=== PATIENT | male | born 1930 | race Caucasian/White ===

== ENCOUNTER 2018-02-09 19:04 | Inpatient (IN) | payer MEDICARE ==
[~2018-02-09] VITALS: Ht 182.9 cm; Wt 82.1 kg
[2018-02-09] MEDS ORDERED: IV NORMAL SALINE 1,000ML 1,000 ML IV SCH (19:30)
[2018-02-09] MEDS ORDERED: FLUD0.1T PO (19:50)
[2018-02-09] MEDS ORDERED: DIPHTH,PERTUSS(ACELL),TET TOX 0.5 ML DISP.SYRIN. VAX IM ONE (20:00)
[2018-02-09 20:07] LABS: BASO % 0 % (0-3); EOS # 0.4 x10^3/uL (0.0-0.7); EOS % 4 % (0-3); HEMATOCRIT 41.4 % (39.0-53.0); LYMPH # 0.8 x10^3/uL (1.0-4.8); LYMPH % 9 % (24-48); MEAN CORPUSCULAR HEMOGLOBIN 33 pg (25-35); MEAN CORPUSCULAR HGB CONC 34 g/dL (31-37); MEAN CORPUSCULAR VOLUME 99 fL (79-100); MONO % 10 % (0-9); NEUT # 7.1 x10^3uL (1.8-7.7); NEUT % 76 % (31-73); PLATELET COUNT 204 x10^3/uL (140-400); RED BLOOD COUNT 4.19 x10^6/uL (4.30-5.70); RED CELL DISTRIBUTION WIDTH 13.8 % (11.5-14.5); WHITE BLOOD COUNT 9.3 x10^3/uL (4.0-11.0)
--- NOTE | 2018-02-09 20:16 | EKG ---
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
[2018-02-09 20:19] LABS: ALBUMIN 4.1 g/dL (3.4-5.0); ALBUMIN/GLOBULIN RATIO 1.2 (1.0-1.7); CALCIUM 8.7 mg/dL (8.5-10.1); CREATININE 1.5 mg/dL (0.7-1.3); GFR 44.2; POTASSIUM 4.4 mmol/L (3.5-5.1); TOTAL BILIRUBIN 0.4 mg/dL (0.2-1.0); TOTAL PROTEIN 7.5 g/dL (6.4-8.2)
--- NOTE | 2018-02-09 20:21 | RAD ---
EXAM: Head CT without contrast; maxillofacial bone CT without contrast; cervical spine CT without contrast. HISTORY: Fall. TECHNIQUE: Computed tomographic images the head, maxillofacial bones and cervical spine were obtained without contrast. *One or more of the following individualized dose reduction techniques were utilized for this examination: 1. Automated exposure control. 2. Adjustment of the mA and/or kV according to patient size. 3. Use of iterative reconstruction technique. COMPARISON: None. FINDINGS: Head and maxillofacial bones: There is a small left frontal scalp and left periorbital soft tissue hematoma. There are foci of gas within the frontal and periorbital soft tissues due to a superimposed laceration. No radiodense foreign body is seen. There is no acute intracranial hemorrhage. There is no mass effect or midline shift. There is no hydrocephalus. There are areas of hypodensity within the cerebral white matter, likely due to chronic small vessel disease. There is no calvarial fracture. No maxillofacial bone fracture is seen. There is evidence of lens surgery. There is paranasal sinus mucosal thickening and there are small air-fluid levels within the sphenoid sinus. There are tiny maxillary sinus mucous retention cysts. The ostiomeatal units are patent. There is rightward nasal septal deviation. The temporomandibular joints are intact. Cervical spine: There is straightening of cervical lordosis. There is minimal anterolisthesis of C2 on C3 and C7 on T1. There is degenerative endplate remodeling with osteophytosis at the majority of the cervical vertebral levels. There is facet arthropathy at multiple levels. This is described in detail below. There is no fracture or suspicious osseous lesion. At C2-C3, there is a disc bulge. There is mild right facet arthropathy. There is no stenosis. At C3-C4, there is a disc bulge. There is endplate osteophytosis. There is uncovertebral arthropathy. There is moderate right and severe left foraminal stenosis. At C4-C5, there is a right paracentral disc protrusion and osteophyte complex superimposed on a disc bulge and endplate osteophytosis. There is uncovertebral arthropathy. There is severe right and moderate left foraminal stenosis. There is mild central canal stenosis. At C5-C6, there is a right paracentral disc protrusion and osteophyte complex superimposed on a disc bulge and endplate osteophytosis. There is uncovertebral arthropathy. There is moderate right and severe left foraminal stenosis. There is mild to moderate central canal stenosis. At C6-C7, there is a disc bulge and endplate osteophytosis. There is uncovertebral arthropathy. There is severe bilateral foraminal stenosis. There is mild central canal stenosis. At C7-T1, there is a disc bulge and endplate osteophytosis. There is severe right and mild left facet arthropathy. There is moderate to severe right foraminal stenosis. IMPRESSION: 1. Left frontal scalp and periorbital soft tissue hematoma. There is no acute intracranial finding or evidence of acute maxillofacial bone trauma. There are foci of gas within the left frontal and periorbital soft tissues due to a laceration. There is no radiodense foreign body. 2. Mild cerebral volume loss. 3. Mild paranasal sinus disease. 4. Multilevel degenerative change within the cervical spine, resulting in significant stenosis before mentioned levels. Electronically signed by: Olinda Valente MD (02/09/2018 8:17 PM) [facility]
--- NOTE | 2018-02-09 20:38 | RAD ---
EXAM: Pelvis, single view; chest, single view. HISTORY: Fall. COMPARISON: None. FINDINGS: CHEST: A frontal view of the chest is obtained. There is suspected bilateral lower lobe atelectasis. There is no consolidation, pleural effusion or pneumothorax. The heart is normal in size. Pelvis: A frontal view of the pelvis is obtained. There is no fracture, dislocation or subluxation. There is degenerative endplate remodeling with spurring involving the lower lumbar spine. There are multiple surgical clips within the pelvis. IMPRESSION: 1. Suspected bilateral lower lobe atelectasis. 2. No acute osseous finding. Electronically signed by: Olinda Valente MD (02/09/2018 8:35 PM) [facility]
[2018-02-09] MEDS ORDERED: LIDOCAINE 2%/EPI 1:100,000 20 ML VIAL. ONE (21:31)
[2018-02-09 21:54] LABS: BACTERIA,URINE 0 /HPF (0-FEW); BILIRUBIN,URINE NEG (NEG); CLARITY,URINE CLEAR; COLOR,URINE STRAW; GLUCOSE,URINE NEG (NEG); NITRITE,URINE NEG (NEG); UROBILINOGEN,URINE 0.2 mg/dL (0.2 mg/dL); WBC,URINE OCC /HPF (0-4)
[2018-02-09 21:55] LABS: HYALINE CASTS, URINE FEW /HPF
[2018-02-09] MEDS ORDERED: LIDOCAINE 2%/EPI 1:100,000 20 ML VIAL. IJ ONE (22:00)
[2018-02-10] MEDS ORDERED: MORPHINE SULFATE 2 MG/ML DISP.SYRIN. IV PRN
[2018-02-10] MEDS ORDERED: ONDANSETRON PF 4 MG/2 ML VIAL. IV PRN
[2018-02-10 02:09] VITALS: BP 141/79
[2018-02-10] MEDS: CLINDAMYCIN HCL 150 MG CAPSULE PO SCH ×5 (03:58→21:16)
--- NOTE | 2018-02-10 04:32 | PHYS DOC ---
Past History Past Medical History: Anemia, Cancer, Dementia, GERD, Glaucoma Past Surgical History: Cancer Surgery Alcohol Use: None Drug Use: None Adult General Chief Complaint Chief Complaint: HEAD INJURY/TRAUMA HPI HPI 88-year-old male with a history of dementia lives at home with his now brought in by POV for evaluation after fall with a head wound. states she came home and found her had fallen and suffered a head wound. It is unclear whether he is amnestic to the events or his inability to provide detail about the fall is baseline for his dementia. Patient is alert and denies neck pain or back pain. Collar placed on arrival/ M.D. evaluation. Tetanus status is unknown. Patient denies being aware of any prodromal symptoms. Review of Systems Review of Systems Constitutional: Denies fever or chills [] Eyes: Denies change in visual acuity, redness, or eye pain [] HENT: Denies nasal congestion or sore throat [] Respiratory: Denies cough or shortness of breath [] Cardiovascular: No additional information not addressed in HPI [] GI: Denies abdominal pain, nausea, vomiting, bloody stools or diarrhea [] : Denies dysuria or hematuria [] Musculoskeletal: Denies back pain or joint pain [] Integument: Denies rash or skin lesions [] Neurologic: Denies headache, focal weakness or sensory changes [] Endocrine: Denies polyuria or polydipsia [] All other systems were reviewed and found to be within normal limits, except as documented in this note. Current Medications Current Medications Current Medications Medications (Trade) Dose Ordered Sig/Markie Start Time Stop Time Status Last Admin Dose Admin Clindamycin HCl (Cleocin) 300 mg QID 02/10/18 00:00 02/15/18 00:00 02/10/18 03:58 300 MG Diphtheria/ Tetanus/Acell Pertussis (Boostrix) 0.5 ml ONCE ONCE 02/09/18 20:00 02/09/18 20:07 DC 02/09/18 20:30 0.5 ML Lidocaine/ Epinephrine (Xylocaine 2%-Epi 1:100,000) 20 ml 1X ONCE 02/09/18 22:00 02/09/18 22:01 DC 02/09/18 21:36 20 ML Morphine Sulfate (Morphine 2mg Syringe) 2 mg PRN Q2HR PRN 02/10/18 00:00 02/10/18 23:59 Ondansetron HCl (Zofran) 4 mg PRN Q4HRS PRN 02/10/18 00:00 02/10/18 23:59 Sodium Chloride 1,000 ml @ 125 mls/hr Q8H 02/09/18 23:56 02/10/18 23:55 Allergies Allergies Allergies Coded Allergies Type Severity Reaction Last Updated Verified Penicillins Allergy Intermediate 02/09/18 Yes Physical Exam Physical Exam Constitutional: Chronically weak appearing elderly male. He is confused consistent with his baseline of dementia per son. 8 cm total length stellate wound left forehead without bony crepitus. No gross contamination of wound. No step off or focal bony tenderness of C-spine. Collar placed on initial evaluation. HENT: Normocephalic, no Do sign, no hemotympanum bilateral external ears normal, oropharynx moist, no oral exudates, nose normal. [] Eyes: PERRLA, EOMI, conjunctiva normal, no discharge. [] Neck: In-line immobilization maintained during exam and collar replaced, no tenderness, no stridor. [] Cardiovascular:Heart rate regular rhythm, no murmur [] Lungs & Thorax: Bilateral breath sounds clear to auscultation [] Abdomen: Bowel sounds normal, soft, no tenderness, no masses, no pulsatile masses. [] Skin: Warm, dry, no erythema, no rash. [] Back: No tenderness, no CVA tenderness. No spinal tenderness[] Extremities: No tenderness, no cyanosis, no clubbing, ROM intact, no edema. [ Nontender stable pelvis] Neurologic: Alert and oriented 2 baseline per son, normal motor function, normal sensory function, no focal deficits noted. [] Psychologic: Depressed mood and flat affect Current Patient Data Vital Signs Vital Signs Date Time Temp Pulse Resp B/P (MAP) Pulse Ox O2 Delivery O2 Flow Rate FiO2 02/10/18 02:09 99.2 83 17 141/79 (99) 97 Room Air Lab Results Laboratory Tests Test 02/09/18 19:30 02/09/18 20:02 02/09/18 21:04 White Blood Count 9.3 x10^3/uL (4.0-11.0) Red Blood Count 4.19 x10^6/uL (4.30-5.70) L Hemoglobin 14.0 g/dL (13.0-17.5) Hematocrit 41.4 % (39.0-53.0) Mean Corpuscular Volume 99 fL (79-100) Mean Corpuscular Hemoglobin 33 pg (25-35) Mean Corpuscular Hemoglobin Concent 34 g/dL (31-37) Red Cell Distribution Width 13.8 % (11.5-14.5) Platelet Count 204 x10^3/uL (140-400) Neutrophils (%) (Auto) 76 % (31-73) H Lymphocytes (%) (Auto) 9 % (24-48) L Monocytes (%) (Auto) 10 % (0-9) H Eosinophils (%) (Auto) 4 % (0-3) H Basophils (%) (Auto) 0 % (0-3) Neutrophils # (Auto) 7.1 x10^3uL (1.8-7.7) Lymphocytes # (Auto) 0.8 x10^3/uL (1.0-4.8) L Monocytes # (Auto) 1.0 x10^3/uL (0.0-1.1) Eosinophils # (Auto) 0.4 x10^3/uL (0.0-0.7) Basophils # (Auto) 0.0 x10^3/uL (0.0-0.2) Sodium Level 145 mmol/L (136-145) Potassium Level 4.4 mmol/L (3.5-5.1) Chloride Level 105 mmol/L (98-107) Carbon Dioxide Level 31 mmol/L (21-32) Anion Gap 9 (6-14) Blood Urea Nitrogen 23 mg/dL (8-26) Creatinine 1.5 mg/dL (0.7-1.3) H Estimated GFR (Cockcroft-Gault) 44.2 BUN/Creatinine Ratio 15 (6-20) Glucose Level 121 mg/dL (70-99) H Calcium Level 8.7 mg/dL (8.5-10.1) Total Bilirubin 0.4 mg/dL (0.2-1.0) Aspartate Amino Transferase (AST) 16 U/L (15-37) Alanine Aminotransferase (ALT) 20 U/L (16-63) Alkaline Phosphatase 85 U/L (46-116) Troponin I Quantitative < 0.017 ng/mL (0-0.055) Total Protein 7.5 g/dL (6.4-8.2) Albumin 4.1 g/dL (3.4-5.0) Albumin/Globulin Ratio 1.2 (1.0-1.7) Glucose (Fingerstick) 113 mg/dL (70-99) H Urine Collection Type U cath Urine Color Straw Urine Clarity Clear Urine pH 5.0 Urine Specific [place] 1.020 Urine Protein Neg (NEG-TRACE) Urine Glucose (UA) Neg mg/dL (NEG) Urine Ketones (Stick) Neg mg/dL (NEG) Urine Blood Small (NEG) Urine Nitrite Neg (NEG) Urine Bilirubin Neg (NEG) Urine Urobilinogen Dipstick 0.2 mg/dL (0.2 mg/dL) Urine Leukocyte Esterase Neg (NEG) Urine RBC 1-2 /HPF (0-2) Urine WBC Occ /HPF (0-4) Urine Squamous Epithelial Cells None /LPF Urine Bacteria 0 /HPF (0-FEW) Urine Hyaline Casts Few /HPF Urine Mucus Slight /LPF EKG EKG Normal sinus rhythm at 76 normal axis no STEMI interpreted by me[] Radiology/Procedures Radiology/Procedures Chest x-ray with chronic changes no acute disease no displaced fracture interpreted by me Pelvis x-ray with chronic changes no acute disease no displaced fracture interpreted by me[] Repair of complex stellate wound left lateral forehead by YVETTE Clements Verbal consent by patient's son who has power of dog walker. 8 cm total wound length with multiple flaps. 1% lidocaine with epi instilled and wound extensively irrigated with high pressure jet irrigation. Devitalized margins debrided. 2 subcutaneous 5-0 Vicryl sutures placed for approximation of subcutaneous soft tissues. Wound hemostatic. Skin repaired with 15 interrupted 6-0 Ethilon sutures with good approximation, cosmesis, and hemostasis. Patient tolerated well without complication Course & Med Decision Making Course & Med Decision Making Pertinent Labs and Imaging studies reviewed. (See chart for details) Patient status post fall with head injury. Nonfocal neurologic exam. CT head, maxillofacial and C-spine unremarkable for acute injury. X-ray chest and pelvis benign. Remainder of workup unremarkable. Tetanus administered. Complex wound repaired see note. Case discussed with patient's primary care physician Dr. Hernandez is aware the history and findings and accept the patient for inpatient admission his service for further workup and treatment as needed. Dragon Disclaimer Dragon Disclaimer This electronic medical record was generated, in whole or in part, using a voice recognition dictation system. Departure Departure: Impression: Primary Impression: Closed head injury Additional Impressions: Complex laceration of face Generalized weakness Dementia Isygizxhbx-iintcyyle-kzrslst (DPT) vaccination administered at current visit Disposition: ADMITTED INPATIENT Admitting Physician: Mady Hernandez Condition: IMPROVED Referrals: MADY HERNANDEZ MD (PCP) Problem Qualifiers DARIELA MORENO MD February 10, 2018 04:32
[2018-02-10 05:28] VITALS: BP 135/72
[2018-02-10 06:42] LABS: BASO % 0 % (0-3); EOS # 0.2 x10^3/uL (0.0-0.7); EOS % 2 % (0-3); HEMATOCRIT 35.2 % (39.0-53.0); HEMOGLOBIN 12.4 g/dL (13.0-17.5); LYMPH # 0.8 x10^3/uL (1.0-4.8); LYMPH % 9 % (24-48); MEAN CORPUSCULAR HEMOGLOBIN 34 pg (25-35); MEAN CORPUSCULAR HGB CONC 35 g/dL (31-37); MEAN CORPUSCULAR VOLUME 98 fL (79-100); MONO # 1.5 x10^3/uL (0.0-1.1); MONO % 15 % (0-9); NEUT # 7.2 x10^3uL (1.8-7.7); NEUT % 74 % (31-73); PLATELET COUNT 169 x10^3/uL (140-400); RED BLOOD COUNT 3.61 x10^6/uL (4.30-5.70); WHITE BLOOD COUNT 9.7 x10^3/uL (4.0-11.0)
[2018-02-10 07:01] LABS: CALCIUM 8.2 mg/dL (8.5-10.1); CREATININE 1.2 mg/dL (0.7-1.3); GFR 57.1; POTASSIUM 4.2 mmol/L (3.5-5.1)
[2018-02-10 11:00] VITALS: BP 135/72
[2018-02-10 15:02] VITALS: BP 133/77
[2018-02-10 19:22] VITALS: BP 129/57
[2018-02-10] MEDS: IV NORMAL SALINE 1,000ML 1,000 ML IV SCH (20:09)
[2018-02-10] MEDS: NYSTATIN TOPICAL POWDER 15GM BOTTLE. TP SCH (21:16)
[2018-02-10] MEDS: BRIMONIDINE 0.2% OPHTH SOLUTION 5ML BOTTLE. OU SCH (21:16)
[2018-02-10] MEDS: LACTOBACILLUS RHAMNOSUS GG 1 CAPSULE. PO SCH (21:16)
[2018-02-10] MEDS: LATANOPROST 0.005% OPHTH SOLUTION 2.5ML BOTTLE. OU SCH (21:16)
[2018-02-10 23:02] VITALS: BP 119/70
[2018-02-11 03:06] VITALS: BP 122/71
[2018-02-11] MEDS: IV NORMAL SALINE 1,000ML 1,000 ML IV SCH ×2 (04:35→22:06)
[2018-02-11 07:00] VITALS: BP 140/83
--- NOTE | 2018-02-11 08:01 | CONS ---
DATE OF CONSULTATION: 02/11/2018 NEUROLOGIC CONSULT REFERRING PHYSICIAN: Dr. Adam Campos. HISTORY OF PRESENT ILLNESS: This is an 88-year-old right-handed male who was admitted to Emergency Room after he presented with a longstanding history of dementia and recent fall and head injuries. According to the patient's , her had a fall at home in head injuries and left frontal hematoma. Apparently, the patient did not recall the fall. Not remember whether he lost his consciousness or not. EMS was evaluated and brought the patient to Emergency Room where he was found alert and having a hematoma in the left frontal and swelling of the left orbital region. Currently, the patient denies headaches, neck or lower back pain, chest pain, shortness of breath or palpitation, dysarthria, dysphagia, weakness or paresthesia. Initial nonenhanced head CT scan and facial bones CT revealed left frontal skull and periorbital soft tissue hematoma without acute intracranial process or maxillofacial bone fracture. PAST MEDICAL HISTORY: Significant for prostate cancer, GERD, incontinence, glaucoma, dementia and anemia. PAST SURGICAL HISTORY: Status post prostatectomy and orthopedic surgery. FAMILY HISTORY: Non-obtainable. SOCIAL HISTORY: The patient is . He lives with his at home. He denies smoking, alcohol drinking, or illicit drug use. The patient has been followed by [place] physicians. CURRENT HOME MEDICATIONS: Brimonidine, fludrocortisone, Xalatan, eye drops. ALLERGIES: PENICILLIN. PHYSICAL EXAMINATION: GENERAL: Well-developed, well-nourished male, not in acute distress. He weighs 189 pounds. VITAL SIGNS: Blood pressure 129/57, respiratory rate is 15, pulse is 77 and regular, temperature 98.3, oxygen saturation 95% on room air. HEENT: Normocephalic. The patient had swelling of the left frontal region and periorbital region secondary to fall with a small hematoma. NECK: Supple, negative for carotid bruit, lymphadenopathy, thyromegaly or JVD. LUNGS: Clear to A and P. CARDIOVASCULAR: Regular rate and rhythm, normal S1, S2. ABDOMEN: Soft. Bowel sounds positive. EXTREMITIES: Negative for cyanosis, clubbing or pitting edema. NEUROLOGIC: Mental Status: The patient is alert and oriented to date and himself. Speech is slow. There is no apparent language dysfunction; however, the patient is very forgetful. He recalls 0/3 immediately and after 1 and 3 minutes. Judgment and abstract thinking are poor. The patient denies hallucination or delusion. Cranial nerves: The pupils are reactive to light and accommodation. The extraocular movements are intact. There is no nystagmus. There is no facial motor or sensory deficit. Hearing appeared to be intact. The palate is elevated symmetrically. Sternocleidomastoid muscles are powerful bilaterally. The patient shrugs his shoulders symmetrically and protrudes his tongue in the midline without fasciculation or atrophy. Motor: No focal muscle bulk was seen. The tone is normal. The strength is 4/5 throughout. Sensory Examination revealed normal pinprick and light touch senses throughout. Deep tendon reflexes were symmetric and hypoactive with absent Achilles responses. Gait not tested. DIAGNOSTIC DATA: Initial nonenhanced head CT scan revealed no evidence of acute intracranial process, but shows a generalized cerebral atrophy without any facial bone fracture. CT of the cervical spine revealed multilevel degenerative changes with disk protrusion and osteophyte complexes resulted in a moderate to severe neural foraminal stenosis, more prominent at C5-C6. A chest x-ray revealed bilateral lobe atelectasis without acute cardiopulmonary process. Pelvic x-ray revealed no acute changes. LABORATORY DATA: CBC revealed white blood cells of 9.7 thousand, hemoglobin 12.4, hematocrit 35.2, platelet count 169,000. Chemistry revealed sodium of 143, potassium 4.2, chloride 108, CO2 of 27, BUN is 17, creatinine 1.2, glucose 107, calcium 8.2. Troponin level less is normal. Urinalysis is negative for urinary tract infections. IMPRESSION: 1. Status post fall resulted in head injuries and a left frontal and periorbital hematomas. 2. Long history of dementia. 3. Multiple medical problems include a GERD, glaucoma and prostate cancer. RECOMMENDATIONS: Continue with current management and home medications. From Neurology standpoint, the patient is stable. He needs a physical therapy evaluation. M Evie NAVARRO MD DR: KWASI/laney JOB#: [id number] / [id number]
[2018-02-11 08:31] LABS: CALCIUM 8.2 mg/dL (8.5-10.1); CREATININE 1.2 mg/dL (0.7-1.3); GFR 57.1; POTASSIUM 4.5 mmol/L (3.5-5.1)
[2018-02-11] MEDS: BRIMONIDINE 0.2% OPHTH SOLUTION 5ML BOTTLE. OU SCH ×2 (09:23→21:11)
[2018-02-11] MEDS: FLUDROCORTISONE 0.1 MG TABLET PO SCH (09:23)
[2018-02-11] MEDS: NYSTATIN TOPICAL POWDER 15GM BOTTLE. TP SCH ×2 (09:23→21:11)
[2018-02-11] MEDS: LACTOBACILLUS RHAMNOSUS GG 1 CAPSULE. PO SCH ×2 (09:23→21:11)
[2018-02-11] MEDS: CLINDAMYCIN HCL 150 MG CAPSULE PO SCH ×4 (09:23→21:11)
[2018-02-11 11:58] VITALS: BP 116/72
[2018-02-11 15:00] VITALS: BP 123/72
[2018-02-11 19:20] VITALS: BP 135/71
[2018-02-11] MEDS: LATANOPROST 0.005% OPHTH SOLUTION 2.5ML BOTTLE. OU SCH (21:11)
[2018-02-11 23:00] VITALS: BP 147/84
--- NOTE | 2018-02-11 23:54 | PN ---
DATE: SUBJECTIVE: The patient complains of headache and pain confined to the left side of the face and frontal and temporal region. He denies other medical or neurological complaints. OBJECTIVE: GENERAL: Well-developed and well-nourished male, not in acute distress. VITAL SIGNS: Blood pressure 140/83, respiratory rate 18, pulse is 90 and regular, temperature 97.6, and oxygen saturation 98% on room air. HEENT: Consistent with left frontal and orbital hematoma. NECK: Supple. Negative for carotid bruit, lymphadenopathy, JVD or thyromegaly. LUNGS: Clear to A and P. CARDIOVASCULAR: Regular rate and rhythm, normal S1, S2. ABDOMEN: Soft. Bowel sounds positive. EXTREMITIES: Negative for cyanosis, clubbing, or pitting edema. NEUROLOGIC: The patient is awake, but disoriented to place and date. The speech is slow. Memory, judgment, abstract thinkings are fair. The patient denies hallucination or delusion. Cranial nerves are intact. No focal motor or sensory deficit. Deep tendon reflexes were symmetric and hypoactive without pathology responses. Gait not tested. IMPRESSION: 1. Status post fall and head injuries - stable. 2. Negative head CT scan for acute intracranial process or hemorrhage. 3. Multiple level degenerative disk disease. 4. Dementia. 5. Glaucoma. 6. History of prostate cancer. RECOMMENDATIONS: 1. Continue with current management. 2. Physical therapy as tolerated. M Evie NAVARRO MD DR: KWASI/laney JOB#: [id number] / [id number]
[2018-02-12] MEDS: IV NORMAL SALINE 1,000ML 1,000 ML IV SCH ×2 (00:30→08:44)
--- NOTE | 2018-02-12 01:42 | PN ---
DATE: 02/11/2018 SUBJECTIVE: An 88-year-old gentleman came in yesterday falling, have a mild concussion. He says that he may have fallen off a ladder. He is a little bit more alert today; however, is still somewhat groggy showing some signs of dementia. PHYSICAL EXAMINATION: VITAL SIGNS: Blood pressure 140/80, respiratory 18, pulse 90, afebrile. HEENT: The patient has a patch over the left forehead where he has contusion, otherwise. CARDIOVASCULAR: Regular sinus rhythm, S1, S2, without murmur, rub, thrill, or extra heart sound. ABDOMEN: Soft, nontender, no rebounding or guarding. Positive bowel sounds. IMPRESSION: Concussion, closed head injury, complex laceration of the face, generalized weakness, mild dementia. PLAN: As above. Continue to monitor the patient accordingly and make further evaluation with PT, OT and Neurology consults. MADY HERNANDEZ MD DR: BERTA/laney JOB#: [id number] / [id number]
[2018-02-12] MEDS ORDERED: HALOPERIDOL LACT 5 MG/ML VIAL. IVP PRN ×2 (01:45→03:30)
[2018-02-12 06:00] VITALS: BP 140/90
[2018-02-12 06:41] LABS: BASO % 0 % (0-3); EOS # 0.4 x10^3/uL (0.0-0.7); EOS % 5 % (0-3); HEMATOCRIT 35.1 % (39.0-53.0); HEMOGLOBIN 12.3 g/dL (13.0-17.5); LYMPH # 0.9 x10^3/uL (1.0-4.8); LYMPH % 12 % (24-48); MEAN CORPUSCULAR HEMOGLOBIN 34 pg (25-35); MEAN CORPUSCULAR HGB CONC 35 g/dL (31-37); MEAN CORPUSCULAR VOLUME 98 fL (79-100); MONO # 1.2 x10^3/uL (0.0-1.1); MONO % 17 % (0-9); NEUT # 4.8 x10^3uL (1.8-7.7); NEUT % 66 % (31-73); PLATELET COUNT 165 x10^3/uL (140-400); RED BLOOD COUNT 3.59 x10^6/uL (4.30-5.70); RED CELL DISTRIBUTION WIDTH 13.9 % (11.5-14.5); WHITE BLOOD COUNT 7.3 x10^3/uL (4.0-11.0)
[2018-02-12] MEDS: FLUDROCORTISONE 0.1 MG TABLET PO SCH (08:45)
[2018-02-12] MEDS: CLINDAMYCIN HCL 150 MG CAPSULE PO SCH (08:45)
[2018-02-12] MEDS: LACTOBACILLUS RHAMNOSUS GG 1 CAPSULE. PO SCH (08:45)
[2018-02-12] MEDS: BRIMONIDINE 0.2% OPHTH SOLUTION 5ML BOTTLE. OU SCH (08:46)
[2018-02-12] MEDS: NYSTATIN TOPICAL POWDER 15GM BOTTLE. TP SCH (08:46)
--- NOTE | 2018-02-12 10:24 | PN ---
DATE: 02/12/2018 SUBJECTIVE: The patient continues to complain of mild headaches. He denies any new medical or neurological complaints. OBJECTIVE: GENERAL: Well-developed, well-nourished male, not in acute distress. VITAL SIGNS: Blood pressure 140/90, respiratory rate 14, pulse is 65 and regular, temperature is 99, oxygen saturation 95% on room air. HEENT: Normocephalic. The patient has ecchymosis in the left frontal region secondary to falls and laceration. NECK: Supple. Negative for carotid bruit, lymphadenopathy, or thyromegaly. LUNGS: Clear to A and P. CARDIOVASCULAR: Regular rate and rhythm, normal S1-S2. There is no S3, S4, or murmur. ABDOMEN: Soft. Bowel sounds positive. EXTREMITIES: Negative for cyanosis, clubbing, or pitting edema. NEUROLOGICAL: Mental Status: The patient is alert and oriented to place and himself. He is disoriented to time. Speech is slow. Memory, judgment, and abstracting thinking are fair. The patient denies hallucination or delusion. Cranial nerves are intact. No focal motor deficit. The strength is 4/5 throughout. Sensory examination revealed normal pinprick and light touch senses throughout. Deep tendon reflexes were symmetric and hypoactive with absent Achilles responses. Gait not tested. IMPRESSION: 1. Status post a fall resulting in left frontal and orbital hematoma that is improved. 2. Dementia. 3. Generalized weakness. 4. Multiple level degenerative cervical disk disease. RECOMMENDATIONS: Continue with current management and physical therapy as tolerated. M Evie NAVARRO MD DR: KWASI/laney JOB#: [id number] / [id number]
[2018-02-12 11:55] VITALS: BP 118/64
[2018-02-12] MEDS ORDERED: LATA2.5D3 OU (12:46)
[2018-02-12] MEDS ORDERED: BRIM5DRO4 OU (12:46)
[2018-02-12] MEDS ORDERED: NYST60PO TP (12:46)
[2018-02-12] MEDS ORDERED: CHOL10003 PO (12:48)
[2018-02-12] MEDS ORDERED: ACET325T9 PO (12:48)
[2018-02-12] MEDS ORDERED: ASPI-630 PO (12:48)
[2018-02-12] MEDS ORDERED: CYAN10005 PO (12:48)
[2018-02-12] MEDS ORDERED: PRAZ1CAP2 PO (12:49)
== END 2018-02-12 17:00 | disposition home health service (06) | DRG 580 ==
LOC: ER 19:04 → ICU 02-10 01:23
PROVIDERS: ADMIT Family Medicine; ATTEND Family Medicine
PROC: 0JQ10ZZ Repair Face Subcutaneous Tissue and Fascia, Open Approach (ICD-10-PCS; principal; 2018-02-10)
DX: S01.81XA Laceration without foreign body of other part of head, initial encounter (principal); S06.0X9A Concussion with loss of consciousness of unspecified duration, initial encounter; G30.9 Alzheimer's disease, unspecified; F02.80 Dementia in other diseases classified elsewhere, unspecified severity, without behavioral disturbance, psychotic disturbance, mood disturbance, and anxiety; H40.9 Unspecified glaucoma; K21.9 Gastro-esophageal reflux disease without esophagitis; M50.30 Other cervical disc degeneration, unspecified cervical region; W19.XXXA Unspecified fall, initial encounter; Y93.89 Activity, other specified; Y99.8 Other external cause status; Z85.46 Personal history of malignant neoplasm of prostate; Z90.79 Acquired absence of other genital organ(s); Z87.891 Personal history of nicotine dependence; Z79.899 Other long term (current) drug therapy; Z88.0 Allergy status to penicillin; Y92.009 Unspecified place in unspecified non-institutional (private) residence as the place of occurrence of the external cause
CPT/HCPCS: 12015; 36415; 70450; 70486; 71045; 72125; 72170; 80048; 80053; 81001; 82947; 84484; 85025; 87641; 90471; 90715; 93005; 96360; J1630; P9612; 97530; 99285-25; J7030

== ENCOUNTER → 2018-02-20 | Outpatient (CLI) | payer MEDICARE ==
[2018-02-12 11:55] VITALS: BP 118/64
[~2018-02-20] MED LIST: ACET325T9 PO; ASPI-630 PO; BRIM5DRO4 OU; CHOL10003 PO; CYAN10005 PO; FLUD0.1T PO; LATA2.5D3 OU; NYST60PO TP; PRAZ1CAP2 PO
--- NOTE | 2018-02-20 16:50 | RAD ---
Clinical Indication: Left lower extremity edema Technique: Study is dated February 20, 2018. Grayscale, color flow and spectral waveform analysis was performed of the left lower extremity with and without compression. Findings: There is normal compressibility of all visualized vein segments. No evidence of DVT is present on grayscale or color images. There is normal phasicity of waveform. There is normal augmentation. Impression: No evidence of deep vein thrombosis. Electronically signed by: Genaro Amaya MD (02/20/2018 4:46 PM) [id number]
== END | disposition home or self-care (01) ==
LOC: US 15:26
PROVIDERS: ATTEND Family Medicine
DX: S01.01XD Laceration without foreign body of scalp, subsequent encounter (principal); M79.89 Other specified soft tissue disorders; R60.0 Localized edema; X58.XXXD Exposure to other specified factors, subsequent encounter
CPT/HCPCS: 93971

== ENCOUNTER 2018-04-05 10:14 | Inpatient (IN) | payer MEDICARE ==
[~2018-04-05] VITALS: Ht 177.8 cm; Wt 85.9 kg
[2018-04-05] MEDS ORDERED: IV NORMAL SALINE 1,000ML 1,000 ML IV ONE (10:45)
[2018-04-05 11:54] LABS: BILIRUBIN,URINE NEG (NEG); CLARITY,URINE CLEAR; COLOR,URINE YELLOW; GLUCOSE,URINE NEG (NEG); NITRITE,URINE NEG (NEG); UROBILINOGEN,URINE 1 mg/dL (0.2 mg/dL)
[2018-04-05 11:55] LABS: BACTERIA,URINE FEW /HPF (0-FEW); GRANULAR CASTS,URINE OCC /HPF; HYALINE CASTS, URINE OCC /HPF; SQUAMOUS EPITHELIAL CELL,UR FEW /LPF
--- NOTE | 2018-04-05 11:56 | RAD ---
CT Head W/O Contrast: History: mental status change Comparison: none Axial images were obtained without contrast. The henderson and white matter appears normal and symmetrical for the patients age. There is no mass effect, extraaxial fluid collections or hydrocephalus. There is no gross bleed. 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 There is no focal loss of henderson-white matter distinction to suggest acute ischemia, i.e. stroke. Impression: No acute findings. End impression CT C-Spine without contrast: Clinical History: mental status change Technique: Axial helical images of the cervical spine were obtained without contrast, axial coronal and sagittal reconstruction was performed. Findings: There is no loss of vertebral body stature. There is no prevertebral soft tissue swelling. The vertebral bodies are well aligned. There is straightening of the normal cervical lordosis which can be positional or could be chronic. The C1-C2 relationship is normal. The visualized osseous structures appear normal. Evaluation of the central canal is limited without contrast. There is multiple posterior disc bulges resulting in flattening of the thecal sac. Posterior disc osteophytic ridges cause impression on the anterior surface the cervical cord at C4-C5 and C5-C6. This makes the patient susceptible to possible cord contusion. There is marked narrowing of multiple neuroforamen. Impression: Marked degenerative changes with multilevel central and neural foraminal stenosis. No CT evidence of an acute fracture or malalignment. Clinical correlation suggested. PQRS Compliance Statement: One or more of the following individualized dose reduction techniques were utilized for this examination: 1. Automated exposure control 2. Adjustment of the mA and/or kV according to patient size 3. Use of iterative reconstruction technique Electronically signed by: Sathya Tom III, MD (04/05/2018 11:52 AM) [id number]
--- NOTE | 2018-04-05 12:11 | RAD ---
EXAM: CHEST 1 VIEW History: Mental status change COMPARISON: 05/11/2013 TECHNIQUE: Single portable radiograph of the chest FINDINGS: The cardiac silhouette is unremarkable. The lungs are clear bilaterally. The costophrenic sulci are clear and well demarcated. The osseous structures and soft tissues are unremarkable. IMPRESSION: No radiographic evidence of an acute cardiopulmonary process. Electronically signed by: Dann Trejo MD (04/05/2018 12:08 PM) [facility]
[2018-04-05 12:16] LABS: BASO % 0 % (0-3); EOS # 0.1 x10^3/uL (0.0-0.7); EOS % 1 % (0-3); HEMATOCRIT 38.9 % (39.0-53.0); HEMOGLOBIN 13.4 g/dL (13.0-17.5); LYMPH # 0.6 x10^3/uL (1.0-4.8); LYMPH % 7 % (24-48); MEAN CORPUSCULAR HEMOGLOBIN 34 pg (25-35); MEAN CORPUSCULAR HGB CONC 35 g/dL (31-37); MEAN CORPUSCULAR VOLUME 98 fL (79-100); MONO # 2.4 x10^3/uL (0.0-1.1); MONO % 27 % (0-9); NEUT # 5.9 x10^3uL (1.8-7.7); NEUT % 66 % (31-73); PLATELET COUNT 146 x10^3/uL (140-400); RED BLOOD COUNT 3.96 x10^6/uL (4.30-5.70); RED CELL DISTRIBUTION WIDTH 13.4 % (11.5-14.5)
[2018-04-05 13:24] LABS: ALBUMIN 3.6 g/dL (3.4-5.0); CALCIUM 8.7 mg/dL (8.5-10.1); CREATININE 1.5 mg/dL (0.7-1.3); DIRECT BILIRUBIN 0.4 mg/dL (0.0-0.2); GFR 44.2; POTASSIUM 4.4 mmol/L (3.5-5.1); TOTAL BILIRUBIN 1.3 mg/dL (0.2-1.0); TOTAL PROTEIN 7.3 g/dL (6.4-8.2)
--- NOTE | 2018-04-05 13:25 | EKG ---
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
[2018-04-05] MEDS ORDERED: ACETAMINOPHEN 325 MG TABLET PO PRN ×2 (14:00→21:15)
[2018-04-05] MEDS ORDERED: ONDANSETRON PF 4 MG/2 ML VIAL. IV PRN (14:00)
--- NOTE | 2018-04-05 14:32 | ED.ADGEN ---
Past History Past Medical History: Anemia, Cancer, Dementia, GERD, Glaucoma Past Surgical History: Cancer Surgery Alcohol Use: None Drug Use: None Adult General HPI HPI Patient is a 88 year old male who presents with generalized weakness. Patient is an 88-year-old male. He lives at home with his elderly . His son does check on them regularly. His son checked on the patient yesterday and found the patient to be feeling weaker compared to baseline. The patient was sitting in his chair in the living room. When the son returned today, the patient was still in the same chair and had not moved all night. The patient's states that she could not get him out of the chair. He did not eat or drink any food or liquid during that time. When asked why he did not get out of the chair, the patient did not produce an answer. He denies chest pain. He denies complaints of focal weakness. He does not have a headache. He states he has been at baseline health with no recent cough or chills or fever Review of Systems Review of Systems Constitutional: Denies fever or chills Eyes: Denies change in visual acuity HENT: Denies nasal congestion or sore throat Respiratory: Denies cough or shortness of breath Cardiovascular: No additional information not addressed in HPI GI: Denies abdominal pain : Denies dysuria or hematuria Musculoskeletal: Denies back pain Integument: Denies rash or skin lesions Neurologic: Denies headache, focal weakness All other systems were reviewed and found to be within normal limits, except as documented in this note. Current Medications Current Medications Current Medications Medications (Trade) Dose Ordered Sig/Markie Start Time Stop Time Status Last Admin Dose Admin Acetaminophen (Tylenol) 650 mg PRN Q4HRS PRN 04/05/18 14:00 04/06/18 13:59 Ondansetron HCl (Zofran) 4 mg PRN Q4HRS PRN 04/05/18 14:00 04/06/18 13:59 Sodium Chloride 1,000 ml @ 500 mls/hr 1X ONCE 04/05/18 10:45 04/05/18 12:44 DC 04/05/18 10:54 500 MLS/HR Allergies Allergies Allergies Coded Allergies Type Severity Reaction Last Updated Verified Penicillins Allergy Intermediate 02/09/18 Yes Physical Exam Physical Exam Constitutional: Well developed, well nourished, no acute distress HENT: Normocephalic, atraumatic, bilateral external ears normal, oropharynx dry Eyes: PERRLA, EOMI, conjunctiva normal, no discharge Neck: Normal range of motion, no tenderness, supple Cardiovascular:Heart rate regular rhythm Lungs & Thorax: Bilateral breath sounds clear to auscultation Abdomen: Bowel sounds normal, soft, no tenderness Skin: Warm, dry Extremities: no edema Neurologic: Alert and oriented. no focal neurologic findings on physical examination Current Patient Data Vital Signs Vital Signs Date Time Temp Pulse Resp B/P (MAP) Pulse Ox O2 Delivery O2 Flow Rate FiO2 04/05/18 13:36 78 18 124/69 (87) 98 Room Air 04/05/18 10:22 97.5 Lab Results Laboratory Tests Test 04/05/18 11:26 04/05/18 11:55 04/05/18 12:47 Urine Collection Type U cath Urine Color Yellow Urine Clarity Clear Urine pH 5.5 Urine Specific [place] 1.020 Urine Protein 30 mg/dl (NEG-TRACE) Urine Glucose (UA) Neg mg/dL (NEG) Urine Ketones (Stick) Neg mg/dL (NEG) Urine Blood Trace (NEG) Urine Nitrite Neg (NEG) Urine Bilirubin Neg (NEG) Urine Urobilinogen Dipstick 1 mg/dL (0.2 mg/dL) Urine Leukocyte Esterase Neg (NEG) Urine RBC 1-2 /HPF (0-2) Urine WBC 1-4 /HPF (0-4) Urine Squamous Epithelial Cells Few /LPF Urine Bacteria Few /HPF (0-FEW) Urine Hyaline Casts Occ /HPF Urine Granular Casts Occ /HPF Urine Mucus Mod /LPF White Blood Count 9.0 x10^3/uL (4.0-11.0) Red Blood Count 3.96 x10^6/uL (4.30-5.70) L Hemoglobin 13.4 g/dL (13.0-17.5) Hematocrit 38.9 % (39.0-53.0) L Mean Corpuscular Volume 98 fL (79-100) Mean Corpuscular Hemoglobin 34 pg (25-35) Mean Corpuscular Hemoglobin Concent 35 g/dL (31-37) Red Cell Distribution Width 13.4 % (11.5-14.5) Platelet Count 146 x10^3/uL (140-400) Neutrophils (%) (Auto) 66 % (31-73) Lymphocytes (%) (Auto) 7 % (24-48) L Monocytes (%) (Auto) 27 % (0-9) H Eosinophils (%) (Auto) 1 % (0-3) Basophils (%) (Auto) 0 % (0-3) Neutrophils # (Auto) 5.9 x10^3uL (1.8-7.7) Lymphocytes # (Auto) 0.6 x10^3/uL (1.0-4.8) L Monocytes # (Auto) 2.4 x10^3/uL (0.0-1.1) H Eosinophils # (Auto) 0.1 x10^3/uL (0.0-0.7) Basophils # (Auto) 0.0 x10^3/uL (0.0-0.2) Sodium Level 135 mmol/L (136-145) L Potassium Level 4.4 mmol/L (3.5-5.1) Chloride Level 101 mmol/L (98-107) Carbon Dioxide Level 32 mmol/L (21-32) Anion Gap 2 (6-14) L Blood Urea Nitrogen 17 mg/dL (8-26) Creatinine 1.5 mg/dL (0.7-1.3) H Estimated GFR (Cockcroft-Gault) 44.2 Glucose Level 100 mg/dL (70-99) H Lactic Acid Level 1.2 mmol/L (0.4-2.0) Calcium Level 8.7 mg/dL (8.5-10.1) Total Bilirubin 1.3 mg/dL (0.2-1.0) H Direct Bilirubin 0.4 mg/dL (0.0-0.2) H Aspartate Amino Transferase (AST) 15 U/L (15-37) Alanine Aminotransferase (ALT) 11 U/L (16-63) L Alkaline Phosphatase 81 U/L (46-116) Creatine Kinase 61 U/L (39-308) Troponin I Quantitative < 0.017 ng/mL (0-0.055) EK-Eyk-B-Type Natriuretic Peptide 509 pg/mL (0-449) H Total Protein 7.3 g/dL (6.4-8.2) Albumin 3.6 g/dL (3.4-5.0) EKG EKG NSR Radiology/Procedures Radiology/Procedures CXR: negative for acute findings. CT Head: Findings: There is no loss of vertebral body stature. There is no prevertebral soft tissue swelling. The vertebral bodies are well aligned. There is straightening of the normal cervical lordosis which can be positional or could be chronic. The C1-C2 relationship is normal. The visualized osseous structures appear normal. Evaluation of the central canal is limited without contrast. There is multiple posterior disc bulges resulting in flattening of the thecal sac. Posterior disc osteophytic ridges cause impression on the anterior surface the cervical cord at C4-C5 and C5-C6. This makes the patient susceptible to possible cord contusion. There is marked narrowing of multiple neuroforamen. Impression: Marked degenerative changes with multilevel central and neural foraminal stenosis. No CT evidence of an acute fracture or malalignment. Clinical correlation suggested. Course & Med Decision Making Course & Med Decision Making Pertinent Labs and Imaging studies reviewed. (See chart for details) Patient is seen and examined in the emergency department. He is alert but overall diminished in his responses. The son is at the bedside reports this is mildly worse from his baseline but not significant. That said, he did spend the entire last 24 hours sitting in a chair in his living room. He was incontinent of urine. He was wearing a brief period patient has no acute complaints. A workup was completed in the emergency department to look for any sign of declining mental status. He had a head CT and a chest x-ray, neither of which was revealing for acute pathology. He had a basic lab panel. His troponin was not elevated. His BNP was appropriate for age. His creatinine was noted to be 1.5. The most recent on record was 1.2 although he had been 1.5 earlier this year on a different visit. His CBC did not reveal acute anemia or leukocytosis. His lactate was not elevated. His creatinine kinase also was not elevated. In the emergency department, the patient had an EKG which was revealing for normal sinus rhythm. He was given 500 L of normal saline as a bolus over 1 hour. Following this, he was ordered to have an additional 500 to run over 2 hours. No additional medications were given. He was observed on the monitor for several hours. His blood pressures remained stable including his oxygen saturation. There were no acute events during the ED course. His ED course was delayed due to some difficulty obtaining blood work. His labs were hemolyzed 2 times consecutively. Ultimately, the decision is made to admit this patient. We set him on the edge of his bed and he did not have the strength to even sit upright. I discussed this patient with his primary physician, Dr. Campos, will will primarily admit. The patient's and son are at the bedside. The plan of care is discussed with all parties and all are in agreement. Final Impression Final Impression Generalized Weakness Dehydration Dragon Disclaimer Dragon Disclaimer This electronic medical record was generated, in whole or in part, using a voice recognition dictation system. ANN SANCHEZ DO Apr 05, 2018 14:32
[2018-04-05 16:08] VITALS: BP 125/72
[2018-04-05 19:00] VITALS: BP 156/74
[2018-04-05] MEDS ORDERED: VANCOMYCIN 2 GM in IV NORMAL SALINE 500ML 500 ML IV ONE (22:00)
[2018-04-05] MEDS ORDERED: POTASSIUM CHLORIDE 30 MEQ in IV 1/2 NORMAL SALINE 1,000 ML IV SCH (22:00)
[2018-04-05] MEDS ORDERED: VANCOMYCIN 1 GM VIAL. ONE (22:05)
[2018-04-05] MEDS ORDERED: IV NORMAL SALINE 500ML 500 ML ONE (22:05)
[2018-04-05] MEDS ORDERED: IV 1/2 NORMAL SALINE 1,000 ML IV PRN (22:15)
[2018-04-05] MEDS: CIPROFLOXACIN HCL 250 MG TABLET PO SCH (22:37)
[2018-04-05] MEDS: HEPARIN PF for SUB-Q USE 5,000 UNIT/0.5 ML VIAL. SQ SCH (22:38)
[2018-04-05 23:00] VITALS: BP 118/64
[2018-04-06] MEDS: VANCOMYCIN PER PHARMACY MC PRN (00:04)
[2018-04-06 06:00] VITALS: BP 123/80
[2018-04-06] MEDS: HEPARIN PF for SUB-Q USE 5,000 UNIT/0.5 ML VIAL. SQ SCH ×3 (06:17→22:10)
[2018-04-06 06:22] LABS: BASO % 0 % (0-3); EOS # 0.1 x10^3/uL (0.0-0.7); EOS % 1 % (0-3); HEMATOCRIT 39.8 % (39.0-53.0); HEMOGLOBIN 13.6 g/dL (13.0-17.5); LYMPH # 0.5 x10^3/uL (1.0-4.8); LYMPH % 8 % (24-48); MEAN CORPUSCULAR HEMOGLOBIN 34 pg (25-35); MEAN CORPUSCULAR HGB CONC 34 g/dL (31-37); MEAN CORPUSCULAR VOLUME 98 fL (79-100); MONO # 1.6 x10^3/uL (0.0-1.1); MONO % 26 % (0-9); NEUT # 4.2 x10^3uL (1.8-7.7); NEUT % 65 % (31-73); PLATELET COUNT 142 x10^3/uL (140-400); RED BLOOD COUNT 4.07 x10^6/uL (4.30-5.70); RED CELL DISTRIBUTION WIDTH 13.7 % (11.5-14.5); WHITE BLOOD COUNT 6.4 x10^3/uL (4.0-11.0)
[2018-04-06 06:29] LABS: CALCIUM 8.6 mg/dL (8.5-10.1); CREATININE 1.5 mg/dL (0.7-1.3); GFR 44.2; POTASSIUM 4.3 mmol/L (3.5-5.1)
[2018-04-06] MEDS: BRIMONIDINE 0.2% OPHTH SOLUTION 5ML BOTTLE. OU SCH ×2 (09:00→22:02)
[2018-04-06] MEDS: ASPIRIN 81 MG TAB.CHEW PO SCH (09:02)
[2018-04-06] MEDS: CIPROFLOXACIN HCL 250 MG TABLET PO SCH (09:02)
[2018-04-06] MEDS: LACTOBACILLUS RHAMNOSUS GG 1 CAPSULE. PO SCH ×2 (09:02→21:00)
[2018-04-06] MEDS: FLUDROCORTISONE 0.1 MG TABLET PO SCH ×2 (09:02→14:00)
[2018-04-06] MEDS: CYANOCOBALAMIN (VITAMIN B-12) 1,000 MCG TABLET. PO SCH (09:03)
[2018-04-06] MEDS: CHOLECALCIFEROL (VITAMIN D3) 1,000 UNIT TABLET PO SCH (09:03)
[2018-04-06] MEDS: NYSTATIN TOPICAL POWDER 15GM BOTTLE. TP SCH ×2 (09:03→22:02)
[2018-04-06 11:03] VITALS: BP 121/75
--- NOTE | 2018-04-06 13:18 | RAD ---
Ventilation/perfusion lung scan, 04/06/2018: HISTORY: Elevated d-dimer The ventilation study was performed utilizing 12.0 mCi of xenon 1 3. Activity in the lungs is mildly heterogeneous. There is mild patchy retention of activity in both lungs on the washout phase. The findings suggest some degree of COPD. Perfusion imaging was performed utilizing 5.5 mCi of technetium 99m MAA. A similar pattern of activity is present in both lungs. No segmental or significant unmatched perfusion defects are seen. IMPRESSION: The probability of pulmonary emboli is considered to be low. Electronically signed by: Asael Richards MD (04/06/2018 1:14 PM) [facility]
--- NOTE | 2018-04-06 13:32 | RAD ---
CT of the chest without contrast, 04/06/2018: HISTORY: Systemic inflammatory response syndrome, confusion There is moderate calcific plaquing of the thoracic aorta without evidence of aneurysm. Moderate scattered coronary artery calcifications are present. The heart is not enlarged. No mediastinal adenopathy is seen. There is a calcified granuloma or scar in the left upper lobe. Evaluation of the pulmonary parenchyma is partially compromised by patient respiratory motion artifact. No pulmonary mass or dense consolidation is seen. There is no evidence of pleural fluid. Multiple low density lesions are present in the liver. The largest of these lies in the left lobe and measures 8.4 cm. It demonstrates a low internal CT number compatible with a simple cyst. The other lesions are also probably cysts, although the smaller lesions cannot be definitively characterized. Multiple dense gallstones are present in the gallbladder. No pericholecystic edema is evident. There are moderate scattered degenerative changes in the spine. IMPRESSION: 1. Calcific plaquing of the aorta and coronary arteries. 2. No acute infiltrates. 3. Cholelithiasis. 4. Multiple hepatic cysts. PQRS Compliance Statement: One or more of the following individualized dose reduction techniques were utilized for this examination: 1. Automated exposure control 2. Adjustment of the mA and/or kV according to patient size 3. Use of iterative reconstruction technique Electronically signed by: Asael Richards MD (04/06/2018 1:28 PM) [facility]
[2018-04-06 14:56] VITALS: BP 137/78
--- NOTE | 2018-04-06 19:29 | HP ---
ADMIT DATE: 04/05/2018 HISTORY OF PRESENT ILLNESS: An 88-year-old gentleman came in through the Emergency Room, brought in by his family for generalized weakness, basically unresponsive. The patient apparently was found sitting in the living room, lying on his easy chair, not moved for 24 hours or so. As noted, he was brought in by the family. He was basically unresponsive at that time. He has been unable to eat or drink here for the last 24 hours or so. He is not really able to give much of a history of his condition at this time. PAST MEDICAL HISTORY: Includes: Glaucoma, posthepatic neuralgia. He has fallen on his head apparently he was transferred down to in 2010. The patient's past history includes a history of prostate cancer removed in 1992, has problems with incontinence, has chronic back problems, has Alzheimer disease as well as severe dementia VACCINATIONS: His influenza, pneumococcal vaccinations are up-to-date. ALLERGIES: PENICILLIN. MEDICATIONS: Includes: Eye drops and fludrocortisone 0.1 mg daily, aspirin 81, Tylenol, nystatin powder, B12, and vitamin D3. FAMILY HISTORY: Unremarkable. SOCIAL HISTORY: The patient has no recent history of smoking or drinking. The patient lives at home, takes care of him. REVIEW OF SYSTEMS: Unable to give any type of history as the patient is basically comatose. PHYSICAL EXAMINATION: GENERAL: Pleasant white male. VITAL SIGNS: Blood pressure basically unconscious 120/70, respiratory rate 20, pulse 99, temperature 100.5. HEENT: The patient's head was atraumatic, normocephalic. Eyes: PERRLA without jaundice. Mouth and throat: Normal. NECK: Supple. LUNGS: Diminished, but clear. CARDIOVASCULAR: Regular sinus rhythm, S1, S2, without murmur, rub, thrill, or extra heart sounds. ABDOMEN: Soft, nontender, no rebound or guarding. Positive bowel sounds, no hepatosplenomegaly noted. EXTREMITIES: No clubbing or cyanosis. Trace edema noted. NEUROLOGIC: Basically at this time, he is pretty much comatose. The patient not able to answer any questions. Reflexes diminished. Continue to monitor the patient accordingly, place him on sepsis protocol. IMPRESSION: Sepsis, change in mental status, chronic kidney disease 3. The patient's CT chest was unremarkable. Head CT was unremarkable. CTA was negative for blood clots. He will continued to be monitored carefully, make further evaluation on him as indicated per those results. We will get Neurology consult, place him on IV antibiotic therapy and make further evaluation on him as indicated. MADY HERNANDEZ MD DR: BERTA/laney JOB#: [id number] / [id number]
[2018-04-06 19:59] VITALS: BP 130/72
[2018-04-06] MEDS: LATANOPROST 0.005% OPHTH SOLUTION 2.5ML BOTTLE. OU SCH (22:02)
[2018-04-06 22:49] VITALS: BP 129/74
[2018-04-06] MEDS: VANCOMYCIN 1.25 GM in IV NORMAL SALINE 250ML 250 ML IV SCH (23:37)
[2018-04-07] MEDS: HEPARIN PF for SUB-Q USE 5,000 UNIT/0.5 ML VIAL. SQ SCH ×3 (05:54→21:48)
[2018-04-07 06:22] VITALS: BP 123/77
[2018-04-07 08:22] LABS: BASO % 0 % (0-3); EOS # 0.1 x10^3/uL (0.0-0.7); EOS % 1 % (0-3); HEMATOCRIT 40.9 % (39.0-53.0); LYMPH # 0.7 x10^3/uL (1.0-4.8); LYMPH % 11 % (24-48); MEAN CORPUSCULAR HEMOGLOBIN 34 pg (25-35); MEAN CORPUSCULAR HGB CONC 34 g/dL (31-37); MEAN CORPUSCULAR VOLUME 99 fL (79-100); MONO # 1.9 x10^3/uL (0.0-1.1); MONO % 30 % (0-9); NEUT # 3.6 x10^3uL (1.8-7.7); NEUT % 57 % (31-73); PLATELET COUNT 165 x10^3/uL (140-400); RED BLOOD COUNT 4.16 x10^6/uL (4.30-5.70); RED CELL DISTRIBUTION WIDTH 13.6 % (11.5-14.5); WHITE BLOOD COUNT 6.2 x10^3/uL (4.0-11.0)
[2018-04-07 08:34] LABS: CREATININE 1.4 mg/dL (0.7-1.3); GFR 47.8; POTASSIUM 3.9 mmol/L (3.5-5.1)
[2018-04-07 08:55] LABS: % BANDS 4 % (0-9); % LYMPHS 10 % (24-48); % MONOS 23 % (0-10); PLT ESTIMATE ADEQUATE (ADEQUATE); TOXIC GRANULATION SLIGHT
[2018-04-07] MEDS: CHOLECALCIFEROL (VITAMIN D3) 1,000 UNIT TABLET PO SCH (08:56)
[2018-04-07] MEDS: BRIMONIDINE 0.2% OPHTH SOLUTION 5ML BOTTLE. OU SCH ×2 (08:56→21:43)
[2018-04-07] MEDS: ASPIRIN 81 MG TAB.CHEW PO SCH (08:56)
[2018-04-07] MEDS: FLUDROCORTISONE 0.1 MG TABLET PO SCH (08:57)
[2018-04-07] MEDS: LACTOBACILLUS RHAMNOSUS GG 1 CAPSULE. PO SCH ×2 (08:57→21:00)
[2018-04-07] MEDS: NYSTATIN TOPICAL POWDER 15GM BOTTLE. TP SCH ×2 (08:57→21:43)
[2018-04-07] MEDS: CYANOCOBALAMIN (VITAMIN B-12) 1,000 MCG TABLET. PO SCH (08:57)
[2018-04-07 10:55] VITALS: BP 119/67
[2018-04-07 15:21] VITALS: BP 103/69
--- NOTE | 2018-04-07 18:33 | PDOC ---
Exam Note: Rosalio Note: Please also refer to the separate dictated note~for this date of service dictated separately.~Patient seen individually. Discussed the patient with Nursing staff reviewed the chart.~Reviewed interim history and current functioning. Reviewed vital signs,~Labs/ Radiology~and current medications noted below. Continue current treatment with the changes noted in the dictated addendum note Assessment: Vital Signs: Vital Signs Date Time Temp Pulse Resp B/P (MAP) Pulse Ox O2 Delivery O2 Flow Rate FiO2 04/07/18 15:21 98.2 83 20 103/69 (80) 95 Room Air I&O Intake and Output 04/07/18 07:00 Intake Total 2644.68 ml Balance 2644.68 ml Intake Oral 780 ml IV Total 1864.68 ml # Voids 7 Labs: Laboratory Tests Test 04/07/18 08:05 White Blood Count 6.2 x10^3/uL (4.0-11.0) Red Blood Count 4.16 x10^6/uL (4.30-5.70) L Hemoglobin 14.0 g/dL (13.0-17.5) Hematocrit 40.9 % (39.0-53.0) Mean Corpuscular Volume 99 fL (79-100) Mean Corpuscular Hemoglobin 34 pg (25-35) Mean Corpuscular Hemoglobin Concent 34 g/dL (31-37) Red Cell Distribution Width 13.6 % (11.5-14.5) Platelet Count 165 x10^3/uL (140-400) Neutrophils (%) (Auto) 57 % (31-73) Lymphocytes (%) (Auto) 11 % (24-48) L Monocytes (%) (Auto) 30 % (0-9) H Eosinophils (%) (Auto) 1 % (0-3) Basophils (%) (Auto) 0 % (0-3) Neutrophils # (Auto) 3.6 x10^3uL (1.8-7.7) Lymphocytes # (Auto) 0.7 x10^3/uL (1.0-4.8) L Monocytes # (Auto) 1.9 x10^3/uL (0.0-1.1) H Eosinophils # (Auto) 0.1 x10^3/uL (0.0-0.7) Basophils # (Auto) 0.0 x10^3/uL (0.0-0.2) Segmented Neutrophils % 63 % (35-66) Band Neutrophils % 4 % (0-9) Lymphocytes % 10 % (24-48) L Monocytes % 23 % (0-10) H Toxic Granulation Slight Platelet Estimate Adequate (ADEQUATE) Large Platelets Occ Giant Platelets Occ Sodium Level 138 mmol/L (136-145) Potassium Level 3.9 mmol/L (3.5-5.1) Chloride Level 100 mmol/L (98-107) Carbon Dioxide Level 32 mmol/L (21-32) Anion Gap 6 (6-14) Blood Urea Nitrogen 16 mg/dL (8-26) Creatinine 1.4 mg/dL (0.7-1.3) H Estimated GFR (Cockcroft-Gault) 47.8 Glucose Level 114 mg/dL (70-99) H Calcium Level 9.0 mg/dL (8.5-10.1) Current Medications: Meds: Current Medications Sodium Chloride 1,000 ml @ 500 mls/hr 1X ONCE IV Last administered on at 10:54; Start 04/05/18 at 10:45; Stop 04/05/18 at 12:44; Status DC Ondansetron HCl (Zofran) 4 mg PRN Q4HRS PRN IV NAUSEA/VOMITING; Start 04/05/18 at 14:00; Stop 04/06/18 at 13:59; Status DC Acetaminophen (Tylenol) 650 mg PRN Q4HRS PRN PO FEVER Last administered on at 19:24; Start 04/05/18 at 14:00; Stop 04/06/18 at 13:59; Status DC Potassium Chloride 30 meq/ Sodium Chloride 1,015 ml @ 75 mls/hr [id number] IV ; Start 04/05/18 at 22:00; Stop 04/05/18 at 22:17; Status DC Heparin Sodium (Porcine) (Heparin Sq) 5,000 unit Q8HRS SQ Last administered on 04/07/18at 15:30; Start 04/05/18 at 22:00 Acetaminophen (Tylenol) 500 mg PRN TID PRN PO PAIN; Start 04/05/18 at 21:15 Brimonidine Tartrate (Alphagan) 1 drop BID OU Last administered on 04/07/18at 08 :56; Start 04/06/18 at 09:00 Vitamin D (Vitamin D3) 1,000 unit DAILY PO Last administered on 04/07/18 08:56 ; Start 04/06/18 at 09:00 Cyanocobalamin (Vitamin B-12) 1,000 mcg DAILY PO Last administered on 08:57; Start 04/06/18 at 09:00 Fludrocortisone Acetate (Florinef) 0.1 mg TID PO Last administered on 04/06/18 09:02; Start 04/06/18 at 09:00; Stop 04/06/18 at 16:08; Status DC Nystatin (Nystop) 1 everardo BID TP Last administered on 04/06/18 22:02; Start at 09:00 Aspirin (Children'S Aspirin) 81 mg [id number] PO Last administered on 08:56; Start 04/06/18 at 08:00 Latanoprost (Xalatan) 1 drop QHS OU Last administered on 04/06/18 22:02; Start 04/06/18 at 21:00 Vancomycin HCl (Vanco Per Pharmacy) 1 each PRN DAILY PRN MC SEE COMMENTS Last administered on 04/06/18 00:04; Start 04/05/18 at 21:15 Ciprofloxacin (Cipro) 250 mg BID PO Last administered on 04/06/18 09:02; Start 04/05/18 at 22:00; Stop 04/06/18 at 18:27; Status DC Vancomycin HCl 2 gm/Sodium Chloride 500 ml @ 250 mls/hr 1X ONCE IV Last administered on 04/05/18 22:37; Start 04/05/18 at 22:00; Stop 04/05/18 at 23:59; Status DC Lactobacillus Rhamnosus (Culturelle) 1 cap BID PO Last administered on 08:57; Start 04/06/18 at 09:00 Sodium Chloride 1,000 ml @ 75 mls/hr [id number] PRN IV SEE I/O RECORD Last administered on 04/05/18 22:34; Start 04/05/18 at 22:15 Vancomycin HCl 1.25 gm/Sodium Chloride 250 ml @ 167 mls/hr Q24H IV Last administered on 7/9/18at 23:37; Start 04/06/18 at 22:00 Vancomycin HCl (Vancomycin Trough Level) 1 each 1X ONCE MC ; Start 04/07/18 at 21:30; Stop 04/07/18 at 21:31 Fludrocortisone Acetate (Florinef) 0.1 mg DAILY PO Last administered on at 08:57; Start 04/07/18 at 09:00 Levofloxacin/ Dextrose 150 ml @ 150 mls/hr Q24H IV Last administered on at 22:02; Start 04/06/18 at 20:00 Active Scripts Active Latanoprost 2.5 Ml Drops 1 Drop OU QHS Brimonidine Tartrate 5 Ml Drops 1 Drop OU BID Nystop (Nystatin) 60 Gm Powder 1 Everardo TP BID Reported Vitamin D3 (Cholecalciferol (Vitamin D3)) 1,000 Unit Tablet 1 Tab PO DAILY Tylenol (Acetaminophen) 325 Mg Tablet 1-2 Tab PO PRN TID PRN Vitamin B-12 (Cyanocobalamin (Vitamin B-12)) 1,000 Mcg Tablet 1 Tab PO DAILY Aspirin 81 Mg Tab.chew 81 Mg PO DAILY Fludrocortisone Acetate 0.1 Mg Tablet 0.1 Mg PO DAILY I have reviewed the current psychotropics carefully including drug interactions. Risk benefit ratio favors no change other than as noted in my dictated progress note. 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
[2018-04-07 19:20] VITALS: BP 129/74
[2018-04-07 21:42] LABS: VANC TR 7.2 mcg/mL (10.0-20.0)
[2018-04-07] MEDS: LATANOPROST 0.005% OPHTH SOLUTION 2.5ML BOTTLE. OU SCH (21:43)
[2018-04-07 22:57] VITALS: BP 108/69
[2018-04-07] MEDS: VANCOMYCIN 1.25 GM in IV NORMAL SALINE 250ML 250 ML IV SCH (23:29)
--- NOTE | 2018-04-08 00:49 | PN ---
DATE: 04/07/2018 SUBJECTIVE: An 88-year-old male with possible sepsis and general lethargy. The patient had positive blood cultures. The patient has been on vancomycin and Levaquin. He did have a temperature up to 100.5, pulse of 99. The patient still markedly confused, still running low-grade temperature, source of which is still somewhat not been able to identify. CT scan of the chest was unremarkable. OBJECTIVE: GENERAL: The patient himself was very confused and disoriented. LUNGS: Diminished, but clear. CARDIOVASCULAR: Regular sinus rhythm. ABDOMEN: Soft, nontender. NEUROLOGIC: The patient alert, but confused, disoriented, only able for a couple words together before losing context of what he is saying. IMPRESSION: Sepsis, acute encephalopathy, dementia, Alzheimer type, chronic kidney disease 3. PLAN: The patient continue on intravenous antibiotic therapy, vancomycin and Levaquin, and then have Dr. Fofana to review the patient for possible placement either on skilled unit or possibly the SPU. MADY HERNANDEZ MD DR: BERTA/laney JOB#: [id number] / [id number]
[2018-04-08] MEDS: HEPARIN PF for SUB-Q USE 5,000 UNIT/0.5 ML VIAL. SQ SCH ×2 (06:04→14:00)
[2018-04-08 07:08] VITALS: BP 108/74
[2018-04-08] MEDS: CYANOCOBALAMIN (VITAMIN B-12) 1,000 MCG TABLET. PO SCH (08:24)
[2018-04-08] MEDS: CHOLECALCIFEROL (VITAMIN D3) 1,000 UNIT TABLET PO SCH (08:24)
[2018-04-08] MEDS: FLUDROCORTISONE 0.1 MG TABLET PO SCH (08:24)
[2018-04-08] MEDS: ASPIRIN 81 MG TAB.CHEW PO SCH (08:24)
[2018-04-08] MEDS: LACTOBACILLUS RHAMNOSUS GG 1 CAPSULE. PO SCH (08:24)
[2018-04-08] MEDS: BRIMONIDINE 0.2% OPHTH SOLUTION 5ML BOTTLE. OU SCH (08:37)
[2018-04-08] MEDS: VANCOMYCIN PER PHARMACY MC PRN (08:55)
[2018-04-08] MEDS ORDERED: VANCOMYCIN 1.25 GM in IV NORMAL SALINE 250ML 250 ML IV SCH (10:00)
[2018-04-08] MEDS: NYSTATIN TOPICAL POWDER 15GM BOTTLE. TP SCH (10:17)
[2018-04-08] MEDS ORDERED: VANC1PLA17 IV (10:23)
[2018-04-08] MEDS ORDERED: FLUD0.1T PO (10:23)
--- NOTE | 2018-04-08 10:27 | PN ---
DATE: 04/08/2018 SUBJECTIVE: The patient denies any new medical or neurological complaints. He continues to have difficulty communicating. The patient has been treated for possible sepsis as blood culture was positive for infections; therefore, he was started on vancomycin and Levaquin. Currently, he denies headaches, visual disturbances, nausea, vomiting, chest pain, shortness of breath or palpitations. OBJECTIVE: GENERAL: Well-developed, well-nourished male, not in acute distress. VITAL SIGNS: Blood pressure 108/74, respiratory rate 16, pulse is 82, temperature 98.1, oxygen saturation 95% on room air. HEENT: Normocephalic, atraumatic, otherwise unremarkable. NECK: Supple. Negative for carotid bruit, lymphadenopathy or thyromegaly. LUNGS: With diminished breath sounds. CARDIOVASCULAR: Regular rate and rhythm. Normal S1, S2. ABDOMEN: Soft. Bowel sounds positive. EXTREMITIES: Negative for cyanosis or pitting edema, but positive for venous stasis. NEUROLOGICAL EXAM: Mental Status: The patient is alert, but disoriented to time and place. Speech is slow. Memory, judgment, and abstract thinking are fair. The patient denies hallucination or delusion. Cranial nerves are grossly intact. Motor Examination: No focal muscle bulk was seen. The tone is normal. The strength is 4/5 throughout. Sensory examination revealed normal pinprick and light touch senses throughout. Deep tendon reflexes were symmetric and hypoactive with absent Achilles responses. Gait: The stance is unsteady. DIAGNOSTIC DATA: A chest CT scan revealed no evidence of pulmonary embolism, otherwise unremarkable. IMPRESSION: 1. Acute encephalopathy, probably due to underlying sepsis. 2. Multiple medical problems include glaucoma, chronic low back pain, dementia, probably of Alzheimer type. RECOMMENDATIONS: 1. We will continue with current management for possible underlying sepsis or urinary tract infections. 2. Physical therapy as tolerated. 3. Continue with psychiatric care. M Evie NAVARRO MD DR: KWASI/laney JOB#: [id number] / [id number]
[2018-04-08 12:35] LABS: % SEGS 63 % (35-66)
--- NOTE | 2018-04-09 00:06 | CONS ---
DATE OF CONSULTATION: 04/07/2018 This is a late entry date of service 04/07/2018 covers elements not covered in my initial note of 04/07/2018. SUMMARY OF PROGRESS: I met with the patient evening of 04/07/2018 and met at length with his as well. Discussed with nursing staff, reviewed the chart. IDENTIFYING DATA: The patient is an 88-year-old male seen in bed 109, [facility], for a psychiatric consult requested by Dr. Campos on account of the patient's confusion/dementia. The patient has been wandering, hard to redirect, had been living at home with his , unable to do this at this stage of his cognitive functioning and consult requested to seek recommendations for further psychiatric care and placement options. CHIEF COMPLAINT: "I would like him to come home, but I want to do what is best for him. If he falls at home, I know I cannot lift him. I could only take him home if he can walk." HISTORY OF PRESENT ILLNESS: The patient has a history of dementia, Alzheimer's vascular type. Despite this, he was functioning at home living with his and his son and grandchildren would help care for him since they live in town. Nevertheless, he became dehydrated with increased confusion and was brought to the hospital. Since being admitted, and despite resolution of his underlying sepsis, treated on vancomycin and Levaquin and management of his dehydration, the confusion has persisted. He has been unable to ambulate, remains quite apathetic, withdrawn, grabbing at things in the air consequent to the delirium based on his UTI/sepsis. No active suicidal or homicidal ideation. No clear symptoms of bipolar disorder. PAST PSYCHIATRIC HISTORY: Positive for progressive memory deficits and CT of the head, old lacunar infarct, left basal ganglia emanating to the barillas radiata. No focal loss of henderson white matter distinction to suggest this acute ischemia or stroke. MEDICAL HISTORY: Positive for the UTI and sepsis, history of glaucoma, impaired ambulation, chronic low back pain, post-herpetic neuralgia, history of head injury in the past, transferred to in 2010. History of prostate cancer removal in 1992 with incontinence, chronic back problems. ALLERGIES: PENICILLIN. CURRENT PSYCHOTROPICS: He is on B12 supplements. FAMILY HISTORY: Noncontributory. SOCIAL HISTORY: No alcohol or drug abuse history. The patient reportedly used to work for [employer] and he is a , was in the [place]. No alcohol or drug abuse history. MENTAL STATUS EXAMINATION: The patient was seen individually evening of 04/07/2018. He is oriented to himself in a Broda chair, at times grabbing at things in the air in front of him, oriented to himself, not very interactive. Insight, judgment, recent and remote memory, attention, concentration, fund of knowledge poor, consistent with his diagnosis. Much of the history was obtained from the and the patient's chart and the nursing staff. 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 Rest as above. PLAN: From a psychiatric standpoint, it appears that the majority of the patient's memory deficits and dementia is consequent to vascular changes and adding cholinesterase inhibitors might be of little benefit. If the symptoms of delirium presenting with grabbing at things in the air and restlessness persist, perhaps low dose Seroquel could be added, but for now, I would like to avoid atypical antipsychotics given the risk/benefit ratio. I have been informed the patient will be transferred for fdc care to [facility] in [place], [place] on 04/08/2018 and I would be happy to follow him there if requested. Dr. Campos, thank you for the opportunity to participate in your patient's care. We will follow with you. LOGAN PFEIFFER MD DR: ЕЛЕНА/laney JOB#: [id number] / [id number]
--- NOTE | 2018-04-09 03:54 | DS ---
DATE OF DISCHARGE: 04/08/2018 HOSPITAL COURSE: An 88-year-old gentleman came in with increased problems with marked confusion and generalized weakness and at first, he was basically unresponsive. He is felt to be having a problem with acute encephalopathy with sepsis, positive blood cultures were obtained and Staph aureus in his blood. He did have an increase in monocytes of 23% and he had elevated temperatures up to 100.5, pulse is varied and is as high as approximately 100. He had good oxygen saturation. He did have positive blood cultures and he was placed on a PICC line and continued on IV vancomycin for this. He was transferred to a nursing facility. He had a positive D-dimer, but the V/Q scan was unremarkable and otherwise he made good progress as he progressed, but he was still markedly confused, disoriented. He has been seen by Dr. Fofana. IMPRESSION: Sepsis, acute encephalopathy, bacteremia, dementia, Alzheimer type; anxiety disorder, impulse control disorder, chronic kidney disease stage 3. We will continue him on vancomycin for at least another week and make further evaluation on him as indicated. MADY HERNANDEZ MD DR: BERTA/laney JOB#: [id number] / [id number]
== END 2018-04-08 14:30 | DRG 871 ==
LOC: ER 10:14 → 1 SOUTH 15:43
PROVIDERS: ADMIT Family Medicine; ATTEND Family Medicine
DX: A41.01 Sepsis due to Methicillin susceptible Staphylococcus aureus (principal); G93.40 Encephalopathy, unspecified; E86.0 Dehydration; F01.50 Vascular dementia, unspecified severity, without behavioral disturbance, psychotic disturbance, mood disturbance, and anxiety; F02.80 Dementia in other diseases classified elsewhere, unspecified severity, without behavioral disturbance, psychotic disturbance, mood disturbance, and anxiety; F32.9 Major depressive disorder, single episode, unspecified; F41.9 Anxiety disorder, unspecified; F63.9 Impulse disorder, unspecified; G30.9 Alzheimer's disease, unspecified; G89.29 Other chronic pain; H40.9 Unspecified glaucoma; K21.9 Gastro-esophageal reflux disease without esophagitis; M54.5 Low back pain; M48.00 Spinal stenosis, site unspecified; N18.3 Chronic kidney disease, stage 3 (moderate); Z85.46 Personal history of malignant neoplasm of prostate; Z86.73 Personal history of transient ischemic attack (TIA), and cerebral infarction without residual deficits; Z87.440 Personal history of urinary (tract) infections
CPT/HCPCS: 36415; 36569; 70450; 71045; 71250; 78582; 80048; 80076; 80202; 81001; 82550; 82607; 83605; 83880; 84443; 84484; 85007; 85025; 85379; 87040; 87205; 93005; 96360; 96361; 96374; A9540; A9558; J1956; J3370; J7030; J7040; J7050; 97530; 97535; 99285-25

== ENCOUNTER 2018-04-27 20:42 | Inpatient (IN) | payer MEDICARE ==
[~2018-04-27] VITALS: Ht 182.9 cm; Wt 76.2 kg
[~2018-04-27 20:42] MED LIST changes: +VANC1PLA17 IV
--- NOTE | 2018-04-27 21:00 | ED.ADGEN ---
Past History Past Medical History: Anemia, Cancer, Dementia, GERD, Glaucoma, Hypertension Past Surgical History: Cancer Surgery Alcohol Use: None Drug Use: None Adult General Chief Complaint Chief Complaint ".. Why in the hell am I here.. It is the middle of the night... " HPI HPI Patient is a 88 year old male who presents with above hx and complaints of mental status change. Pt. sent to ED for eval. medical status prior to admission to [facility]. Pt. resident at [facility]. since 04/08/18. Patient reportedly has had increased agitation and behavioral disturbances which appear to be psychotic. Pt. does have a history of dementia,cHTN, GERD, cancer/cancer surgery, deconditioning, episodes of dehydration. Pt. noted to become very agitated in the ED. Very difficult to re -direct. Review of Systems Review of Systems Pt. poor historian- denies any complaints Constitutional: Denies fever or chills [] Eyes: Denies change in visual acuity, redness, or eye pain [] HENT: Denies nasal congestion or sore throat [] Respiratory: Denies cough or shortness of breath [] Cardiovascular: No additional information not addressed in HPI [] GI: Denies abdominal pain, nausea, vomiting, bloody stools or diarrhea [] : Denies dysuria or hematuria [] Musculoskeletal: Denies back pain or joint pain [] Integument: Denies rash or skin lesions [] Neurologic: Denies headache, focal weakness or sensory changes [] Endocrine: Denies polyuria or polydipsia [] All other systems were reviewed and found to be within normal limits, except as documented in this note. Family History Family History Not currently available Current Medications Current Medications Current Medications Medications (Trade) Dose Ordered Sig/Markie Start Time Stop Time Status Last Admin Dose Admin Diphenhydramine HCl (Benadryl Oral Elixir) 25 mg 1X ONCE 04/28/18 00:45 04/28/18 00:46 DC 04/28/18 00:48 25 MG Lorazepam (Ativan) 2 mg 1X ONCE 04/28/18 00:45 04/28/18 00:46 DC 04/28/18 00:48 2 MG Trimethoprim/ Sulfamethoxazole (Bactrim Ds) 1 tab BID 04/28/18 09:00 See Nursing for home meds. Allergies Allergies Allergies Coded Allergies Type Severity Reaction Last Updated Verified Penicillins Allergy Intermediate 02/09/18 Yes Physical Exam Physical Exam Constitutional: Agitated, uncooperative, confused, non-toxic appearance. [] HENT: Normocephalic, atraumatic, bilateral external ears normal, oropharynx moist, no oral exudates, nose normal. [] Eyes: PERRLA, EOMI, conjunctiva normal, no discharge. [] Neck: Normal range of motion, no tenderness, supple, no stridor. [] Cardiovascular:Heart rate regular rhythm, no murmur [] Lungs & Thorax: Bilateral breath sounds clear to auscultation [] Abdomen: Bowel sounds normal, soft, no tenderness, no masses, no pulsatile masses. [] Old Rt. surgery scar. Skin: Warm, dry, no erythema, no rash. Poor turgor Back: No tenderness, no CVA tenderness. [] Extremities: No tenderness, no cyanosis, no clubbing, ROM intact, no edema. [] Arthritis. Healing wound Lt. forearm. Neurologic: Alert and oriented X 2. No gross motor or sensory function deficits, at baseline per NH, no gross focal deficits noted. [] DTR +2, brachial and patella. Walks with shuffle gait. Is able to climb over his bed rails and attempt to escape from the ED if not constantly watched. Psychologic: Affect angry, agitated, judgement obviously limited, mood depressed. Current Patient Data Vital Signs Vital Signs Date Time Temp Pulse Resp B/P (MAP) Pulse Ox O2 Delivery O2 Flow Rate FiO2 04/28/18 01:10 98.4 70 18 145/71 (95) 96 Room Air Lab Results Laboratory Tests Test 04/27/18 21:23 04/27/18 22:55 04/28/18 00:32 White Blood Count 6.3 x10^3/uL (4.0-11.0) Red Blood Count 3.61 x10^6/uL (4.30-5.70) L Hemoglobin 11.8 g/dL (13.0-17.5) L Hematocrit 34.6 % (39.0-53.0) L Mean Corpuscular Volume 96 fL (79-100) Mean Corpuscular Hemoglobin 33 pg (25-35) Mean Corpuscular Hemoglobin Concent 34 g/dL (31-37) Red Cell Distribution Width 13.7 % (11.5-14.5) Platelet Count 200 x10^3/uL (140-400) Neutrophils (%) (Auto) 68 % (31-73) Lymphocytes (%) (Auto) 16 % (24-48) L Monocytes (%) (Auto) 13 % (0-9) H Eosinophils (%) (Auto) 3 % (0-3) Basophils (%) (Auto) 0 % (0-3) Neutrophils # (Auto) 4.3 x10^3uL (1.8-7.7) Lymphocytes # (Auto) 1.0 x10^3/uL (1.0-4.8) Monocytes # (Auto) 0.8 x10^3/uL (0.0-1.1) Eosinophils # (Auto) 0.2 x10^3/uL (0.0-0.7) Basophils # (Auto) 0.0 x10^3/uL (0.0-0.2) Erythrocyte Sedimentation Rate 25 (0-15) H Sodium Level 140 mmol/L (136-145) Potassium Level 4.2 mmol/L (3.5-5.1) Chloride Level 106 mmol/L (98-107) Carbon Dioxide Level 28 mmol/L (21-32) Anion Gap 6 (6-14) Blood Urea Nitrogen 22 mg/dL (8-26) Creatinine 1.6 mg/dL (0.7-1.3) H Estimated GFR (Cockcroft-Gault) 41.0 Glucose Level 108 mg/dL (70-99) H Calcium Level 8.7 mg/dL (8.5-10.1) Magnesium Level 2.3 mg/dL (1.8-2.4) Creatine Kinase 73 U/L (39-308) Creatine Kinase MB (Mass) 1.5 ng/mL (0.0-3.6) Creatine Kinase MB Relative Index 2.1 % (0-4) Troponin I Quantitative < 0.017 ng/mL (0-0.055) CG-Qdb-U-Type Natriuretic Peptide 590 pg/mL (0-449) H Prothrombin Time 10.9 SEC (9.4-11.4) Prothrombin Time INR 1.1 (0.9-1.1) PTT 29 SEC (23-33) Urine Collection Type Unknown Urine Color Yellow Urine Clarity Clear Urine pH 6.0 Urine Specific [place] 1.015 Urine Protein Neg (NEG-TRACE) Urine Glucose (UA) Neg mg/dL (NEG) Urine Ketones (Stick) Neg mg/dL (NEG) Urine Blood Neg (NEG) Urine Nitrite Neg (NEG) Urine Bilirubin Neg (NEG) Urine Urobilinogen Dipstick 0.2 mg/dL (0.2 mg/dL) Urine Leukocyte Esterase Neg (NEG) Urine RBC Rare /HPF (0-2) Urine WBC Rare /HPF (0-4) Urine Squamous Epithelial Cells Occ /LPF Urine Bacteria 0 /HPF (0-FEW) Urine Mucus Slight /LPF Urine Opiates Screen Neg (NEG) Urine Methadone Screen Neg (NEG) Urine Barbiturates Neg (NEG) Urine Phencyclidine Screen Neg (NEG) Urine Amphetamine/Methamphetamine Neg (NEG) Urine Benzodiazepines Screen Neg (NEG) Urine Cocaine Screen Neg (NEG) Urine Cannabinoids Screen Neg (NEG) Urine Ethyl Alcohol Neg (NEG) EKG EKG My interpretation EKG shows a rhythm rate of 77 bpm. Does appear to be sinus but there is some artifact on EKG due to patient movement. Does have some anterior septal changes. But no findings acute STEMI of contralateral changes. [] Radiology/Procedures Radiology/Procedures My interpretation of CT of head shows no shift, mass, edema, bleed, or fracture. Does have findings of lacunar infarcts. An partial splenoid sinus air- fluid levels. Does have atrophy. My interpretation chest x-ray shows cardiomegaly. Basilar atelectasis. Mild cephalization. Calcified nodes. Degenerative joint changes.[] Course & Med Decision Making Course & Med Decision Making Pertinent Labs and Imaging studies reviewed. (See chart for details) Patient to be admitted to senior behavioral [facility] unit. Dr. Fofana. Consult to Dr. Perales- for follow up on Anemia, Elev. Creat. , BUN, Sed. Rate, BNP. Sinusitis and a UA. [] Final Impression Final Impression 1. Mental status change[] 2. Behavior Changes- Agitation, Psychosis- like behaviors? 3. Dementia 4. Anemia 5. HTN- Hx. 6. GERD Hx 7. Elev. BNP 8. Elev. Creat. 9. Elev. Sed. Rate 10.Sphenoid Sinuitis Dragon Disclaimer Dragon Disclaimer This electronic medical record was generated, in whole or in part, using a voice recognition dictation system. SHARON HAYWARD MD Apr 27, 2018 21:00
[2018-04-27 21:35] LABS: BASO % 0 % (0-3); EOS # 0.2 x10^3/uL (0.0-0.7); EOS % 3 % (0-3); HEMATOCRIT 34.6 % (39.0-53.0); HEMOGLOBIN 11.8 g/dL (13.0-17.5); LYMPH % 16 % (24-48); MEAN CORPUSCULAR HEMOGLOBIN 33 pg (25-35); MEAN CORPUSCULAR HGB CONC 34 g/dL (31-37); MEAN CORPUSCULAR VOLUME 96 fL (79-100); MONO # 0.8 x10^3/uL (0.0-1.1); MONO % 13 % (0-9); NEUT # 4.3 x10^3uL (1.8-7.7); NEUT % 68 % (31-73); PLATELET COUNT 200 x10^3/uL (140-400); RED BLOOD COUNT 3.61 x10^6/uL (4.30-5.70); RED CELL DISTRIBUTION WIDTH 13.7 % (11.5-14.5); WHITE BLOOD COUNT 6.3 x10^3/uL (4.0-11.0)
--- NOTE | 2018-04-27 21:42 | RAD ---
CT HEAD WO CONTRAST History: Mental status change, confusion Comparison: April 05, 2018 Technique: Noncontrast CT imaging was performed of the head. Exposure: One or more of the following individualized dose reduction techniques were utilized for this examination: 1. Automated exposure control 2. Adjustment of the mA and/or kV according to patient size 3. Use of iterative reconstruction technique. Findings: No acute extra-axial or parenchymal hemorrhage is identified. There is no significant intra-axial mass effect, midline shift, or extra-axial fluid collection. The henderson-white differentiation of the major vascular territories is preserved. There is again some scattered ill-defined low-density of the supratentorial white matter bilaterally not convincingly changed in interval, also suspected old lacunar infarct left basal ganglia. The ventricles, sulci, and cisterns are within normal limits in size and configuration. The mastoid air cells and the visualized paranasal sinuses mostly aerated other than some small air-fluid levels of the sphenoid sinus as seen previously. No acute calvarial abnormality is identified. Impression: 1. No acute intracranial abnormality is identified. There is again ill-defined low-density of the supratentorial white matter probably due to chronic microvascular ischemic disease in a patient this age, also lacunar infarct of the left basal ganglia. 2. There are some small air-fluid levels of the sphenoid sinus as seen previously, possibly due to acute sinusitis. Electronically signed by: Alexis Colbert MD (04/27/2018 9:38 PM) [id number]
[2018-04-27 22:03] LABS: CALCIUM 8.7 mg/dL (8.5-10.1); CREATININE 1.6 mg/dL (0.7-1.3); MAGNESIUM 2.3 mg/dL (1.8-2.4); POTASSIUM 4.2 mmol/L (3.5-5.1)
[2018-04-27 22:46] LABS: SEDIMENTATION RATE 25 (0-15)
--- NOTE | 2018-04-27 23:13 | EKG ---
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
[2018-04-27] MEDS ORDERED: SMZ/TMP 800/160MG TABLET. PO ONE (23:55)
[2018-04-28] MEDS ORDERED: LORazepam 1 MG TABLET PO ONE (00:45)
[2018-04-28] MEDS ORDERED: diphenhydrAMINE ORAL ELIXIR 12.5 MG/5 ML ML PO ONE (00:45)
[2018-04-28 00:59] LABS: AMPHETAMINE/METHAMPHETAMINE NEG (NEG); BARBITURATES NEG (NEG); BENZODIAZEPINES NEG (NEG); CANNABINOIDS NEG (NEG); COCAINE NEG (NEG); METHADONE NEG (NEG); OPIATES NEG (NEG); PHENCYCLIDINE NEG (NEG)
[2018-04-28 01:02] LABS: BACTERIA,URINE 0 /HPF (0-FEW); BILIRUBIN,URINE NEG (NEG); CLARITY,URINE CLEAR; COLOR,URINE YELLOW; GLUCOSE,URINE NEG (NEG); NITRITE,URINE NEG (NEG); RBC,URINE RARE /HPF (0-2); SQUAMOUS EPITHELIAL CELL,UR OCC /LPF; UROBILINOGEN,URINE 0.2 mg/dL (0.2 mg/dL); WBC,URINE RARE /HPF (0-4)
[2018-04-28 02:37] VITALS: BP 133/65
[2018-04-28] MEDS ORDERED: METHYL SALICYLATE/MENTHOL TOPICAL OINTMENT 29GM TUBE. TP PRN (02:45)
[2018-04-28] MEDS ORDERED: ACETAMINOPHEN 325 MG TABLET PO PRN (02:45)
[2018-04-28] MEDS ORDERED: MAGNESIUM HYDROXIDE 2,400 MG/30 ML ORAL.SUSP. PO PRN (02:45)
[2018-04-28] MEDS ORDERED: MAG HYDROX/AL HYDROX/SIMETH 30 ML ORAL.SUSP PO PRN (02:45)
[2018-04-28] MEDS ORDERED: DONE5TAB7 PO (02:57)
[2018-04-28] MEDS ORDERED: CYAN500T17 PO (02:57)
[2018-04-28] MEDS ORDERED: TRAZ-85 PO ×2 (02:57)
[2018-04-28] MEDS ORDERED: ACET500T68 PO (02:57)
[2018-04-28] MEDS ORDERED: QUET25TA5 PO (02:57)
[2018-04-28] MEDS ORDERED: NON FORMULARY ITEM (Trazodone Hcl 25 MG) PO PRN (03:00)
[2018-04-28] MEDS ORDERED: NON FORMULARY ITEM (Acetaminophen 500 MG) PO PRN (03:15)
[2018-04-28] MEDS ORDERED: ACETAMINOPHEN 500 MG TABLET PO PRN (03:30)
[2018-04-28 06:00] VITALS: BP 124/57
[2018-04-28 08:06] LABS: ALBUMIN 3.4 g/dL (3.4-5.0); DIRECT BILIRUBIN 0.2 mg/dL (0.0-0.2); TOTAL BILIRUBIN 0.5 mg/dL (0.2-1.0); TOTAL PROTEIN 6.9 g/dL (6.4-8.2)
[2018-04-28] MEDS: FLUDROCORTISONE 0.1 MG TABLET PO SCH (08:19)
[2018-04-28] MEDS: CYANOCOBALAMIN (VITAMIN B-12) 1,000 MCG TABLET. PO SCH (08:20)
[2018-04-28] MEDS: DONEPEZIL HCL 5 MG TABLET. PO SCH (08:20)
[2018-04-28] MEDS: SMZ/TMP 800/160MG TABLET. PO SCH ×2 (08:20→22:08)
[2018-04-28] MEDS: ASPIRIN 81 MG TAB.CHEW PO SCH (08:20)
[2018-04-28] MEDS: QUEtiapine 25 MG TABLET. PO SCH (08:20)
[2018-04-28] MEDS: CHOLECALCIFEROL (VITAMIN D3) 1,000 UNIT TABLET PO SCH (08:20)
[2018-04-28] MEDS: BRIMONIDINE 0.2% OPHTH SOLUTION 5ML BOTTLE. OU SCH ×2 (08:23→22:12)
[2018-04-28] MEDS ORDERED: CYANOCOBALAMIN 500 MCG PO SCH (09:00)
[2018-04-28] MEDS: NYSTATIN TOPICAL POWDER 15GM BOTTLE. TP SCH ×2 (09:00→22:09)
[2018-04-28] MEDS ORDERED: NON FORMULARY ITEM (Aspirin 81 MG) PO SCH (09:00)
[2018-04-28] MEDS ORDERED: NON FORMULARY ITEM (Quetiapine Fumarate (Seroquel) 25 MG) PO SCH (09:00)
[2018-04-28 13:45] LABS: THYROID STIM HORMONE (TSH) 2.674 uIU/mL (0.358-3.740)
[2018-04-28 16:04] VITALS: BP 153/79
--- NOTE | 2018-04-28 20:01 | PDOC ---
Exam Note: Rosalio Note: Please also refer to the separate dictated note~for this date of service dictated separately.~Patient seen individually. Discussed the patient with Nursing staff reviewed the chart.~Reviewed interim history and current functioning. Reviewed vital signs,~Labs/ Radiology~and current medications noted below. Continue current treatment with the changes noted in the dictated addendum note Assessment: Vital Signs: Vital Signs Date Time Temp Pulse Resp B/P (MAP) Pulse Ox O2 Delivery O2 Flow Rate FiO2 04/28/18 16:04 97.1 83 22 153/79 (103) 97 04/28/18 02:37 Room Air I&O Intake and Output 04/28/18 07:00 # Voids 1 # Bowel Movements 1 Labs: Laboratory Tests Test 04/27/18 21:00 04/27/18 21:23 04/27/18 22:55 04/28/18 00:32 Total Bilirubin 0.5 mg/dL (0.2-1.0) Direct Bilirubin 0.2 mg/dL (0.0-0.2) Aspartate Amino Transferase (AST) 14 U/L (15-37) L Alanine Aminotransferase (ALT) 15 U/L (16-63) L Alkaline Phosphatase 72 U/L (46-116) Total Protein 6.9 g/dL (6.4-8.2) Albumin 3.4 g/dL (3.4-5.0) Triglycerides Level 34 mg/dL (0-150) Cholesterol Level 119 mg/dL (0-200) LDL Cholesterol, Calculated 79 mg/dL (0-100) VLDL Cholesterol, Calculated 6 mg/dL (0-40) Non-HDL Cholesterol Calculated 85 mg/dL (0-129) HDL Cholesterol 34 mg/dL (40-60) L Cholesterol/HDL Ratio 3.0 Vitamin B12 Level 659 pg/mL (247-911) 25-Hydroxy Vitamin D Total 21.7 ng/mL (30-100) L Thyroid Stimulating Hormone (TSH) 2.674 uIU/mL (0.358-3.740) White Blood Count 6.3 x10^3/uL (4.0-11.0) Red Blood Count 3.61 x10^6/uL (4.30-5.70) L Hemoglobin 11.8 g/dL (13.0-17.5) L Hematocrit 34.6 % (39.0-53.0) L Mean Corpuscular Volume 96 fL (79-100) Mean Corpuscular Hemoglobin 33 pg (25-35) Mean Corpuscular Hemoglobin Concent 34 g/dL (31-37) Red Cell Distribution Width 13.7 % (11.5-14.5) Platelet Count 200 x10^3/uL (140-400) Neutrophils (%) (Auto) 68 % (31-73) Lymphocytes (%) (Auto) 16 % (24-48) L Monocytes (%) (Auto) 13 % (0-9) H Eosinophils (%) (Auto) 3 % (0-3) Basophils (%) (Auto) 0 % (0-3) Neutrophils # (Auto) 4.3 x10^3uL (1.8-7.7) Lymphocytes # (Auto) 1.0 x10^3/uL (1.0-4.8) Monocytes # (Auto) 0.8 x10^3/uL (0.0-1.1) Eosinophils # (Auto) 0.2 x10^3/uL (0.0-0.7) Basophils # (Auto) 0.0 x10^3/uL (0.0-0.2) Erythrocyte Sedimentation Rate 25 (0-15) H Sodium Level 140 mmol/L (136-145) Potassium Level 4.2 mmol/L (3.5-5.1) Chloride Level 106 mmol/L (98-107) Carbon Dioxide Level 28 mmol/L (21-32) Anion Gap 6 (6-14) Blood Urea Nitrogen 22 mg/dL (8-26) Creatinine 1.6 mg/dL (0.7-1.3) H Estimated GFR (Cockcroft-Gault) 41.0 Glucose Level 108 mg/dL (70-99) H Calcium Level 8.7 mg/dL (8.5-10.1) Magnesium Level 2.3 mg/dL (1.8-2.4) Creatine Kinase 73 U/L (39-308) Creatine Kinase MB (Mass) 1.5 ng/mL (0.0-3.6) Creatine Kinase MB Relative Index 2.1 % (0-4) Troponin I Quantitative < 0.017 ng/mL (0-0.055) AY-Qcw-K-Type Natriuretic Peptide 590 pg/mL (0-449) H Treponema pallidum Antibody Nonreactive (Nonreactive) Prothrombin Time 10.9 SEC (9.4-11.4) Prothrombin Time INR 1.1 (0.9-1.1) PTT 29 SEC (23-33) Urine Collection Type Unknown Urine Color Yellow Urine Clarity Clear Urine pH 6.0 Urine Specific [place] 1.015 Urine Protein Neg (NEG-TRACE) Urine Glucose (UA) Neg mg/dL (NEG) Urine Ketones (Stick) Neg mg/dL (NEG) Urine Blood Neg (NEG) Urine Nitrite Neg (NEG) Urine Bilirubin Neg (NEG) Urine Urobilinogen Dipstick 0.2 mg/dL (0.2 mg/dL) Urine Leukocyte Esterase Neg (NEG) Urine RBC Rare /HPF (0-2) Urine WBC Rare /HPF (0-4) Urine Squamous Epithelial Cells Occ /LPF Urine Bacteria 0 /HPF (0-FEW) Urine Mucus Slight /LPF Urine Opiates Screen Neg (NEG) Urine Methadone Screen Neg (NEG) Urine Barbiturates Neg (NEG) Urine Phencyclidine Screen Neg (NEG) Urine Amphetamine/Methamphetamine Neg (NEG) Urine Benzodiazepines Screen Neg (NEG) Urine Cocaine Screen Neg (NEG) Urine Cannabinoids Screen Neg (NEG) Urine Ethyl Alcohol Neg (NEG) Current Medications: Meds: Current Medications Trimethoprim/ Sulfamethoxazole (Bactrim Ds) 1 tab 1X ONCE PO Last administered on 04/28/18at 00:06; Start 04/27/18 at 23:55; Stop 04/27/18 at 23:56 ; Status DC Trimethoprim/ Sulfamethoxazole (Bactrim Ds) 1 tab BID PO Last administered on at 08:20; Start 04/28/18 at 09:00 Lorazepam (Ativan) 2 mg 1X ONCE PO Last administered on 04/28/18at 00:48; Start 04/28/18 at 00:45; Stop 04/28/18 at 00:46; Status DC Diphenhydramine HCl (Benadryl Oral Elixir) 25 mg 1X ONCE PO Last administered on 04/28/18at 00:48; Start 04/28/18 at 00:45; Stop 04/28/18 at 00:46; Status DC Acetaminophen (Tylenol) 650 mg PRN Q6HRS PRN PO PAIN / TEMP; Start 04/28/18 at 02:45 Multi-Ingredient Ointment (Analgesic [place]) 1 everardo PRN QID PRN TP MUSCLE PAIN; Start 04/28/18 at 02:45 Al Hydroxide/Mg Hydroxide (Mylanta Plus Xs) 15 ml PRN AFTMEALHC PRN PO DYSPEPSIA; Start 04/28/18 at 02:45 Magnesium Hydroxide (Milk Of Magnesia) 2,400 mg PRN QHS PRN PO CONSTIPATION; Start 04/28/18 at 02:45 Donepezil HCl (Aricept) 5 mg DAILY PO Last administered on 04/28/18at 08:20; Start 04/28/18 at 09:00 Non-Formulary Medication (Quetiapine Fumarate (Seroquel)) 25 mg DAILY PO ; Start 04/28/18 at 09:00; Stop 04/28/18 at 09:00; Status DC Non-Formulary Medication (Trazodone Hcl ) 25 mg PRN Q24HRS PRN PO INSOMNIA; Start 04/28/18 at 03:00; Stop 04/28/18 at 03:39; Status DC Non-Formulary Medication (Trazodone Hcl ) 25 mg QHS PO ; Start 04/28/18 at 21:00 ; Stop 04/28/18 at 21:00; Status DC Brimonidine Tartrate (Alphagan) 1 drop BID OU Last administered on 04/28/18at 08 :23; Start 04/28/18 at 09:00 Vitamin D (Vitamin D3) 1,000 unit DAILY PO Last administered on 04/28/18at 08:20 ; Start 04/28/18 at 09:00 Fludrocortisone Acetate (Florinef) 0.1 mg DAILY PO Last administered on at 08:19; Start 04/28/18 at 09:00 Nystatin (Nystop) 1 everardo BID TP ; Start 04/28/18 at 09:00 Non-Formulary Medication (Acetaminophen ) 500 mg PRN Q8HRS PRN PO PAIN / TEMP; Start 04/28/18 at 03:15; Stop 04/28/18 at 03:39; Status DC Non-Formulary Medication (Aspirin ) 81 mg DAILY PO ; Start 04/28/18 at 09:00; Stop 04/28/18 at 09:00; Status DC Non-Formulary Medication (Cyanocobalamin (Vitamin B-12) (B-12)) 500 mcg DAILY PO ; Start 04/28/18 at 09:00; Stop 04/28/18 at 09:00; Status DC Non-Formulary Medication (Latanoprost ) 1 drop QHS OU ; Start 04/28/18 at 21:00 ; Stop 04/28/18 at 21:00; Status DC Acetaminophen (Tylenol) 500 mg PRN Q8HRS PRN PO PAIN / TEMP; Start 04/28/18 at 03:30; Status Cancel Aspirin (Children'S Aspirin) 81 mg DAILY PO Last administered on 04/28/18at 08: 20; Start 04/28/18 at 09:00 Cyanocobalamin (Vitamin B-12) 500 mcg DAILY PO Last administered on 04/28/18at 08:20; Start 04/28/18 at 09:00 Latanoprost (Xalatan) 1 drop QHS OU ; Start 04/28/18 at 21:00 Quetiapine Fumarate (SEROquel) 25 mg DAILY PO Last administered on 04/28/18at 08 :20; Start 04/28/18 at 09:00 Trazodone HCl (Desyrel) 25 mg PRN Q24HRS PRN PO SEE COMMENTS; Start 04/28/18 at 03:30 Trazodone HCl (Desyrel) 25 mg QHS PO ; Start 04/28/18 at 21:00 Olanzapine (ZyPREXA ZYDIS) 1.25 mg PRN Q2HR PRN PO PSYCHOSIS Last administered on 04/28/18at 15:20; Start 04/28/18 at 15:15 Active Scripts Active Fludrocortisone Acetate 0.1 Mg Tablet 0.1 Mg PO DAILY 30 Days Latanoprost 2.5 Ml Drops 1 Drop OU QHS Brimonidine Tartrate 5 Ml Drops 1 Drop OU BID Nystop (Nystatin) 60 Gm Powder 1 Everardo TP BID Reported Trazodone Hcl 50 Mg Tablet 25 Mg PO PRN Q24HRS PRN Trazodone Hcl 50 Mg Tablet 25 Mg PO QHS Seroquel (Quetiapine Fumarate) 25 Mg Tablet 25 Mg PO DAILY Donepezil Hcl 5 Mg Tablet 5 Mg PO DAILY Acetaminophen 500 Mg Tablet 500 Mg PO PRN Q8HRS PRN B-12 (Cyanocobalamin (Vitamin B-12)) 500 Mcg Tablet 500 Mcg PO DAILY Vitamin D3 (Cholecalciferol (Vitamin D3)) 1,000 Unit Tablet 1 Tab PO DAILY LAST DOSE GIVEN: DATE: TODAY TIME: AM NEXT DOSE DUE: DATE: TOMORROW TIME: AM Aspirin 81 Mg Tab.chew 81 Mg PO DAILY LAST DOSE GIVEN: DATE: TODAY TIME: AM NEXT DOSE DUE: DATE: TOMORROW TIME: AM I have reviewed the current psychotropics carefully including drug interactions. Risk benefit ratio favors no change other than as noted in my dictated progress note. Diagnosis: Problems: (1) Concussion (2) Complex laceration of face (3) Anxiety disorder (4) Impulse control disorder (5) Dementia in Alzheimer's disease with depression (6) Dementia in Alzheimer's disease with delusions (7) Acute encephalopathy (8) Sepsis (9) Mental status change resolved LOGAN PFEIFFER MD Apr 28, 2018 20:01
[2018-04-28] MEDS ORDERED: NON FORMULARY ITEM (Trazodone Hcl 25 MG) PO SCH (21:00)
[2018-04-28] MEDS ORDERED: LATANOPROST OU SCH (21:00)
[2018-04-28] MEDS: traZODone 50 MG TABLET. PO SCH (22:08)
[2018-04-28] MEDS: LATANOPROST 0.005% OPHTH SOLUTION 2.5ML BOTTLE. OU SCH (22:12)
[2018-04-28 22:16] LABS: THYROXINE 5.5 ug/dL (4.5-12.0)
[2018-04-29 03:07] LABS: HEMOGLOBIN A1C 5.7 % (4.8-5.6)
[2018-04-29 05:49] VITALS: BP 145/74
[2018-04-29] MEDS: QUEtiapine 25 MG TABLET. PO SCH (08:17)
[2018-04-29] MEDS: FLUDROCORTISONE 0.1 MG TABLET PO SCH (08:17)
[2018-04-29] MEDS: CHOLECALCIFEROL (VITAMIN D3) 1,000 UNIT TABLET PO SCH (08:17)
[2018-04-29] MEDS: DONEPEZIL HCL 5 MG TABLET. PO SCH (08:17)
[2018-04-29] MEDS: SMZ/TMP 800/160MG TABLET. PO SCH ×2 (08:18→21:17)
[2018-04-29] MEDS: CYANOCOBALAMIN (VITAMIN B-12) 1,000 MCG TABLET. PO SCH (08:18)
[2018-04-29] MEDS: ASPIRIN 81 MG TAB.CHEW PO SCH (08:18)
[2018-04-29] MEDS: BRIMONIDINE 0.2% OPHTH SOLUTION 5ML BOTTLE. OU SCH ×2 (08:19→21:19)
[2018-04-29] MEDS: NYSTATIN TOPICAL POWDER 15GM BOTTLE. TP SCH ×2 (08:20→21:20)
[2018-04-29] MEDS ORDERED: LACTOBACILLUS RHAMNOSUS GG 1 CAPSULE. PO SCH (09:00)
--- NOTE | 2018-04-29 13:34 | CONS ---
DATE OF CONSULTATION: 04/28/2018 REASON FOR CONSULTATION: Medical management. HISTORY OF PRESENT ILLNESS: The patient is an 88-year-old male patient, a resident at [facility] and [facility], who apparently was admitted through the [facility] on account of being agitated, aggressive towards staff and , verbally aggressive, impulsive, wandering, all this in a major neurocognitive disorder. He is here for inpatient psychiatric stabilization. The patient was very confused and that is why is here. PAST MEDICAL HISTORY: Significant for he has glaucoma, vitamin D deficiency, hypertension, muscle weakness, gastroesophageal reflux disease, and esophagitis. PAST SURGICAL HISTORY: Unremarkable. ALLERGIES: HE IS ALLERGIC TO PENICILLIN. MEDICATIONS: He is currently on following medications: 1. Aricept 5 mg daily. 2. Aspirin 81 mg once a day. 3. Tylenol 500 mg every 8 hours. 4. Trazodone 75 mg once a day as needed. 5. Seroquel 25 mg daily. 6. Brimonidine tartrate 1 drop to both eyes twice a day. 7. Latanoprost 1 drop to both eyes at bedtime. 8. Fludrocortisone acetate 100 mcg daily. 9. Nystatin powder apply topically twice a day. 10. Cyanocobalamin for vitamin B12 500 mcg once a day. 12. Cholecalciferol for vitamin D 1000 international unit once a day. REVIEW OF SYSTEMS: Unobtainable. PHYSICAL EXAMINATION: GENERAL: When I saw him, the patient was sitting comfortably in his chair, in no apparent distress. There was no pallor, jaundice or cyanosis. No lymphadenopathy, no thyromegaly. No jugular venous distention. No limb edema. VITAL SIGNS: Heart rate was 63, blood pressure was 133/65, temperature was 97.2, respiratory rate was 18 and oxygen saturation was 96% on room air. HEAD, EYES, EARS, NOSE AND THROAT: Showed normocephalic, atraumatic. NECK: Supple. HEART: Showed normal first and second sounds. No gallop, rub or murmur. CHEST: Clear to auscultation. No crepitation or rhonchi. ABDOMEN: Distended, soft, nontender. NEUROLOGIC: He is demented without any obvious lateralizing sign. All his cranial nerves intact. He moves upper extremities to much greater extent than lower extremities. He is mostly chair bound. LABORATORY DATA: Showed a white cell count of 6300, hemoglobin 12, hematocrit 35, MCV 96, and platelet count 200,000. His chemistry showed a serum sodium 140, potassium 4.2, chloride 106, bicarbonate 28, anion gap of 6, BUN 22, creatinine 1.6, estimated GFR was 41 mL per minute. His glucose was 108, calcium was 8.7, magnesium 2.3. Total bilirubin, AST, ALT, alkaline phosphatase were normal. His total protein was 6.9, albumin was 3.4. Serum triglycerides 34, total cholesterol 119, LDL cholesterol was 79, VLDL was 6, HDL cholesterol 34. Cholesterol to HDL cholesterol ratio was 3. TSH was normal at 2.674. His prothrombin time was 10.9, INR 1.1, aPTT 29. Urinalysis showed the urine was yellow, clear with a pH of 6, specific gravity of 1.015. The urine was negative for protein, glucose, ketones, blood, nitrite, and leukocyte esterase. There are no rbc's, no wbc's, and no bacteria. Urine toxicology screen was essentially negative. He did have a CT scan of the head, showed he has no acute intracranial abnormality identified. There is again ill-defined low density of the supratentorial white matter, probably due to chronic microvascular ischemic disease in a patient of this age. He has also lacunar infarct in the left basal ganglia. There are some small air fluid levels in the sphenoid sinuses seen previously, possibly due to acute sinusitis. He had a chest x-ray that has not been read yet. IMPRESSION: In summary, this is an 88-year-old male patient who was admitted on account of wandering, being agitated, aggressive towards staff and , verbally aggressive, impulsive, all this in the background of major neurocognitive disorder. He was admitted here for inpatient psychiatric stabilization. Medically, he seemed to be all in all stable. All vital signs are stable as well as his lab work. He has mild normochromic normocytic anemia, normal white cell count and platelets. His kidney function is slightly elevated at 1.6. I will follow up all the lab work that are still pending at the time of this dictation and make any necessary recommendation. Thank you, Dr. Fofana for allowing me to participate in the care of this patient. VARGHESE KINGSLEY MD DR: Humera JOB#: [id number] / [id number]
--- NOTE | 2018-04-29 15:43 | HP ---
ADMIT DATE: 04/28/2018 PSYCHIATRIC ADMISSION HISTORY/EVALUATION This is a late entry 04/28/2018, covers elements not covered in my initial note. The patient was seen individually evening of 04/28/2018 for this evaluation, previously discussed with nursing staff and Hillary, talent development coordinator on 2 or 3 occasions after we got a referral from [facility] in [place], [place]. Referred by Dr. Selma Vásquez, his primary care physician on account of worsening behaviors within the context of his dementia. The patient has been wandering, agitated, aggressive towards staff and . He is verbally aggressive, threatening staff, extremely impulsive, very confused. He has failed outpatient psychiatric interventions. Behaviors deemed dangerous, unmanageable at the correction, resulting in this referral. CHIEF COMPLAINT: "No." The patient is just oriented to himself, seated in a wheelchair. HISTORY OF PRESENT ILLNESS: The patient has a history of dementia, probably vascular, possibly Alzheimer's with delusion, depression, behavioral disturbance. Until recently he was living at home with his , being cared for by her despite his significant cognitive impairment. More recently, he has become extremely agitated, paranoid, anxious, depressed and explosive as noted. He was hospitalized at [facility], medically stabilized then transferred to [facility] for skilled care. At the nursing facility behaviors were unmanageable as noted above resulting in this referral. PAST PSYCHIATRIC HISTORY: Positive for progressive dementia, delusion, depression, impulse control problems. PAST MEDICAL HISTORY: Positive for GERD, esophagitis. ALLERGIES: PENICILLIN. CODE STATUS: DNR. DIET: Regular, ambulates ad annika, but was in a wheelchair as I met with him. UA negative on 04/27/2018. CURRENT PSYCHOTROPICS: Aricept 5 mg a day, Seroquel 25 mg daily, increasing to 25 mg b.i.d., trazodone 25 mg at bedtime plus p.r.n. x 1 insomnia, Zyprexa p.r.n. FAMILY HISTORY: Noncontributory. SOCIAL HISTORY: No history of alcohol, drug abuse, physical, sexual or elder abuse history is noted. Not known to be a perpetrator. REACTION TO HOSPITALIZATION: The patient oblivious of these assets. Supportive , who is his DPOA and prompted this admission. MENTAL STATUS EXAMINATION: The patient was seen individually evening of 04/28/2018. He is oriented to himself, not very verbal, anxious, distractable, trying to walk out of the wheelchair. Insight, judgment, recent and remote memory, attention, concentration, fund of knowledge poor, consistent with his diagnoses. Associations are loose consistent with his diagnoses. LABORATORY DATA: Reviewed. IMPRESSION: Major neurocognitive disorder, Alzheimer, vascular with delusion, depression, behavioral disturbance; anxiety disorder, unspecified; impulse control disorder, unspecified. Rest as above. PLAN: Admit to Geropsychiatry Unit at [facility]. I will see the patient daily individually from a psychiatric standpoint, medical followup per Dr. Perales/Dr. Vicente. Continue current psychotropics, observe baseline, adjust as clinically indicated. Consider Depakote as a mood stabilizer. May need to add an SSRI agent as well. We will decide after baseline assessment. ESTIMATED LENGTH OF STAY: 7-10 days. DISPOSITION PLANS: Back to [facility] in [place]. MAN Nila PFEIFFER MD DR: ЕЛЕНА/laney JOB#: [id number] / [id number]
[2018-04-29 15:59] VITALS: BP 115/58
--- NOTE | 2018-04-29 16:20 | RAD ---
INDICATION: Cough and congestion. Confusion. TECHNIQUE: Upright portable chest radiograph was obtained. Comparison is from April 05, 2018. FINDINGS: The lungs remain clear. There is a calcified granuloma on the left upper lobe. The heart is upper limits of normal in size. There is no obvious heart failure. There is atheromatous disease in the thoracic aorta. There are degenerative changes in the shoulders and spine. IMPRESSION: No acute thoracic findings. Electronically signed by: Genaro Amaya MD (04/28/2018 8:40 AM) [id number]
--- NOTE | 2018-04-29 20:58 | PDOC ---
Exam Note: Rosalio Note: Please also refer to the separate dictated note~for this date of service dictated separately.~Patient seen individually. Discussed the patient with Nursing staff reviewed the chart.~Reviewed interim history and current functioning. Reviewed vital signs,~Labs/ Radiology~and current medications noted below. Continue current treatment with the changes noted in the dictated addendum note Assessment: Vital Signs: Vital Signs Date Time Temp Pulse Resp B/P (MAP) Pulse Ox O2 Delivery O2 Flow Rate FiO2 04/29/18 15:59 98.4 96 18 115/58 (77) 95 04/28/18 02:37 Room Air I&O Intake and Output 04/29/18 07:00 Intake Total 480 ml Balance 480 ml Intake Oral 480 ml # Voids 1 Current Medications: Meds: Current Medications Trimethoprim/ Sulfamethoxazole (Bactrim Ds) 1 tab 1X ONCE PO Last administered on 04/28/18at 00:06; Start 04/27/18 at 23:55; Stop 04/27/18 at 23:56 ; Status DC Trimethoprim/ Sulfamethoxazole (Bactrim Ds) 1 tab BID PO Last administered on at 08:18; Start 04/28/18 at 09:00 Lorazepam (Ativan) 2 mg 1X ONCE PO Last administered on 04/28/18at 00:48; Start 04/28/18 at 00:45; Stop 04/28/18 at 00:46; Status DC Diphenhydramine HCl (Benadryl Oral Elixir) 25 mg 1X ONCE PO Last administered on 04/28/18at 00:48; Start 04/28/18 at 00:45; Stop 04/28/18 at 00:46; Status DC Acetaminophen (Tylenol) 650 mg PRN Q6HRS PRN PO PAIN / TEMP; Start 04/28/18 at 02:45 Multi-Ingredient Ointment (Analgesic Monon) 1 everardo PRN QID PRN TP MUSCLE PAIN; Start 04/28/18 at 02:45 Al Hydroxide/Mg Hydroxide (Mylanta Plus Xs) 15 ml PRN AFTMEALHC PRN PO DYSPEPSIA; Start 04/28/18 at 02:45 Magnesium Hydroxide (Milk Of Magnesia) 2,400 mg PRN QHS PRN PO CONSTIPATION; Start 04/28/18 at 02:45 Donepezil HCl (Aricept) 5 mg DAILY PO Last administered on 04/29/18at 08:17; Start 04/28/18 at 09:00 Non-Formulary Medication (Quetiapine Fumarate (Seroquel)) 25 mg DAILY PO ; Start 04/28/18 at 09:00; Stop 04/28/18 at 09:00; Status DC Non-Formulary Medication (Trazodone Hcl ) 25 mg PRN Q24HRS PRN PO INSOMNIA; Start 04/28/18 at 03:00; Stop 04/28/18 at 03:39; Status DC Non-Formulary Medication (Trazodone Hcl ) 25 mg QHS PO ; Start 04/28/18 at 21:00 ; Stop 04/28/18 at 21:00; Status DC Brimonidine Tartrate (Alphagan) 1 drop BID OU Last administered on 04/29/18at 08: 19; Start 04/28/18 at 09:00 Vitamin D (Vitamin D3) 1,000 unit DAILY PO Last administered on 04/29/18at 08:17 ; Start 04/28/18 at 09:00 Fludrocortisone Acetate (Florinef) 0.1 mg DAILY PO Last administered on at 08:17; Start 04/28/18 at 09:00 Nystatin (Nystop) 1 everardo BID TP Last administered on 04/29/18at 08:20; Start 04/28 at 09:00 Non-Formulary Medication (Acetaminophen ) 500 mg PRN Q8HRS PRN PO PAIN / TEMP; Start 04/28/18 at 03:15; Stop 04/28/18 at 03:39; Status DC Non-Formulary Medication (Aspirin ) 81 mg DAILY PO ; Start 04/28/18 at 09:00; Stop 04/28/18 at 09:00; Status DC Non-Formulary Medication (Cyanocobalamin (Vitamin B-12) (B-12)) 500 mcg DAILY PO ; Start 04/28/18 at 09:00; Stop 04/28/18 at 09:00; Status DC Non-Formulary Medication (Latanoprost ) 1 drop QHS OU ; Start 04/28/18 at 21:00 ; Stop 04/28/18 at 21:00; Status DC Acetaminophen (Tylenol) 500 mg PRN Q8HRS PRN PO PAIN / TEMP; Start 04/28/18 at 03:30; Status Cancel Aspirin (Children'S Aspirin) 81 mg DAILY PO Last administered on 04/29/18at 08:18 ; Start 04/28/18 at 09:00 Cyanocobalamin (Vitamin B-12) 500 mcg DAILY PO Last administered on 04/29/18at 08 :18; Start 04/28/18 at 09:00 Latanoprost (Xalatan) 1 drop QHS OU Last administered on 04/28/18at 22:12; Start 04/28/18 at 21:00 Quetiapine Fumarate (SEROquel) 25 mg DAILY PO Last administered on 04/29/18at 08: 17; Start 04/28/18 at 09:00 Trazodone HCl (Desyrel) 25 mg PRN Q24HRS PRN PO SEE COMMENTS; Start 04/28/18 at 03:30 Trazodone HCl (Desyrel) 25 mg QHS PO Last administered on 04/28/18at 22:08; Start 04/28/18 at 21:00 Olanzapine (ZyPREXA ZYDIS) 1.25 mg PRN Q2HR PRN PO PSYCHOSIS Last administered on 04/28/18at 15:20; Start 04/28/18 at 15:15 Lactobacillus Rhamnosus (Culturelle) 1 cap BID PO ; Start 04/29/18 at 09:00; Status Cancel Latanoprost (Xalatan) 1 drop QHS OU ; Start 04/29/18 at 21:00; Status UNV Sertraline HCl (Zoloft) 25 mg DAILY PO ; Start 04/30/18 at 09:00 Active Scripts Active Fludrocortisone Acetate 0.1 Mg Tablet 0.1 Mg PO DAILY 30 Days Latanoprost 2.5 Ml Drops 1 Drop OU QHS Brimonidine Tartrate 5 Ml Drops 1 Drop OU BID Nystop (Nystatin) 60 Gm Powder 1 Everardo TP BID Reported Trazodone Hcl 50 Mg Tablet 25 Mg PO PRN Q24HRS PRN Trazodone Hcl 50 Mg Tablet 25 Mg PO QHS Seroquel (Quetiapine Fumarate) 25 Mg Tablet 25 Mg PO DAILY Donepezil Hcl 5 Mg Tablet 5 Mg PO DAILY Acetaminophen 500 Mg Tablet 500 Mg PO PRN Q8HRS PRN B-12 (Cyanocobalamin (Vitamin B-12)) 500 Mcg Tablet 500 Mcg PO DAILY Vitamin D3 (Cholecalciferol (Vitamin D3)) 1,000 Unit Tablet 1 Tab PO DAILY LAST DOSE GIVEN: DATE: TODAY TIME: AM NEXT DOSE DUE: DATE: TOMORROW TIME: AM Aspirin 81 Mg Tab.chew 81 Mg PO DAILY LAST DOSE GIVEN: DATE: TODAY TIME: AM NEXT DOSE DUE: DATE: TOMORROW TIME: AM I have reviewed the current psychotropics carefully including drug interactions. Risk benefit ratio favors no change other than as noted in my dictated progress note. Diagnosis: Problems: (1) Concussion (2) Complex laceration of face (3) Anxiety disorder (4) Impulse control disorder (5) Dementia in Alzheimer's disease with depression (6) Dementia in Alzheimer's disease with delusions (7) Acute encephalopathy (8) Sepsis (9) Mental status change resolved LOGAN PFEIFFER MD Apr 29, 2018 20:58
[2018-04-29] MEDS ORDERED: LATANOPROST 0.005% OPHTH SOLUTION 2.5ML BOTTLE. OU SCH (21:00)
[2018-04-29] MEDS: traZODone 50 MG TABLET. PO SCH (21:17)
[2018-04-29] MEDS: LATANOPROST 0.005% OPHTH SOLUTION 2.5ML BOTTLE. OU SCH (21:18)
[2018-04-30] MEDS: traZODone 50 MG TABLET. PO PRN (00:13)
[2018-04-30 06:01] VITALS: BP 116/65
[2018-04-30] MEDS: FLUDROCORTISONE 0.1 MG TABLET PO SCH (07:55)
[2018-04-30] MEDS: CHOLECALCIFEROL (VITAMIN D3) 1,000 UNIT TABLET PO SCH (07:55)
[2018-04-30] MEDS: ASPIRIN 81 MG TAB.CHEW PO SCH (07:55)
[2018-04-30] MEDS: SMZ/TMP 800/160MG TABLET. PO SCH ×2 (07:55→20:03)
[2018-04-30] MEDS: QUEtiapine 25 MG TABLET. PO SCH (07:56)
[2018-04-30] MEDS: CYANOCOBALAMIN (VITAMIN B-12) 1,000 MCG TABLET. PO SCH (07:56)
[2018-04-30] MEDS: DONEPEZIL HCL 5 MG TABLET. PO SCH (07:56)
[2018-04-30] MEDS: SERTRALINE 25 MG TABLET. PO SCH (07:57)
[2018-04-30] MEDS: NYSTATIN TOPICAL POWDER 15GM BOTTLE. TP SCH ×2 (07:57→20:04)
[2018-04-30] MEDS: BRIMONIDINE 0.2% OPHTH SOLUTION 5ML BOTTLE. OU SCH ×2 (07:58→20:04)
[2018-04-30 16:03] VITALS: BP 107/67
[2018-04-30] MEDS: traZODone 50 MG TABLET. PO SCH (20:03)
[2018-04-30] MEDS: LATANOPROST 0.005% OPHTH SOLUTION 2.5ML BOTTLE. OU SCH (20:05)
--- NOTE | 2018-04-30 21:00 | PDOC ---
Exam Note: Rosalio Note: Please also refer to the separate dictated note~for this date of service dictated separately.~Patient seen individually. Discussed the patient with Nursing staff reviewed the chart.~Reviewed interim history and current functioning. Reviewed vital signs,~Labs/ Radiology~and current medications noted below. Continue current treatment with the changes noted in the dictated addendum note Assessment: Vital Signs: Vital Signs Date Time Temp Pulse Resp B/P (MAP) Pulse Ox O2 Delivery O2 Flow Rate FiO2 04/30/18 16:03 98.1 84 20 107/67 (80) 95 04/28/18 02:37 Room Air I&O Intake and Output 04/30/18 07:00 Intake Total 540 ml Balance 540 ml Intake Oral 540 ml # Voids 1 Current Medications: Meds: Current Medications Trimethoprim/ Sulfamethoxazole (Bactrim Ds) 1 tab 1X ONCE PO Last administered on 04/28/18at 00:06; Start 04/27/18 at 23:55; Stop 04/27/18 at 23:56 ; Status DC Trimethoprim/ Sulfamethoxazole (Bactrim Ds) 1 tab BID PO Last administered on at 20:03; Start 04/28/18 at 09:00 Lorazepam (Ativan) 2 mg 1X ONCE PO Last administered on 04/28/18at 00:48; Start 04/28/18 at 00:45; Stop 04/28/18 at 00:46; Status DC Diphenhydramine HCl (Benadryl Oral Elixir) 25 mg 1X ONCE PO Last administered on 04/28/18at 00:48; Start 04/28/18 at 00:45; Stop 04/28/18 at 00:46; Status DC Acetaminophen (Tylenol) 650 mg PRN Q6HRS PRN PO PAIN / TEMP; Start 04/28/18 at 02:45 Multi-Ingredient Ointment (Analgesic Hornbeak) 1 everardo PRN QID PRN TP MUSCLE PAIN; Start 04/28/18 at 02:45 Al Hydroxide/Mg Hydroxide (Mylanta Plus Xs) 15 ml PRN AFTMEALHC PRN PO DYSPEPSIA; Start 04/28/18 at 02:45 Magnesium Hydroxide (Milk Of Magnesia) 2,400 mg PRN QHS PRN PO CONSTIPATION; Start 04/28/18 at 02:45 Donepezil HCl (Aricept) 5 mg DAILY PO Last administered on 04/30/18at 07:56; Start 04/28/18 at 09:00 Non-Formulary Medication (Quetiapine Fumarate (Seroquel)) 25 mg DAILY PO ; Start 04/28/18 at 09:00; Stop 04/28/18 at 09:00; Status DC Non-Formulary Medication (Trazodone Hcl ) 25 mg PRN Q24HRS PRN PO INSOMNIA; Start 04/28/18 at 03:00; Stop 04/28/18 at 03:39; Status DC Non-Formulary Medication (Trazodone Hcl ) 25 mg QHS PO ; Start 04/28/18 at 21:00 ; Stop 04/28/18 at 21:00; Status DC Brimonidine Tartrate (Alphagan) 1 drop BID OU Last administered on 04/30/18at 20: 04; Start 04/28/18 at 09:00 Vitamin D (Vitamin D3) 1,000 unit DAILY PO Last administered on 04/30/18at 07:55 ; Start 04/28/18 at 09:00 Fludrocortisone Acetate (Florinef) 0.1 mg DAILY PO Last administered on at 07:55; Start 04/28/18 at 09:00 Nystatin (Nystop) 1 everardo BID TP Last administered on 04/30/18at 20:04; Start 04/28 at 09:00 Non-Formulary Medication (Acetaminophen ) 500 mg PRN Q8HRS PRN PO PAIN / TEMP; Start 04/28/18 at 03:15; Stop 04/28/18 at 03:39; Status DC Non-Formulary Medication (Aspirin ) 81 mg DAILY PO ; Start 04/28/18 at 09:00; Stop 04/28/18 at 09:00; Status DC Non-Formulary Medication (Cyanocobalamin (Vitamin B-12) (B-12)) 500 mcg DAILY PO ; Start 04/28/18 at 09:00; Stop 04/28/18 at 09:00; Status DC Non-Formulary Medication (Latanoprost ) 1 drop QHS OU ; Start 04/28/18 at 21:00 ; Stop 04/28/18 at 21:00; Status DC Acetaminophen (Tylenol) 500 mg PRN Q8HRS PRN PO PAIN / TEMP; Start 04/28/18 at 03:30; Status Cancel Aspirin (Children'S Aspirin) 81 mg DAILY PO Last administered on 04/30/18at 07:55 ; Start 04/28/18 at 09:00 Cyanocobalamin (Vitamin B-12) 500 mcg DAILY PO Last administered on 04/30/18at 07 :56; Start 04/28/18 at 09:00 Latanoprost (Xalatan) 1 drop QHS OU Last administered on 04/29/18at 21:18; Start 04/28/18 at 21:00 Quetiapine Fumarate (SEROquel) 25 mg DAILY PO Last administered on 04/30/18at 07: 56; Start 04/28/18 at 09:00 Trazodone HCl (Desyrel) 25 mg PRN Q24HRS PRN PO SEE COMMENTS Last administered on 04/30/18at 00:13; Start 04/28/18 at 03:30 Trazodone HCl (Desyrel) 25 mg QHS PO Last administered on 04/30/18at 20:03; Start 04/28/18 at 21:00 Olanzapine (ZyPREXA ZYDIS) 1.25 mg PRN Q2HR PRN PO PSYCHOSIS Last administered on 04/30/18at 16:06; Start 04/28/18 at 15:15 Lactobacillus Rhamnosus (Culturelle) 1 cap BID PO ; Start 04/29/18 at 09:00; Status Cancel Latanoprost (Xalatan) 1 drop QHS OU ; Start 04/29/18 at 21:00; Status UNV Sertraline HCl (Zoloft) 25 mg DAILY PO Last administered on 04/30/18at 07:57; Start 04/30/18 at 09:00 Active Scripts Active Fludrocortisone Acetate 0.1 Mg Tablet 0.1 Mg PO DAILY 30 Days Latanoprost 2.5 Ml Drops 1 Drop OU QHS Brimonidine Tartrate 5 Ml Drops 1 Drop OU BID Nystop (Nystatin) 60 Gm Powder 1 Everardo TP BID Reported Trazodone Hcl 50 Mg Tablet 25 Mg PO PRN Q24HRS PRN Trazodone Hcl 50 Mg Tablet 25 Mg PO QHS Seroquel (Quetiapine Fumarate) 25 Mg Tablet 25 Mg PO DAILY Donepezil Hcl 5 Mg Tablet 5 Mg PO DAILY Acetaminophen 500 Mg Tablet 500 Mg PO PRN Q8HRS PRN B-12 (Cyanocobalamin (Vitamin B-12)) 500 Mcg Tablet 500 Mcg PO DAILY Vitamin D3 (Cholecalciferol (Vitamin D3)) 1,000 Unit Tablet 1 Tab PO DAILY LAST DOSE GIVEN: DATE: TODAY TIME: AM NEXT DOSE DUE: DATE: TOMORROW TIME: AM Aspirin 81 Mg Tab.chew 81 Mg PO DAILY LAST DOSE GIVEN: DATE: TODAY TIME: AM NEXT DOSE DUE: DATE: TOMORROW TIME: AM I have reviewed the current psychotropics carefully including drug interactions. Risk benefit ratio favors no change other than as noted in my dictated progress note. Diagnosis: Problems: (1) Concussion (2) Complex laceration of face (3) Anxiety disorder (4) Impulse control disorder (5) Dementia in Alzheimer's disease with depression (6) Dementia in Alzheimer's disease with delusions (7) Acute encephalopathy (8) Sepsis (9) Mental status change resolved LOGAN PFEIFFER MD Apr 30, 2018 21:00
[2018-05-01] MEDS: traZODone 50 MG TABLET. PO PRN (01:51)
[2018-05-01] MEDS: QUEtiapine 25 MG TABLET. PO SCH (07:50)
[2018-05-01] MEDS: CHOLECALCIFEROL (VITAMIN D3) 1,000 UNIT TABLET PO SCH (07:50)
[2018-05-01] MEDS: CYANOCOBALAMIN (VITAMIN B-12) 1,000 MCG TABLET. PO SCH (07:51)
[2018-05-01] MEDS: ASPIRIN 81 MG TAB.CHEW PO SCH (07:52)
[2018-05-01] MEDS: DONEPEZIL HCL 5 MG TABLET. PO SCH (07:52)
[2018-05-01] MEDS: SMZ/TMP 800/160MG TABLET. PO SCH ×2 (07:52→19:22)
[2018-05-01] MEDS: SERTRALINE 25 MG TABLET. PO SCH (07:52)
[2018-05-01] MEDS: BRIMONIDINE 0.2% OPHTH SOLUTION 5ML BOTTLE. OU SCH ×2 (07:54→19:21)
[2018-05-01] MEDS: FLUDROCORTISONE 0.1 MG TABLET PO SCH (07:54)
[2018-05-01] MEDS: NYSTATIN TOPICAL POWDER 15GM BOTTLE. TP SCH ×2 (07:58→19:23)
[2018-05-01 16:07] VITALS: BP 146/71
[2018-05-01] MEDS: LATANOPROST 0.005% OPHTH SOLUTION 2.5ML BOTTLE. OU SCH (19:22)
[2018-05-01] MEDS: traZODone 50 MG TABLET. PO SCH (19:22)
--- NOTE | 2018-05-01 20:52 | PDOC ---
Exam Note: Rosalio Note: Please also refer to the separate dictated note~for this date of service dictated separately.~Patient seen individually. Discussed the patient with Nursing staff reviewed the chart.~Reviewed interim history and current functioning. Reviewed vital signs,~Labs/ Radiology~and current medications noted below. Continue current treatment with the changes noted in the dictated addendum note Assessment: Vital Signs: Vital Signs Date Time Temp Pulse Resp B/P (MAP) Pulse Ox O2 Delivery O2 Flow Rate FiO2 05/01/18 16:07 98.0 75 19 146/71 (96) 98 04/28/18 02:37 Room Air I&O Intake and Output 05/01/18 07:00 Intake Total 720 ml Balance 720 ml Intake Oral 720 ml # Voids 2 # Bowel Movements 1 Current Medications: Meds: Current Medications Trimethoprim/ Sulfamethoxazole (Bactrim Ds) 1 tab 1X ONCE PO Last administered on 04/28/18at 00:06; Start 04/27/18 at 23:55; Stop 04/27/18 at 23:56 ; Status DC Trimethoprim/ Sulfamethoxazole (Bactrim Ds) 1 tab BID PO Last administered on at 19:22; Start 04/28/18 at 09:00 Lorazepam (Ativan) 2 mg 1X ONCE PO Last administered on 04/28/18at 00:48; Start 04/28/18 at 00:45; Stop 04/28/18 at 00:46; Status DC Diphenhydramine HCl (Benadryl Oral Elixir) 25 mg 1X ONCE PO Last administered on 04/28/18at 00:48; Start 04/28/18 at 00:45; Stop 04/28/18 at 00:46; Status DC Acetaminophen (Tylenol) 650 mg PRN Q6HRS PRN PO PAIN / TEMP; Start 04/28/18 at 02:45 Multi-Ingredient Ointment (Analgesic [place]) 1 everardo PRN QID PRN TP MUSCLE PAIN; Start 04/28/18 at 02:45 Al Hydroxide/Mg Hydroxide (Mylanta Plus Xs) 15 ml PRN AFTMEALHC PRN PO DYSPEPSIA; Start 04/28/18 at 02:45 Magnesium Hydroxide (Milk Of Magnesia) 2,400 mg PRN QHS PRN PO CONSTIPATION; Start 04/28/18 at 02:45 Donepezil HCl (Aricept) 5 mg DAILY PO Last administered on 05/01/18at 07:52; Start 04/28/18 at 09:00 Non-Formulary Medication (Quetiapine Fumarate (Seroquel)) 25 mg DAILY PO ; Start 04/28/18 at 09:00; Stop 04/28/18 at 09:00; Status DC Non-Formulary Medication (Trazodone Hcl ) 25 mg PRN Q24HRS PRN PO INSOMNIA; Start 04/28/18 at 03:00; Stop 04/28/18 at 03:39; Status DC Non-Formulary Medication (Trazodone Hcl ) 25 mg QHS PO ; Start 04/28/18 at 21:00 ; Stop 04/28/18 at 21:00; Status DC Brimonidine Tartrate (Alphagan) 1 drop BID OU Last administered on 05/01/18at 19: 21; Start 04/28/18 at 09:00 Vitamin D (Vitamin D3) 1,000 unit DAILY PO Last administered on 05/01/18at 07:50 ; Start 04/28/18 at 09:00 Fludrocortisone Acetate (Florinef) 0.1 mg DAILY PO Last administered on at 07:54; Start 04/28/18 at 09:00 Nystatin (Nystop) 1 everardo BID TP Last administered on 05/01/18at 19:23; Start 04/28 at 09:00 Non-Formulary Medication (Acetaminophen ) 500 mg PRN Q8HRS PRN PO PAIN / TEMP; Start 04/28/18 at 03:15; Stop 04/28/18 at 03:39; Status DC Non-Formulary Medication (Aspirin ) 81 mg DAILY PO ; Start 04/28/18 at 09:00; Stop 04/28/18 at 09:00; Status DC Non-Formulary Medication (Cyanocobalamin (Vitamin B-12) (B-12)) 500 mcg DAILY PO ; Start 04/28/18 at 09:00; Stop 04/28/18 at 09:00; Status DC Non-Formulary Medication (Latanoprost ) 1 drop QHS OU ; Start 04/28/18 at 21:00 ; Stop 04/28/18 at 21:00; Status DC Acetaminophen (Tylenol) 500 mg PRN Q8HRS PRN PO PAIN / TEMP; Start 04/28/18 at 03:30; Status Cancel Aspirin (Children'S Aspirin) 81 mg DAILY PO Last administered on 05/01/18at 07:52 ; Start 04/28/18 at 09:00 Cyanocobalamin (Vitamin B-12) 500 mcg DAILY PO Last administered on 05/01/18at 07 :51; Start 04/28/18 at 09:00 Latanoprost (Xalatan) 1 drop QHS OU Last administered on 05/01/18 19:22; Start 04/28/18 at 21:00 Quetiapine Fumarate (SEROquel) 25 mg DAILY PO Last administered on 05/01/18at 07: 50; Start 04/28/18 at 09:00; Stop 05/01/18 at 17:16; Status DC Trazodone HCl (Desyrel) 25 mg PRN Q24HRS PRN PO SEE COMMENTS Last administered on 05/01/18at 01:51; Start 04/28/18 at 03:30 Trazodone HCl (Desyrel) 25 mg QHS PO Last administered on 04/30/18at 20:03; Start 04/28/18 at 21:00; Stop 05/01/18 at 17:16; Status DC Olanzapine (ZyPREXA ZYDIS) 1.25 mg PRN Q2HR PRN PO PSYCHOSIS Last administered on 05/01/18at 09:41; Start 04/28/18 at 15:15 Lactobacillus Rhamnosus (Culturelle) 1 cap BID PO ; Start 04/29/18 at 09:00; Status Cancel Latanoprost (Xalatan) 1 drop QHS OU ; Start 04/29/18 at 21:00; Status UNV Sertraline HCl (Zoloft) 25 mg DAILY PO Last administered on 05/01/18at 07:52; Start 04/30/18 at 09:00 Quetiapine Fumarate (SEROquel) 25 mg BID@0900,1300 PO ; Start 05/02/18 at 09:00 Trazodone HCl (Desyrel) 50 mg QHS PO Last administered on 05/01/18at 19:22; Start 05/01/18 at 21:00 Active Scripts Active Fludrocortisone Acetate 0.1 Mg Tablet 0.1 Mg PO DAILY 30 Days Latanoprost 2.5 Ml Drops 1 Drop OU QHS Brimonidine Tartrate 5 Ml Drops 1 Drop OU BID Nystop (Nystatin) 60 Gm Powder 1 Everardo TP BID Reported Trazodone Hcl 50 Mg Tablet 25 Mg PO PRN Q24HRS PRN Trazodone Hcl 50 Mg Tablet 25 Mg PO QHS Seroquel (Quetiapine Fumarate) 25 Mg Tablet 25 Mg PO DAILY Donepezil Hcl 5 Mg Tablet 5 Mg PO DAILY Acetaminophen 500 Mg Tablet 500 Mg PO PRN Q8HRS PRN B-12 (Cyanocobalamin (Vitamin B-12)) 500 Mcg Tablet 500 Mcg PO DAILY Vitamin D3 (Cholecalciferol (Vitamin D3)) 1,000 Unit Tablet 1 Tab PO DAILY LAST DOSE GIVEN: DATE: TODAY TIME: AM NEXT DOSE DUE: DATE: TOMORROW TIME: AM Aspirin 81 Mg Tab.chew 81 Mg PO DAILY LAST DOSE GIVEN: DATE: TODAY TIME: AM NEXT DOSE DUE: DATE: TOMORROW TIME: AM I have reviewed the current psychotropics carefully including drug interactions. Risk benefit ratio favors no change other than as noted in my dictated progress note. Diagnosis: Problems: (1) Concussion (2) Complex laceration of face (3) Anxiety disorder (4) Impulse control disorder (5) Dementia in Alzheimer's disease with depression (6) Dementia in Alzheimer's disease with delusions (7) Acute encephalopathy (8) Sepsis (9) Mental status change resolved LOGAN PFEIFFER MD May 01, 2018 20:52
--- NOTE | 2018-05-02 00:36 | PN ---
DATE: 04/29/2018 PSYCHIATRIC PROGRESS NOTE This is a late entry 04/29/2018 covers elements not covered in my initial note. SUBJECTIVE: I met with the patient in the evening. The patient has had a very difficult day. UA is negative. He slept 6-1/2 hours previous evening. His visited, takes his meds in ice cream, seemed to recognize his . Gait is unsteady. No CV, , pulmonary, eye, ENT system symptoms on review. He is needed to be on one-on-one status because he jumps out of the wheelchair. MENTAL STATUS EXAM: Oriented to himself. Insight, judgment, recent and remote memory, attention, concentration, fund of knowledge poor, consistent with his diagnosis. IMPRESSION: Major neurocognitive disorder, Alzheimer, vascular with delusion, depression, behavioral disturbance; anxiety disorder, unspecified; impulse control disorder, unspecified. Nursing staff have called me several times since the last visit with the patient. PLAN: We will plan continue current psychotropics. We will start Zoloft 25 mg a day. Maintain Aricept, Seroquel for now. Trazodone for insomnia, Zyprexa p.r.n. LOGAN PFEIFFER MD DR: ЕЛЕНА/laney JOB#: [id number] / [id number]
--- NOTE | 2018-05-02 01:33 | PN ---
DATE: 04/30/2018 PSYCHIATRIC PROGRESS NOTE This late entry 04/30/2018 covers elements not covered in my initial note. SUBJECTIVE: I met with the patient in the evening. The patient remains confused, is on one-on-one status. His son, Anand, attended the treatment team meeting. He remains restless. REVIEW OF SYSTEMS: Ambulation impaired. No CV, , pulmonary, eye, ENT system symptoms on review. Reliability poor. MENTAL STATUS EXAM: Oriented to himself. Insight, judgment, recent and remote memory, attention, concentration, fund of knowledge poor, consistent with his diagnosis from initial note. PLAN: No change from initial note for now. LOGAN PFEIFFER MD DR: ЕЛЕНА/laney JOB#: [id number] / [id number]
[2018-05-02 06:17] VITALS: BP 164/66
[2018-05-02] MEDS: SERTRALINE 25 MG TABLET. PO SCH (08:04)
[2018-05-02] MEDS: SMZ/TMP 800/160MG TABLET. PO SCH ×2 (08:04→19:37)
[2018-05-02] MEDS: CHOLECALCIFEROL (VITAMIN D3) 1,000 UNIT TABLET PO SCH (08:05)
[2018-05-02] MEDS: CYANOCOBALAMIN (VITAMIN B-12) 1,000 MCG TABLET. PO SCH (08:05)
[2018-05-02] MEDS: ASPIRIN 81 MG TAB.CHEW PO SCH (08:05)
[2018-05-02] MEDS: FLUDROCORTISONE 0.1 MG TABLET PO SCH (08:05)
[2018-05-02] MEDS: DONEPEZIL HCL 5 MG TABLET. PO SCH (08:05)
[2018-05-02] MEDS: BRIMONIDINE 0.2% OPHTH SOLUTION 5ML BOTTLE. OU SCH ×2 (08:07→19:37)
[2018-05-02] MEDS: QUEtiapine 25 MG TABLET. PO SCH ×2 (08:07→13:00)
[2018-05-02] MEDS: NYSTATIN TOPICAL POWDER 15GM BOTTLE. TP SCH ×2 (08:17→19:37)
[2018-05-02] MEDS: hydrOXYzine HCL 25 MG TABLET PO PRN (08:54)
[2018-05-02 16:22] VITALS: BP 117/69
[2018-05-02] MEDS: traZODone 50 MG TABLET. PO SCH (19:37)
[2018-05-02] MEDS: LATANOPROST 0.005% OPHTH SOLUTION 2.5ML BOTTLE. OU SCH (19:37)
[2018-05-03 06:06] VITALS: BP 125/74
[2018-05-03] MEDS: QUEtiapine 25 MG TABLET. PO SCH ×2 (07:41→12:10)
[2018-05-03] MEDS: DONEPEZIL HCL 5 MG TABLET. PO SCH (07:41)
[2018-05-03] MEDS: FLUDROCORTISONE 0.1 MG TABLET PO SCH (07:42)
[2018-05-03] MEDS: SERTRALINE 25 MG TABLET. PO SCH (07:42)
[2018-05-03] MEDS: CHOLECALCIFEROL (VITAMIN D3) 1,000 UNIT TABLET PO SCH (07:42)
[2018-05-03] MEDS: CYANOCOBALAMIN (VITAMIN B-12) 1,000 MCG TABLET. PO SCH (07:42)
[2018-05-03] MEDS: SMZ/TMP 800/160MG TABLET. PO SCH ×2 (07:42→19:31)
[2018-05-03] MEDS: ASPIRIN 81 MG TAB.CHEW PO SCH (07:42)
[2018-05-03] MEDS: NYSTATIN TOPICAL POWDER 15GM BOTTLE. TP SCH (07:51)
[2018-05-03] MEDS: BRIMONIDINE 0.2% OPHTH SOLUTION 5ML BOTTLE. OU SCH (07:51)
[2018-05-03 16:38] VITALS: BP 102/63
[2018-05-03] MEDS: traZODone 50 MG TABLET. PO SCH (19:31)
--- NOTE | 2018-05-03 20:17 | PDOC ---
Exam Note: Rosalio Note: Late entry for date of service April. Please also refer to the separate dictated note~for this date of service dictated separately.~Patient seen individually. Discussed the patient with Nursing staff reviewed the chart.~ Reviewed interim history and current functioning. Reviewed vital signs,~Labs/ Radiology~and current medications noted below. Continue current treatment with the changes noted in the dictated addendum note Assessment: Vital Signs: VS - Last 72 Hours, by Label Date Time Temp Pulse Resp B/P (MAP) Pulse Ox O2 Delivery O2 Flow Rate FiO2 05/03/18 16:38 98.5 97 20 102/63 (76) 95 Room Air 05/03/18 06:06 97.2 84 20 125/74 (91) 94 05/02/18 16:22 97.8 83 20 117/69 (85) 96 05/02/18 06:17 98.2 83 24 164/66 (98) 99 Room Air 05/01/18 16:07 98.0 75 19 146/71 (96) 98 Vital Signs Date Time Temp Pulse Resp B/P (MAP) Pulse Ox O2 Delivery O2 Flow Rate FiO2 05/03/18 16:38 98.5 97 20 102/63 (76) 95 Room Air I&O Intake and Output 05/03/18 07:00 Intake Total 480 ml Balance 480 ml Intake Oral 480 ml # Voids 1 Current Medications: Meds: Current Medications Trimethoprim/ Sulfamethoxazole (Bactrim Ds) 1 tab 1X ONCE PO Last administered on 04/28/18at 00:06; Start 04/27/18 at 23:55; Stop 04/27/18 at 23:56 ; Status DC Trimethoprim/ Sulfamethoxazole (Bactrim Ds) 1 tab BID PO Last administered on at 19:31; Start 04/28/18 at 09:00 Lorazepam (Ativan) 2 mg 1X ONCE PO Last administered on 04/28/18at 00:48; Start 04/28/18 at 00:45; Stop 04/28/18 at 00:46; Status DC Diphenhydramine HCl (Benadryl Oral Elixir) 25 mg 1X ONCE PO Last administered on 04/28/18at 00:48; Start 04/28/18 at 00:45; Stop 04/28/18 at 00:46; Status DC Acetaminophen (Tylenol) 650 mg PRN Q6HRS PRN PO PAIN / TEMP; Start 04/28/18 at 02:45 Multi-Ingredient Ointment (Analgesic [place]) 1 everardo PRN QID PRN TP MUSCLE PAIN; Start 04/28/18 at 02:45 Al Hydroxide/Mg Hydroxide (Mylanta Plus Xs) 15 ml PRN AFTMEALHC PRN PO DYSPEPSIA; Start 04/28/18 at 02:45 Magnesium Hydroxide (Milk Of Magnesia) 2,400 mg PRN QHS PRN PO CONSTIPATION; Start 04/28/18 at 02:45 Donepezil HCl (Aricept) 5 mg DAILY PO Last administered on 05/03/18at 07:41; Start 04/28/18 at 09:00 Non-Formulary Medication (Quetiapine Fumarate (Seroquel)) 25 mg DAILY PO ; Start 04/28/18 at 09:00; Stop 04/28/18 at 09:00; Status DC Non-Formulary Medication (Trazodone Hcl ) 25 mg PRN Q24HRS PRN PO INSOMNIA; Start 04/28/18 at 03:00; Stop 04/28/18 at 03:39; Status DC Non-Formulary Medication (Trazodone Hcl ) 25 mg QHS PO ; Start 04/28/18 at 21:00 ; Stop 04/28/18 at 21:00; Status DC Brimonidine Tartrate (Alphagan) 1 drop BID OU Last administered on 05/03/18at 07: 51; Start 04/28/18 at 09:00 Vitamin D (Vitamin D3) 1,000 unit DAILY PO Last administered on 05/03/18at 07:42 ; Start 04/28/18 at 09:00 Fludrocortisone Acetate (Florinef) 0.1 mg DAILY PO Last administered on at 07:42; Start 04/28/18 at 09:00 Nystatin (Nystop) 1 everardo BID TP Last administered on 05/03/18at 07:51; Start 04/28 at 09:00 Non-Formulary Medication (Acetaminophen ) 500 mg PRN Q8HRS PRN PO PAIN / TEMP; Start 04/28/18 at 03:15; Stop 04/28/18 at 03:39; Status DC Non-Formulary Medication (Aspirin ) 81 mg DAILY PO ; Start 04/28/18 at 09:00; Stop 04/28/18 at 09:00; Status DC Non-Formulary Medication (Cyanocobalamin (Vitamin B-12) (B-12)) 500 mcg DAILY PO ; Start 04/28/18 at 09:00; Stop 04/28/18 at 09:00; Status DC Non-Formulary Medication (Latanoprost ) 1 drop QHS OU ; Start 04/28/18 at 21:00 ; Stop 04/28/18 at 21:00; Status DC Acetaminophen (Tylenol) 500 mg PRN Q8HRS PRN PO PAIN / TEMP; Start 04/28/18 at 03:30; Status Cancel Aspirin (Children'S Aspirin) 81 mg DAILY PO Last administered on 05/03/18at 07:42 ; Start 04/28/18 at 09:00 Cyanocobalamin (Vitamin B-12) 500 mcg DAILY PO Last administered on 05/03/18at 07 :42; Start 04/28/18 at 09:00 Latanoprost (Xalatan) 1 drop QHS OU Last administered on 05/02/18at 19:37; Start 04/28/18 at 21:00 Quetiapine Fumarate (SEROquel) 25 mg DAILY PO Last administered on 05/01/18at 07: 50; Start 04/28/18 at 09:00; Stop 05/01/18 at 17:16; Status DC Trazodone HCl (Desyrel) 25 mg PRN Q24HRS PRN PO SEE COMMENTS Last administered on 05/01/18at 01:51; Start 04/28/18 at 03:30 Trazodone HCl (Desyrel) 25 mg QHS PO Last administered on 04/30/18at 20:03; Start 04/28/18 at 21:00; Stop 05/01/18 at 17:16; Status DC Olanzapine (ZyPREXA ZYDIS) 1.25 mg PRN Q2HR PRN PO PSYCHOSIS Last administered on 05/03/18at 19:31; Start 04/28/18 at 15:15 Lactobacillus Rhamnosus (Culturelle) 1 cap BID PO ; Start 04/29/18 at 09:00; Status Cancel Latanoprost (Xalatan) 1 drop QHS OU ; Start 04/29/18 at 21:00; Status UNV Sertraline HCl (Zoloft) 25 mg DAILY PO Last administered on 05/03/18at 07:42; Start 04/30/18 at 09:00 Quetiapine Fumarate (SEROquel) 25 mg BID@0900,1300 PO Last administered on at 12:10; Start 05/02/18 at 09:00 Trazodone HCl (Desyrel) 50 mg QHS PO Last administered on 05/03/18at 19:31; Start 05/01/18 at 21:00 Hydroxyzine HCl (Atarax) 25 mg PRN Q2HR PRN PO ANXIETY / AGITATION Last administered on 05/02/18at 08:54; Start 05/02/18 at 08:30 Active Scripts Active Fludrocortisone Acetate 0.1 Mg Tablet 0.1 Mg PO DAILY 30 Days Latanoprost 2.5 Ml Drops 1 Drop OU QHS Brimonidine Tartrate 5 Ml Drops 1 Drop OU BID Nystop (Nystatin) 60 Gm Powder 1 Everardo TP BID Reported Trazodone Hcl 50 Mg Tablet 25 Mg PO PRN Q24HRS PRN Trazodone Hcl 50 Mg Tablet 25 Mg PO QHS Seroquel (Quetiapine Fumarate) 25 Mg Tablet 25 Mg PO DAILY Donepezil Hcl 5 Mg Tablet 5 Mg PO DAILY Acetaminophen 500 Mg Tablet 500 Mg PO PRN Q8HRS PRN B-12 (Cyanocobalamin (Vitamin B-12)) 500 Mcg Tablet 500 Mcg PO DAILY Vitamin D3 (Cholecalciferol (Vitamin D3)) 1,000 Unit Tablet 1 Tab PO DAILY LAST DOSE GIVEN: DATE: TODAY TIME: AM NEXT DOSE DUE: DATE: TOMORROW TIME: AM Aspirin 81 Mg Tab.chew 81 Mg PO DAILY LAST DOSE GIVEN: DATE: TODAY TIME: AM NEXT DOSE DUE: DATE: TOMORROW TIME: AM I have reviewed the current psychotropics carefully including drug interactions. Risk benefit ratio favors no change other than as noted in my dictated progress note. Diagnosis: Problems: (1) Concussion (2) Complex laceration of face (3) Anxiety disorder (4) Impulse control disorder (5) Dementia in Alzheimer's disease with depression (6) Dementia in Alzheimer's disease with delusions (7) Acute encephalopathy (8) Sepsis (9) Mental status change resolved LOGAN PFEIFFER MD May 03, 2018 20:17
--- NOTE | 2018-05-03 20:18 | PDOC ---
Exam Note: Rosalio Note: Please also refer to the separate dictated note~for this date of service dictated separately.~Patient seen individually. Discussed the patient with Nursing staff reviewed the chart.~Reviewed interim history and current functioning. Reviewed vital signs,~Labs/ Radiology~and current medications noted below. Continue current treatment with the changes noted in the dictated addendum note Assessment: Vital Signs: Vital Signs Date Time Temp Pulse Resp B/P (MAP) Pulse Ox O2 Delivery O2 Flow Rate FiO2 05/03/18 16:38 98.5 97 20 102/63 (76) 95 Room Air I&O Intake and Output 05/03/18 07:00 Intake Total 480 ml Balance 480 ml Intake Oral 480 ml # Voids 1 Current Medications: Meds: Current Medications Trimethoprim/ Sulfamethoxazole (Bactrim Ds) 1 tab 1X ONCE PO Last administered on 04/28/18at 00:06; Start 04/27/18 at 23:55; Stop 04/27/18 at 23:56 ; Status DC Trimethoprim/ Sulfamethoxazole (Bactrim Ds) 1 tab BID PO Last administered on at 19:31; Start 04/28/18 at 09:00 Lorazepam (Ativan) 2 mg 1X ONCE PO Last administered on 04/28/18at 00:48; Start 04/28/18 at 00:45; Stop 04/28/18 at 00:46; Status DC Diphenhydramine HCl (Benadryl Oral Elixir) 25 mg 1X ONCE PO Last administered on 04/28/18at 00:48; Start 04/28/18 at 00:45; Stop 04/28/18 at 00:46; Status DC Acetaminophen (Tylenol) 650 mg PRN Q6HRS PRN PO PAIN / TEMP; Start 04/28/18 at 02:45 Multi-Ingredient Ointment (Analgesic [place]) 1 everardo PRN QID PRN TP MUSCLE PAIN; Start 04/28/18 at 02:45 Al Hydroxide/Mg Hydroxide (Mylanta Plus Xs) 15 ml PRN AFTMEALHC PRN PO DYSPEPSIA; Start 04/28/18 at 02:45 Magnesium Hydroxide (Milk Of Magnesia) 2,400 mg PRN QHS PRN PO CONSTIPATION; Start 04/28/18 at 02:45 Donepezil HCl (Aricept) 5 mg DAILY PO Last administered on 05/03/18at 07:41; Start 04/28/18 at 09:00 Non-Formulary Medication (Quetiapine Fumarate (Seroquel)) 25 mg DAILY PO ; Start 04/28/18 at 09:00; Stop 04/28/18 at 09:00; Status DC Non-Formulary Medication (Trazodone Hcl ) 25 mg PRN Q24HRS PRN PO INSOMNIA; Start 04/28/18 at 03:00; Stop 04/28/18 at 03:39; Status DC Non-Formulary Medication (Trazodone Hcl ) 25 mg QHS PO ; Start 04/28/18 at 21:00 ; Stop 04/28/18 at 21:00; Status DC Brimonidine Tartrate (Alphagan) 1 drop BID OU Last administered on 05/03/18at 07: 51; Start 04/28/18 at 09:00 Vitamin D (Vitamin D3) 1,000 unit DAILY PO Last administered on 05/03/18at 07:42 ; Start 04/28/18 at 09:00 Fludrocortisone Acetate (Florinef) 0.1 mg DAILY PO Last administered on at 07:42; Start 04/28/18 at 09:00 Nystatin (Nystop) 1 everardo BID TP Last administered on 05/03/18at 07:51; Start 04/28 at 09:00 Non-Formulary Medication (Acetaminophen ) 500 mg PRN Q8HRS PRN PO PAIN / TEMP; Start 04/28/18 at 03:15; Stop 04/28/18 at 03:39; Status DC Non-Formulary Medication (Aspirin ) 81 mg DAILY PO ; Start 04/28/18 at 09:00; Stop 04/28/18 at 09:00; Status DC Non-Formulary Medication (Cyanocobalamin (Vitamin B-12) (B-12)) 500 mcg DAILY PO ; Start 04/28/18 at 09:00; Stop 04/28/18 at 09:00; Status DC Non-Formulary Medication (Latanoprost ) 1 drop QHS OU ; Start 04/28/18 at 21:00 ; Stop 04/28/18 at 21:00; Status DC Acetaminophen (Tylenol) 500 mg PRN Q8HRS PRN PO PAIN / TEMP; Start 04/28/18 at 03:30; Status Cancel Aspirin (Children'S Aspirin) 81 mg DAILY PO Last administered on 05/03/18 07:42 ; Start 04/28/18 at 09:00 Cyanocobalamin (Vitamin B-12) 500 mcg DAILY PO Last administered on 05/03/18 07 :42; Start 04/28/18 at 09:00 Latanoprost (Xalatan) 1 drop QHS OU Last administered on 05/02/18 19:37; Start 04/28/18 at 21:00 Quetiapine Fumarate (SEROquel) 25 mg DAILY PO Last administered on 05/01/18 07: 50; Start 04/28/18 at 09:00; Stop 05/01/18 at 17:16; Status DC Trazodone HCl (Desyrel) 25 mg PRN Q24HRS PRN PO SEE COMMENTS Last administered on 05/01/18at 01:51; Start 04/28/18 at 03:30 Trazodone HCl (Desyrel) 25 mg QHS PO Last administered on 04/30/18at 20:03; Start 04/28/18 at 21:00; Stop 05/01/18 at 17:16; Status DC Olanzapine (ZyPREXA ZYDIS) 1.25 mg PRN Q2HR PRN PO PSYCHOSIS Last administered on 05/03/18 19:31; Start 04/28/18 at 15:15 Lactobacillus Rhamnosus (Culturelle) 1 cap BID PO ; Start 04/29/18 at 09:00; Status Cancel Latanoprost (Xalatan) 1 drop QHS OU ; Start 04/29/18 at 21:00; Status UNV Sertraline HCl (Zoloft) 25 mg DAILY PO Last administered on 05/03/18 07:42; Start 04/30/18 at 09:00 Quetiapine Fumarate (SEROquel) 25 mg BID@0900,1300 PO Last administered on 12:10; Start 05/02/18 at 09:00 Trazodone HCl (Desyrel) 50 mg QHS PO Last administered on 05/03/18 19:31; Start 05/01/18 at 21:00 Hydroxyzine HCl (Atarax) 25 mg PRN Q2HR PRN PO ANXIETY / AGITATION Last administered on 05/02/18at 08:54; Start 05/02/18 at 08:30 Active Scripts Active Fludrocortisone Acetate 0.1 Mg Tablet 0.1 Mg PO DAILY 30 Days Latanoprost 2.5 Ml Drops 1 Drop OU QHS Brimonidine Tartrate 5 Ml Drops 1 Drop OU BID Nystop (Nystatin) 60 Gm Powder 1 Everardo TP BID Reported Trazodone Hcl 50 Mg Tablet 25 Mg PO PRN Q24HRS PRN Trazodone Hcl 50 Mg Tablet 25 Mg PO QHS Seroquel (Quetiapine Fumarate) 25 Mg Tablet 25 Mg PO DAILY Donepezil Hcl 5 Mg Tablet 5 Mg PO DAILY Acetaminophen 500 Mg Tablet 500 Mg PO PRN Q8HRS PRN B-12 (Cyanocobalamin (Vitamin B-12)) 500 Mcg Tablet 500 Mcg PO DAILY Vitamin D3 (Cholecalciferol (Vitamin D3)) 1,000 Unit Tablet 1 Tab PO DAILY LAST DOSE GIVEN: DATE: TODAY TIME: AM NEXT DOSE DUE: DATE: TOMORROW TIME: AM Aspirin 81 Mg Tab.chew 81 Mg PO DAILY LAST DOSE GIVEN: DATE: TODAY TIME: AM NEXT DOSE DUE: DATE: TOMORROW TIME: AM I have reviewed the current psychotropics carefully including drug interactions. Risk benefit ratio favors no change other than as noted in my dictated progress note. Diagnosis: Problems: (1) Concussion (2) Complex laceration of face (3) Anxiety disorder (4) Impulse control disorder (5) Dementia in Alzheimer's disease with depression (6) Dementia in Alzheimer's disease with delusions (7) Acute encephalopathy (8) Sepsis (9) Mental status change resolved LOGAN PFEIFFER MD May 03, 2018 20:18
--- NOTE | 2018-05-03 23:34 | PN ---
DATE: 05/01/2018 This is a late entry, 05/01/2018, covers the elements not covered in my initial note. SUBJECTIVE: I met with the patient in the evening. The patient remains on one-on-one status. He has been combative with the staff, has had skin tears the previous evening. During the day, he was running back and forth, anxious, restless, labile, psychotic . REVIEW OF SYSTEMS: Ambulation impaired. No CV, , pulmonary, eye, ENT system symptoms on review. Reliability poor. MENTAL STATUS EXAM: Oriented to himself. Insight, judgment, recent and remote memory, attention, concentration, fund of knowledge poor, consistent with his diagnosis. The patient slept 7-1/2 hours the previous evening. IMPRESSION: Unchanged from initial note. PLAN: Increase Seroquel to 25 mg 9 before noon, 1 after noon, and trazodone to 50 mg at bedtime as needed, may repeat times x 1. MAN Nila PFEIFFER MD DR: ЕЛЕНА/laney JOB#: [id number] / [id number]
[2018-05-04] MEDS: LATANOPROST 0.005% OPHTH SOLUTION 2.5ML BOTTLE. OU SCH ×2 (03:05→21:00)
[2018-05-04] MEDS: NYSTATIN TOPICAL POWDER 15GM BOTTLE. TP SCH ×3 (03:06→21:10)
[2018-05-04] MEDS: BRIMONIDINE 0.2% OPHTH SOLUTION 5ML BOTTLE. OU SCH ×3 (03:06→21:00)
[2018-05-04 06:43] VITALS: BP 120/61
[2018-05-04] MEDS: CYANOCOBALAMIN (VITAMIN B-12) 1,000 MCG TABLET. PO SCH ×2 (09:00→09:06)
[2018-05-04] MEDS: ASPIRIN 81 MG TAB.CHEW PO SCH ×2 (09:00→09:04)
[2018-05-04] MEDS: QUEtiapine 25 MG TABLET. PO SCH ×3 (09:00→12:15)
[2018-05-04] MEDS: CHOLECALCIFEROL (VITAMIN D3) 1,000 UNIT TABLET PO SCH ×2 (09:00→09:04)
[2018-05-04] MEDS: FLUDROCORTISONE 0.1 MG TABLET PO SCH ×2 (09:00→09:04)
[2018-05-04] MEDS: SMZ/TMP 800/160MG TABLET. PO SCH ×3 (09:04→21:09)
[2018-05-04] MEDS: DONEPEZIL HCL 5 MG TABLET. PO SCH ×2 (09:04→12:15)
[2018-05-04] MEDS: SERTRALINE 25 MG TABLET. PO SCH ×2 (09:04→12:15)
[2018-05-04 16:22] VITALS: BP 124/65
[2018-05-04] MEDS: traZODone 50 MG TABLET. PO SCH (21:09)
--- NOTE | 2018-05-04 21:15 | PDOC ---
Exam Note: Rosalio Note: Please also refer to the separate dictated note~for this date of service dictated separately.~Patient seen individually. Discussed the patient with Nursing staff reviewed the chart.~Reviewed interim history and current functioning. Reviewed vital signs,~Labs/ Radiology~and current medications noted below. Continue current treatment with the changes noted in the dictated addendum note Assessment: Vital Signs: Vital Signs Date Time Temp Pulse Resp B/P (MAP) Pulse Ox O2 Delivery O2 Flow Rate FiO2 05/04/18 16:22 98.3 85 20 124/65 (84) 92 05/04/18 06:43 Room Air I&O Intake and Output 05/04/18 07:00 Intake Total 580 ml Balance 580 ml Intake Oral 580 ml Current Medications: Meds: Current Medications Trimethoprim/ Sulfamethoxazole (Bactrim Ds) 1 tab 1X ONCE PO Last administered on 04/28/18at 00:06; Start 04/27/18 at 23:55; Stop 04/27/18 at 23:56 ; Status DC Trimethoprim/ Sulfamethoxazole (Bactrim Ds) 1 tab BID PO Last administered on at 21:09; Start 04/28/18 at 09:00 Lorazepam (Ativan) 2 mg 1X ONCE PO Last administered on 04/28/18at 00:48; Start 04/28/18 at 00:45; Stop 04/28/18 at 00:46; Status DC Diphenhydramine HCl (Benadryl Oral Elixir) 25 mg 1X ONCE PO Last administered on 04/28/18at 00:48; Start 04/28/18 at 00:45; Stop 04/28/18 at 00:46; Status DC Acetaminophen (Tylenol) 650 mg PRN Q6HRS PRN PO PAIN / TEMP; Start 04/28/18 at 02:45 Multi-Ingredient Ointment (Analgesic [place]) 1 everardo PRN QID PRN TP MUSCLE PAIN; Start 04/28/18 at 02:45 Al Hydroxide/Mg Hydroxide (Mylanta Plus Xs) 15 ml PRN AFTMEALHC PRN PO DYSPEPSIA; Start 04/28/18 at 02:45 Magnesium Hydroxide (Milk Of Magnesia) 2,400 mg PRN QHS PRN PO CONSTIPATION; Start 04/28/18 at 02:45 Donepezil HCl (Aricept) 5 mg DAILY PO Last administered on 05/04/18at 12:15; Start 04/28/18 at 09:00; Stop 05/04/18 at 18:22; Status DC Non-Formulary Medication (Quetiapine Fumarate (Seroquel)) 25 mg DAILY PO ; Start 04/28/18 at 09:00; Stop 04/28/18 at 09:00; Status DC Non-Formulary Medication (Trazodone Hcl ) 25 mg PRN Q24HRS PRN PO INSOMNIA; Start 04/28/18 at 03:00; Stop 04/28/18 at 03:39; Status DC Non-Formulary Medication (Trazodone Hcl ) 25 mg QHS PO ; Start 04/28/18 at 21:00 ; Stop 04/28/18 at 21:00; Status DC Brimonidine Tartrate (Alphagan) 1 drop BID OU Last administered on 05/04/18at 03: 06; Start 04/28/18 at 09:00 Vitamin D (Vitamin D3) 1,000 unit DAILY PO Last administered on 05/03/18at 07:42 ; Start 04/28/18 at 09:00 Fludrocortisone Acetate (Florinef) 0.1 mg DAILY PO Last administered on at 07:42; Start 04/28/18 at 09:00 Nystatin (Nystop) 1 everardo BID TP Last administered on 05/04/18at 21:10; Start 04/28 at 09:00 Non-Formulary Medication (Acetaminophen ) 500 mg PRN Q8HRS PRN PO PAIN / TEMP; Start 04/28/18 at 03:15; Stop 04/28/18 at 03:39; Status DC Non-Formulary Medication (Aspirin ) 81 mg DAILY PO ; Start 04/28/18 at 09:00; Stop 04/28/18 at 09:00; Status DC Non-Formulary Medication (Cyanocobalamin (Vitamin B-12) (B-12)) 500 mcg DAILY PO ; Start 04/28/18 at 09:00; Stop 04/28/18 at 09:00; Status DC Non-Formulary Medication (Latanoprost ) 1 drop QHS OU ; Start 04/28/18 at 21:00 ; Stop 04/28/18 at 21:00; Status DC Acetaminophen (Tylenol) 500 mg PRN Q8HRS PRN PO PAIN / TEMP; Start 04/28/18 at 03:30; Status Cancel Aspirin (Children'S Aspirin) 81 mg DAILY PO Last administered on 05/03/18at 07:42 ; Start 04/28/18 at 09:00 Cyanocobalamin (Vitamin B-12) 500 mcg DAILY PO Last administered on 05/03/18at 07 :42; Start 04/28/18 at 09:00 Latanoprost (Xalatan) 1 drop QHS OU Last administered on 05/04/18at 03:05; Start 04/28/18 at 21:00 Quetiapine Fumarate (SEROquel) 25 mg DAILY PO Last administered on 05/01/18at 07: 50; Start 04/28/18 at 09:00; Stop 05/01/18 at 17:16; Status DC Trazodone HCl (Desyrel) 25 mg PRN Q24HRS PRN PO SEE COMMENTS Last administered on 05/01/18at 01:51; Start 04/28/18 at 03:30 Trazodone HCl (Desyrel) 25 mg QHS PO Last administered on 04/30/18at 20:03; Start 04/28/18 at 21:00; Stop 05/01/18 at 17:16; Status DC Olanzapine (ZyPREXA ZYDIS) 1.25 mg PRN Q2HR PRN PO PSYCHOSIS Last administered on 05/04/18at 09:23; Start 04/28/18 at 15:15 Lactobacillus Rhamnosus (Culturelle) 1 cap BID PO ; Start 04/29/18 at 09:00; Status Cancel Latanoprost (Xalatan) 1 drop QHS OU ; Start 04/29/18 at 21:00; Status UNV Sertraline HCl (Zoloft) 25 mg DAILY PO Last administered on 05/04/18at 12:15; Start 04/30/18 at 09:00 Quetiapine Fumarate (SEROquel) 25 mg BID@0900,1300 PO Last administered on at 12:15; Start 05/02/18 at 09:00; Stop 05/04/18 at 18:22; Status DC Trazodone HCl (Desyrel) 50 mg QHS PO Last administered on 05/04/18at 21:09; Start 05/01/18 at 21:00 Hydroxyzine HCl (Atarax) 25 mg PRN Q2HR PRN PO ANXIETY / AGITATION Last administered on 05/02/18at 08:54; Start 05/02/18 at 08:30 Quetiapine Fumarate (SEROquel) 25 mg BIDPCLD PO ; Start 05/05/18 at 12:30 Quetiapine Fumarate (SEROquel) 37.5 mg DAILY PO ; Start 05/05/18 at 09:00 Active Scripts Active Fludrocortisone Acetate 0.1 Mg Tablet 0.1 Mg PO DAILY 30 Days Latanoprost 2.5 Ml Drops 1 Drop OU QHS Brimonidine Tartrate 5 Ml Drops 1 Drop OU BID Nystop (Nystatin) 60 Gm Powder 1 Everardo TP BID Reported Trazodone Hcl 50 Mg Tablet 25 Mg PO PRN Q24HRS PRN Trazodone Hcl 50 Mg Tablet 25 Mg PO QHS Seroquel (Quetiapine Fumarate) 25 Mg Tablet 25 Mg PO DAILY Donepezil Hcl 5 Mg Tablet 5 Mg PO DAILY Acetaminophen 500 Mg Tablet 500 Mg PO PRN Q8HRS PRN B-12 (Cyanocobalamin (Vitamin B-12)) 500 Mcg Tablet 500 Mcg PO DAILY Vitamin D3 (Cholecalciferol (Vitamin D3)) 1,000 Unit Tablet 1 Tab PO DAILY LAST DOSE GIVEN: DATE: TODAY TIME: AM NEXT DOSE DUE: DATE: TOMORROW TIME: AM Aspirin 81 Mg Tab.chew 81 Mg PO DAILY LAST DOSE GIVEN: DATE: TODAY TIME: AM NEXT DOSE DUE: DATE: TOMORROW TIME: AM I have reviewed the current psychotropics carefully including drug interactions. Risk benefit ratio favors no change other than as noted in my dictated progress note. Diagnosis: Problems: (1) Concussion (2) Complex laceration of face (3) Anxiety disorder (4) Impulse control disorder (5) Dementia in Alzheimer's disease with depression (6) Dementia in Alzheimer's disease with delusions (7) Acute encephalopathy (8) Sepsis (9) Mental status change resolved LOGAN PFEIFFER MD May 04, 2018 21:15
--- NOTE | 2018-05-04 22:21 | PN ---
DATE: 05/02/2018 PSYCHIATRIC PROGRESS NOTE This is a late entry of 05/02/2018 covers elements not covered in my initial note. SUBJECTIVE: I met with the patient in the evening and I have been called several times during the day by nursing staff as an emergency on account of his fall risks, restlessness, agitation and he remains on one-on-one status. He slept 7-3/4 hours previous evening. In the morning, he threw food off the table at staff members. Atarax was added and seemed to help. REVIEW OF SYSTEMS: Ambulation impaired. No CV, , pulmonary, eye, ENT system symptoms on review. MENTAL STATUS EXAM: Oriented to himself. Insight, judgment, recent and remote memory, attention, concentration, fund of knowledge poor, consistent with his diagnosis. IMPRESSION: Major neurocognitive disorder, Alzheimer, vascular with delusion, depression, behavioral disturbance. PLAN: Add Seroquel 12.5 mg at 1700. Atarax has been added p.r.n. Rest unchanged from initial note. LOGAN PFEIFFER MD DR: ЕЛЕНА/laney JOB#: [id number] / [id number]
--- NOTE | 2018-05-04 22:38 | PN ---
DATE: 05/03/2018 This late entry 05/03/2018 covers elements not covered in my initial note. SUBJECTIVE: I met with the patient in the evening. The patient has remained on one-on-one status, has received PRNs x 4, slept 8-1/2 hours. REVIEW OF SYSTEMS: No CV, , pulmonary, eye, ENT system symptoms on review. Reliability poor. Gait unsteady. MENTAL STATUS EXAM: Oriented to himself. Insight, judgment, recent and remote memory, attention, concentration, fund of knowledge poor, consistent with his diagnosis mentioned in my initial note. PLAN: Seroquel was added 12.5 at 1700. Continue rest unchanged for now. MAN Nila PFEIFFER MD DR: ЕЛЕНА/laney JOB#: [id number] / [id number]
[2018-05-05] MEDS: SERTRALINE 25 MG TABLET. PO SCH (08:48)
[2018-05-05] MEDS: QUEtiapine 25 MG TABLET. PO SCH ×3 (08:49→18:02)
[2018-05-05] MEDS: SMZ/TMP 800/160MG TABLET. PO SCH ×2 (08:49→21:00)
[2018-05-05] MEDS: BRIMONIDINE 0.2% OPHTH SOLUTION 5ML BOTTLE. OU SCH ×2 (09:00→21:00)
[2018-05-05] MEDS: CHOLECALCIFEROL (VITAMIN D3) 1,000 UNIT TABLET PO SCH (09:48)
[2018-05-05] MEDS: FLUDROCORTISONE 0.1 MG TABLET PO SCH (09:48)
[2018-05-05] MEDS: NYSTATIN TOPICAL POWDER 15GM BOTTLE. TP SCH ×2 (09:49→21:32)
[2018-05-05] MEDS: ASPIRIN 81 MG TAB.CHEW PO SCH (09:49)
[2018-05-05] MEDS: CYANOCOBALAMIN (VITAMIN B-12) 1,000 MCG TABLET. PO SCH (09:49)
[2018-05-05] MEDS: hydrOXYzine HCL 25 MG TABLET PO PRN (14:07)
[2018-05-05 16:26] VITALS: BP 144/76
[2018-05-05] MEDS: traZODone 50 MG TABLET. PO SCH ×2 (17:00→20:58)
--- NOTE | 2018-05-05 20:44 | PDOC ---
Exam Note: Rosalio Note: Please also refer to the separate dictated note~for this date of service dictated separately.~Patient seen individually. Discussed the patient with Nursing staff reviewed the chart.~Reviewed interim history and current functioning. Reviewed vital signs,~Labs/ Radiology~and current medications noted below. Continue current treatment with the changes noted in the dictated addendum note Assessment: Vital Signs: Vital Signs Date Time Temp Pulse Resp B/P (MAP) Pulse Ox O2 Delivery O2 Flow Rate FiO2 05/05/18 16:26 98.9 85 18 144/76 (98) 94 05/04/18 06:43 Room Air I&O Intake and Output 05/05/18 06:59 Intake Total 840 ml Balance 840 ml Intake Oral 840 ml Current Medications: Meds: Current Medications Trimethoprim/ Sulfamethoxazole (Bactrim Ds) 1 tab 1X ONCE PO Last administered on 04/28/18at 00:06; Start 04/27/18 at 23:55; Stop 04/27/18 at 23:56 ; Status DC Trimethoprim/ Sulfamethoxazole (Bactrim Ds) 1 tab BID PO Last administered on at 08:49; Start 04/28/18 at 09:00 Lorazepam (Ativan) 2 mg 1X ONCE PO Last administered on 04/28/18at 00:48; Start 04/28/18 at 00:45; Stop 04/28/18 at 00:46; Status DC Diphenhydramine HCl (Benadryl Oral Elixir) 25 mg 1X ONCE PO Last administered on 04/28/18at 00:48; Start 04/28/18 at 00:45; Stop 04/28/18 at 00:46; Status DC Acetaminophen (Tylenol) 650 mg PRN Q6HRS PRN PO PAIN / TEMP; Start 04/28/18 at 02:45 Multi-Ingredient Ointment (Analgesic [place]) 1 everardo PRN QID PRN TP MUSCLE PAIN; Start 04/28/18 at 02:45 Al Hydroxide/Mg Hydroxide (Mylanta Plus Xs) 15 ml PRN AFTMEALHC PRN PO DYSPEPSIA; Start 04/28/18 at 02:45 Magnesium Hydroxide (Milk Of Magnesia) 2,400 mg PRN QHS PRN PO CONSTIPATION Last administered on 05/05/18at 11:56; Start 04/28/18 at 02:45 Donepezil HCl (Aricept) 5 mg DAILY PO Last administered on 05/04/18at 12:15; Start 04/28/18 at 09:00; Stop 05/04/18 at 18:22; Status DC Non-Formulary Medication (Quetiapine Fumarate (Seroquel)) 25 mg DAILY PO ; Start 04/28/18 at 09:00; Stop 04/28/18 at 09:00; Status DC Non-Formulary Medication (Trazodone Hcl ) 25 mg PRN Q24HRS PRN PO INSOMNIA; Start 04/28/18 at 03:00; Stop 04/28/18 at 03:39; Status DC Non-Formulary Medication (Trazodone Hcl ) 25 mg QHS PO ; Start 04/28/18 at 21:00 ; Stop 04/28/18 at 21:00; Status DC Brimonidine Tartrate (Alphagan) 1 drop BID OU Last administered on 05/05/18at 09: 00; Start 04/28/18 at 09:00 Vitamin D (Vitamin D3) 1,000 unit DAILY PO Last administered on 05/05/18at 09:48 ; Start 04/28/18 at 09:00 Fludrocortisone Acetate (Florinef) 0.1 mg DAILY PO Last administered on at 09:48; Start 04/28/18 at 09:00 Nystatin (Nystop) 1 everardo BID TP Last administered on 05/05/18at 09:49; Start 04/28 at 09:00 Non-Formulary Medication (Acetaminophen ) 500 mg PRN Q8HRS PRN PO PAIN / TEMP; Start 04/28/18 at 03:15; Stop 04/28/18 at 03:39; Status DC Non-Formulary Medication (Aspirin ) 81 mg DAILY PO ; Start 04/28/18 at 09:00; Stop 04/28/18 at 09:00; Status DC Non-Formulary Medication (Cyanocobalamin (Vitamin B-12) (B-12)) 500 mcg DAILY PO ; Start 04/28/18 at 09:00; Stop 04/28/18 at 09:00; Status DC Non-Formulary Medication (Latanoprost ) 1 drop QHS OU ; Start 04/28/18 at 21:00 ; Stop 04/28/18 at 21:00; Status DC Acetaminophen (Tylenol) 500 mg PRN Q8HRS PRN PO PAIN / TEMP; Start 04/28/18 at 03:30; Status Cancel Aspirin (Children'S Aspirin) 81 mg DAILY PO Last administered on 05/05/18at 09:49 ; Start 04/28/18 at 09:00 Cyanocobalamin (Vitamin B-12) 500 mcg DAILY PO Last administered on 05/05/18at 09 :49; Start 04/28/18 at 09:00 Latanoprost (Xalatan) 1 drop QHS OU Last administered on 05/04/18 03:05; Start 04/28/18 at 21:00 Quetiapine Fumarate (SEROquel) 25 mg DAILY PO Last administered on 05/01/18at 07: 50; Start 04/28/18 at 09:00; Stop 05/01/18 at 17:16; Status DC Trazodone HCl (Desyrel) 25 mg PRN Q24HRS PRN PO SEE COMMENTS Last administered on 05/01/18at 01:51; Start 04/28/18 at 03:30 Trazodone HCl (Desyrel) 25 mg QHS PO Last administered on 04/30/18at 20:03; Start 04/28/18 at 21:00; Stop 05/01/18 at 17:16; Status DC Olanzapine (ZyPREXA ZYDIS) 1.25 mg PRN Q2HR PRN PO PSYCHOSIS Last administered on 05/04/18at 09:23; Start 04/28/18 at 15:15 Lactobacillus Rhamnosus (Culturelle) 1 cap BID PO ; Start 04/29/18 at 09:00; Status Cancel Latanoprost (Xalatan) 1 drop QHS OU ; Start 04/29/18 at 21:00; Status UNV Sertraline HCl (Zoloft) 25 mg DAILY PO Last administered on 05/05/18at 08:48; Start 04/30/18 at 09:00; Stop 05/05/18 at 16:38; Status DC Quetiapine Fumarate (SEROquel) 25 mg BID@0900,1300 PO Last administered on at 12:15; Start 05/02/18 at 09:00; Stop 05/04/18 at 18:22; Status DC Trazodone HCl (Desyrel) 50 mg QHS PO Last administered on 05/04/18at 21:09; Start 05/01/18 at 21:00 Hydroxyzine HCl (Atarax) 25 mg PRN Q2HR PRN PO ANXIETY / AGITATION Last administered on 05/05/18at 14:07; Start 05/02/18 at 08:30 Quetiapine Fumarate (SEROquel) 25 mg BIDPCLD PO Last administered on 05/05/18at 18:02; Start 05/05/18 at 12:30 Quetiapine Fumarate (SEROquel) 37.5 mg DAILY PO Last administered on 05/05/18at 08:49; Start 05/05/18 at 09:00 Sertraline HCl (Zoloft) 50 mg DAILY PO ; Start 05/06/18 at 09:00 Trazodone HCl (Desyrel) 12.5 mg BID@0900,1700 PO ; Start 05/05/18 at 17:00 Active Scripts Active Fludrocortisone Acetate 0.1 Mg Tablet 0.1 Mg PO DAILY 30 Days Latanoprost 2.5 Ml Drops 1 Drop OU QHS Brimonidine Tartrate 5 Ml Drops 1 Drop OU BID Nystop (Nystatin) 60 Gm Powder 1 Everardo TP BID Reported Trazodone Hcl 50 Mg Tablet 25 Mg PO PRN Q24HRS PRN Trazodone Hcl 50 Mg Tablet 25 Mg PO QHS Seroquel (Quetiapine Fumarate) 25 Mg Tablet 25 Mg PO DAILY Donepezil Hcl 5 Mg Tablet 5 Mg PO DAILY Acetaminophen 500 Mg Tablet 500 Mg PO PRN Q8HRS PRN B-12 (Cyanocobalamin (Vitamin B-12)) 500 Mcg Tablet 500 Mcg PO DAILY Vitamin D3 (Cholecalciferol (Vitamin D3)) 1,000 Unit Tablet 1 Tab PO DAILY LAST DOSE GIVEN: DATE: TODAY TIME: AM NEXT DOSE DUE: DATE: TOMORROW TIME: AM Aspirin 81 Mg Tab.chew 81 Mg PO DAILY LAST DOSE GIVEN: DATE: TODAY TIME: AM NEXT DOSE DUE: DATE: TOMORROW TIME: AM I have reviewed the current psychotropics carefully including drug interactions. Risk benefit ratio favors no change other than as noted in my dictated progress note. Diagnosis: Problems: (1) Concussion (2) Complex laceration of face (3) Anxiety disorder (4) Impulse control disorder (5) Dementia in Alzheimer's disease with depression (6) Dementia in Alzheimer's disease with delusions (7) Acute encephalopathy (8) Sepsis (9) Mental status change resolved LOGAN PFEIFFER MD May 05, 2018 20:43
[2018-05-05] MEDS: LATANOPROST 0.005% OPHTH SOLUTION 2.5ML BOTTLE. OU SCH (21:00)
--- NOTE | 2018-05-06 00:33 | PN ---
DATE: 05/04/2018 This is a late entry, 05/04/2018, covers the elements not covered in my initial note. SUBJECTIVE: I met with the patient in the evening. The patient slept 8 hours the previous evening. He remains anxious, restless, one-on-one status because he is at fall risk. His came in and got him to take his medications. Otherwise, he is noncompliant. He was swinging at the aides. REVIEW OF SYSTEMS: Ambulation impaired. No CV, , pulmonary, eye, ENT system symptoms on review. Reliability poor. MENTAL STATUS EXAM: Oriented to himself. Insight, judgment, recent and remote memory, attention, concentration, fund of knowledge poor, consistent with his diagnosis as mentioned in my initial note. PLAN: We will go ahead and stop the Aricept as it probably has little benefit at this stage of his dementia, increase the 9 a.m. Seroquel from 25 mg to 37.5 mg and 5 p.m. from 12.5 to 25 mg. Continue rest unchanged. MAN Nila PFEIFFER MD DR: ЕЛЕНА/laney JOB#: [id number] / [id number]
[2018-05-06 06:02] VITALS: BP 129/79
[2018-05-06 06:52] LABS: ALBUMIN 3.9 g/dL (3.4-5.0); CALCIUM 8.8 mg/dL (8.5-10.1); CREATININE 1.8 mg/dL (0.7-1.3); GFR 35.8; POTASSIUM 4.9 mmol/L (3.5-5.1); TOTAL BILIRUBIN 0.8 mg/dL (0.2-1.0); TOTAL PROTEIN 7.8 g/dL (6.4-8.2)
[2018-05-06 06:54] LABS: BASO % 1 % (0-3); EOS # 0.2 x10^3/uL (0.0-0.7); EOS % 3 % (0-3); HEMATOCRIT 38.6 % (39.0-53.0); HEMOGLOBIN 13.1 g/dL (13.0-17.5); LYMPH # 0.9 x10^3/uL (1.0-4.8); LYMPH % 12 % (24-48); MEAN CORPUSCULAR HEMOGLOBIN 33 pg (25-35); MEAN CORPUSCULAR HGB CONC 34 g/dL (31-37); MEAN CORPUSCULAR VOLUME 96 fL (79-100); MONO % 14 % (0-9); NEUT # 4.9 x10^3uL (1.8-7.7); NEUT % 70 % (31-73); PLATELET COUNT 236 x10^3/uL (140-400); RED BLOOD COUNT 4.03 x10^6/uL (4.30-5.70); RED CELL DISTRIBUTION WIDTH 14.1 % (11.5-14.5)
[2018-05-06] MEDS: traZODone 50 MG TABLET. PO SCH ×3 (07:38→21:14)
[2018-05-06] MEDS: ASPIRIN 81 MG TAB.CHEW PO SCH (07:38)
[2018-05-06] MEDS: CHOLECALCIFEROL (VITAMIN D3) 1,000 UNIT TABLET PO SCH (07:39)
[2018-05-06] MEDS: FLUDROCORTISONE 0.1 MG TABLET PO SCH (07:39)
[2018-05-06] MEDS: QUEtiapine 25 MG TABLET. PO SCH ×3 (07:39→17:19)
[2018-05-06] MEDS: CYANOCOBALAMIN (VITAMIN B-12) 1,000 MCG TABLET. PO SCH (07:39)
[2018-05-06] MEDS: SERTRALINE 50 MG TABLET. PO SCH (07:40)
[2018-05-06] MEDS: NYSTATIN TOPICAL POWDER 15GM BOTTLE. TP SCH ×2 (07:52→21:14)
[2018-05-06] MEDS: SMZ/TMP 800/160MG TABLET. PO SCH ×2 (07:53→21:14)
[2018-05-06] MEDS: BRIMONIDINE 0.2% OPHTH SOLUTION 5ML BOTTLE. OU SCH ×3 (07:54→21:17)
[2018-05-06 16:28] VITALS: BP 122/83
--- NOTE | 2018-05-06 21:13 | PDOC ---
Exam Note: Rosalio Note: Please also refer to the separate dictated note~for this date of service dictated separately.~Patient seen individually. Discussed the patient with Nursing staff reviewed the chart.~Reviewed interim history and current functioning. Reviewed vital signs,~Labs/ Radiology~and current medications noted below. Continue current treatment with the changes noted in the dictated addendum note Assessment: Vital Signs: Vital Signs Date Time Temp Pulse Resp B/P (MAP) Pulse Ox O2 Delivery O2 Flow Rate FiO2 05/06/18 16:28 97.9 85 20 122/83 (96) 96 05/04/18 06:43 Room Air I&O Intake and Output 05/06/18 06:59 Intake Total 600 ml Balance 600 ml Intake Oral 600 ml Labs: Laboratory Tests Test 05/06/18 06:28 White Blood Count 7.0 x10^3/uL (4.0-11.0) Red Blood Count 4.03 x10^6/uL (4.30-5.70) L Hemoglobin 13.1 g/dL (13.0-17.5) Hematocrit 38.6 % (39.0-53.0) L Mean Corpuscular Volume 96 fL (79-100) Mean Corpuscular Hemoglobin 33 pg (25-35) Mean Corpuscular Hemoglobin Concent 34 g/dL (31-37) Red Cell Distribution Width 14.1 % (11.5-14.5) Platelet Count 236 x10^3/uL (140-400) Neutrophils (%) (Auto) 70 % (31-73) Lymphocytes (%) (Auto) 12 % (24-48) L Monocytes (%) (Auto) 14 % (0-9) H Eosinophils (%) (Auto) 3 % (0-3) Basophils (%) (Auto) 1 % (0-3) Neutrophils # (Auto) 4.9 x10^3uL (1.8-7.7) Lymphocytes # (Auto) 0.9 x10^3/uL (1.0-4.8) L Monocytes # (Auto) 1.0 x10^3/uL (0.0-1.1) Eosinophils # (Auto) 0.2 x10^3/uL (0.0-0.7) Basophils # (Auto) 0.0 x10^3/uL (0.0-0.2) Sodium Level 140 mmol/L (136-145) Potassium Level 4.9 mmol/L (3.5-5.1) Chloride Level 104 mmol/L (98-107) Carbon Dioxide Level 28 mmol/L (21-32) Anion Gap 8 (6-14) Blood Urea Nitrogen 21 mg/dL (8-26) Creatinine 1.8 mg/dL (0.7-1.3) H Estimated GFR (Cockcroft-Gault) 35.8 BUN/Creatinine Ratio 12 (6-20) Glucose Level 117 mg/dL (70-99) H Calcium Level 8.8 mg/dL (8.5-10.1) Total Bilirubin 0.8 mg/dL (0.2-1.0) Aspartate Amino Transferase (AST) 16 U/L (15-37) Alanine Aminotransferase (ALT) 20 U/L (16-63) Alkaline Phosphatase 84 U/L (46-116) Total Protein 7.8 g/dL (6.4-8.2) Albumin 3.9 g/dL (3.4-5.0) Albumin/Globulin Ratio 1.0 (1.0-1.7) Current Medications: Meds: Current Medications Trimethoprim/ Sulfamethoxazole (Bactrim Ds) 1 tab 1X ONCE PO Last administered on 04/28/18at 00:06; Start 04/27/18 at 23:55; Stop 04/27/18 at 23:56 ; Status DC Trimethoprim/ Sulfamethoxazole (Bactrim Ds) 1 tab BID PO Last administered on at 07:53; Start 04/28/18 at 09:00 Lorazepam (Ativan) 2 mg 1X ONCE PO Last administered on 04/28/18at 00:48; Start 04/28/18 at 00:45; Stop 04/28/18 at 00:46; Status DC Diphenhydramine HCl (Benadryl Oral Elixir) 25 mg 1X ONCE PO Last administered on 04/28/18at 00:48; Start 04/28/18 at 00:45; Stop 04/28/18 at 00:46; Status DC Acetaminophen (Tylenol) 650 mg PRN Q6HRS PRN PO PAIN / TEMP; Start 04/28/18 at 02:45 Multi-Ingredient Ointment (Analgesic [place]) 1 everardo PRN QID PRN TP MUSCLE PAIN; Start 04/28/18 at 02:45 Al Hydroxide/Mg Hydroxide (Mylanta Plus Xs) 15 ml PRN AFTMEALHC PRN PO DYSPEPSIA; Start 04/28/18 at 02:45 Magnesium Hydroxide (Milk Of Magnesia) 2,400 mg PRN QHS PRN PO CONSTIPATION Last administered on 05/05/18at 11:56; Start 04/28/18 at 02:45 Donepezil HCl (Aricept) 5 mg DAILY PO Last administered on 05/04/18at 12:15; Start 04/28/18 at 09:00; Stop 05/04/18 at 18:22; Status DC Non-Formulary Medication (Quetiapine Fumarate (Seroquel)) 25 mg DAILY PO ; Start 04/28/18 at 09:00; Stop 04/28/18 at 09:00; Status DC Non-Formulary Medication (Trazodone Hcl ) 25 mg PRN Q24HRS PRN PO INSOMNIA; Start 04/28/18 at 03:00; Stop 04/28/18 at 03:39; Status DC Non-Formulary Medication (Trazodone Hcl ) 25 mg QHS PO ; Start 04/28/18 at 21:00 ; Stop 04/28/18 at 21:00; Status DC Brimonidine Tartrate (Alphagan) 1 drop BID OU Last administered on 05/06/18at 07: 54; Start 04/28/18 at 09:00 Vitamin D (Vitamin D3) 1,000 unit DAILY PO Last administered on 05/06/18at 07:39 ; Start 04/28/18 at 09:00 Fludrocortisone Acetate (Florinef) 0.1 mg DAILY PO Last administered on at 07:39; Start 04/28/18 at 09:00 Nystatin (Nystop) 1 everardo BID TP Last administered on 05/06/18at 07:52; Start 04/28 at 09:00 Non-Formulary Medication (Acetaminophen ) 500 mg PRN Q8HRS PRN PO PAIN / TEMP; Start 04/28/18 at 03:15; Stop 04/28/18 at 03:39; Status DC Non-Formulary Medication (Aspirin ) 81 mg DAILY PO ; Start 04/28/18 at 09:00; Stop 04/28/18 at 09:00; Status DC Non-Formulary Medication (Cyanocobalamin (Vitamin B-12) (B-12)) 500 mcg DAILY PO ; Start 04/28/18 at 09:00; Stop 04/28/18 at 09:00; Status DC Non-Formulary Medication (Latanoprost ) 1 drop QHS OU ; Start 04/28/18 at 21:00 ; Stop 04/28/18 at 21:00; Status DC Acetaminophen (Tylenol) 500 mg PRN Q8HRS PRN PO PAIN / TEMP; Start 04/28/18 at 03:30; Status Cancel Aspirin (Children'S Aspirin) 81 mg DAILY PO Last administered on 05/06/18at 07:38 ; Start 04/28/18 at 09:00 Cyanocobalamin (Vitamin B-12) 500 mcg DAILY PO Last administered on 05/06/18at 07 :39; Start 04/28/18 at 09:00 Latanoprost (Xalatan) 1 drop QHS OU Last administered on 05/04/18at 03:05; Start 04/28/18 at 21:00 Quetiapine Fumarate (SEROquel) 25 mg DAILY PO Last administered on 05/01/18at 07: 50; Start 04/28/18 at 09:00; Stop 05/01/18 at 17:16; Status DC Trazodone HCl (Desyrel) 25 mg PRN Q24HRS PRN PO SEE COMMENTS Last administered on 05/01/18at 01:51; Start 04/28/18 at 03:30 Trazodone HCl (Desyrel) 25 mg QHS PO Last administered on 04/30/18at 20:03; Start 04/28/18 at 21:00; Stop 05/01/18 at 17:16; Status DC Olanzapine (ZyPREXA ZYDIS) 1.25 mg PRN Q2HR PRN PO PSYCHOSIS Last administered on 05/04/18at 09:23; Start 04/28/18 at 15:15 Lactobacillus Rhamnosus (Culturelle) 1 cap BID PO ; Start 04/29/18 at 09:00; Status Cancel Latanoprost (Xalatan) 1 drop QHS OU ; Start 04/29/18 at 21:00; Status UNV Sertraline HCl (Zoloft) 25 mg DAILY PO Last administered on 05/05/18at 08:48; Start 04/30/18 at 09:00; Stop 05/05/18 at 16:38; Status DC Quetiapine Fumarate (SEROquel) 25 mg BID@0900,1300 PO Last administered on at 12:15; Start 05/02/18 at 09:00; Stop 05/04/18 at 18:22; Status DC Trazodone HCl (Desyrel) 50 mg QHS PO Last administered on 05/05/18at 20:58; Start 05/01/18 at 21:00 Hydroxyzine HCl (Atarax) 25 mg PRN Q2HR PRN PO ANXIETY / AGITATION Last administered on 05/05/18at 14:07; Start 05/02/18 at 08:30 Quetiapine Fumarate (SEROquel) 25 mg BIDPCLD PO Last administered on 05/06/18at 17:19; Start 05/05/18 at 12:30; Stop 05/06/18 at 17:50; Status DC Quetiapine Fumarate (SEROquel) 37.5 mg DAILY PO Last administered on 05/06/18at 07:39; Start 05/05/18 at 09:00; Stop 05/06/18 at 17:50; Status DC Sertraline HCl (Zoloft) 50 mg DAILY PO Last administered on 05/06/18at 07:40; Start 05/06/18 at 09:00 Trazodone HCl (Desyrel) 12.5 mg BID@0900,1700 PO Last administered on 05/06/18at 17:19; Start 05/05/18 at 17:00 Quetiapine Fumarate (SEROquel) 37.5 mg BID@0900,1700 PO ; Start 05/07/18 at 09:00 Quetiapine Fumarate (SEROquel) 25 mg DAILY@1300 PO ; Start 05/07/18 at 13:00 Active Scripts Active Fludrocortisone Acetate 0.1 Mg Tablet 0.1 Mg PO DAILY 30 Days Latanoprost 2.5 Ml Drops 1 Drop OU QHS Brimonidine Tartrate 5 Ml Drops 1 Drop OU BID Nystop (Nystatin) 60 Gm Powder 1 Everardo TP BID Reported Trazodone Hcl 50 Mg Tablet 25 Mg PO PRN Q24HRS PRN Trazodone Hcl 50 Mg Tablet 25 Mg PO QHS Seroquel (Quetiapine Fumarate) 25 Mg Tablet 25 Mg PO DAILY Donepezil Hcl 5 Mg Tablet 5 Mg PO DAILY Acetaminophen 500 Mg Tablet 500 Mg PO PRN Q8HRS PRN B-12 (Cyanocobalamin (Vitamin B-12)) 500 Mcg Tablet 500 Mcg PO DAILY Vitamin D3 (Cholecalciferol (Vitamin D3)) 1,000 Unit Tablet 1 Tab PO DAILY LAST DOSE GIVEN: DATE: TODAY TIME: AM NEXT DOSE DUE: DATE: TOMORROW TIME: AM Aspirin 81 Mg Tab.chew 81 Mg PO DAILY LAST DOSE GIVEN: DATE: TODAY TIME: AM NEXT DOSE DUE: DATE: TOMORROW TIME: AM I have reviewed the current psychotropics carefully including drug interactions. Risk benefit ratio favors no change other than as noted in my dictated progress note. Diagnosis: Problems: (1) Concussion (2) Complex laceration of face (3) Anxiety disorder (4) Impulse control disorder (5) Dementia in Alzheimer's disease with depression (6) Dementia in Alzheimer's disease with delusions (7) Acute encephalopathy (8) Sepsis (9) Mental status change resolved LOGAN PFEIFFER MD May 06, 2018 21:12
[2018-05-06] MEDS: LATANOPROST 0.005% OPHTH SOLUTION 2.5ML BOTTLE. OU SCH (21:18)
--- NOTE | 2018-05-06 22:47 | PN ---
DATE: 05/05/2018 PSYCHIATRIC PROGRESS NOTE This is a late entry, 05/05, covers elements not covered in my initial note. SUBJECTIVE: I met with the patient the evening of 05/05. The patient remains on one-on-one status. He is restless, impulsive, is a fall risk. For a while, he put himself on the mat in the quiet room, door open, was attempting to fix things, intermittent hallucination or true visual. REVIEW OF SYSTEMS: No CV, , pulmonary, eye, ENT system symptoms on review. Reliability poor. MENTAL STATUS EXAM: Oriented to himself. Insight, judgment, recent and remote memory, attention, concentration, fund of knowledge poor, consistent with his diagnosis mentioned in my initial note. PLAN: Increase Zoloft from 25 mg a day to 50 mg a day. Start trazodone 12.5 mg at 9 a.m., 5 p.m. to help with his anxiety, mood lability. Rest unchanged from before. MAN Nila PFEIFFER MD DR: ЕЛЕНА/laney JOB#: [id number] / [id number]
[2018-05-07] MEDS: traZODone 50 MG TABLET. PO PRN (01:11)
[2018-05-07] MEDS: traZODone 50 MG TABLET. PO SCH ×3 (08:38→20:07)
[2018-05-07] MEDS: ASPIRIN 81 MG TAB.CHEW PO SCH (08:38)
[2018-05-07] MEDS: FLUDROCORTISONE 0.1 MG TABLET PO SCH (08:38)
[2018-05-07] MEDS: SERTRALINE 50 MG TABLET. PO SCH (08:38)
[2018-05-07] MEDS: NYSTATIN TOPICAL POWDER 15GM BOTTLE. TP SCH ×2 (08:40→20:09)
[2018-05-07] MEDS: BRIMONIDINE 0.2% OPHTH SOLUTION 5ML BOTTLE. OU SCH ×2 (08:40→20:07)
[2018-05-07] MEDS: QUEtiapine 25 MG TABLET. PO SCH ×3 (08:41→17:18)
[2018-05-07] MEDS: CYANOCOBALAMIN (VITAMIN B-12) 1,000 MCG TABLET. PO SCH (08:42)
[2018-05-07] MEDS: CHOLECALCIFEROL (VITAMIN D3) 1,000 UNIT TABLET PO SCH (08:42)
[2018-05-07] MEDS: SMZ/TMP 800/160MG TABLET. PO SCH (08:42)
[2018-05-07 11:05] VITALS: BP 103/66
[2018-05-07 15:49] VITALS: BP 101/63
[2018-05-07] MEDS: LATANOPROST 0.005% OPHTH SOLUTION 2.5ML BOTTLE. OU SCH (20:07)
[2018-05-07] MEDS: MIRTAZAPINE 7.5 MG TABLET. PO SCH (20:08)
--- NOTE | 2018-05-07 20:32 | PDOC ---
Exam Note: Rosalio Note: Please also refer to the separate dictated note~for this date of service dictated separately.~Patient seen individually. Discussed the patient with Nursing staff reviewed the chart.~Reviewed interim history and current functioning. Reviewed vital signs,~Labs/ Radiology~and current medications noted below. Continue current treatment with the changes noted in the dictated addendum note Assessment: Vital Signs: Vital Signs Date Time Temp Pulse Resp B/P (MAP) Pulse Ox O2 Delivery O2 Flow Rate FiO2 05/07/18 15:49 97.8 77 18 101/63 (76) 96 Room Air I&O Intake and Output 05/07/18 07:00 Intake Total 420 ml Balance 420 ml Intake Oral 420 ml # Voids 1 Current Medications: Meds: Current Medications Trimethoprim/ Sulfamethoxazole (Bactrim Ds) 1 tab 1X ONCE PO Last administered on 04/28/18at 00:06; Start 04/27/18 at 23:55; Stop 04/27/18 at 23:56 ; Status DC Trimethoprim/ Sulfamethoxazole (Bactrim Ds) 1 tab BID PO Last administered on at 21:14; Start 04/28/18 at 09:00; Stop 05/07/18 at 15:22; Status DC Lorazepam (Ativan) 2 mg 1X ONCE PO Last administered on 04/28/18at 00:48; Start 04/28/18 at 00:45; Stop 04/28/18 at 00:46; Status DC Diphenhydramine HCl (Benadryl Oral Elixir) 25 mg 1X ONCE PO Last administered on 04/28/18at 00:48; Start 04/28/18 at 00:45; Stop 04/28/18 at 00:46; Status DC Acetaminophen (Tylenol) 650 mg PRN Q6HRS PRN PO PAIN / TEMP; Start 04/28/18 at 02:45 Multi-Ingredient Ointment (Analgesic [place]) 1 everardo PRN QID PRN TP MUSCLE PAIN; Start 04/28/18 at 02:45 Al Hydroxide/Mg Hydroxide (Mylanta Plus Xs) 15 ml PRN AFTMEALHC PRN PO DYSPEPSIA; Start 04/28/18 at 02:45 Magnesium Hydroxide (Milk Of Magnesia) 2,400 mg PRN QHS PRN PO CONSTIPATION Last administered on 05/05/18at 11:56; Start 04/28/18 at 02:45 Donepezil HCl (Aricept) 5 mg DAILY PO Last administered on 05/04/18at 12:15; Start 04/28/18 at 09:00; Stop 05/04/18 at 18:22; Status DC Non-Formulary Medication (Quetiapine Fumarate (Seroquel)) 25 mg DAILY PO ; Start 04/28/18 at 09:00; Stop 04/28/18 at 09:00; Status DC Non-Formulary Medication (Trazodone Hcl ) 25 mg PRN Q24HRS PRN PO INSOMNIA; Start 04/28/18 at 03:00; Stop 04/28/18 at 03:39; Status DC Non-Formulary Medication (Trazodone Hcl ) 25 mg QHS PO ; Start 04/28/18 at 21:00 ; Stop 04/28/18 at 21:00; Status DC Brimonidine Tartrate (Alphagan) 1 drop BID OU Last administered on 05/07/18at 20: 07; Start 04/28/18 at 09:00 Vitamin D (Vitamin D3) 1,000 unit DAILY PO Last administered on 05/07/18at 08:42 ; Start 04/28/18 at 09:00 Fludrocortisone Acetate (Florinef) 0.1 mg DAILY PO Last administered on at 08:38; Start 04/28/18 at 09:00 Nystatin (Nystop) 1 everardo BID TP Last administered on 05/07/18at 20:09; Start 04/28 at 09:00 Non-Formulary Medication (Acetaminophen ) 500 mg PRN Q8HRS PRN PO PAIN / TEMP; Start 04/28/18 at 03:15; Stop 04/28/18 at 03:39; Status DC Non-Formulary Medication (Aspirin ) 81 mg DAILY PO ; Start 04/28/18 at 09:00; Stop 04/28/18 at 09:00; Status DC Non-Formulary Medication (Cyanocobalamin (Vitamin B-12) (B-12)) 500 mcg DAILY PO ; Start 04/28/18 at 09:00; Stop 04/28/18 at 09:00; Status DC Non-Formulary Medication (Latanoprost ) 1 drop QHS OU ; Start 04/28/18 at 21:00 ; Stop 04/28/18 at 21:00; Status DC Acetaminophen (Tylenol) 500 mg PRN Q8HRS PRN PO PAIN / TEMP; Start 04/28/18 at 03:30; Status Cancel Aspirin (Children'S Aspirin) 81 mg DAILY PO Last administered on 05/07/18 08:38 ; Start 04/28/18 at 09:00 Cyanocobalamin (Vitamin B-12) 500 mcg DAILY PO Last administered on 05/07/18at 08 :42; Start 04/28/18 at 09:00 Latanoprost (Xalatan) 1 drop QHS OU Last administered on 05/07/18at 20:07; Start 04/28/18 at 21:00 Quetiapine Fumarate (SEROquel) 25 mg DAILY PO Last administered on 05/01/18at 07: 50; Start 04/28/18 at 09:00; Stop 05/01/18 at 17:16; Status DC Trazodone HCl (Desyrel) 25 mg PRN Q24HRS PRN PO SEE COMMENTS Last administered on 05/07/18at 01:11; Start 04/28/18 at 03:30 Trazodone HCl (Desyrel) 25 mg QHS PO Last administered on 04/30/18at 20:03; Start 04/28/18 at 21:00; Stop 05/01/18 at 17:16; Status DC Olanzapine (ZyPREXA ZYDIS) 1.25 mg PRN Q2HR PRN PO PSYCHOSIS Last administered on 05/07/18at 01:11; Start 04/28/18 at 15:15 Lactobacillus Rhamnosus (Culturelle) 1 cap BID PO ; Start 04/29/18 at 09:00; Status Cancel Latanoprost (Xalatan) 1 drop QHS OU ; Start 04/29/18 at 21:00; Status UNV Sertraline HCl (Zoloft) 25 mg DAILY PO Last administered on 05/05/18at 08:48; Start 04/30/18 at 09:00; Stop 05/05/18 at 16:38; Status DC Quetiapine Fumarate (SEROquel) 25 mg BID@0900,1300 PO Last administered on at 12:15; Start 05/02/18 at 09:00; Stop 05/04/18 at 18:22; Status DC Trazodone HCl (Desyrel) 50 mg QHS PO Last administered on 05/07/18at 20:07; Start 05/01/18 at 21:00 Hydroxyzine HCl (Atarax) 25 mg PRN Q2HR PRN PO ANXIETY / AGITATION Last administered on 05/05/18at 14:07; Start 05/02/18 at 08:30 Quetiapine Fumarate (SEROquel) 25 mg BIDPCLD PO Last administered on 05/06/18at 17:19; Start 05/05/18 at 12:30; Stop 05/06/18 at 17:50; Status DC Quetiapine Fumarate (SEROquel) 37.5 mg DAILY PO Last administered on 05/06/18at 07:39; Start 05/05/18 at 09:00; Stop 05/06/18 at 17:50; Status DC Sertraline HCl (Zoloft) 50 mg DAILY PO Last administered on 05/07/18at 08:38; Start 05/06/18 at 09:00 Trazodone HCl (Desyrel) 12.5 mg BID@0900,1700 PO Last administered on 05/07/18at 17:17; Start 05/05/18 at 17:00 Quetiapine Fumarate (SEROquel) 37.5 mg BID@0900,1700 PO Last administered on 17:18; Start 05/07/18 at 09:00 Quetiapine Fumarate (SEROquel) 25 mg DAILY@1300 PO ; Start 05/07/18 at 13:00 Mirtazapine (Remeron) 7.5 mg QHS PO Last administered on 05/07/18at 20:08; Start 05/07/18 at 21:00 Active Scripts Active Fludrocortisone Acetate 0.1 Mg Tablet 0.1 Mg PO DAILY 30 Days Latanoprost 2.5 Ml Drops 1 Drop OU QHS Brimonidine Tartrate 5 Ml Drops 1 Drop OU BID Nystop (Nystatin) 60 Gm Powder 1 Everardo TP BID Reported Trazodone Hcl 50 Mg Tablet 25 Mg PO PRN Q24HRS PRN Trazodone Hcl 50 Mg Tablet 25 Mg PO QHS Seroquel (Quetiapine Fumarate) 25 Mg Tablet 25 Mg PO DAILY Donepezil Hcl 5 Mg Tablet 5 Mg PO DAILY Acetaminophen 500 Mg Tablet 500 Mg PO PRN Q8HRS PRN B-12 (Cyanocobalamin (Vitamin B-12)) 500 Mcg Tablet 500 Mcg PO DAILY Vitamin D3 (Cholecalciferol (Vitamin D3)) 1,000 Unit Tablet 1 Tab PO DAILY LAST DOSE GIVEN: DATE: TODAY TIME: AM NEXT DOSE DUE: DATE: TOMORROW TIME: AM Aspirin 81 Mg Tab.chew 81 Mg PO DAILY LAST DOSE GIVEN: DATE: TODAY TIME: AM NEXT DOSE DUE: DATE: TOMORROW TIME: AM I have reviewed the current psychotropics carefully including drug interactions. Risk benefit ratio favors no change other than as noted in my dictated progress note. Diagnosis: Problems: (1) Concussion (2) Complex laceration of face (3) Anxiety disorder (4) Impulse control disorder (5) Dementia in Alzheimer's disease with depression (6) Dementia in Alzheimer's disease with delusions (7) Acute encephalopathy (8) Sepsis (9) Mental status change resolved LOGAN PFEIFFER MD May 07, 2018 20:32
[2018-05-08 06:24] VITALS: BP 123/59
[2018-05-08] MEDS: BRIMONIDINE 0.2% OPHTH SOLUTION 5ML BOTTLE. OU SCH ×2 (07:42→20:23)
[2018-05-08] MEDS: SERTRALINE 50 MG TABLET. PO SCH (07:42)
[2018-05-08] MEDS: CHOLECALCIFEROL (VITAMIN D3) 1,000 UNIT TABLET PO SCH (07:42)
[2018-05-08] MEDS: ASPIRIN 81 MG TAB.CHEW PO SCH (07:42)
[2018-05-08] MEDS: QUEtiapine 25 MG TABLET. PO SCH ×3 (07:42→18:23)
[2018-05-08] MEDS: NYSTATIN TOPICAL POWDER 15GM BOTTLE. TP SCH ×2 (07:42→20:24)
[2018-05-08] MEDS: CYANOCOBALAMIN (VITAMIN B-12) 1,000 MCG TABLET. PO SCH (07:43)
[2018-05-08] MEDS: FLUDROCORTISONE 0.1 MG TABLET PO SCH (07:43)
[2018-05-08] MEDS: traZODone 50 MG TABLET. PO SCH ×3 (07:43→20:22)
[2018-05-08 16:24] VITALS: BP 93/64
[2018-05-08] MEDS: MIRTAZAPINE 7.5 MG TABLET. PO SCH (20:22)
[2018-05-08] MEDS: LATANOPROST 0.005% OPHTH SOLUTION 2.5ML BOTTLE. OU SCH (20:23)
[2018-05-08] MEDS: hydrOXYzine HCL 25 MG TABLET PO PRN (20:32)
--- NOTE | 2018-05-08 20:57 | PDOC ---
Exam Note: Rosalio Note: Please also refer to the separate dictated note~for this date of service dictated separately.~Patient seen individually. Discussed the patient with Nursing staff reviewed the chart.~Reviewed interim history and current functioning. Reviewed vital signs,~Labs/ Radiology~and current medications noted below. Continue current treatment with the changes noted in the dictated addendum note Assessment: Vital Signs: Vital Signs Date Time Temp Pulse Resp B/P (MAP) Pulse Ox O2 Delivery O2 Flow Rate FiO2 05/08/18 16:24 97.9 84 18 93/64 (74) 98 05/07/18 15:49 Room Air I&O Intake and Output 05/08/18 07:00 Intake Total 480 ml Balance 480 ml Intake Oral 480 ml # Voids 2 Current Medications: Meds: Current Medications Trimethoprim/ Sulfamethoxazole (Bactrim Ds) 1 tab 1X ONCE PO Last administered on 04/28/18at 00:06; Start 04/27/18 at 23:55; Stop 04/27/18 at 23:56 ; Status DC Trimethoprim/ Sulfamethoxazole (Bactrim Ds) 1 tab BID PO Last administered on at 21:14; Start 04/28/18 at 09:00; Stop 05/07/18 at 15:22; Status DC Lorazepam (Ativan) 2 mg 1X ONCE PO Last administered on 04/28/18at 00:48; Start 04/28/18 at 00:45; Stop 04/28/18 at 00:46; Status DC Diphenhydramine HCl (Benadryl Oral Elixir) 25 mg 1X ONCE PO Last administered on 04/28/18at 00:48; Start 04/28/18 at 00:45; Stop 04/28/18 at 00:46; Status DC Acetaminophen (Tylenol) 650 mg PRN Q6HRS PRN PO PAIN / TEMP; Start 04/28/18 at 02:45 Multi-Ingredient Ointment (Analgesic [place]) 1 everardo PRN QID PRN TP MUSCLE PAIN; Start 04/28/18 at 02:45 Al Hydroxide/Mg Hydroxide (Mylanta Plus Xs) 15 ml PRN AFTMEALHC PRN PO DYSPEPSIA; Start 04/28/18 at 02:45 Magnesium Hydroxide (Milk Of Magnesia) 2,400 mg PRN QHS PRN PO CONSTIPATION Last administered on 05/05/18at 11:56; Start 04/28/18 at 02:45 Donepezil HCl (Aricept) 5 mg DAILY PO Last administered on 05/04/18at 12:15; Start 04/28/18 at 09:00; Stop 05/04/18 at 18:22; Status DC Non-Formulary Medication (Quetiapine Fumarate (Seroquel)) 25 mg DAILY PO ; Start 04/28/18 at 09:00; Stop 04/28/18 at 09:00; Status DC Non-Formulary Medication (Trazodone Hcl ) 25 mg PRN Q24HRS PRN PO INSOMNIA; Start 04/28/18 at 03:00; Stop 04/28/18 at 03:39; Status DC Non-Formulary Medication (Trazodone Hcl ) 25 mg QHS PO ; Start 04/28/18 at 21:00 ; Stop 04/28/18 at 21:00; Status DC Brimonidine Tartrate (Alphagan) 1 drop BID OU Last administered on 05/08/18at 20 :23; Start 04/28/18 at 09:00 Vitamin D (Vitamin D3) 1,000 unit DAILY PO Last administered on 05/08/18at 07:42 ; Start 04/28/18 at 09:00 Fludrocortisone Acetate (Florinef) 0.1 mg DAILY PO Last administered on at 07:43; Start 04/28/18 at 09:00 Nystatin (Nystop) 1 everardo BID TP Last administered on 05/08/18at 20:24; Start at 09:00 Non-Formulary Medication (Acetaminophen ) 500 mg PRN Q8HRS PRN PO PAIN / TEMP; Start 04/28/18 at 03:15; Stop 04/28/18 at 03:39; Status DC Non-Formulary Medication (Aspirin ) 81 mg DAILY PO ; Start 04/28/18 at 09:00; Stop 04/28/18 at 09:00; Status DC Non-Formulary Medication (Cyanocobalamin (Vitamin B-12) (B-12)) 500 mcg DAILY PO ; Start 04/28/18 at 09:00; Stop 04/28/18 at 09:00; Status DC Non-Formulary Medication (Latanoprost ) 1 drop QHS OU ; Start 04/28/18 at 21:00 ; Stop 04/28/18 at 21:00; Status DC Acetaminophen (Tylenol) 500 mg PRN Q8HRS PRN PO PAIN / TEMP; Start 04/28/18 at 03:30; Status Cancel Aspirin (Children'S Aspirin) 81 mg DAILY PO Last administered on 05/08/18at 07: 42; Start 04/28/18 at 09:00 Cyanocobalamin (Vitamin B-12) 500 mcg DAILY PO Last administered on 05/08/18at 07:43; Start 04/28/18 at 09:00 Latanoprost (Xalatan) 1 drop QHS OU Last administered on 05/08/18at 20:23; Start 04/28/18 at 21:00 Quetiapine Fumarate (SEROquel) 25 mg DAILY PO Last administered on 05/01/18at 07: 50; Start 04/28/18 at 09:00; Stop 05/01/18 at 17:16; Status DC Trazodone HCl (Desyrel) 25 mg PRN Q24HRS PRN PO SEE COMMENTS Last administered on 05/07/18at 01:11; Start 04/28/18 at 03:30 Trazodone HCl (Desyrel) 25 mg QHS PO Last administered on 04/30/18at 20:03; Start 04/28/18 at 21:00; Stop 05/01/18 at 17:16; Status DC Olanzapine (ZyPREXA ZYDIS) 1.25 mg PRN Q2HR PRN PO PSYCHOSIS Last administered on 05/07/18at 01:11; Start 04/28/18 at 15:15 Lactobacillus Rhamnosus (Culturelle) 1 cap BID PO ; Start 04/29/18 at 09:00; Status Cancel Latanoprost (Xalatan) 1 drop QHS OU ; Start 04/29/18 at 21:00; Status UNV Sertraline HCl (Zoloft) 25 mg DAILY PO Last administered on 05/05/18at 08:48; Start 04/30/18 at 09:00; Stop 05/05/18 at 16:38; Status DC Quetiapine Fumarate (SEROquel) 25 mg BID@0900,1300 PO Last administered on at 12:15; Start 05/02/18 at 09:00; Stop 05/04/18 at 18:22; Status DC Trazodone HCl (Desyrel) 50 mg QHS PO Last administered on 05/08/18 20:22; Start 05/01/18 at 21:00 Hydroxyzine HCl (Atarax) 25 mg PRN Q2HR PRN PO ANXIETY / AGITATION Last administered on 05/08/18 20:32; Start 05/02/18 at 08:30 Quetiapine Fumarate (SEROquel) 25 mg BIDPCLD PO Last administered on 05/06/18 17:19; Start 05/05/18 at 12:30; Stop 05/06/18 at 17:50; Status DC Quetiapine Fumarate (SEROquel) 37.5 mg DAILY PO Last administered on 05/06/18 07:39; Start 05/05/18 at 09:00; Stop 05/06/18 at 17:50; Status DC Sertraline HCl (Zoloft) 50 mg DAILY PO Last administered on 05/08/18 07:42; Start 05/06/18 at 09:00 Trazodone HCl (Desyrel) 12.5 mg BID@0900,1700 PO Last administered on 18:24; Start 05/05/18 at 17:00 Quetiapine Fumarate (SEROquel) 37.5 mg BID@0900,1700 PO Last administered on 18:23; Start 05/07/18 at 09:00 Quetiapine Fumarate (SEROquel) 25 mg DAILY@1300 PO Last administered on 13:23; Start 05/07/18 at 13:00 Mirtazapine (Remeron) 7.5 mg QHS PO Last administered on 05/08/18 20:22; Start 05/07/18 at 21:00 Active Scripts Active Fludrocortisone Acetate 0.1 Mg Tablet 0.1 Mg PO DAILY 30 Days Latanoprost 2.5 Ml Drops 1 Drop OU QHS Brimonidine Tartrate 5 Ml Drops 1 Drop OU BID Nystop (Nystatin) 60 Gm Powder 1 Everardo TP BID Reported Trazodone Hcl 50 Mg Tablet 25 Mg PO PRN Q24HRS PRN Trazodone Hcl 50 Mg Tablet 25 Mg PO QHS Seroquel (Quetiapine Fumarate) 25 Mg Tablet 25 Mg PO DAILY Donepezil Hcl 5 Mg Tablet 5 Mg PO DAILY Acetaminophen 500 Mg Tablet 500 Mg PO PRN Q8HRS PRN B-12 (Cyanocobalamin (Vitamin B-12)) 500 Mcg Tablet 500 Mcg PO DAILY Vitamin D3 (Cholecalciferol (Vitamin D3)) 1,000 Unit Tablet 1 Tab PO DAILY LAST DOSE GIVEN: DATE: TODAY TIME: AM NEXT DOSE DUE: DATE: TOMORROW TIME: AM Aspirin 81 Mg Tab.chew 81 Mg PO DAILY LAST DOSE GIVEN: DATE: TODAY TIME: AM NEXT DOSE DUE: DATE: TOMORROW TIME: AM I have reviewed the current psychotropics carefully including drug interactions. Risk benefit ratio favors no change other than as noted in my dictated progress note. Diagnosis: Problems: (1) Concussion (2) Complex laceration of face (3) Anxiety disorder (4) Impulse control disorder (5) Dementia in Alzheimer's disease with depression (6) Dementia in Alzheimer's disease with delusions (7) Acute encephalopathy (8) Sepsis (9) Mental status change resolved LOGAN PFEIFFER MD May 08, 2018 20:57
--- NOTE | 2018-05-08 21:24 | PN ---
DATE: 05/06/2018 PSYCHIATRIC PROGRESS NOTE This is a late entry 05/06/2018 covers elements not covered in my initial note. SUBJECTIVE: I met with the patient in the evening. The patient slept 7-1/2 hours previous evening. Remains on one-on-one status because he is a fall risk, attempting to walk, gait unsteady. Oral intake poor. REVIEW OF SYSTEMS: No CV, , pulmonary, eye, ENT system symptoms on review. Reliability poor. MENTAL STATUS EXAM: Oriented to himself. Insight, judgment, recent and remote memory, attention, concentration, fund of knowledge poor, consistent with his diagnosis mentioned in my initial note. PLAN: We will increase the patient's Seroquel to 37.5 mg at 0900, 25 mg at 1300 and 1700 and increase the 1700 Seroquel to 37.5 mg as well. Hopefully, the mood lability, intermittent agitation will be helped by this. Continue rest unchanged per the initial note. Aricept discontinued as it has probably little benefit at this stage of his dementia. MAN Nila PFEIFFER MD DR: ЕЛЕНА/laney JOB#: [id number] / [id number]
--- NOTE | 2018-05-08 21:36 | PN ---
DATE: 05/07/2018 PSYCHIATRIC PROGRESS NOTE This late entry 05/07/2018 covers elements not covered in my initial note. SUBJECTIVE: I met with the patient in the evening and staffed at treatment team meeting with the entire team in the morning. I reviewed his history, placement options. He remains on one-on-one status. He slept 3-1/2 hours previous evening. REVIEW OF SYSTEMS: Ambulation impaired. No CV, , pulmonary, eye, ENT system symptoms on review. Reliability poor. MENTAL STATUS EXAM: Oriented to himself. Insight, judgment, recent and remote memory, attention, concentration, fund of knowledge poor, consistent with his diagnosis mentioned in my initial note. PLAN: Start Remeron 7.5 mg p.o. at bedtime to help with insomnia and anxiety. Rest unchanged from initial note. MAN Nila PFEIFFER MD DR: ЕЛЕНА/laney JOB#: [id number] / [id number]
[2018-05-09 06:52] VITALS: BP 96/58
[2018-05-09] MEDS: CHOLECALCIFEROL (VITAMIN D3) 1,000 UNIT TABLET PO SCH (08:06)
[2018-05-09] MEDS: QUEtiapine 25 MG TABLET. PO SCH ×3 (08:06→18:43)
[2018-05-09] MEDS: SERTRALINE 50 MG TABLET. PO SCH (08:06)
[2018-05-09] MEDS: CYANOCOBALAMIN (VITAMIN B-12) 1,000 MCG TABLET. PO SCH (08:06)
[2018-05-09] MEDS: FLUDROCORTISONE 0.1 MG TABLET PO SCH (08:06)
[2018-05-09] MEDS: traZODone 50 MG TABLET. PO SCH ×3 (08:06→19:34)
[2018-05-09] MEDS: ASPIRIN 81 MG TAB.CHEW PO SCH (08:06)
[2018-05-09] MEDS: BRIMONIDINE 0.2% OPHTH SOLUTION 5ML BOTTLE. OU SCH ×2 (08:07→19:34)
[2018-05-09] MEDS: NYSTATIN TOPICAL POWDER 15GM BOTTLE. TP SCH ×2 (08:07→19:36)
[2018-05-09 16:51] VITALS: BP 110/60
[2018-05-09] MEDS: hydrOXYzine HCL 25 MG TABLET PO PRN (19:34)
[2018-05-09] MEDS: MIRTAZAPINE 7.5 MG TABLET. PO SCH (19:34)
[2018-05-09] MEDS: LATANOPROST 0.005% OPHTH SOLUTION 2.5ML BOTTLE. OU SCH (19:35)
--- NOTE | 2018-05-09 23:14 | PDOC ---
Exam Note: Rosalio Note: Please also refer to the separate dictated note~for this date of service dictated separately.~Patient seen individually. Discussed the patient with Nursing staff reviewed the chart.~Reviewed interim history and current functioning. Reviewed vital signs,~Labs/ Radiology~and current medications noted below. Continue current treatment with the changes noted in the dictated addendum note Assessment: Vital Signs: Vital Signs Date Time Temp Pulse Resp B/P (MAP) Pulse Ox O2 Delivery O2 Flow Rate FiO2 05/09/18 16:51 98.1 85 20 110/60 (77) 93 05/07/18 15:49 Room Air I&O Intake and Output 05/09/18 07:00 Intake Total 1200 ml Balance 1200 ml Intake Oral 1200 ml # Voids 1 Current Medications: Meds: Current Medications Trimethoprim/ Sulfamethoxazole (Bactrim Ds) 1 tab 1X ONCE PO Last administered on 04/28/18at 00:06; Start 04/27/18 at 23:55; Stop 04/27/18 at 23:56 ; Status DC Trimethoprim/ Sulfamethoxazole (Bactrim Ds) 1 tab BID PO Last administered on at 21:14; Start 04/28/18 at 09:00; Stop 05/07/18 at 15:22; Status DC Lorazepam (Ativan) 2 mg 1X ONCE PO Last administered on 04/28/18at 00:48; Start 04/28/18 at 00:45; Stop 04/28/18 at 00:46; Status DC Diphenhydramine HCl (Benadryl Oral Elixir) 25 mg 1X ONCE PO Last administered on 04/28/18at 00:48; Start 04/28/18 at 00:45; Stop 04/28/18 at 00:46; Status DC Acetaminophen (Tylenol) 650 mg PRN Q6HRS PRN PO PAIN / TEMP; Start 04/28/18 at 02:45 Multi-Ingredient Ointment (Analgesic [place]) 1 everardo PRN QID PRN TP MUSCLE PAIN; Start 04/28/18 at 02:45 Al Hydroxide/Mg Hydroxide (Mylanta Plus Xs) 15 ml PRN AFTMEALHC PRN PO DYSPEPSIA; Start 04/28/18 at 02:45 Magnesium Hydroxide (Milk Of Magnesia) 2,400 mg PRN QHS PRN PO CONSTIPATION Last administered on 05/05/18at 11:56; Start 04/28/18 at 02:45 Donepezil HCl (Aricept) 5 mg DAILY PO Last administered on 05/04/18at 12:15; Start 04/28/18 at 09:00; Stop 05/04/18 at 18:22; Status DC Non-Formulary Medication (Quetiapine Fumarate (Seroquel)) 25 mg DAILY PO ; Start 04/28/18 at 09:00; Stop 04/28/18 at 09:00; Status DC Non-Formulary Medication (Trazodone Hcl ) 25 mg PRN Q24HRS PRN PO INSOMNIA; Start 04/28/18 at 03:00; Stop 04/28/18 at 03:39; Status DC Non-Formulary Medication (Trazodone Hcl ) 25 mg QHS PO ; Start 04/28/18 at 21:00 ; Stop 04/28/18 at 21:00; Status DC Brimonidine Tartrate (Alphagan) 1 drop BID OU Last administered on 05/09/18at 19 :34; Start 04/28/18 at 09:00 Vitamin D (Vitamin D3) 1,000 unit DAILY PO Last administered on 05/09/18at 08:06 ; Start 04/28/18 at 09:00 Fludrocortisone Acetate (Florinef) 0.1 mg DAILY PO Last administered on at 08:06; Start 04/28/18 at 09:00 Nystatin (Nystop) 1 everardo BID TP Last administered on 05/09/18at 19:36; Start at 09:00 Non-Formulary Medication (Acetaminophen ) 500 mg PRN Q8HRS PRN PO PAIN / TEMP; Start 04/28/18 at 03:15; Stop 04/28/18 at 03:39; Status DC Non-Formulary Medication (Aspirin ) 81 mg DAILY PO ; Start 04/28/18 at 09:00; Stop 04/28/18 at 09:00; Status DC Non-Formulary Medication (Cyanocobalamin (Vitamin B-12) (B-12)) 500 mcg DAILY PO ; Start 04/28/18 at 09:00; Stop 04/28/18 at 09:00; Status DC Non-Formulary Medication (Latanoprost ) 1 drop QHS OU ; Start 04/28/18 at 21:00 ; Stop 04/28/18 at 21:00; Status DC Acetaminophen (Tylenol) 500 mg PRN Q8HRS PRN PO PAIN / TEMP; Start 04/28/18 at 03:30; Status Cancel Aspirin (Children'S Aspirin) 81 mg DAILY PO Last administered on 05/09/18at 08: 06; Start 04/28/18 at 09:00 Cyanocobalamin (Vitamin B-12) 500 mcg DAILY PO Last administered on 05/09/18at 08:06; Start 04/28/18 at 09:00 Latanoprost (Xalatan) 1 drop QHS OU Last administered on 05/09/18at 19:35; Start 04/28/18 at 21:00 Quetiapine Fumarate (SEROquel) 25 mg DAILY PO Last administered on 05/01/18at 07: 50; Start 04/28/18 at 09:00; Stop 05/01/18 at 17:16; Status DC Trazodone HCl (Desyrel) 25 mg PRN Q24HRS PRN PO SEE COMMENTS Last administered on 05/07/18at 01:11; Start 04/28/18 at 03:30 Trazodone HCl (Desyrel) 25 mg QHS PO Last administered on 04/30/18at 20:03; Start 04/28/18 at 21:00; Stop 05/01/18 at 17:16; Status DC Olanzapine (ZyPREXA ZYDIS) 1.25 mg PRN Q2HR PRN PO PSYCHOSIS Last administered on 05/07/18at 01:11; Start 04/28/18 at 15:15 Lactobacillus Rhamnosus (Culturelle) 1 cap BID PO ; Start 04/29/18 at 09:00; Status Cancel Latanoprost (Xalatan) 1 drop QHS OU ; Start 04/29/18 at 21:00; Status UNV Sertraline HCl (Zoloft) 25 mg DAILY PO Last administered on 05/05/18at 08:48; Start 04/30/18 at 09:00; Stop 05/05/18 at 16:38; Status DC Quetiapine Fumarate (SEROquel) 25 mg BID@0900,1300 PO Last administered on at 12:15; Start 05/02/18 at 09:00; Stop 05/04/18 at 18:22; Status DC Trazodone HCl (Desyrel) 50 mg QHS PO Last administered on 05/09/18 19:34; Start 05/01/18 at 21:00 Hydroxyzine HCl (Atarax) 25 mg PRN Q2HR PRN PO ANXIETY / AGITATION Last administered on 05/09/18 19:34; Start 05/02/18 at 08:30 Quetiapine Fumarate (SEROquel) 25 mg BIDPCLD PO Last administered on 05/06/18 17:19; Start 05/05/18 at 12:30; Stop 05/06/18 at 17:50; Status DC Quetiapine Fumarate (SEROquel) 37.5 mg DAILY PO Last administered on 05/06/18 07:39; Start 05/05/18 at 09:00; Stop 05/06/18 at 17:50; Status DC Sertraline HCl (Zoloft) 50 mg DAILY PO Last administered on 05/09/18 08:06; Start 05/06/18 at 09:00 Trazodone HCl (Desyrel) 12.5 mg BID@0900,1700 PO Last administered on 18:41; Start 05/05/18 at 17:00 Quetiapine Fumarate (SEROquel) 37.5 mg BID@0900,1700 PO Last administered on 08/16at 18:43; Start 05/07/18 at 09:00 Quetiapine Fumarate (SEROquel) 25 mg DAILY@1300 PO Last administered on at 13:01; Start 05/07/18 at 13:00 Mirtazapine (Remeron) 7.5 mg QHS PO Last administered on 05/09/18 19:34; Start 05/07/18 at 21:00 Active Scripts Active Fludrocortisone Acetate 0.1 Mg Tablet 0.1 Mg PO DAILY 30 Days Latanoprost 2.5 Ml Drops 1 Drop OU QHS Brimonidine Tartrate 5 Ml Drops 1 Drop OU BID Nystop (Nystatin) 60 Gm Powder 1 [place] TP BID Reported Trazodone Hcl 50 Mg Tablet 25 Mg PO PRN Q24HRS PRN Trazodone Hcl 50 Mg Tablet 25 Mg PO QHS Seroquel (Quetiapine Fumarate) 25 Mg Tablet 25 Mg PO DAILY Donepezil Hcl 5 Mg Tablet 5 Mg PO DAILY Acetaminophen 500 Mg Tablet 500 Mg PO PRN Q8HRS PRN B-12 (Cyanocobalamin (Vitamin B-12)) 500 Mcg Tablet 500 Mcg PO DAILY Vitamin D3 (Cholecalciferol (Vitamin D3)) 1,000 Unit Tablet 1 Tab PO DAILY LAST DOSE GIVEN: DATE: TODAY TIME: AM NEXT DOSE DUE: DATE: TOMORROW TIME: AM Aspirin 81 Mg Tab.chew 81 Mg PO DAILY LAST DOSE GIVEN: DATE: TODAY TIME: AM NEXT DOSE DUE: DATE: TOMORROW TIME: AM I have reviewed the current psychotropics carefully including drug interactions. Risk benefit ratio favors no change other than as noted in my dictated progress note. Diagnosis: Problems: (1) Anxiety disorder (2) Impulse control disorder (3) Dementia in Alzheimer's disease with depression (4) Dementia in Alzheimer's disease with delusions (5) Acute encephalopathy (6) Sepsis (7) Mental status change resolved LOGAN PFEIFFER MD May 09, 2018 23:14
[2018-05-09] MEDS: traZODone 50 MG TABLET. PO PRN (23:27)
[2018-05-10 07:53] VITALS: BP 113/66
[2018-05-10] MEDS: SERTRALINE 50 MG TABLET. PO SCH (08:16)
[2018-05-10] MEDS: NYSTATIN TOPICAL POWDER 15GM BOTTLE. TP SCH ×2 (08:16→20:10)
[2018-05-10] MEDS: BRIMONIDINE 0.2% OPHTH SOLUTION 5ML BOTTLE. OU SCH ×2 (08:16→20:10)
[2018-05-10] MEDS: CYANOCOBALAMIN (VITAMIN B-12) 1,000 MCG TABLET. PO SCH (08:16)
[2018-05-10] MEDS: FLUDROCORTISONE 0.1 MG TABLET PO SCH (08:17)
[2018-05-10] MEDS: CHOLECALCIFEROL (VITAMIN D3) 1,000 UNIT TABLET PO SCH (08:17)
[2018-05-10] MEDS: QUEtiapine 25 MG TABLET. PO SCH ×3 (08:17→17:02)
[2018-05-10] MEDS: ASPIRIN 81 MG TAB.CHEW PO SCH (08:17)
[2018-05-10] MEDS: traZODone 50 MG TABLET. PO SCH ×3 (08:17→20:10)
[2018-05-10 16:11] VITALS: BP 132/57
[2018-05-10] MEDS: hydrOXYzine HCL 25 MG TABLET PO PRN (17:02)
[2018-05-10] MEDS: MIRTAZAPINE 7.5 MG TABLET. PO SCH (20:10)
[2018-05-10] MEDS: LATANOPROST 0.005% OPHTH SOLUTION 2.5ML BOTTLE. OU SCH (20:10)
--- NOTE | 2018-05-10 20:16 | PDOC ---
Exam Note: Rosalio Note: Please also refer to the separate dictated note~for this date of service dictated separately.~Patient seen individually. Discussed the patient with Nursing staff reviewed the chart.~Reviewed interim history and current functioning. Reviewed vital signs,~Labs/ Radiology~and current medications noted below. Continue current treatment with the changes noted in the dictated addendum note Assessment: Vital Signs: Vital Signs Date Time Temp Pulse Resp B/P (MAP) Pulse Ox O2 Delivery O2 Flow Rate FiO2 05/10/18 16:11 98.7 83 18 132/57 (82) 92 05/07/18 15:49 Room Air I&O Intake and Output 05/10/18 06:59 Intake Total 900 ml Balance 900 ml Intake Oral 900 ml # Voids 1 Current Medications: Meds: Current Medications Trimethoprim/ Sulfamethoxazole (Bactrim Ds) 1 tab 1X ONCE PO Last administered on 04/28/18at 00:06; Start 04/27/18 at 23:55; Stop 04/27/18 at 23:56 ; Status DC Trimethoprim/ Sulfamethoxazole (Bactrim Ds) 1 tab BID PO Last administered on at 21:14; Start 04/28/18 at 09:00; Stop 05/07/18 at 15:22; Status DC Lorazepam (Ativan) 2 mg 1X ONCE PO Last administered on 04/28/18at 00:48; Start 04/28/18 at 00:45; Stop 04/28/18 at 00:46; Status DC Diphenhydramine HCl (Benadryl Oral Elixir) 25 mg 1X ONCE PO Last administered on 04/28/18at 00:48; Start 04/28/18 at 00:45; Stop 04/28/18 at 00:46; Status DC Acetaminophen (Tylenol) 650 mg PRN Q6HRS PRN PO PAIN / TEMP; Start 04/28/18 at 02:45 Multi-Ingredient Ointment (Analgesic [place]) 1 everardo PRN QID PRN TP MUSCLE PAIN; Start 04/28/18 at 02:45 Al Hydroxide/Mg Hydroxide (Mylanta Plus Xs) 15 ml PRN AFTMEALHC PRN PO DYSPEPSIA; Start 04/28/18 at 02:45 Magnesium Hydroxide (Milk Of Magnesia) 2,400 mg PRN QHS PRN PO CONSTIPATION Last administered on 05/05/18at 11:56; Start 04/28/18 at 02:45 Donepezil HCl (Aricept) 5 mg DAILY PO Last administered on 05/04/18at 12:15; Start 04/28/18 at 09:00; Stop 05/04/18 at 18:22; Status DC Non-Formulary Medication (Quetiapine Fumarate (Seroquel)) 25 mg DAILY PO ; Start 04/28/18 at 09:00; Stop 04/28/18 at 09:00; Status DC Non-Formulary Medication (Trazodone Hcl ) 25 mg PRN Q24HRS PRN PO INSOMNIA; Start 04/28/18 at 03:00; Stop 04/28/18 at 03:39; Status DC Non-Formulary Medication (Trazodone Hcl ) 25 mg QHS PO ; Start 04/28/18 at 21:00 ; Stop 04/28/18 at 21:00; Status DC Brimonidine Tartrate (Alphagan) 1 drop BID OU Last administered on 05/10/18at 20 :10; Start 04/28/18 at 09:00 Vitamin D (Vitamin D3) 1,000 unit DAILY PO Last administered on 05/10/18at 08:17 ; Start 04/28/18 at 09:00 Fludrocortisone Acetate (Florinef) 0.1 mg DAILY PO Last administered on at 08:17; Start 04/28/18 at 09:00 Nystatin (Nystop) 1 everardo BID TP Last administered on 05/10/18at 20:10; Start at 09:00 Non-Formulary Medication (Acetaminophen ) 500 mg PRN Q8HRS PRN PO PAIN / TEMP; Start 04/28/18 at 03:15; Stop 04/28/18 at 03:39; Status DC Non-Formulary Medication (Aspirin ) 81 mg DAILY PO ; Start 04/28/18 at 09:00; Stop 04/28/18 at 09:00; Status DC Non-Formulary Medication (Cyanocobalamin (Vitamin B-12) (B-12)) 500 mcg DAILY PO ; Start 04/28/18 at 09:00; Stop 04/28/18 at 09:00; Status DC Non-Formulary Medication (Latanoprost ) 1 drop QHS OU ; Start 04/28/18 at 21:00 ; Stop 04/28/18 at 21:00; Status DC Acetaminophen (Tylenol) 500 mg PRN Q8HRS PRN PO PAIN / TEMP; Start 04/28/18 at 03:30; Status Cancel Aspirin (Children'S Aspirin) 81 mg DAILY PO Last administered on 05/10/18at 08: 17; Start 04/28/18 at 09:00 Cyanocobalamin (Vitamin B-12) 500 mcg DAILY PO Last administered on 05/10/18at 08:16; Start 04/28/18 at 09:00 Latanoprost (Xalatan) 1 drop QHS OU Last administered on 05/10/18at 20:10; Start 04/28/18 at 21:00 Quetiapine Fumarate (SEROquel) 25 mg DAILY PO Last administered on 05/01/18at 07: 50; Start 04/28/18 at 09:00; Stop 05/01/18 at 17:16; Status DC Trazodone HCl (Desyrel) 25 mg PRN Q24HRS PRN PO SEE COMMENTS Last administered on 05/09/18at 23:27; Start 04/28/18 at 03:30 Trazodone HCl (Desyrel) 25 mg QHS PO Last administered on 04/30/18at 20:03; Start 04/28/18 at 21:00; Stop 05/01/18 at 17:16; Status DC Olanzapine (ZyPREXA ZYDIS) 1.25 mg PRN Q2HR PRN PO PSYCHOSIS Last administered on 05/07/18at 01:11; Start 04/28/18 at 15:15 Lactobacillus Rhamnosus (Culturelle) 1 cap BID PO ; Start 04/29/18 at 09:00; Status Cancel Latanoprost (Xalatan) 1 drop QHS OU ; Start 04/29/18 at 21:00; Status UNV Sertraline HCl (Zoloft) 25 mg DAILY PO Last administered on 05/05/18at 08:48; Start 04/30/18 at 09:00; Stop 05/05/18 at 16:38; Status DC Quetiapine Fumarate (SEROquel) 25 mg BID@0900,1300 PO Last administered on at 12:15; Start 05/02/18 at 09:00; Stop 05/04/18 at 18:22; Status DC Trazodone HCl (Desyrel) 50 mg QHS PO Last administered on 05/10/18 20:10; Start 05/01/18 at 21:00 Hydroxyzine HCl (Atarax) 25 mg PRN Q2HR PRN PO ANXIETY / AGITATION Last administered on 05/10/18 17:02; Start 05/02/18 at 08:30 Quetiapine Fumarate (SEROquel) 25 mg BIDPCLD PO Last administered on 05/06/18 17:19; Start 05/05/18 at 12:30; Stop 05/06/18 at 17:50; Status DC Quetiapine Fumarate (SEROquel) 37.5 mg DAILY PO Last administered on 05/06/18 07:39; Start 05/05/18 at 09:00; Stop 05/06/18 at 17:50; Status DC Sertraline HCl (Zoloft) 50 mg DAILY PO Last administered on 05/10/18 08:16; Start 05/06/18 at 09:00 Trazodone HCl (Desyrel) 12.5 mg BID@0900,1700 PO Last administered on 17:00; Start 05/05/18 at 17:00 Quetiapine Fumarate (SEROquel) 37.5 mg BID@0900,1700 PO Last administered on 17:02; Start 05/07/18 at 09:00 Quetiapine Fumarate (SEROquel) 25 mg DAILY@1300 PO Last administered on at 12:57; Start 05/07/18 at 13:00 Mirtazapine (Remeron) 7.5 mg QHS PO Last administered on 05/10/18 20:10; Start 05/07/18 at 21:00 Active Scripts Active Fludrocortisone Acetate 0.1 Mg Tablet 0.1 Mg PO DAILY 30 Days Latanoprost 2.5 Ml Drops 1 Drop OU QHS Brimonidine Tartrate 5 Ml Drops 1 Drop OU BID Nystop (Nystatin) 60 Gm Powder 1 Everardo TP BID Reported Trazodone Hcl 50 Mg Tablet 25 Mg PO PRN Q24HRS PRN Trazodone Hcl 50 Mg Tablet 25 Mg PO QHS Seroquel (Quetiapine Fumarate) 25 Mg Tablet 25 Mg PO DAILY Donepezil Hcl 5 Mg Tablet 5 Mg PO DAILY Acetaminophen 500 Mg Tablet 500 Mg PO PRN Q8HRS PRN B-12 (Cyanocobalamin (Vitamin B-12)) 500 Mcg Tablet 500 Mcg PO DAILY Vitamin D3 (Cholecalciferol (Vitamin D3)) 1,000 Unit Tablet 1 Tab PO DAILY LAST DOSE GIVEN: DATE: TODAY TIME: AM NEXT DOSE DUE: DATE: TOMORROW TIME: AM Aspirin 81 Mg Tab.chew 81 Mg PO DAILY LAST DOSE GIVEN: DATE: TODAY TIME: AM NEXT DOSE DUE: DATE: TOMORROW TIME: AM I have reviewed the current psychotropics carefully including drug interactions. Risk benefit ratio favors no change other than as noted in my dictated progress note. Diagnosis: Problems: (1) Concussion (2) Complex laceration of face (3) Anxiety disorder (4) Impulse control disorder (5) Dementia in Alzheimer's disease with depression (6) Dementia in Alzheimer's disease with delusions (7) Acute encephalopathy (8) Sepsis (9) Mental status change resolved LOGAN PFEIFFER MD May 10, 2018 20:16
--- NOTE | 2018-05-11 00:11 | PN ---
DATE: 05/08/2018 PSYCHIATRIC PROGRESS NOTE This is a late entry. 05/08, covers elements not covered in my initial note. SUBJECTIVE: I met with the patient in the evening. The patient remains on one-on-one status. Anxious, restless, is a fall risk. He may not be accepted at [facility], will defer to Social Service staff. REVIEW OF SYSTEMS: No CV, , pulmonary, eye, ENT system symptoms on review. Reliability poor. MENTAL STATUS EXAM: Oriented to himself. Insight, judgment, recent and remote memory, attention, concentration, fund of knowledge poor, consistent with his diagnosis mentioned in my initial note. PLAN: No change from initial note. MAN Nila PFEIFFER MD DR: ЕЛЕНА/laney JOB#: [id number] / [id number]
--- NOTE | 2018-05-11 00:15 | PN ---
DATE: 05/09/2018 This is a late entry, 05/09, covers elements not covered in my initial note. SUBJECTIVE: I met with the patient in the evening. The patient slept 5-3/4 hours previous evening, remains anxious, restless, one-on-one status, impulsive, fall risk. Compliant with medications. REVIEW OF SYSTEMS: No CV, , pulmonary, eye, ENT system symptoms on review. Reliability poor. Rest of the 14-point review of systems negative. Consequent to his dementia, is unable to communicate appropriately. MENTAL STATUS EXAM: Oriented to himself, insight, judgment, recent and remote memory, attention, concentration, fund of knowledge poor, consistent with his diagnosis mentioned in my initial note. PLAN: No change from initial note. Continue one-on-one status for now. MAN Nila PFEIFFER MD DR: ЕЛЕНА/laney JOB#: [id number] / [id number]
[2018-05-11 06:45] VITALS: BP 130/72
[2018-05-11] MEDS: NYSTATIN TOPICAL POWDER 15GM BOTTLE. TP SCH ×2 (09:00→20:30)
[2018-05-11] MEDS: BRIMONIDINE 0.2% OPHTH SOLUTION 5ML BOTTLE. OU SCH ×2 (09:00→20:28)
[2018-05-11] MEDS: CYANOCOBALAMIN (VITAMIN B-12) 1,000 MCG TABLET. PO SCH (09:21)
[2018-05-11] MEDS: FLUDROCORTISONE 0.1 MG TABLET PO SCH (09:21)
[2018-05-11] MEDS: SERTRALINE 50 MG TABLET. PO SCH (09:21)
[2018-05-11] MEDS: CHOLECALCIFEROL (VITAMIN D3) 1,000 UNIT TABLET PO SCH (09:21)
[2018-05-11] MEDS: ASPIRIN 81 MG TAB.CHEW PO SCH (09:21)
[2018-05-11] MEDS: QUEtiapine 25 MG TABLET. PO SCH ×3 (09:22→18:31)
[2018-05-11] MEDS: traZODone 50 MG TABLET. PO SCH ×4 (09:24→20:27)
--- NOTE | 2018-05-11 14:30 | RAD ---
2 views of the abdomen 05/11/2018 INDICATION: Constipation COMPARISON STUDY: None FINDINGS: Mildly increased stool seen throughout the colon. Findings could represent constipation in the appropriate clinical setting. The overall bowel gas pattern is nonspecific but nonobstructive. No acute osseous changes are seen. Surgical clips scattered throughout the pelvis. Degenerative changes of the lumbar spine are noted. IMPRESSION: Mildly increased stool throughout the colon. Findings could represent constipation in the appropriate clinical setting. Electronically signed by: Meliton Hayes MD (05/11/2018 2:26 PM) [id number]
[2018-05-11] MEDS ORDERED: GLYCERIN ADULT 1 SUPP.RECT. PR PRN (16:15)
[2018-05-11 16:25] VITALS: BP 148/89
[2018-05-11] MEDS: MIRTAZAPINE 7.5 MG TABLET. PO SCH (20:27)
[2018-05-11] MEDS: LATANOPROST 0.005% OPHTH SOLUTION 2.5ML BOTTLE. OU SCH (20:28)
--- NOTE | 2018-05-11 22:38 | PDOC ---
Exam Note: Rosalio Note: Please also refer to the separate dictated note~for this date of service dictated separately.~Patient seen individually. Discussed the patient with Nursing staff reviewed the chart.~Reviewed interim history and current functioning. Reviewed vital signs,~Labs/ Radiology~and current medications noted below. Continue current treatment with the changes noted in the dictated addendum note Assessment: Vital Signs: Vital Signs Date Time Temp Pulse Resp B/P (MAP) Pulse Ox O2 Delivery O2 Flow Rate FiO2 05/11/18 16:25 97.4 72 18 148/89 (108) 96 05/11/18 06:45 Room Air I&O Intake and Output 05/11/18 06:59 Intake Total 720 ml Balance 720 ml Intake Oral 720 ml Current Medications: Meds: Current Medications Trimethoprim/ Sulfamethoxazole (Bactrim Ds) 1 tab 1X ONCE PO Last administered on 04/28/18at 00:06; Start 04/27/18 at 23:55; Stop 04/27/18 at 23:56 ; Status DC Trimethoprim/ Sulfamethoxazole (Bactrim Ds) 1 tab BID PO Last administered on at 21:14; Start 04/28/18 at 09:00; Stop 05/07/18 at 15:22; Status DC Lorazepam (Ativan) 2 mg 1X ONCE PO Last administered on 04/28/18at 00:48; Start 04/28/18 at 00:45; Stop 04/28/18 at 00:46; Status DC Diphenhydramine HCl (Benadryl Oral Elixir) 25 mg 1X ONCE PO Last administered on 04/28/18at 00:48; Start 04/28/18 at 00:45; Stop 04/28/18 at 00:46; Status DC Acetaminophen (Tylenol) 650 mg PRN Q6HRS PRN PO PAIN / TEMP; Start 04/28/18 at 02:45 Multi-Ingredient Ointment (Analgesic [place]) 1 everardo PRN QID PRN TP MUSCLE PAIN; Start 04/28/18 at 02:45 Al Hydroxide/Mg Hydroxide (Mylanta Plus Xs) 15 ml PRN AFTMEALHC PRN PO DYSPEPSIA; Start 04/28/18 at 02:45 Magnesium Hydroxide (Milk Of Magnesia) 2,400 mg PRN QHS PRN PO CONSTIPATION Last administered on 05/05/18at 11:56; Start 04/28/18 at 02:45 Donepezil HCl (Aricept) 5 mg DAILY PO Last administered on 05/04/18at 12:15; Start 04/28/18 at 09:00; Stop 05/04/18 at 18:22; Status DC Non-Formulary Medication (Quetiapine Fumarate (Seroquel)) 25 mg DAILY PO ; Start 04/28/18 at 09:00; Stop 04/28/18 at 09:00; Status DC Non-Formulary Medication (Trazodone Hcl ) 25 mg PRN Q24HRS PRN PO INSOMNIA; Start 04/28/18 at 03:00; Stop 04/28/18 at 03:39; Status DC Non-Formulary Medication (Trazodone Hcl ) 25 mg QHS PO ; Start 04/28/18 at 21:00 ; Stop 04/28/18 at 21:00; Status DC Brimonidine Tartrate (Alphagan) 1 drop BID OU Last administered on 05/11/18at 20 :28; Start 04/28/18 at 09:00 Vitamin D (Vitamin D3) 1,000 unit DAILY PO Last administered on 05/11/18at 09:21 ; Start 04/28/18 at 09:00 Fludrocortisone Acetate (Florinef) 0.1 mg DAILY PO Last administered on at 09:21; Start 04/28/18 at 09:00 Nystatin (Nystop) 1 everardo BID TP Last administered on 05/11/18at 09:00; Start at 09:00 Non-Formulary Medication (Acetaminophen ) 500 mg PRN Q8HRS PRN PO PAIN / TEMP; Start 04/28/18 at 03:15; Stop 04/28/18 at 03:39; Status DC Non-Formulary Medication (Aspirin ) 81 mg DAILY PO ; Start 04/28/18 at 09:00; Stop 04/28/18 at 09:00; Status DC Non-Formulary Medication (Cyanocobalamin (Vitamin B-12) (B-12)) 500 mcg DAILY PO ; Start 04/28/18 at 09:00; Stop 04/28/18 at 09:00; Status DC Non-Formulary Medication (Latanoprost ) 1 drop QHS OU ; Start 04/28/18 at 21:00 ; Stop 04/28/18 at 21:00; Status DC Acetaminophen (Tylenol) 500 mg PRN Q8HRS PRN PO PAIN / TEMP; Start 04/28/18 at 03:30; Status Cancel Aspirin (Children'S Aspirin) 81 mg DAILY PO Last administered on 05/11/18at 09: 21; Start 04/28/18 at 09:00 Cyanocobalamin (Vitamin B-12) 500 mcg DAILY PO Last administered on 05/11/18at 09:21; Start 04/28/18 at 09:00 Latanoprost (Xalatan) 1 drop QHS OU Last administered on 05/11/18at 20:28; Start 04/28/18 at 21:00 Quetiapine Fumarate (SEROquel) 25 mg DAILY PO Last administered on 05/01/18at 07: 50; Start 04/28/18 at 09:00; Stop 05/01/18 at 17:16; Status DC Trazodone HCl (Desyrel) 25 mg PRN Q24HRS PRN PO SEE COMMENTS Last administered on 05/09/18at 23:27; Start 04/28/18 at 03:30 Trazodone HCl (Desyrel) 25 mg QHS PO Last administered on 04/30/18at 20:03; Start 04/28/18 at 21:00; Stop 05/01/18 at 17:16; Status DC Olanzapine (ZyPREXA ZYDIS) 1.25 mg PRN Q2HR PRN PO PSYCHOSIS Last administered on 05/07/18at 01:11; Start 04/28/18 at 15:15 Lactobacillus Rhamnosus (Culturelle) 1 cap BID PO ; Start 04/29/18 at 09:00; Status Cancel Latanoprost (Xalatan) 1 drop QHS OU ; Start 04/29/18 at 21:00; Status UNV Sertraline HCl (Zoloft) 25 mg DAILY PO Last administered on 05/05/18at 08:48; Start 04/30/18 at 09:00; Stop 05/05/18 at 16:38; Status DC Quetiapine Fumarate (SEROquel) 25 mg BID@0900,1300 PO Last administered on at 12:15; Start 05/02/18 at 09:00; Stop 05/04/18 at 18:22; Status DC Trazodone HCl (Desyrel) 50 mg QHS PO Last administered on 05/11/18 20:27; Start 05/01/18 at 21:00 Hydroxyzine HCl (Atarax) 25 mg PRN Q2HR PRN PO ANXIETY / AGITATION Last administered on 05/10/18 17:02; Start 05/02/18 at 08:30 Quetiapine Fumarate (SEROquel) 25 mg BIDPCLD PO Last administered on 05/06/18 17:19; Start 05/05/18 at 12:30; Stop 05/06/18 at 17:50; Status DC Quetiapine Fumarate (SEROquel) 37.5 mg DAILY PO Last administered on 05/06/18 07:39; Start 05/05/18 at 09:00; Stop 05/06/18 at 17:50; Status DC Sertraline HCl (Zoloft) 50 mg DAILY PO Last administered on 05/11/18 09:21; Start 05/06/18 at 09:00 Trazodone HCl (Desyrel) 12.5 mg BID@0900,1700 PO Last administered on 17:00; Start 05/05/18 at 17:00; Stop 05/11/18 at 01:14; Status DC Quetiapine Fumarate (SEROquel) 37.5 mg BID@0900,1700 PO Last administered on 18:31; Start 05/07/18 at 09:00 Quetiapine Fumarate (SEROquel) 25 mg DAILY@1300 PO Last administered on 13:38; Start 05/07/18 at 13:00 Mirtazapine (Remeron) 7.5 mg QHS PO Last administered on 05/11/18 20:27; Start 05/07/18 at 21:00 Trazodone HCl (Desyrel) 12.5 mg TID@0900,1300,1700 PO Last administered on 05/11 18:31; Start 05/11/18 at 09:00 Glycerin (Sani-Supp Adult) 1 supp PRN DAILY PRN [place] CONSTIPATION Last administered on 8/13/18at 16:30; Start 05/11/18 at 16:15 Active Scripts Active Fludrocortisone Acetate 0.1 Mg Tablet 0.1 Mg PO DAILY 30 Days Latanoprost 2.5 Ml Drops 1 Drop OU QHS Brimonidine Tartrate 5 Ml Drops 1 Drop OU BID Nystop (Nystatin) 60 Gm Powder 1 Everardo TP BID Reported Trazodone Hcl 50 Mg Tablet 25 Mg PO PRN Q24HRS PRN Trazodone Hcl 50 Mg Tablet 25 Mg PO QHS Seroquel (Quetiapine Fumarate) 25 Mg Tablet 25 Mg PO DAILY Donepezil Hcl 5 Mg Tablet 5 Mg PO DAILY Acetaminophen 500 Mg Tablet 500 Mg PO PRN Q8HRS PRN B-12 (Cyanocobalamin (Vitamin B-12)) 500 Mcg Tablet 500 Mcg PO DAILY Vitamin D3 (Cholecalciferol (Vitamin D3)) 1,000 Unit Tablet 1 Tab PO DAILY LAST DOSE GIVEN: DATE: TODAY TIME: AM NEXT DOSE DUE: DATE: TOMORROW TIME: AM Aspirin 81 Mg Tab.chew 81 Mg PO DAILY LAST DOSE GIVEN: DATE: TODAY TIME: AM NEXT DOSE DUE: DATE: TOMORROW TIME: AM I have reviewed the current psychotropics carefully including drug interactions. Risk benefit ratio favors no change other than as noted in my dictated progress note. Diagnosis: Problems: (1) Concussion (2) Complex laceration of face (3) Anxiety disorder (4) Impulse control disorder (5) Dementia in Alzheimer's disease with depression (6) Dementia in Alzheimer's disease with delusions (7) Acute encephalopathy (8) Sepsis (9) Mental status change resolved LOGAN PFEIFFER MD May 11, 2018 22:38
[2018-05-12] MEDS: NYSTATIN TOPICAL POWDER 15GM BOTTLE. TP SCH ×2 (08:20→20:46)
[2018-05-12] MEDS: CYANOCOBALAMIN (VITAMIN B-12) 1,000 MCG TABLET. PO SCH (08:21)
[2018-05-12] MEDS: SERTRALINE 50 MG TABLET. PO SCH (08:21)
[2018-05-12] MEDS: CHOLECALCIFEROL (VITAMIN D3) 1,000 UNIT TABLET PO SCH (08:21)
[2018-05-12] MEDS: QUEtiapine 25 MG TABLET. PO SCH ×3 (08:22→17:33)
[2018-05-12] MEDS: ASPIRIN 81 MG TAB.CHEW PO SCH (08:22)
[2018-05-12] MEDS: FLUDROCORTISONE 0.1 MG TABLET PO SCH (08:22)
[2018-05-12] MEDS: traZODone 50 MG TABLET. PO SCH ×4 (08:23→20:46)
[2018-05-12] MEDS: BRIMONIDINE 0.2% OPHTH SOLUTION 5ML BOTTLE. OU SCH ×2 (08:24→20:47)
[2018-05-12 08:49] VITALS: BP 107/59
[2018-05-12] MEDS: hydrOXYzine HCL 25 MG TABLET PO PRN (09:48)
--- NOTE | 2018-05-12 13:03 | PN ---
DATE: 05/10/2018 PSYCHIATRIC PROGRESS NOTE This is a late entry, 05/10, covers elements not covered in my initial note. SUBJECTIVE: I met with the patient in the evening. The patient remains on one-on-one staff. He remains confused, anxious, has a fall risk, impulsive, resistive at times, med compliant. He woke up at night the previous evening, was agitated, got trazodone at night and Zyprexa, which seemed to help, sleeps off and on during the day. REVIEW OF SYSTEMS: No CV, , pulmonary, eye, ENT system symptoms on review. Reliability poor. Gait unsteady. MENTAL STATUS EXAM: Oriented to himself. Insight, judgment, recent and remote memory, attention, concentration, fund of knowledge poor, consistent with his diagnosis mentioned in my initial note. PLAN: No change from initial note, but we will go ahead and increase the scheduled trazodone from 12.5 b.i.d. to 12.5 at 9 a.m., 1 p.m., 5 p.m. Rest unchanged. MAN DanielZohaib PFEIFFER MD DR: ЕЛЕНА/laney JOB#: [id number] / [id number]
[2018-05-12 16:19] VITALS: BP 106/60
[2018-05-12] MEDS: MIRTAZAPINE 7.5 MG TABLET. PO SCH (20:46)
[2018-05-12] MEDS: LATANOPROST 0.005% OPHTH SOLUTION 2.5ML BOTTLE. OU SCH (20:47)
--- NOTE | 2018-05-13 00:33 | PN ---
DATE: 05/11/2018 PSYCHIATRIC PROGRESS NOTE This is a late entry, 05/11, covers elements not covered in my initial note. SUBJECTIVE: I met with the patient in the evening. The patient remains anxious, restless, confused, remains on one-on-one status, not aggressive, compliant with medications. REVIEW OF SYSTEMS: No CV, , pulmonary, eye, ENT system symptoms on review. Reliability poor. Gait unsteady. MENTAL STATUS EXAM: Oriented to himself. Insight, judgment, recent and remote memory, attention, concentration, fund of knowledge poor, consistent with his diagnosis mentioned in my initial note. PLAN: No change from initial note. MAN Nila PFEIFFER MD DR: ЕЛЕНА/laney JOB#: [id number] / [id number]
[2018-05-13 05:55] VITALS: BP 140/80
[2018-05-13] MEDS: NYSTATIN TOPICAL POWDER 15GM BOTTLE. TP SCH ×2 (08:25→21:00)
[2018-05-13] MEDS: traZODone 50 MG TABLET. PO SCH ×4 (08:26→20:45)
[2018-05-13] MEDS: CYANOCOBALAMIN (VITAMIN B-12) 1,000 MCG TABLET. PO SCH (08:26)
[2018-05-13] MEDS: QUEtiapine 25 MG TABLET. PO SCH ×3 (08:27→18:06)
[2018-05-13] MEDS: CHOLECALCIFEROL (VITAMIN D3) 1,000 UNIT TABLET PO SCH (08:27)
[2018-05-13] MEDS: ASPIRIN 81 MG TAB.CHEW PO SCH (08:27)
[2018-05-13] MEDS: FLUDROCORTISONE 0.1 MG TABLET PO SCH (08:28)
[2018-05-13] MEDS: BRIMONIDINE 0.2% OPHTH SOLUTION 5ML BOTTLE. OU SCH ×2 (08:28→20:45)
[2018-05-13] MEDS: SERTRALINE 50 MG TABLET. PO SCH (08:29)
[2018-05-13 16:20] VITALS: BP 115/69
[2018-05-13] MEDS: MIRTAZAPINE 7.5 MG TABLET. PO SCH (20:45)
[2018-05-13] MEDS: LATANOPROST 0.005% OPHTH SOLUTION 2.5ML BOTTLE. OU SCH (20:45)
--- NOTE | 2018-05-14 00:39 | PN ---
DATE: 05/12/2018 PSYCHIATRIC PROGRESS NOTE This is a late entry, 05/12, covers elements not covered in my initial note. SUBJECTIVE: I met with the patient in the evening. The patient slept 9-3/4 hours previous evening, resistive to medications. Received Atarax 9:45 a.m. He was threatening to staff member "I am going to pop you." Later, he was talking about "[place] and $45,000 go to alf." visited. She is unable to make much of this conversation, remains impulsive. REVIEW OF SYSTEMS: No CV, , pulmonary, eye, ENT system symptoms on review. Reliability poor. MENTAL STATUS EXAM: Oriented to himself. Insight, judgment, recent and remote memory, attention, concentration, fund of knowledge poor, consistent with his diagnosis mentioned in my initial note. PLAN: Increase Zoloft from 50 mg a day to 75 mg a day. Rest unchanged from initial note. MAN Nila PFEIFFER MD DR: ЕЛЕНА/laney JOB#: [id number] / [id number]
--- NOTE | 2018-05-14 02:55 | PDOC ---
Exam Note: Rosalio Note: Please also refer to the separate dictated note~for this date of service dictated separately.~Patient seen individually. Discussed the patient with Nursing staff reviewed the chart.~Reviewed interim history and current functioning. Reviewed vital signs,~Labs/ Radiology~and current medications noted below. Continue current treatment with the changes noted in the dictated addendum note Assessment: Vital Signs: Vital Signs Date Time Temp Pulse Resp B/P (MAP) Pulse Ox O2 Delivery O2 Flow Rate FiO2 05/13/18 16:20 98.2 88 16 115/69 (84) 94 05/12/18 16:19 Room Air I&O Intake and Output 05/14/18 07:00 Intake Total 1000 ml Balance 1000 ml Intake Oral 1000 ml # Voids 1 # Bowel Movements 1 Current Medications: Meds: Current Medications Trimethoprim/ Sulfamethoxazole (Bactrim Ds) 1 tab 1X ONCE PO Last administered on 04/28/18at 00:06; Start 04/27/18 at 23:55; Stop 04/27/18 at 23:56 ; Status DC Trimethoprim/ Sulfamethoxazole (Bactrim Ds) 1 tab BID PO Last administered on at 21:14; Start 04/28/18 at 09:00; Stop 05/07/18 at 15:22; Status DC Lorazepam (Ativan) 2 mg 1X ONCE PO Last administered on 04/28/18at 00:48; Start 04/28/18 at 00:45; Stop 04/28/18 at 00:46; Status DC Diphenhydramine HCl (Benadryl Oral Elixir) 25 mg 1X ONCE PO Last administered on 04/28/18at 00:48; Start 04/28/18 at 00:45; Stop 04/28/18 at 00:46; Status DC Acetaminophen (Tylenol) 650 mg PRN Q6HRS PRN PO PAIN / TEMP; Start 04/28/18 at 02:45 Multi-Ingredient Ointment (Analgesic Orange) 1 everardo PRN QID PRN TP MUSCLE PAIN; Start 04/28/18 at 02:45 Al Hydroxide/Mg Hydroxide (Mylanta Plus Xs) 15 ml PRN AFTMEALHC PRN PO DYSPEPSIA; Start 04/28/18 at 02:45 Magnesium Hydroxide (Milk Of Magnesia) 2,400 mg PRN QHS PRN PO CONSTIPATION Last administered on 05/05/18at 11:56; Start 04/28/18 at 02:45 Donepezil HCl (Aricept) 5 mg DAILY PO Last administered on 05/04/18at 12:15; Start 04/28/18 at 09:00; Stop 05/04/18 at 18:22; Status DC Non-Formulary Medication (Quetiapine Fumarate (Seroquel)) 25 mg DAILY PO ; Start 04/28/18 at 09:00; Stop 04/28/18 at 09:00; Status DC Non-Formulary Medication (Trazodone Hcl ) 25 mg PRN Q24HRS PRN PO INSOMNIA; Start 04/28/18 at 03:00; Stop 04/28/18 at 03:39; Status DC Non-Formulary Medication (Trazodone Hcl ) 25 mg QHS PO ; Start 04/28/18 at 21:00 ; Stop 04/28/18 at 21:00; Status DC Brimonidine Tartrate (Alphagan) 1 drop BID OU Last administered on 05/13/18at 20 :45; Start 04/28/18 at 09:00 Vitamin D (Vitamin D3) 1,000 unit DAILY PO Last administered on 05/13/18at 08:27 ; Start 04/28/18 at 09:00 Fludrocortisone Acetate (Florinef) 0.1 mg DAILY PO Last administered on at 08:28; Start 04/28/18 at 09:00 Nystatin (Nystop) 1 everardo BID TP Last administered on 05/13/18at 21:00; Start at 09:00 Non-Formulary Medication (Acetaminophen ) 500 mg PRN Q8HRS PRN PO PAIN / TEMP; Start 04/28/18 at 03:15; Stop 04/28/18 at 03:39; Status DC Non-Formulary Medication (Aspirin ) 81 mg DAILY PO ; Start 04/28/18 at 09:00; Stop 04/28/18 at 09:00; Status DC Non-Formulary Medication (Cyanocobalamin (Vitamin B-12) (B-12)) 500 mcg DAILY PO ; Start 04/28/18 at 09:00; Stop 04/28/18 at 09:00; Status DC Non-Formulary Medication (Latanoprost ) 1 drop QHS OU ; Start 04/28/18 at 21:00 ; Stop 04/28/18 at 21:00; Status DC Acetaminophen (Tylenol) 500 mg PRN Q8HRS PRN PO PAIN / TEMP; Start 04/28/18 at 03:30; Status Cancel Aspirin (Children'S Aspirin) 81 mg DAILY PO Last administered on 05/13/18at 08: 27; Start 04/28/18 at 09:00 Cyanocobalamin (Vitamin B-12) 500 mcg DAILY PO Last administered on 05/13/18at 08:26; Start 04/28/18 at 09:00 Latanoprost (Xalatan) 1 drop QHS OU Last administered on 05/13/18at 20:45; Start 04/28/18 at 21:00 Quetiapine Fumarate (SEROquel) 25 mg DAILY PO Last administered on 05/01/18at 07: 50; Start 04/28/18 at 09:00; Stop 05/01/18 at 17:16; Status DC Trazodone HCl (Desyrel) 25 mg PRN Q24HRS PRN PO SEE COMMENTS Last administered on 05/09/18at 23:27; Start 04/28/18 at 03:30 Trazodone HCl (Desyrel) 25 mg QHS PO Last administered on 04/30/18at 20:03; Start 04/28/18 at 21:00; Stop 05/01/18 at 17:16; Status DC Olanzapine (ZyPREXA ZYDIS) 1.25 mg PRN Q2HR PRN PO PSYCHOSIS Last administered on 05/07/18at 01:11; Start 04/28/18 at 15:15 Lactobacillus Rhamnosus (Culturelle) 1 cap BID PO ; Start 04/29/18 at 09:00; Status Cancel Latanoprost (Xalatan) 1 drop QHS OU ; Start 04/29/18 at 21:00; Status UNV Sertraline HCl (Zoloft) 25 mg DAILY PO Last administered on 05/05/18at 08:48; Start 04/30/18 at 09:00; Stop 05/05/18 at 16:38; Status DC Quetiapine Fumarate (SEROquel) 25 mg BID@0900,1300 PO Last administered on 12:15; Start 05/02/18 at 09:00; Stop 05/04/18 at 18:22; Status DC Trazodone HCl (Desyrel) 50 mg QHS PO Last administered on 05/13/18at 20:45; Start 05/01/18 at 21:00 Hydroxyzine HCl (Atarax) 25 mg PRN Q2HR PRN PO ANXIETY / AGITATION Last administered on 05/12/18 09:48; Start 05/02/18 at 08:30 Quetiapine Fumarate (SEROquel) 25 mg BIDPCLD PO Last administered on 05/06/18 17:19; Start 05/05/18 at 12:30; Stop 05/06/18 at 17:50; Status DC Quetiapine Fumarate (SEROquel) 37.5 mg DAILY PO Last administered on 05/06/18 07:39; Start 05/05/18 at 09:00; Stop 05/06/18 at 17:50; Status DC Sertraline HCl (Zoloft) 50 mg DAILY PO Last administered on 05/12/18 08:21; Start 05/06/18 at 09:00; Stop 05/12/18 at 18:46; Status DC Trazodone HCl (Desyrel) 12.5 mg BID@0900,1700 PO Last administered on at 17:00; Start 05/05/18 at 17:00; Stop 05/11/18 at 01:14; Status DC Quetiapine Fumarate (SEROquel) 37.5 mg BID@0900,1700 PO Last administered on 18:06; Start 05/07/18 at 09:00 Quetiapine Fumarate (SEROquel) 25 mg DAILY@1300 PO Last administered on 12:20; Start 05/07/18 at 13:00 Mirtazapine (Remeron) 7.5 mg QHS PO Last administered on 05/13/18 20:45; Start 05/07/18 at 21:00 Trazodone HCl (Desyrel) 12.5 mg TID@0900,1300,1700 PO Last administered on 05/13at 18:07; Start 05/11/18 at 09:00 Glycerin (Sani-Supp Adult) 1 supp PRN DAILY PRN [place] CONSTIPATION Last administered on 05/11/18at 16:30; Start 05/11/18 at 16:15 Sertraline HCl (Zoloft) 75 mg DAILY PO Last administered on 05/13/18at 08:29; Start 05/13/18 at 09:00 Active Scripts Active Fludrocortisone Acetate 0.1 Mg Tablet 0.1 Mg PO DAILY 30 Days Latanoprost 2.5 Ml Drops 1 Drop OU QHS Brimonidine Tartrate 5 Ml Drops 1 Drop OU BID Nystop (Nystatin) 60 Gm Powder 1 Everardo TP BID Reported Trazodone Hcl 50 Mg Tablet 25 Mg PO PRN Q24HRS PRN Trazodone Hcl 50 Mg Tablet 25 Mg PO QHS Seroquel (Quetiapine Fumarate) 25 Mg Tablet 25 Mg PO DAILY Donepezil Hcl 5 Mg Tablet 5 Mg PO DAILY Acetaminophen 500 Mg Tablet 500 Mg PO PRN Q8HRS PRN B-12 (Cyanocobalamin (Vitamin B-12)) 500 Mcg Tablet 500 Mcg PO DAILY Vitamin D3 (Cholecalciferol (Vitamin D3)) 1,000 Unit Tablet 1 Tab PO DAILY LAST DOSE GIVEN: DATE: TODAY TIME: AM NEXT DOSE DUE: DATE: TOMORROW TIME: AM Aspirin 81 Mg Tab.chew 81 Mg PO DAILY LAST DOSE GIVEN: DATE: TODAY TIME: AM NEXT DOSE DUE: DATE: TOMORROW TIME: AM I have reviewed the current psychotropics carefully including drug interactions. Risk benefit ratio favors no change other than as noted in my dictated progress note. Diagnosis: Problems: (1) Concussion (2) Complex laceration of face (3) Anxiety disorder (4) Impulse control disorder (5) Dementia in Alzheimer's disease with depression (6) Dementia in Alzheimer's disease with delusions (7) Acute encephalopathy (8) Sepsis (9) Mental status change resolved LOGAN PFEIFFER MD May 14, 2018 02:55
[2018-05-14] MEDS: traZODone 50 MG TABLET. PO PRN (03:02)
[2018-05-14 06:13] VITALS: BP 96/61
[2018-05-14 07:47] VITALS: BP 104/65
[2018-05-14] MEDS: FLUDROCORTISONE 0.1 MG TABLET PO SCH (08:45)
[2018-05-14] MEDS: NYSTATIN TOPICAL POWDER 15GM BOTTLE. TP SCH ×2 (08:45→21:00)
[2018-05-14] MEDS: BRIMONIDINE 0.2% OPHTH SOLUTION 5ML BOTTLE. OU SCH ×2 (08:45→20:58)
[2018-05-14] MEDS: CYANOCOBALAMIN (VITAMIN B-12) 1,000 MCG TABLET. PO SCH (08:45)
[2018-05-14] MEDS: CHOLECALCIFEROL (VITAMIN D3) 1,000 UNIT TABLET PO SCH (08:45)
[2018-05-14] MEDS: traZODone 50 MG TABLET. PO SCH ×4 (08:46→20:58)
[2018-05-14] MEDS: SERTRALINE 50 MG TABLET. PO SCH (08:47)
[2018-05-14] MEDS: QUEtiapine 25 MG TABLET. PO SCH ×3 (08:47→16:52)
[2018-05-14] MEDS: ASPIRIN 81 MG TAB.CHEW PO SCH (08:47)
[2018-05-14] MEDS: DOCUSATE SODIUM 100 MG CAPSULE PO SCH (08:51)
[2018-05-14 09:14] LABS: BASO % 0 % (0-3); EOS # 0.2 x10^3/uL (0.0-0.7); EOS % 3 % (0-3); HEMATOCRIT 37.4 % (39.0-53.0); HEMOGLOBIN 12.7 g/dL (13.0-17.5); LYMPH # 0.7 x10^3/uL (1.0-4.8); LYMPH % 10 % (24-48); MEAN CORPUSCULAR HEMOGLOBIN 33 pg (25-35); MEAN CORPUSCULAR HGB CONC 34 g/dL (31-37); MEAN CORPUSCULAR VOLUME 96 fL (79-100); MONO # 0.8 x10^3/uL (0.0-1.1); MONO % 11 % (0-9); NEUT # 5.2 x10^3uL (1.8-7.7); NEUT % 76 % (31-73); PLATELET COUNT 238 x10^3/uL (140-400); RED BLOOD COUNT 3.89 x10^6/uL (4.30-5.70); RED CELL DISTRIBUTION WIDTH 14.4 % (11.5-14.5); WHITE BLOOD COUNT 6.9 x10^3/uL (4.0-11.0)
[2018-05-14 09:31] LABS: ALBUMIN 3.7 g/dL (3.4-5.0); ALBUMIN/GLOBULIN RATIO 0.9 (1.0-1.7); CREATININE 1.4 mg/dL (0.7-1.3); GFR 47.8; POTASSIUM 4.2 mmol/L (3.5-5.1); TOTAL BILIRUBIN 0.6 mg/dL (0.2-1.0); TOTAL PROTEIN 7.8 g/dL (6.4-8.2)
[2018-05-14 16:11] VITALS: BP 128/80
--- NOTE | 2018-05-14 20:22 | PDOC ---
Exam Note: Rosalio Note: Please also refer to the separate dictated note~for this date of service dictated separately.~Patient seen individually. Discussed the patient with Nursing staff reviewed the chart.~Reviewed interim history and current functioning. Reviewed vital signs,~Labs/ Radiology~and current medications noted below. Continue current treatment with the changes noted in the dictated addendum note Assessment: Vital Signs: Vital Signs Date Time Temp Pulse Resp B/P (MAP) Pulse Ox O2 Delivery O2 Flow Rate FiO2 05/14/18 16:11 97.6 71 18 128/80 (96) 97 Room Air I&O Intake and Output 05/14/18 06:59 Intake Total 1000 ml Balance 1000 ml Intake Oral 1000 ml # Voids 1 # Bowel Movements 1 Labs: Laboratory Tests Test 05/14/18 08:59 White Blood Count 6.9 x10^3/uL (4.0-11.0) Red Blood Count 3.89 x10^6/uL (4.30-5.70) L Hemoglobin 12.7 g/dL (13.0-17.5) L Hematocrit 37.4 % (39.0-53.0) L Mean Corpuscular Volume 96 fL (79-100) Mean Corpuscular Hemoglobin 33 pg (25-35) Mean Corpuscular Hemoglobin Concent 34 g/dL (31-37) Red Cell Distribution Width 14.4 % (11.5-14.5) Platelet Count 238 x10^3/uL (140-400) Neutrophils (%) (Auto) 76 % (31-73) H Lymphocytes (%) (Auto) 10 % (24-48) L Monocytes (%) (Auto) 11 % (0-9) H Eosinophils (%) (Auto) 3 % (0-3) Basophils (%) (Auto) 0 % (0-3) Neutrophils # (Auto) 5.2 x10^3uL (1.8-7.7) Lymphocytes # (Auto) 0.7 x10^3/uL (1.0-4.8) L Monocytes # (Auto) 0.8 x10^3/uL (0.0-1.1) Eosinophils # (Auto) 0.2 x10^3/uL (0.0-0.7) Basophils # (Auto) 0.0 x10^3/uL (0.0-0.2) Sodium Level 143 mmol/L (136-145) Potassium Level 4.2 mmol/L (3.5-5.1) Chloride Level 105 mmol/L (98-107) Carbon Dioxide Level 29 mmol/L (21-32) Anion Gap 9 (6-14) Blood Urea Nitrogen 24 mg/dL (8-26) Creatinine 1.4 mg/dL (0.7-1.3) H Estimated GFR (Cockcroft-Gault) 47.8 BUN/Creatinine Ratio 17 (6-20) Glucose Level 105 mg/dL (70-99) H Calcium Level 9.0 mg/dL (8.5-10.1) Total Bilirubin 0.6 mg/dL (0.2-1.0) Aspartate Amino Transferase (AST) 14 U/L (15-37) L Alanine Aminotransferase (ALT) 19 U/L (16-63) Alkaline Phosphatase 85 U/L (46-116) Total Protein 7.8 g/dL (6.4-8.2) Albumin 3.7 g/dL (3.4-5.0) Albumin/Globulin Ratio 0.9 (1.0-1.7) L Current Medications: Meds: Current Medications Trimethoprim/ Sulfamethoxazole (Bactrim Ds) 1 tab 1X ONCE PO Last administered on 04/28/18at 00:06; Start 04/27/18 at 23:55; Stop 04/27/18 at 23:56 ; Status DC Trimethoprim/ Sulfamethoxazole (Bactrim Ds) 1 tab BID PO Last administered on at 21:14; Start 04/28/18 at 09:00; Stop 05/07/18 at 15:22; Status DC Lorazepam (Ativan) 2 mg 1X ONCE PO Last administered on 04/28/18at 00:48; Start 04/28/18 at 00:45; Stop 04/28/18 at 00:46; Status DC Diphenhydramine HCl (Benadryl Oral Elixir) 25 mg 1X ONCE PO Last administered on 04/28/18at 00:48; Start 04/28/18 at 00:45; Stop 04/28/18 at 00:46; Status DC Acetaminophen (Tylenol) 650 mg PRN Q6HRS PRN PO PAIN / TEMP; Start 04/28/18 at 02:45 Multi-Ingredient Ointment (Analgesic Clarence) 1 everardo PRN QID PRN TP MUSCLE PAIN; Start 04/28/18 at 02:45 Al Hydroxide/Mg Hydroxide (Mylanta Plus Xs) 15 ml PRN AFTMEALHC PRN PO DYSPEPSIA; Start 04/28/18 at 02:45 Magnesium Hydroxide (Milk Of Magnesia) 2,400 mg PRN QHS PRN PO CONSTIPATION Last administered on 05/05/18at 11:56; Start 04/28/18 at 02:45 Donepezil HCl (Aricept) 5 mg DAILY PO Last administered on 05/04/18at 12:15; Start 04/28/18 at 09:00; Stop 05/04/18 at 18:22; Status DC Non-Formulary Medication (Quetiapine Fumarate (Seroquel)) 25 mg DAILY PO ; Start 04/28/18 at 09:00; Stop 04/28/18 at 09:00; Status DC Non-Formulary Medication (Trazodone Hcl ) 25 mg PRN Q24HRS PRN PO INSOMNIA; Start 04/28/18 at 03:00; Stop 04/28/18 at 03:39; Status DC Non-Formulary Medication (Trazodone Hcl ) 25 mg QHS PO ; Start 04/28/18 at 21:00 ; Stop 04/28/18 at 21:00; Status DC Brimonidine Tartrate (Alphagan) 1 drop BID OU Last administered on 05/14/18at 08 :45; Start 04/28/18 at 09:00 Vitamin D (Vitamin D3) 1,000 unit DAILY PO Last administered on 05/14/18at 08:45 ; Start 04/28/18 at 09:00 Fludrocortisone Acetate (Florinef) 0.1 mg DAILY PO Last administered on at 08:45; Start 04/28/18 at 09:00 Nystatin (Nystop) 1 everardo BID TP Last administered on 05/14/18at 08:45; Start at 09:00 Non-Formulary Medication (Acetaminophen ) 500 mg PRN Q8HRS PRN PO PAIN / TEMP; Start 04/28/18 at 03:15; Stop 04/28/18 at 03:39; Status DC Non-Formulary Medication (Aspirin ) 81 mg DAILY PO ; Start 04/28/18 at 09:00; Stop 04/28/18 at 09:00; Status DC Non-Formulary Medication (Cyanocobalamin (Vitamin B-12) (B-12)) 500 mcg DAILY PO ; Start 04/28/18 at 09:00; Stop 04/28/18 at 09:00; Status DC Non-Formulary Medication (Latanoprost ) 1 drop QHS OU ; Start 04/28/18 at 21:00 ; Stop 04/28/18 at 21:00; Status DC Acetaminophen (Tylenol) 500 mg PRN Q8HRS PRN PO PAIN / TEMP; Start 04/28/18 at 03:30; Status Cancel Aspirin (Children'S Aspirin) 81 mg DAILY PO Last administered on 05/14/18at 08: 47; Start 04/28/18 at 09:00 Cyanocobalamin (Vitamin B-12) 500 mcg DAILY PO Last administered on 05/14/18at 08:45; Start 04/28/18 at 09:00 Latanoprost (Xalatan) 1 drop QHS OU Last administered on 05/13/18at 20:45; Start 04/28/18 at 21:00 Quetiapine Fumarate (SEROquel) 25 mg DAILY PO Last administered on 05/01/18at 07: 50; Start 04/28/18 at 09:00; Stop 05/01/18 at 17:16; Status DC Trazodone HCl (Desyrel) 25 mg PRN Q24HRS PRN PO SEE COMMENTS Last administered on 05/14/18at 03:02; Start 04/28/18 at 03:30 Trazodone HCl (Desyrel) 25 mg QHS PO Last administered on 04/30/18at 20:03; Start 04/28/18 at 21:00; Stop 05/01/18 at 17:16; Status DC Olanzapine (ZyPREXA ZYDIS) 1.25 mg PRN Q2HR PRN PO PSYCHOSIS Last administered on 05/07/18at 01:11; Start 04/28/18 at 15:15 Lactobacillus Rhamnosus (Culturelle) 1 cap BID PO ; Start 04/29/18 at 09:00; Status Cancel Latanoprost (Xalatan) 1 drop QHS OU ; Start 04/29/18 at 21:00; Status UNV Sertraline HCl (Zoloft) 25 mg DAILY PO Last administered on 05/05/18at 08:48; Start 04/30/18 at 09:00; Stop 05/05/18 at 16:38; Status DC Quetiapine Fumarate (SEROquel) 25 mg BID@0900,1300 PO Last administered on at 12:15; Start 05/02/18 at 09:00; Stop 05/04/18 at 18:22; Status DC Trazodone HCl (Desyrel) 50 mg QHS PO Last administered on 05/13/18at 20:45; Start 05/01/18 at 21:00 Hydroxyzine HCl (Atarax) 25 mg PRN Q2HR PRN PO ANXIETY / AGITATION Last administered on 05/12/18at 09:48; Start 05/02/18 at 08:30 Quetiapine Fumarate (SEROquel) 25 mg BIDPCLD PO Last administered on 05/06/18at 17:19; Start 05/05/18 at 12:30; Stop 05/06/18 at 17:50; Status DC Quetiapine Fumarate (SEROquel) 37.5 mg DAILY PO Last administered on 05/06/18at 07:39; Start 05/05/18 at 09:00; Stop 05/06/18 at 17:50; Status DC Sertraline HCl (Zoloft) 50 mg DAILY PO Last administered on 05/12/18at 08:21; Start 05/06/18 at 09:00; Stop 05/12/18 at 18:46; Status DC Trazodone HCl (Desyrel) 12.5 mg BID@0900,1700 PO Last administered on at 17:00; Start 05/05/18 at 17:00; Stop 05/11/18 at 01:14; Status DC Quetiapine Fumarate (SEROquel) 37.5 mg BID@0900,1700 PO Last administered on at 16:52; Start 05/07/18 at 09:00 Quetiapine Fumarate (SEROquel) 25 mg DAILY@1300 PO Last administered on at 13:21; Start 05/07/18 at 13:00 Mirtazapine (Remeron) 7.5 mg QHS PO Last administered on 05/13/18at 20:45; Start 05/07/18 at 21:00 Trazodone HCl (Desyrel) 12.5 mg TID@0900,1300,1700 PO Last administered on 05/14at 16:52; Start 05/11/18 at 09:00 Glycerin (Sani-Supp Adult) 1 supp PRN DAILY PRN [place] CONSTIPATION Last administered on 05/11/18at 16:30; Start 05/11/18 at 16:15 Sertraline HCl (Zoloft) 75 mg DAILY PO Last administered on 05/14/18at 08:47; Start 05/13/18 at 09:00 Docusate Sodium (Colace) 100 mg DAILY PO Last administered on 05/14/18at 08:51; Start 05/14/18 at 09:00 Active Scripts Active Fludrocortisone Acetate 0.1 Mg Tablet 0.1 Mg PO DAILY 30 Days Latanoprost 2.5 Ml Drops 1 Drop OU QHS Brimonidine Tartrate 5 Ml Drops 1 Drop OU BID Nystop (Nystatin) 60 Gm Powder 1 Everardo TP BID Reported Trazodone Hcl 50 Mg Tablet 25 Mg PO PRN Q24HRS PRN Trazodone Hcl 50 Mg Tablet 25 Mg PO QHS Seroquel (Quetiapine Fumarate) 25 Mg Tablet 25 Mg PO DAILY Donepezil Hcl 5 Mg Tablet 5 Mg PO DAILY Acetaminophen 500 Mg Tablet 500 Mg PO PRN Q8HRS PRN B-12 (Cyanocobalamin (Vitamin B-12)) 500 Mcg Tablet 500 Mcg PO DAILY Vitamin D3 (Cholecalciferol (Vitamin D3)) 1,000 Unit Tablet 1 Tab PO DAILY LAST DOSE GIVEN: DATE: TODAY TIME: AM NEXT DOSE DUE: DATE: TOMORROW TIME: AM Aspirin 81 Mg Tab.chew 81 Mg PO DAILY LAST DOSE GIVEN: DATE: TODAY TIME: AM NEXT DOSE DUE: DATE: TOMORROW TIME: AM I have reviewed the current psychotropics carefully including drug interactions. Risk benefit ratio favors no change other than as noted in my dictated progress note. Diagnosis: Problems: (1) Concussion (2) Complex laceration of face (3) Anxiety disorder (4) Impulse control disorder (5) Dementia in Alzheimer's disease with depression (6) Dementia in Alzheimer's disease with delusions (7) Acute encephalopathy (8) Sepsis (9) Mental status change resolved LOGAN PFEIFFER MD May 14, 2018 20:22
[2018-05-14] MEDS: LATANOPROST 0.005% OPHTH SOLUTION 2.5ML BOTTLE. OU SCH (20:58)
--- NOTE | 2018-05-14 20:58 | PDOC ---
Exam Note: Rosalio Note: Late entry for DOS May 12, 2018. Please also refer to the separate dictated note~for this date of service dictated separately.~Patient seen individually. Discussed the patient with Nursing staff reviewed the chart.~Reviewed interim history and current functioning. Reviewed vital signs,~Labs/ Radiology~and current medications noted below. Continue current treatment with the changes noted in the dictated addendum note Assessment: Vital Signs: VS - Last 72 Hours, by Label Date Time Temp Pulse Resp B/P (MAP) Pulse Ox O2 Delivery O2 Flow Rate FiO2 05/14/18 16:11 97.6 71 18 128/80 (96) 97 Room Air 05/14/18 07:47 74 104/65 (78) 05/14/18 06:13 97.5 77 16 96/61 (73) 99 05/13/18 16:20 98.2 88 16 115/69 (84) 94 05/13/18 05:55 97.7 80 16 140/80 (100) 97 05/12/18 16:19 97.8 81 18 106/60 (75) 99 Room Air 05/12/18 08:49 97.9 93 17 107/59 (75) Vital Signs Date Time Temp Pulse Resp B/P (MAP) Pulse Ox O2 Delivery O2 Flow Rate FiO2 05/14/18 16:11 97.6 71 18 128/80 (96) 97 Room Air I&O Intake and Output 05/14/18 06:59 Intake Total 1000 ml Balance 1000 ml Intake Oral 1000 ml # Voids 1 # Bowel Movements 1 Labs: Laboratory Tests Test 05/14/18 08:59 White Blood Count 6.9 x10^3/uL (4.0-11.0) Red Blood Count 3.89 x10^6/uL (4.30-5.70) L Hemoglobin 12.7 g/dL (13.0-17.5) L Hematocrit 37.4 % (39.0-53.0) L Mean Corpuscular Volume 96 fL (79-100) Mean Corpuscular Hemoglobin 33 pg (25-35) Mean Corpuscular Hemoglobin Concent 34 g/dL (31-37) Red Cell Distribution Width 14.4 % (11.5-14.5) Platelet Count 238 x10^3/uL (140-400) Neutrophils (%) (Auto) 76 % (31-73) H Lymphocytes (%) (Auto) 10 % (24-48) L Monocytes (%) (Auto) 11 % (0-9) H Eosinophils (%) (Auto) 3 % (0-3) Basophils (%) (Auto) 0 % (0-3) Neutrophils # (Auto) 5.2 x10^3uL (1.8-7.7) Lymphocytes # (Auto) 0.7 x10^3/uL (1.0-4.8) L Monocytes # (Auto) 0.8 x10^3/uL (0.0-1.1) Eosinophils # (Auto) 0.2 x10^3/uL (0.0-0.7) Basophils # (Auto) 0.0 x10^3/uL (0.0-0.2) Sodium Level 143 mmol/L (136-145) Potassium Level 4.2 mmol/L (3.5-5.1) Chloride Level 105 mmol/L (98-107) Carbon Dioxide Level 29 mmol/L (21-32) Anion Gap 9 (6-14) Blood Urea Nitrogen 24 mg/dL (8-26) Creatinine 1.4 mg/dL (0.7-1.3) H Estimated GFR (Cockcroft-Gault) 47.8 BUN/Creatinine Ratio 17 (6-20) Glucose Level 105 mg/dL (70-99) H Calcium Level 9.0 mg/dL (8.5-10.1) Total Bilirubin 0.6 mg/dL (0.2-1.0) Aspartate Amino Transferase (AST) 14 U/L (15-37) L Alanine Aminotransferase (ALT) 19 U/L (16-63) Alkaline Phosphatase 85 U/L (46-116) Total Protein 7.8 g/dL (6.4-8.2) Albumin 3.7 g/dL (3.4-5.0) Albumin/Globulin Ratio 0.9 (1.0-1.7) L Current Medications: Meds: Current Medications Trimethoprim/ Sulfamethoxazole (Bactrim Ds) 1 tab 1X ONCE PO Last administered on 04/28/18at 00:06; Start 04/27/18 at 23:55; Stop 04/27/18 at 23:56 ; Status DC Trimethoprim/ Sulfamethoxazole (Bactrim Ds) 1 tab BID PO Last administered on at 21:14; Start 04/28/18 at 09:00; Stop 05/07/18 at 15:22; Status DC Lorazepam (Ativan) 2 mg 1X ONCE PO Last administered on 04/28/18at 00:48; Start 04/28/18 at 00:45; Stop 04/28/18 at 00:46; Status DC Diphenhydramine HCl (Benadryl Oral Elixir) 25 mg 1X ONCE PO Last administered on 04/28/18at 00:48; Start 04/28/18 at 00:45; Stop 04/28/18 at 00:46; Status DC Acetaminophen (Tylenol) 650 mg PRN Q6HRS PRN PO PAIN / TEMP; Start 04/28/18 at 02:45 Multi-Ingredient Ointment (Analgesic [place]) 1 everardo PRN QID PRN TP MUSCLE PAIN; Start 04/28/18 at 02:45 Al Hydroxide/Mg Hydroxide (Mylanta Plus Xs) 15 ml PRN AFTMEALHC PRN PO DYSPEPSIA; Start 04/28/18 at 02:45 Magnesium Hydroxide (Milk Of Magnesia) 2,400 mg PRN QHS PRN PO CONSTIPATION Last administered on 05/05/18at 11:56; Start 04/28/18 at 02:45 Donepezil HCl (Aricept) 5 mg DAILY PO Last administered on 05/04/18at 12:15; Start 04/28/18 at 09:00; Stop 05/04/18 at 18:22; Status DC Non-Formulary Medication (Quetiapine Fumarate (Seroquel)) 25 mg DAILY PO ; Start 04/28/18 at 09:00; Stop 04/28/18 at 09:00; Status DC Non-Formulary Medication (Trazodone Hcl ) 25 mg PRN Q24HRS PRN PO INSOMNIA; Start 04/28/18 at 03:00; Stop 04/28/18 at 03:39; Status DC Non-Formulary Medication (Trazodone Hcl ) 25 mg QHS PO ; Start 04/28/18 at 21:00 ; Stop 04/28/18 at 21:00; Status DC Brimonidine Tartrate (Alphagan) 1 drop BID OU Last administered on 05/14/18at 08 :45; Start 04/28/18 at 09:00 Vitamin D (Vitamin D3) 1,000 unit DAILY PO Last administered on 05/14/18at 08:45 ; Start 04/28/18 at 09:00 Fludrocortisone Acetate (Florinef) 0.1 mg DAILY PO Last administered on at 08:45; Start 04/28/18 at 09:00 Nystatin (Nystop) 1 everardo BID TP Last administered on 05/14/18at 08:45; Start at 09:00 Non-Formulary Medication (Acetaminophen ) 500 mg PRN Q8HRS PRN PO PAIN / TEMP; Start 04/28/18 at 03:15; Stop 04/28/18 at 03:39; Status DC Non-Formulary Medication (Aspirin ) 81 mg DAILY PO ; Start 04/28/18 at 09:00; Stop 04/28/18 at 09:00; Status DC Non-Formulary Medication (Cyanocobalamin (Vitamin B-12) (B-12)) 500 mcg DAILY PO ; Start 04/28/18 at 09:00; Stop 04/28/18 at 09:00; Status DC Non-Formulary Medication (Latanoprost ) 1 drop QHS OU ; Start 04/28/18 at 21:00 ; Stop 04/28/18 at 21:00; Status DC Acetaminophen (Tylenol) 500 mg PRN Q8HRS PRN PO PAIN / TEMP; Start 04/28/18 at 03:30; Status Cancel Aspirin (Children'S Aspirin) 81 mg DAILY PO Last administered on 05/14/18at 08: 47; Start 04/28/18 at 09:00 Cyanocobalamin (Vitamin B-12) 500 mcg DAILY PO Last administered on 05/14/18at 08:45; Start 04/28/18 at 09:00 Latanoprost (Xalatan) 1 drop QHS OU Last administered on 05/13/18at 20:45; Start 04/28/18 at 21:00 Quetiapine Fumarate (SEROquel) 25 mg DAILY PO Last administered on 05/01/18at 07: 50; Start 04/28/18 at 09:00; Stop 05/01/18 at 17:16; Status DC Trazodone HCl (Desyrel) 25 mg PRN Q24HRS PRN PO SEE COMMENTS Last administered on 05/14/18at 03:02; Start 04/28/18 at 03:30 Trazodone HCl (Desyrel) 25 mg QHS PO Last administered on 04/30/18at 20:03; Start 04/28/18 at 21:00; Stop 05/01/18 at 17:16; Status DC Olanzapine (ZyPREXA ZYDIS) 1.25 mg PRN Q2HR PRN PO PSYCHOSIS Last administered on 05/07/18at 01:11; Start 04/28/18 at 15:15 Lactobacillus Rhamnosus (Culturelle) 1 cap BID PO ; Start 04/29/18 at 09:00; Status Cancel Latanoprost (Xalatan) 1 drop QHS OU ; Start 04/29/18 at 21:00; Status UNV Sertraline HCl (Zoloft) 25 mg DAILY PO Last administered on 05/05/18at 08:48; Start 04/30/18 at 09:00; Stop 05/05/18 at 16:38; Status DC Quetiapine Fumarate (SEROquel) 25 mg BID@0900,1300 PO Last administered on at 12:15; Start 05/02/18 at 09:00; Stop 05/04/18 at 18:22; Status DC Trazodone HCl (Desyrel) 50 mg QHS PO Last administered on 05/13/18at 20:45; Start 05/01/18 at 21:00 Hydroxyzine HCl (Atarax) 25 mg PRN Q2HR PRN PO ANXIETY / AGITATION Last administered on 05/12/18at 09:48; Start 05/02/18 at 08:30 Quetiapine Fumarate (SEROquel) 25 mg BIDPCLD PO Last administered on 05/06/18at 17:19; Start 05/05/18 at 12:30; Stop 05/06/18 at 17:50; Status DC Quetiapine Fumarate (SEROquel) 37.5 mg DAILY PO Last administered on 05/06/18at 07:39; Start 05/05/18 at 09:00; Stop 05/06/18 at 17:50; Status DC Sertraline HCl (Zoloft) 50 mg DAILY PO Last administered on 05/12/18 08:21; Start 05/06/18 at 09:00; Stop 05/12/18 at 18:46; Status DC Trazodone HCl (Desyrel) 12.5 mg BID@0900,1700 PO Last administered on at 17:00; Start 05/05/18 at 17:00; Stop 05/11/18 at 01:14; Status DC Quetiapine Fumarate (SEROquel) 37.5 mg BID@0900,1700 PO Last administered on at 16:52; Start 05/07/18 at 09:00 Quetiapine Fumarate (SEROquel) 25 mg DAILY@1300 PO Last administered on at 13:21; Start 05/07/18 at 13:00 Mirtazapine (Remeron) 7.5 mg QHS PO Last administered on 05/13/18at 20:45; Start 05/07/18 at 21:00 Trazodone HCl (Desyrel) 12.5 mg TID@0900,1300,1700 PO Last administered on 05/14at 16:52; Start 05/11/18 at 09:00 Glycerin (Sani-Supp Adult) 1 supp PRN DAILY PRN HI CONSTIPATION Last administered on 05/11/18at 16:30; Start 05/11/18 at 16:15 Sertraline HCl (Zoloft) 75 mg DAILY PO Last administered on 05/14/18at 08:47; Start 05/13/18 at 09:00 Docusate Sodium (Colace) 100 mg DAILY PO Last administered on 05/14/18at 08:51; Start 05/14/18 at 09:00 Active Scripts Active Fludrocortisone Acetate 0.1 Mg Tablet 0.1 Mg PO DAILY 30 Days Latanoprost 2.5 Ml Drops 1 Drop OU QHS Brimonidine Tartrate 5 Ml Drops 1 Drop OU BID Nystop (Nystatin) 60 Gm Powder 1 Everardo TP BID Reported Trazodone Hcl 50 Mg Tablet 25 Mg PO PRN Q24HRS PRN Trazodone Hcl 50 Mg Tablet 25 Mg PO QHS Seroquel (Quetiapine Fumarate) 25 Mg Tablet 25 Mg PO DAILY Donepezil Hcl 5 Mg Tablet 5 Mg PO DAILY Acetaminophen 500 Mg Tablet 500 Mg PO PRN Q8HRS PRN B-12 (Cyanocobalamin (Vitamin B-12)) 500 Mcg Tablet 500 Mcg PO DAILY Vitamin D3 (Cholecalciferol (Vitamin D3)) 1,000 Unit Tablet 1 Tab PO DAILY LAST DOSE GIVEN: DATE: TODAY TIME: AM NEXT DOSE DUE: DATE: TOMORROW TIME: AM Aspirin 81 Mg Tab.chew 81 Mg PO DAILY LAST DOSE GIVEN: DATE: TODAY TIME: AM NEXT DOSE DUE: DATE: TOMORROW TIME: AM I have reviewed the current psychotropics carefully including drug interactions. Risk benefit ratio favors no change other than as noted in my dictated progress note. Diagnosis: Problems: (1) Concussion (2) Complex laceration of face (3) Anxiety disorder (4) Impulse control disorder (5) Dementia in Alzheimer's disease with depression (6) Dementia in Alzheimer's disease with delusions (7) Acute encephalopathy (8) Sepsis (9) Mental status change resolved LOGAN PFEIFFER MD May 14, 2018 20:58
[2018-05-14] MEDS: MIRTAZAPINE 7.5 MG TABLET. PO SCH (21:00)
--- NOTE | 2018-05-14 21:22 | PDOC ---
Exam Note: Rosalio Note: Late entry for DOS May 13, 2018. Please also refer to the separate dictated note~for this date of service dictated separately.~Patient seen individually. Discussed the patient with Nursing staff reviewed the chart.~Reviewed interim history and current functioning. Reviewed vital signs,~Labs/ Radiology~and current medications noted below. Continue current treatment with the changes noted in the dictated addendum note Assessment: Vital Signs: VS - Last 72 Hours, by Label Date Time Temp Pulse Resp B/P (MAP) Pulse Ox O2 Delivery O2 Flow Rate FiO2 05/14/18 16:11 97.6 71 18 128/80 (96) 97 Room Air 05/14/18 07:47 74 104/65 (78) 05/14/18 06:13 97.5 77 16 96/61 (73) 99 05/13/18 16:20 98.2 88 16 115/69 (84) 94 05/13/18 05:55 97.7 80 16 140/80 (100) 97 05/12/18 16:19 97.8 81 18 106/60 (75) 99 Room Air 05/12/18 08:49 97.9 93 17 107/59 (75) Vital Signs Date Time Temp Pulse Resp B/P (MAP) Pulse Ox O2 Delivery O2 Flow Rate FiO2 05/14/18 16:11 97.6 71 18 128/80 (96) 97 Room Air I&O Intake and Output 05/14/18 06:59 Intake Total 1000 ml Balance 1000 ml Intake Oral 1000 ml # Voids 1 # Bowel Movements 1 Labs: Laboratory Tests Test 05/14/18 08:59 White Blood Count 6.9 x10^3/uL (4.0-11.0) Red Blood Count 3.89 x10^6/uL (4.30-5.70) L Hemoglobin 12.7 g/dL (13.0-17.5) L Hematocrit 37.4 % (39.0-53.0) L Mean Corpuscular Volume 96 fL (79-100) Mean Corpuscular Hemoglobin 33 pg (25-35) Mean Corpuscular Hemoglobin Concent 34 g/dL (31-37) Red Cell Distribution Width 14.4 % (11.5-14.5) Platelet Count 238 x10^3/uL (140-400) Neutrophils (%) (Auto) 76 % (31-73) H Lymphocytes (%) (Auto) 10 % (24-48) L Monocytes (%) (Auto) 11 % (0-9) H Eosinophils (%) (Auto) 3 % (0-3) Basophils (%) (Auto) 0 % (0-3) Neutrophils # (Auto) 5.2 x10^3uL (1.8-7.7) Lymphocytes # (Auto) 0.7 x10^3/uL (1.0-4.8) L Monocytes # (Auto) 0.8 x10^3/uL (0.0-1.1) Eosinophils # (Auto) 0.2 x10^3/uL (0.0-0.7) Basophils # (Auto) 0.0 x10^3/uL (0.0-0.2) Sodium Level 143 mmol/L (136-145) Potassium Level 4.2 mmol/L (3.5-5.1) Chloride Level 105 mmol/L (98-107) Carbon Dioxide Level 29 mmol/L (21-32) Anion Gap 9 (6-14) Blood Urea Nitrogen 24 mg/dL (8-26) Creatinine 1.4 mg/dL (0.7-1.3) H Estimated GFR (Cockcroft-Gault) 47.8 BUN/Creatinine Ratio 17 (6-20) Glucose Level 105 mg/dL (70-99) H Calcium Level 9.0 mg/dL (8.5-10.1) Total Bilirubin 0.6 mg/dL (0.2-1.0) Aspartate Amino Transferase (AST) 14 U/L (15-37) L Alanine Aminotransferase (ALT) 19 U/L (16-63) Alkaline Phosphatase 85 U/L (46-116) Total Protein 7.8 g/dL (6.4-8.2) Albumin 3.7 g/dL (3.4-5.0) Albumin/Globulin Ratio 0.9 (1.0-1.7) L Current Medications: Meds: Current Medications Trimethoprim/ Sulfamethoxazole (Bactrim Ds) 1 tab 1X ONCE PO Last administered on 04/28/18at 00:06; Start 04/27/18 at 23:55; Stop 04/27/18 at 23:56 ; Status DC Trimethoprim/ Sulfamethoxazole (Bactrim Ds) 1 tab BID PO Last administered on at 21:14; Start 04/28/18 at 09:00; Stop 05/07/18 at 15:22; Status DC Lorazepam (Ativan) 2 mg 1X ONCE PO Last administered on 04/28/18at 00:48; Start 04/28/18 at 00:45; Stop 04/28/18 at 00:46; Status DC Diphenhydramine HCl (Benadryl Oral Elixir) 25 mg 1X ONCE PO Last administered on 04/28/18at 00:48; Start 04/28/18 at 00:45; Stop 04/28/18 at 00:46; Status DC Acetaminophen (Tylenol) 650 mg PRN Q6HRS PRN PO PAIN / TEMP; Start 04/28/18 at 02:45 Multi-Ingredient Ointment (Analgesic [place]) 1 everardo PRN QID PRN TP MUSCLE PAIN; Start 04/28/18 at 02:45 Al Hydroxide/Mg Hydroxide (Mylanta Plus Xs) 15 ml PRN AFTMEALHC PRN PO DYSPEPSIA; Start 04/28/18 at 02:45 Magnesium Hydroxide (Milk Of Magnesia) 2,400 mg PRN QHS PRN PO CONSTIPATION Last administered on 05/05/18at 11:56; Start 04/28/18 at 02:45 Donepezil HCl (Aricept) 5 mg DAILY PO Last administered on 05/04/18at 12:15; Start 04/28/18 at 09:00; Stop 05/04/18 at 18:22; Status DC Non-Formulary Medication (Quetiapine Fumarate (Seroquel)) 25 mg DAILY PO ; Start 04/28/18 at 09:00; Stop 04/28/18 at 09:00; Status DC Non-Formulary Medication (Trazodone Hcl ) 25 mg PRN Q24HRS PRN PO INSOMNIA; Start 04/28/18 at 03:00; Stop 04/28/18 at 03:39; Status DC Non-Formulary Medication (Trazodone Hcl ) 25 mg QHS PO ; Start 04/28/18 at 21:00 ; Stop 04/28/18 at 21:00; Status DC Brimonidine Tartrate (Alphagan) 1 drop BID OU Last administered on 05/14/18at 20 :58; Start 04/28/18 at 09:00 Vitamin D (Vitamin D3) 1,000 unit DAILY PO Last administered on 05/14/18at 08:45 ; Start 04/28/18 at 09:00 Fludrocortisone Acetate (Florinef) 0.1 mg DAILY PO Last administered on at 08:45; Start 04/28/18 at 09:00 Nystatin (Nystop) 1 everardo BID TP Last administered on 05/14/18at 21:00; Start at 09:00 Non-Formulary Medication (Acetaminophen ) 500 mg PRN Q8HRS PRN PO PAIN / TEMP; Start 04/28/18 at 03:15; Stop 04/28/18 at 03:39; Status DC Non-Formulary Medication (Aspirin ) 81 mg DAILY PO ; Start 04/28/18 at 09:00; Stop 04/28/18 at 09:00; Status DC Non-Formulary Medication (Cyanocobalamin (Vitamin B-12) (B-12)) 500 mcg DAILY PO ; Start 04/28/18 at 09:00; Stop 04/28/18 at 09:00; Status DC Non-Formulary Medication (Latanoprost ) 1 drop QHS OU ; Start 04/28/18 at 21:00 ; Stop 04/28/18 at 21:00; Status DC Acetaminophen (Tylenol) 500 mg PRN Q8HRS PRN PO PAIN / TEMP; Start 04/28/18 at 03:30; Status Cancel Aspirin (Children'S Aspirin) 81 mg DAILY PO Last administered on 05/14/18at 08: 47; Start 04/28/18 at 09:00 Cyanocobalamin (Vitamin B-12) 500 mcg DAILY PO Last administered on 05/14/18at 08:45; Start 04/28/18 at 09:00 Latanoprost (Xalatan) 1 drop QHS OU Last administered on 05/14/18at 20:58; Start 04/28/18 at 21:00 Quetiapine Fumarate (SEROquel) 25 mg DAILY PO Last administered on 05/01/18at 07: 50; Start 04/28/18 at 09:00; Stop 05/01/18 at 17:16; Status DC Trazodone HCl (Desyrel) 25 mg PRN Q24HRS PRN PO SEE COMMENTS Last administered on 05/14/18at 03:02; Start 04/28/18 at 03:30 Trazodone HCl (Desyrel) 25 mg QHS PO Last administered on 04/30/18at 20:03; Start 04/28/18 at 21:00; Stop 05/01/18 at 17:16; Status DC Olanzapine (ZyPREXA ZYDIS) 1.25 mg PRN Q2HR PRN PO PSYCHOSIS Last administered on 05/07/18at 01:11; Start 04/28/18 at 15:15 Lactobacillus Rhamnosus (Culturelle) 1 cap BID PO ; Start 04/29/18 at 09:00; Status Cancel Latanoprost (Xalatan) 1 drop QHS OU ; Start 04/29/18 at 21:00; Status UNV Sertraline HCl (Zoloft) 25 mg DAILY PO Last administered on 05/05/18at 08:48; Start 04/30/18 at 09:00; Stop 05/05/18 at 16:38; Status DC Quetiapine Fumarate (SEROquel) 25 mg BID@0900,1300 PO Last administered on at 12:15; Start 05/02/18 at 09:00; Stop 05/04/18 at 18:22; Status DC Trazodone HCl (Desyrel) 50 mg QHS PO Last administered on 05/14/18at 20:58; Start 05/01/18 at 21:00 Hydroxyzine HCl (Atarax) 25 mg PRN Q2HR PRN PO ANXIETY / AGITATION Last administered on 05/12/18at 09:48; Start 05/02/18 at 08:30 Quetiapine Fumarate (SEROquel) 25 mg BIDPCLD PO Last administered on 05/06/18at 17:19; Start 05/05/18 at 12:30; Stop 05/06/18 at 17:50; Status DC Quetiapine Fumarate (SEROquel) 37.5 mg DAILY PO Last administered on 05/06/18at 07:39; Start 05/05/18 at 09:00; Stop 05/06/18 at 17:50; Status DC Sertraline HCl (Zoloft) 50 mg DAILY PO Last administered on 05/12/18 08:21; Start 05/06/18 at 09:00; Stop 05/12/18 at 18:46; Status DC Trazodone HCl (Desyrel) 12.5 mg BID@0900,1700 PO Last administered on at 17:00; Start 05/05/18 at 17:00; Stop 05/11/18 at 01:14; Status DC Quetiapine Fumarate (SEROquel) 37.5 mg BID@0900,1700 PO Last administered on at 16:52; Start 05/07/18 at 09:00 Quetiapine Fumarate (SEROquel) 25 mg DAILY@1300 PO Last administered on at 13:21; Start 05/07/18 at 13:00 Mirtazapine (Remeron) 7.5 mg QHS PO Last administered on 05/14/18at 21:00; Start 05/07/18 at 21:00 Trazodone HCl (Desyrel) 12.5 mg TID@0900,1300,1700 PO Last administered on 05/14at 16:52; Start 05/11/18 at 09:00 Glycerin (Sani-Supp Adult) 1 supp PRN DAILY PRN IN CONSTIPATION Last administered on 05/11/18at 16:30; Start 05/11/18 at 16:15 Sertraline HCl (Zoloft) 75 mg DAILY PO Last administered on 05/14/18at 08:47; Start 05/13/18 at 09:00 Docusate Sodium (Colace) 100 mg DAILY PO Last administered on 05/14/18at 08:51; Start 05/14/18 at 09:00 Active Scripts Active Fludrocortisone Acetate 0.1 Mg Tablet 0.1 Mg PO DAILY 30 Days Latanoprost 2.5 Ml Drops 1 Drop OU QHS Brimonidine Tartrate 5 Ml Drops 1 Drop OU BID Nystop (Nystatin) 60 Gm Powder 1 Everardo TP BID Reported Trazodone Hcl 50 Mg Tablet 25 Mg PO PRN Q24HRS PRN Trazodone Hcl 50 Mg Tablet 25 Mg PO QHS Seroquel (Quetiapine Fumarate) 25 Mg Tablet 25 Mg PO DAILY Donepezil Hcl 5 Mg Tablet 5 Mg PO DAILY Acetaminophen 500 Mg Tablet 500 Mg PO PRN Q8HRS PRN B-12 (Cyanocobalamin (Vitamin B-12)) 500 Mcg Tablet 500 Mcg PO DAILY Vitamin D3 (Cholecalciferol (Vitamin D3)) 1,000 Unit Tablet 1 Tab PO DAILY LAST DOSE GIVEN: DATE: TODAY TIME: AM NEXT DOSE DUE: DATE: TOMORROW TIME: AM Aspirin 81 Mg Tab.chew 81 Mg PO DAILY LAST DOSE GIVEN: DATE: TODAY TIME: AM NEXT DOSE DUE: DATE: TOMORROW TIME: AM I have reviewed the current psychotropics carefully including drug interactions. Risk benefit ratio favors no change other than as noted in my dictated progress note. Diagnosis: Problems: (1) Concussion (2) Complex laceration of face (3) Anxiety disorder (4) Impulse control disorder (5) Dementia in Alzheimer's disease with depression (6) Dementia in Alzheimer's disease with delusions (7) Acute encephalopathy (8) Sepsis (9) Mental status change resolved LOGAN PFEIFFER MD May 14, 2018 21:22
--- NOTE | 2018-05-15 00:19 | PN ---
DATE: 05/13/2018 PSYCHIATRIC PROGRESS NOTE This is a late entry of 05/13/2018, covers elements not covered in my initial note. SUBJECTIVE: I met with the patient in the evening. The patient slept 8-1/2 hours previous evening. He remains on one-on-one status because of fall risk, but has been ambulating with assistance, which is an improvement. REVIEW OF SYSTEMS: No CV, , pulmonary, eye, ENT system symptoms on review. Reliability poor. MENTAL STATUS EXAM: Oriented to himself. Insight, judgment, recent and remote memory, attention, concentration, fund of knowledge poor, consistent with his diagnosis mentioned in my initial note. PLAN: No change from initial note. MAN Nila PFEIFFER MD DR: ЕЛЕНА/laney JOB#: [id number] / [id number]
--- NOTE | 2018-05-15 01:24 | PDOC ---
Exam Note: Rosalio Note: Please also refer to the separate dictated note~for this date of service dictated separately.~Patient seen individually. Discussed the patient with Nursing staff reviewed the chart.~Reviewed interim history and current functioning. Reviewed vital signs,~Labs/ Radiology~and current medications noted below. Continue current treatment with the changes noted in the dictated addendum note Assessment: Vital Signs: Vital Signs Date Time Temp Pulse Resp B/P (MAP) Pulse Ox O2 Delivery O2 Flow Rate FiO2 05/14/18 16:11 97.6 71 18 128/80 (96) 97 Room Air I&O Intake and Output 05/15/18 07:00 Intake Total 1020 ml Balance 1020 ml Intake Oral 1020 ml # Voids 1 Labs: Laboratory Tests Test 05/14/18 08:59 White Blood Count 6.9 x10^3/uL (4.0-11.0) Red Blood Count 3.89 x10^6/uL (4.30-5.70) L Hemoglobin 12.7 g/dL (13.0-17.5) L Hematocrit 37.4 % (39.0-53.0) L Mean Corpuscular Volume 96 fL (79-100) Mean Corpuscular Hemoglobin 33 pg (25-35) Mean Corpuscular Hemoglobin Concent 34 g/dL (31-37) Red Cell Distribution Width 14.4 % (11.5-14.5) Platelet Count 238 x10^3/uL (140-400) Neutrophils (%) (Auto) 76 % (31-73) H Lymphocytes (%) (Auto) 10 % (24-48) L Monocytes (%) (Auto) 11 % (0-9) H Eosinophils (%) (Auto) 3 % (0-3) Basophils (%) (Auto) 0 % (0-3) Neutrophils # (Auto) 5.2 x10^3uL (1.8-7.7) Lymphocytes # (Auto) 0.7 x10^3/uL (1.0-4.8) L Monocytes # (Auto) 0.8 x10^3/uL (0.0-1.1) Eosinophils # (Auto) 0.2 x10^3/uL (0.0-0.7) Basophils # (Auto) 0.0 x10^3/uL (0.0-0.2) Sodium Level 143 mmol/L (136-145) Potassium Level 4.2 mmol/L (3.5-5.1) Chloride Level 105 mmol/L (98-107) Carbon Dioxide Level 29 mmol/L (21-32) Anion Gap 9 (6-14) Blood Urea Nitrogen 24 mg/dL (8-26) Creatinine 1.4 mg/dL (0.7-1.3) H Estimated GFR (Cockcroft-Gault) 47.8 BUN/Creatinine Ratio 17 (6-20) Glucose Level 105 mg/dL (70-99) H Calcium Level 9.0 mg/dL (8.5-10.1) Total Bilirubin 0.6 mg/dL (0.2-1.0) Aspartate Amino Transferase (AST) 14 U/L (15-37) L Alanine Aminotransferase (ALT) 19 U/L (16-63) Alkaline Phosphatase 85 U/L (46-116) Total Protein 7.8 g/dL (6.4-8.2) Albumin 3.7 g/dL (3.4-5.0) Albumin/Globulin Ratio 0.9 (1.0-1.7) L Current Medications: Meds: Current Medications Trimethoprim/ Sulfamethoxazole (Bactrim Ds) 1 tab 1X ONCE PO Last administered on 04/28/18at 00:06; Start 04/27/18 at 23:55; Stop 04/27/18 at 23:56 ; Status DC Trimethoprim/ Sulfamethoxazole (Bactrim Ds) 1 tab BID PO Last administered on at 21:14; Start 04/28/18 at 09:00; Stop 05/07/18 at 15:22; Status DC Lorazepam (Ativan) 2 mg 1X ONCE PO Last administered on 04/28/18at 00:48; Start 04/28/18 at 00:45; Stop 04/28/18 at 00:46; Status DC Diphenhydramine HCl (Benadryl Oral Elixir) 25 mg 1X ONCE PO Last administered on 04/28/18at 00:48; Start 04/28/18 at 00:45; Stop 04/28/18 at 00:46; Status DC Acetaminophen (Tylenol) 650 mg PRN Q6HRS PRN PO PAIN / TEMP; Start 04/28/18 at 02:45 Multi-Ingredient Ointment (Analgesic [place]) 1 everardo PRN QID PRN TP MUSCLE PAIN; Start 04/28/18 at 02:45 Al Hydroxide/Mg Hydroxide (Mylanta Plus Xs) 15 ml PRN AFTMEALHC PRN PO DYSPEPSIA; Start 04/28/18 at 02:45 Magnesium Hydroxide (Milk Of Magnesia) 2,400 mg PRN QHS PRN PO CONSTIPATION Last administered on 05/05/18at 11:56; Start 04/28/18 at 02:45 Donepezil HCl (Aricept) 5 mg DAILY PO Last administered on 05/04/18at 12:15; Start 04/28/18 at 09:00; Stop 05/04/18 at 18:22; Status DC Non-Formulary Medication (Quetiapine Fumarate (Seroquel)) 25 mg DAILY PO ; Start 04/28/18 at 09:00; Stop 04/28/18 at 09:00; Status DC Non-Formulary Medication (Trazodone Hcl ) 25 mg PRN Q24HRS PRN PO INSOMNIA; Start 04/28/18 at 03:00; Stop 04/28/18 at 03:39; Status DC Non-Formulary Medication (Trazodone Hcl ) 25 mg QHS PO ; Start 04/28/18 at 21:00 ; Stop 04/28/18 at 21:00; Status DC Brimonidine Tartrate (Alphagan) 1 drop BID OU Last administered on 05/14/18at 20 :58; Start 04/28/18 at 09:00 Vitamin D (Vitamin D3) 1,000 unit DAILY PO Last administered on 05/14/18at 08:45 ; Start 04/28/18 at 09:00 Fludrocortisone Acetate (Florinef) 0.1 mg DAILY PO Last administered on at 08:45; Start 04/28/18 at 09:00 Nystatin (Nystop) 1 everardo BID TP Last administered on 05/14/18at 21:00; Start at 09:00 Non-Formulary Medication (Acetaminophen ) 500 mg PRN Q8HRS PRN PO PAIN / TEMP; Start 04/28/18 at 03:15; Stop 04/28/18 at 03:39; Status DC Non-Formulary Medication (Aspirin ) 81 mg DAILY PO ; Start 04/28/18 at 09:00; Stop 04/28/18 at 09:00; Status DC Non-Formulary Medication (Cyanocobalamin (Vitamin B-12) (B-12)) 500 mcg DAILY PO ; Start 04/28/18 at 09:00; Stop 04/28/18 at 09:00; Status DC Non-Formulary Medication (Latanoprost ) 1 drop QHS OU ; Start 04/28/18 at 21:00 ; Stop 04/28/18 at 21:00; Status DC Acetaminophen (Tylenol) 500 mg PRN Q8HRS PRN PO PAIN / TEMP; Start 04/28/18 at 03:30; Status Cancel Aspirin (Children'S Aspirin) 81 mg DAILY PO Last administered on 05/14/18at 08: 47; Start 04/28/18 at 09:00 Cyanocobalamin (Vitamin B-12) 500 mcg DAILY PO Last administered on 05/14/18at 08:45; Start 04/28/18 at 09:00 Latanoprost (Xalatan) 1 drop QHS OU Last administered on 05/14/18at 20:58; Start 04/28/18 at 21:00 Quetiapine Fumarate (SEROquel) 25 mg DAILY PO Last administered on 05/01/18at 07: 50; Start 04/28/18 at 09:00; Stop 05/01/18 at 17:16; Status DC Trazodone HCl (Desyrel) 25 mg PRN Q24HRS PRN PO SEE COMMENTS Last administered on 05/14/18at 03:02; Start 04/28/18 at 03:30 Trazodone HCl (Desyrel) 25 mg QHS PO Last administered on 04/30/18at 20:03; Start 04/28/18 at 21:00; Stop 05/01/18 at 17:16; Status DC Olanzapine (ZyPREXA ZYDIS) 1.25 mg PRN Q2HR PRN PO PSYCHOSIS Last administered on 05/07/18at 01:11; Start 04/28/18 at 15:15 Lactobacillus Rhamnosus (Culturelle) 1 cap BID PO ; Start 04/29/18 at 09:00; Status Cancel Latanoprost (Xalatan) 1 drop QHS OU ; Start 04/29/18 at 21:00; Status UNV Sertraline HCl (Zoloft) 25 mg DAILY PO Last administered on 05/05/18at 08:48; Start 04/30/18 at 09:00; Stop 05/05/18 at 16:38; Status DC Quetiapine Fumarate (SEROquel) 25 mg BID@0900,1300 PO Last administered on at 12:15; Start 05/02/18 at 09:00; Stop 05/04/18 at 18:22; Status DC Trazodone HCl (Desyrel) 50 mg QHS PO Last administered on 05/14/18at 20:58; Start 05/01/18 at 21:00 Hydroxyzine HCl (Atarax) 25 mg PRN Q2HR PRN PO ANXIETY / AGITATION Last administered on 05/12/18at 09:48; Start 05/02/18 at 08:30 Quetiapine Fumarate (SEROquel) 25 mg BIDPCLD PO Last administered on 05/06/18at 17:19; Start 05/05/18 at 12:30; Stop 05/06/18 at 17:50; Status DC Quetiapine Fumarate (SEROquel) 37.5 mg DAILY PO Last administered on 05/06/18at 07:39; Start 05/05/18 at 09:00; Stop 05/06/18 at 17:50; Status DC Sertraline HCl (Zoloft) 50 mg DAILY PO Last administered on 05/12/18at 08:21; Start 05/06/18 at 09:00; Stop 05/12/18 at 18:46; Status DC Trazodone HCl (Desyrel) 12.5 mg BID@0900,1700 PO Last administered on at 17:00; Start 05/05/18 at 17:00; Stop 05/11/18 at 01:14; Status DC Quetiapine Fumarate (SEROquel) 37.5 mg BID@0900,1700 PO Last administered on at 16:52; Start 05/07/18 at 09:00 Quetiapine Fumarate (SEROquel) 25 mg DAILY@1300 PO Last administered on at 13:21; Start 05/07/18 at 13:00 Mirtazapine (Remeron) 7.5 mg QHS PO Last administered on 05/14/18at 21:00; Start 05/07/18 at 21:00 Trazodone HCl (Desyrel) 12.5 mg TID@0900,1300,1700 PO Last administered on 05/14at 16:52; Start 05/11/18 at 09:00 Glycerin (Sani-Supp Adult) 1 supp PRN DAILY PRN [place] CONSTIPATION Last administered on 05/11/18at 16:30; Start 05/11/18 at 16:15 Sertraline HCl (Zoloft) 75 mg DAILY PO Last administered on 05/14/18at 08:47; Start 05/13/18 at 09:00 Docusate Sodium (Colace) 100 mg DAILY PO Last administered on 05/14/18at 08:51; Start 05/14/18 at 09:00 Active Scripts Active Fludrocortisone Acetate 0.1 Mg Tablet 0.1 Mg PO DAILY 30 Days Latanoprost 2.5 Ml Drops 1 Drop OU QHS Brimonidine Tartrate 5 Ml Drops 1 Drop OU BID Nystop (Nystatin) 60 Gm Powder 1 Everardo TP BID Reported Trazodone Hcl 50 Mg Tablet 25 Mg PO PRN Q24HRS PRN Trazodone Hcl 50 Mg Tablet 25 Mg PO QHS Seroquel (Quetiapine Fumarate) 25 Mg Tablet 25 Mg PO DAILY Donepezil Hcl 5 Mg Tablet 5 Mg PO DAILY Acetaminophen 500 Mg Tablet 500 Mg PO PRN Q8HRS PRN B-12 (Cyanocobalamin (Vitamin B-12)) 500 Mcg Tablet 500 Mcg PO DAILY Vitamin D3 (Cholecalciferol (Vitamin D3)) 1,000 Unit Tablet 1 Tab PO DAILY LAST DOSE GIVEN: DATE: TODAY TIME: AM NEXT DOSE DUE: DATE: TOMORROW TIME: AM Aspirin 81 Mg Tab.chew 81 Mg PO DAILY LAST DOSE GIVEN: DATE: TODAY TIME: AM NEXT DOSE DUE: DATE: TOMORROW TIME: AM I have reviewed the current psychotropics carefully including drug interactions. Risk benefit ratio favors no change other than as noted in my dictated progress note. Diagnosis: Problems: (1) Concussion (2) Complex laceration of face (3) Anxiety disorder (4) Impulse control disorder (5) Dementia in Alzheimer's disease with depression (6) Dementia in Alzheimer's disease with delusions (7) Acute encephalopathy (8) Sepsis (9) Mental status change resolved LOGAN PFEIFFER MD May 15, 2018 01:24
[2018-05-15 06:06] VITALS: BP 113/56
[2018-05-15] MEDS: QUEtiapine 25 MG TABLET. PO SCH ×3 (07:33→17:15)
[2018-05-15] MEDS: SERTRALINE 50 MG TABLET. PO SCH (07:33)
[2018-05-15] MEDS: DOCUSATE SODIUM 100 MG CAPSULE PO SCH (07:33)
[2018-05-15] MEDS: ASPIRIN 81 MG TAB.CHEW PO SCH (07:33)
[2018-05-15] MEDS: FLUDROCORTISONE 0.1 MG TABLET PO SCH (07:33)
[2018-05-15] MEDS: CHOLECALCIFEROL (VITAMIN D3) 1,000 UNIT TABLET PO SCH (07:34)
[2018-05-15] MEDS: CYANOCOBALAMIN (VITAMIN B-12) 1,000 MCG TABLET. PO SCH (07:34)
[2018-05-15] MEDS: traZODone 50 MG TABLET. PO SCH ×4 (07:34→20:23)
[2018-05-15] MEDS: BRIMONIDINE 0.2% OPHTH SOLUTION 5ML BOTTLE. OU SCH ×2 (07:35→20:23)
[2018-05-15] MEDS: NYSTATIN TOPICAL POWDER 15GM BOTTLE. TP SCH ×2 (07:35→20:24)
--- NOTE | 2018-05-15 13:02 | PN ---
DATE: 05/14/2018 PSYCHIATRIC PROGRESS NOTE This is a late entry, 05/14, covers elements not covered in my initial note. SUBJECTIVE: I met with the patient in the evening and staffed at treatment team meeting with the entire team in the morning. The patient's son, Anand, attended the conference. The patient remains on one-on-one status. Discussed his diagnosis, progress, prognosis. He is a fall risk. He is walking more, though gait is unsteady. Appetite 60%-70%, sleeping average 6 hours, slept 6-3/4 hours previous evening. Lengthy discussion about diagnosis, progress, medications, discharge disposition plans. REVIEW OF SYSTEMS: No CV, , pulmonary, eye, ENT system symptoms on review. Gait unsteady. Reliability poor. MENTAL STATUS EXAM: Oriented to himself. Insight, judgment, recent and remote memory, attention, concentration, fund of knowledge poor, consistent with his diagnosis. IMPRESSION: Major neurocognitive disorder, Alzheimer, vascular with delusion, depression, behavioral disturbance. Rest unchanged. PLAN: No change from initial note. Seroquel is being adjusted. We may need to increase this further together with scheduled trazodone for anxiety. Zoloft will maintain 75 mg at bedtime. LOGAN PFEIFFER MD DR: ЕЛЕНА/laney JOB#: [id number] / [id number]
[2018-05-15 16:00] VITALS: BP 103/61
[2018-05-15] MEDS: MIRTAZAPINE 7.5 MG TABLET. PO SCH (20:23)
[2018-05-15] MEDS: LATANOPROST 0.005% OPHTH SOLUTION 2.5ML BOTTLE. OU SCH (20:23)
--- NOTE | 2018-05-15 20:28 | PDOC ---
Exam Note: Rosalio Note: Please also refer to the separate dictated note~for this date of service dictated separately.~Patient seen individually. Discussed the patient with Nursing staff reviewed the chart.~Reviewed interim history and current functioning. Reviewed vital signs,~Labs/ Radiology~and current medications noted below. Continue current treatment with the changes noted in the dictated addendum note Assessment: Vital Signs: Vital Signs Date Time Temp Pulse Resp B/P (MAP) Pulse Ox O2 Delivery O2 Flow Rate FiO2 05/15/18 16:00 97.2 58 18 103/61 (75) 96 Room Air I&O Intake and Output 05/15/18 06:59 Intake Total 1020 ml Balance 1020 ml Intake Oral 1020 ml # Voids 1 Current Medications: Meds: Current Medications Trimethoprim/ Sulfamethoxazole (Bactrim Ds) 1 tab 1X ONCE PO Last administered on 04/28/18at 00:06; Start 04/27/18 at 23:55; Stop 04/27/18 at 23:56 ; Status DC Trimethoprim/ Sulfamethoxazole (Bactrim Ds) 1 tab BID PO Last administered on at 21:14; Start 04/28/18 at 09:00; Stop 05/07/18 at 15:22; Status DC Lorazepam (Ativan) 2 mg 1X ONCE PO Last administered on 04/28/18at 00:48; Start 04/28/18 at 00:45; Stop 04/28/18 at 00:46; Status DC Diphenhydramine HCl (Benadryl Oral Elixir) 25 mg 1X ONCE PO Last administered on 04/28/18at 00:48; Start 04/28/18 at 00:45; Stop 04/28/18 at 00:46; Status DC Acetaminophen (Tylenol) 650 mg PRN Q6HRS PRN PO PAIN / TEMP; Start 04/28/18 at 02:45 Multi-Ingredient Ointment (Analgesic [place]) 1 everardo PRN QID PRN TP MUSCLE PAIN; Start 04/28/18 at 02:45 Al Hydroxide/Mg Hydroxide (Mylanta Plus Xs) 15 ml PRN AFTMEALHC PRN PO DYSPEPSIA; Start 04/28/18 at 02:45 Magnesium Hydroxide (Milk Of Magnesia) 2,400 mg PRN QHS PRN PO CONSTIPATION Last administered on 05/05/18at 11:56; Start 04/28/18 at 02:45 Donepezil HCl (Aricept) 5 mg DAILY PO Last administered on 05/04/18at 12:15; Start 04/28/18 at 09:00; Stop 05/04/18 at 18:22; Status DC Non-Formulary Medication (Quetiapine Fumarate (Seroquel)) 25 mg DAILY PO ; Start 04/28/18 at 09:00; Stop 04/28/18 at 09:00; Status DC Non-Formulary Medication (Trazodone Hcl ) 25 mg PRN Q24HRS PRN PO INSOMNIA; Start 04/28/18 at 03:00; Stop 04/28/18 at 03:39; Status DC Non-Formulary Medication (Trazodone Hcl ) 25 mg QHS PO ; Start 04/28/18 at 21:00 ; Stop 04/28/18 at 21:00; Status DC Brimonidine Tartrate (Alphagan) 1 drop BID OU Last administered on 05/15/18at 20 :23; Start 04/28/18 at 09:00 Vitamin D (Vitamin D3) 1,000 unit DAILY PO Last administered on 05/15/18at 07:34 ; Start 04/28/18 at 09:00 Fludrocortisone Acetate (Florinef) 0.1 mg DAILY PO Last administered on at 07:33; Start 04/28/18 at 09:00 Nystatin (Nystop) 1 everardo BID TP Last administered on 05/15/18at 20:24; Start at 09:00 Non-Formulary Medication (Acetaminophen ) 500 mg PRN Q8HRS PRN PO PAIN / TEMP; Start 04/28/18 at 03:15; Stop 04/28/18 at 03:39; Status DC Non-Formulary Medication (Aspirin ) 81 mg DAILY PO ; Start 04/28/18 at 09:00; Stop 04/28/18 at 09:00; Status DC Non-Formulary Medication (Cyanocobalamin (Vitamin B-12) (B-12)) 500 mcg DAILY PO ; Start 04/28/18 at 09:00; Stop 04/28/18 at 09:00; Status DC Non-Formulary Medication (Latanoprost ) 1 drop QHS OU ; Start 04/28/18 at 21:00 ; Stop 04/28/18 at 21:00; Status DC Acetaminophen (Tylenol) 500 mg PRN Q8HRS PRN PO PAIN / TEMP; Start 04/28/18 at 03:30; Status Cancel Aspirin (Children'S Aspirin) 81 mg DAILY PO Last administered on 05/15/18at 07: 33; Start 04/28/18 at 09:00 Cyanocobalamin (Vitamin B-12) 500 mcg DAILY PO Last administered on 05/15/18at 07:34; Start 04/28/18 at 09:00 Latanoprost (Xalatan) 1 drop QHS OU Last administered on 05/15/18at 20:23; Start 04/28/18 at 21:00 Quetiapine Fumarate (SEROquel) 25 mg DAILY PO Last administered on 05/01/18at 07: 50; Start 04/28/18 at 09:00; Stop 05/01/18 at 17:16; Status DC Trazodone HCl (Desyrel) 25 mg PRN Q24HRS PRN PO SEE COMMENTS Last administered on 05/14/18at 03:02; Start 04/28/18 at 03:30 Trazodone HCl (Desyrel) 25 mg QHS PO Last administered on 04/30/18at 20:03; Start 04/28/18 at 21:00; Stop 05/01/18 at 17:16; Status DC Olanzapine (ZyPREXA ZYDIS) 1.25 mg PRN Q2HR PRN PO PSYCHOSIS Last administered on 05/07/18at 01:11; Start 04/28/18 at 15:15 Lactobacillus Rhamnosus (Culturelle) 1 cap BID PO ; Start 04/29/18 at 09:00; Status Cancel Latanoprost (Xalatan) 1 drop QHS OU ; Start 04/29/18 at 21:00; Status UNV Sertraline HCl (Zoloft) 25 mg DAILY PO Last administered on 05/05/18at 08:48; Start 04/30/18 at 09:00; Stop 05/05/18 at 16:38; Status DC Quetiapine Fumarate (SEROquel) 25 mg BID@0900,1300 PO Last administered on at 12:15; Start 05/02/18 at 09:00; Stop 05/04/18 at 18:22; Status DC Trazodone HCl (Desyrel) 50 mg QHS PO Last administered on 05/15/18at 20:23; Start 05/01/18 at 21:00 Hydroxyzine HCl (Atarax) 25 mg PRN Q2HR PRN PO ANXIETY / AGITATION Last administered on 05/12/18at 09:48; Start 05/02/18 at 08:30 Quetiapine Fumarate (SEROquel) 25 mg BIDPCLD PO Last administered on 05/06/18at 17:19; Start 05/05/18 at 12:30; Stop 05/06/18 at 17:50; Status DC Quetiapine Fumarate (SEROquel) 37.5 mg DAILY PO Last administered on 05/06/18at 07:39; Start 05/05/18 at 09:00; Stop 05/06/18 at 17:50; Status DC Sertraline HCl (Zoloft) 50 mg DAILY PO Last administered on 05/12/18at 08:21; Start 05/06/18 at 09:00; Stop 05/12/18 at 18:46; Status DC Trazodone HCl (Desyrel) 12.5 mg BID@0900,1700 PO Last administered on at 17:00; Start 05/05/18 at 17:00; Stop 05/11/18 at 01:14; Status DC Quetiapine Fumarate (SEROquel) 37.5 mg BID@0900,1700 PO Last administered on at 17:15; Start 05/07/18 at 09:00 Quetiapine Fumarate (SEROquel) 25 mg DAILY@1300 PO Last administered on at 12:13; Start 05/07/18 at 13:00 Mirtazapine (Remeron) 7.5 mg QHS PO Last administered on 05/15/18at 20:23; Start 05/07/18 at 21:00 Trazodone HCl (Desyrel) 12.5 mg TID@0900,1300,1700 PO Last administered on 05/15at 17:15; Start 05/11/18 at 09:00 Glycerin (Sani-Supp Adult) 1 supp PRN DAILY PRN [place] CONSTIPATION Last administered on 05/11/18at 16:30; Start 05/11/18 at 16:15 Sertraline HCl (Zoloft) 75 mg DAILY PO Last administered on 05/15/18at 07:33; Start 05/13/18 at 09:00 Docusate Sodium (Colace) 100 mg DAILY PO Last administered on 05/15/18at 07:33; Start 05/14/18 at 09:00 Active Scripts Active Fludrocortisone Acetate 0.1 Mg Tablet 0.1 Mg PO DAILY 30 Days Latanoprost 2.5 Ml Drops 1 Drop OU QHS Brimonidine Tartrate 5 Ml Drops 1 Drop OU BID Nystop (Nystatin) 60 Gm Powder 1 Everardo TP BID Reported Trazodone Hcl 50 Mg Tablet 25 Mg PO PRN Q24HRS PRN Trazodone Hcl 50 Mg Tablet 25 Mg PO QHS Seroquel (Quetiapine Fumarate) 25 Mg Tablet 25 Mg PO DAILY Donepezil Hcl 5 Mg Tablet 5 Mg PO DAILY Acetaminophen 500 Mg Tablet 500 Mg PO PRN Q8HRS PRN B-12 (Cyanocobalamin (Vitamin B-12)) 500 Mcg Tablet 500 Mcg PO DAILY Vitamin D3 (Cholecalciferol (Vitamin D3)) 1,000 Unit Tablet 1 Tab PO DAILY LAST DOSE GIVEN: DATE: TODAY TIME: AM NEXT DOSE DUE: DATE: TOMORROW TIME: AM Aspirin 81 Mg Tab.chew 81 Mg PO DAILY LAST DOSE GIVEN: DATE: TODAY TIME: AM NEXT DOSE DUE: DATE: TOMORROW TIME: AM I have reviewed the current psychotropics carefully including drug interactions. Risk benefit ratio favors no change other than as noted in my dictated progress note. Diagnosis: Problems: (1) Concussion (2) Complex laceration of face (3) Anxiety disorder (4) Impulse control disorder (5) Dementia in Alzheimer's disease with depression (6) Dementia in Alzheimer's disease with delusions (7) Acute encephalopathy (8) Sepsis (9) Mental status change resolved LOGAN PFEIFFER MD May 15, 2018 20:28
[2018-05-16 06:02] VITALS: BP 138/77
[2018-05-16] MEDS: FLUDROCORTISONE 0.1 MG TABLET PO SCH (08:38)
[2018-05-16] MEDS: QUEtiapine 25 MG TABLET. PO SCH ×3 (08:38→17:48)
[2018-05-16] MEDS: ASPIRIN 81 MG TAB.CHEW PO SCH (08:38)
[2018-05-16] MEDS: DOCUSATE SODIUM 100 MG CAPSULE PO SCH (08:38)
[2018-05-16] MEDS: traZODone 50 MG TABLET. PO SCH ×4 (08:38→20:20)
[2018-05-16] MEDS: CHOLECALCIFEROL (VITAMIN D3) 1,000 UNIT TABLET PO SCH (08:38)
[2018-05-16] MEDS: SERTRALINE 50 MG TABLET. PO SCH (08:39)
[2018-05-16] MEDS: CYANOCOBALAMIN (VITAMIN B-12) 1,000 MCG TABLET. PO SCH (08:39)
[2018-05-16] MEDS: NYSTATIN TOPICAL POWDER 15GM BOTTLE. TP SCH ×2 (08:40→20:20)
[2018-05-16] MEDS: BRIMONIDINE 0.2% OPHTH SOLUTION 5ML BOTTLE. OU SCH ×2 (08:40→20:21)
[2018-05-16 16:32] VITALS: BP 118/64
[2018-05-16] MEDS: MIRTAZAPINE 7.5 MG TABLET. PO SCH (20:20)
[2018-05-16] MEDS: LATANOPROST 0.005% OPHTH SOLUTION 2.5ML BOTTLE. OU SCH (20:20)
--- NOTE | 2018-05-16 22:20 | PDOC ---
Exam Note: Rosalio Note: Please also refer to the separate dictated note~for this date of service dictated separately.~Patient seen individually. Discussed the patient with Nursing staff reviewed the chart.~Reviewed interim history and current functioning. Reviewed vital signs,~Labs/ Radiology~and current medications noted below. Continue current treatment with the changes noted in the dictated addendum note Assessment: Vital Signs: Vital Signs Date Time Temp Pulse Resp B/P (MAP) Pulse Ox O2 Delivery O2 Flow Rate FiO2 05/16/18 16:32 97.8 83 18 118/64 (82) 100 05/15/18 16:00 Room Air I&O Intake and Output 05/16/18 07:00 Intake Total 960 ml Balance 960 ml Intake Oral 960 ml Current Medications: Meds: Current Medications Trimethoprim/ Sulfamethoxazole (Bactrim Ds) 1 tab 1X ONCE PO Last administered on 04/28/18at 00:06; Start 04/27/18 at 23:55; Stop 04/27/18 at 23:56 ; Status DC Trimethoprim/ Sulfamethoxazole (Bactrim Ds) 1 tab BID PO Last administered on at 21:14; Start 04/28/18 at 09:00; Stop 05/07/18 at 15:22; Status DC Lorazepam (Ativan) 2 mg 1X ONCE PO Last administered on 04/28/18at 00:48; Start 04/28/18 at 00:45; Stop 04/28/18 at 00:46; Status DC Diphenhydramine HCl (Benadryl Oral Elixir) 25 mg 1X ONCE PO Last administered on 04/28/18at 00:48; Start 04/28/18 at 00:45; Stop 04/28/18 at 00:46; Status DC Acetaminophen (Tylenol) 650 mg PRN Q6HRS PRN PO PAIN / TEMP; Start 04/28/18 at 02:45 Multi-Ingredient Ointment (Analgesic [place]) 1 everardo PRN QID PRN TP MUSCLE PAIN; Start 04/28/18 at 02:45 Al Hydroxide/Mg Hydroxide (Mylanta Plus Xs) 15 ml PRN AFTMEALHC PRN PO DYSPEPSIA; Start 04/28/18 at 02:45 Magnesium Hydroxide (Milk Of Magnesia) 2,400 mg PRN QHS PRN PO CONSTIPATION Last administered on 05/05/18at 11:56; Start 04/28/18 at 02:45 Donepezil HCl (Aricept) 5 mg DAILY PO Last administered on 05/04/18at 12:15; Start 04/28/18 at 09:00; Stop 05/04/18 at 18:22; Status DC Non-Formulary Medication (Quetiapine Fumarate (Seroquel)) 25 mg DAILY PO ; Start 04/28/18 at 09:00; Stop 04/28/18 at 09:00; Status DC Non-Formulary Medication (Trazodone Hcl ) 25 mg PRN Q24HRS PRN PO INSOMNIA; Start 04/28/18 at 03:00; Stop 04/28/18 at 03:39; Status DC Non-Formulary Medication (Trazodone Hcl ) 25 mg QHS PO ; Start 04/28/18 at 21:00 ; Stop 04/28/18 at 21:00; Status DC Brimonidine Tartrate (Alphagan) 1 drop BID OU Last administered on 05/16/18at 20 :21; Start 04/28/18 at 09:00 Vitamin D (Vitamin D3) 1,000 unit DAILY PO Last administered on 05/16/18at 08:38 ; Start 04/28/18 at 09:00 Fludrocortisone Acetate (Florinef) 0.1 mg DAILY PO Last administered on at 08:38; Start 04/28/18 at 09:00 Nystatin (Nystop) 1 everardo BID TP Last administered on 05/16/18at 20:20; Start at 09:00 Non-Formulary Medication (Acetaminophen ) 500 mg PRN Q8HRS PRN PO PAIN / TEMP; Start 04/28/18 at 03:15; Stop 04/28/18 at 03:39; Status DC Non-Formulary Medication (Aspirin ) 81 mg DAILY PO ; Start 04/28/18 at 09:00; Stop 04/28/18 at 09:00; Status DC Non-Formulary Medication (Cyanocobalamin (Vitamin B-12) (B-12)) 500 mcg DAILY PO ; Start 04/28/18 at 09:00; Stop 04/28/18 at 09:00; Status DC Non-Formulary Medication (Latanoprost ) 1 drop QHS OU ; Start 04/28/18 at 21:00 ; Stop 04/28/18 at 21:00; Status DC Acetaminophen (Tylenol) 500 mg PRN Q8HRS PRN PO PAIN / TEMP; Start 04/28/18 at 03:30; Status Cancel Aspirin (Children'S Aspirin) 81 mg DAILY PO Last administered on 05/16/18at 08: 38; Start 04/28/18 at 09:00 Cyanocobalamin (Vitamin B-12) 500 mcg DAILY PO Last administered on 05/16/18at 08:39; Start 04/28/18 at 09:00 Latanoprost (Xalatan) 1 drop QHS OU Last administered on 05/16/18at 20:20; Start 04/28/18 at 21:00 Quetiapine Fumarate (SEROquel) 25 mg DAILY PO Last administered on 05/01/18at 07: 50; Start 04/28/18 at 09:00; Stop 05/01/18 at 17:16; Status DC Trazodone HCl (Desyrel) 25 mg PRN Q24HRS PRN PO SEE COMMENTS Last administered on 05/14/18at 03:02; Start 04/28/18 at 03:30 Trazodone HCl (Desyrel) 25 mg QHS PO Last administered on 04/30/18at 20:03; Start 04/28/18 at 21:00; Stop 05/01/18 at 17:16; Status DC Olanzapine (ZyPREXA ZYDIS) 1.25 mg PRN Q2HR PRN PO PSYCHOSIS Last administered on 05/07/18at 01:11; Start 04/28/18 at 15:15 Lactobacillus Rhamnosus (Culturelle) 1 cap BID PO ; Start 04/29/18 at 09:00; Status Cancel Latanoprost (Xalatan) 1 drop QHS OU ; Start 04/29/18 at 21:00; Status UNV Sertraline HCl (Zoloft) 25 mg DAILY PO Last administered on 05/05/18at 08:48; Start 04/30/18 at 09:00; Stop 05/05/18 at 16:38; Status DC Quetiapine Fumarate (SEROquel) 25 mg BID@0900,1300 PO Last administered on at 12:15; Start 05/02/18 at 09:00; Stop 05/04/18 at 18:22; Status DC Trazodone HCl (Desyrel) 50 mg QHS PO Last administered on 05/16/18 20:20; Start 05/01/18 at 21:00 Hydroxyzine HCl (Atarax) 25 mg PRN Q2HR PRN PO ANXIETY / AGITATION Last administered on 05/12/18 09:48; Start 05/02/18 at 08:30 Quetiapine Fumarate (SEROquel) 25 mg BIDPCLD PO Last administered on 05/06/18 17:19; Start 05/05/18 at 12:30; Stop 05/06/18 at 17:50; Status DC Quetiapine Fumarate (SEROquel) 37.5 mg DAILY PO Last administered on 05/06/18at 07:39; Start 05/05/18 at 09:00; Stop 05/06/18 at 17:50; Status DC Sertraline HCl (Zoloft) 50 mg DAILY PO Last administered on 05/12/18 08:21; Start 05/06/18 at 09:00; Stop 05/12/18 at 18:46; Status DC Trazodone HCl (Desyrel) 12.5 mg BID@0900,1700 PO Last administered on 17:00; Start 05/05/18 at 17:00; Stop 05/11/18 at 01:14; Status DC Quetiapine Fumarate (SEROquel) 37.5 mg BID@0900,1700 PO Last administered on 17:48; Start 05/07/18 at 09:00 Quetiapine Fumarate (SEROquel) 25 mg DAILY@1300 PO Last administered on 13:36; Start 05/07/18 at 13:00 Mirtazapine (Remeron) 7.5 mg QHS PO Last administered on 05/16/18 20:20; Start 05/07/18 at 21:00 Trazodone HCl (Desyrel) 12.5 mg TID@0900,1300,1700 PO Last administered on 05/16 17:48; Start 05/11/18 at 09:00 Glycerin (Sani-Supp Adult) 1 supp PRN DAILY PRN [place] CONSTIPATION Last administered on 05/11/18at 16:30; Start 05/11/18 at 16:15 Sertraline HCl (Zoloft) 75 mg DAILY PO Last administered on 05/16/18at 08:39; Start 05/13/18 at 09:00 Docusate Sodium (Colace) 100 mg DAILY PO Last administered on 05/16/18at 08:38; Start 05/14/18 at 09:00 Active Scripts Active Fludrocortisone Acetate 0.1 Mg Tablet 0.1 Mg PO DAILY 30 Days Latanoprost 2.5 Ml Drops 1 Drop OU QHS Brimonidine Tartrate 5 Ml Drops 1 Drop OU BID Nystop (Nystatin) 60 Gm Powder 1 Everardo TP BID Reported Trazodone Hcl 50 Mg Tablet 25 Mg PO PRN Q24HRS PRN Trazodone Hcl 50 Mg Tablet 25 Mg PO QHS Seroquel (Quetiapine Fumarate) 25 Mg Tablet 25 Mg PO DAILY Donepezil Hcl 5 Mg Tablet 5 Mg PO DAILY Acetaminophen 500 Mg Tablet 500 Mg PO PRN Q8HRS PRN B-12 (Cyanocobalamin (Vitamin B-12)) 500 Mcg Tablet 500 Mcg PO DAILY Vitamin D3 (Cholecalciferol (Vitamin D3)) 1,000 Unit Tablet 1 Tab PO DAILY LAST DOSE GIVEN: DATE: TODAY TIME: AM NEXT DOSE DUE: DATE: TOMORROW TIME: AM Aspirin 81 Mg Tab.chew 81 Mg PO DAILY LAST DOSE GIVEN: DATE: TODAY TIME: AM NEXT DOSE DUE: DATE: TOMORROW TIME: AM I have reviewed the current psychotropics carefully including drug interactions. Risk benefit ratio favors no change other than as noted in my dictated progress note. Diagnosis: Problems: (1) Concussion (2) Complex laceration of face (3) Anxiety disorder (4) Impulse control disorder (5) Dementia in Alzheimer's disease with depression (6) Dementia in Alzheimer's disease with delusions (7) Acute encephalopathy (8) Sepsis (9) Mental status change resolved LOGAN PFEIFFER MD May 16, 2018 22:20
[2018-05-17 05:55] VITALS: BP 169/99
[2018-05-17 05:59] VITALS: BP 145/74
[2018-05-17] MEDS: traZODone 50 MG TABLET. PO SCH ×4 (07:49→20:08)
[2018-05-17] MEDS: QUEtiapine 25 MG TABLET. PO SCH ×3 (07:49→18:31)
[2018-05-17] MEDS: SERTRALINE 50 MG TABLET. PO SCH (07:49)
[2018-05-17] MEDS: CHOLECALCIFEROL (VITAMIN D3) 1,000 UNIT TABLET PO SCH (07:49)
[2018-05-17] MEDS: CYANOCOBALAMIN (VITAMIN B-12) 1,000 MCG TABLET. PO SCH (07:49)
[2018-05-17] MEDS: FLUDROCORTISONE 0.1 MG TABLET PO SCH (07:49)
[2018-05-17] MEDS: DOCUSATE SODIUM 100 MG CAPSULE PO SCH (07:50)
[2018-05-17] MEDS: BRIMONIDINE 0.2% OPHTH SOLUTION 5ML BOTTLE. OU SCH ×2 (07:50→20:09)
[2018-05-17] MEDS: ASPIRIN 81 MG TAB.CHEW PO SCH (07:50)
[2018-05-17] MEDS: NYSTATIN TOPICAL POWDER 15GM BOTTLE. TP SCH ×2 (07:50→20:09)
[2018-05-17 16:29] VITALS: BP 126/72
[2018-05-17] MEDS: MIRTAZAPINE 15 MG TABLET PO SCH (20:08)
[2018-05-17] MEDS: LATANOPROST 0.005% OPHTH SOLUTION 2.5ML BOTTLE. OU SCH (20:09)
[2018-05-17] MEDS: hydrOXYzine HCL 25 MG TABLET PO PRN (20:10)
--- NOTE | 2018-05-17 20:56 | PDOC ---
Exam Note: Rosalio Note: Please also refer to the separate dictated note~for this date of service dictated separately.~Patient seen individually. Discussed the patient with Nursing staff reviewed the chart.~Reviewed interim history and current functioning. Reviewed vital signs,~Labs/ Radiology~and current medications noted below. Continue current treatment with the changes noted in the dictated addendum note Assessment: Vital Signs: Vital Signs Date Time Temp Pulse Resp B/P (MAP) Pulse Ox O2 Delivery O2 Flow Rate FiO2 05/17/18 16:29 97.3 76 20 126/72 (90) 98 05/15/18 16:00 Room Air I&O Intake and Output 05/17/18 07:01 Intake Total 960 ml Balance 960 ml Intake Oral 960 ml Current Medications: Meds: Current Medications Trimethoprim/ Sulfamethoxazole (Bactrim Ds) 1 tab 1X ONCE PO Last administered on 04/28/18at 00:06; Start 04/27/18 at 23:55; Stop 04/27/18 at 23:56 ; Status DC Trimethoprim/ Sulfamethoxazole (Bactrim Ds) 1 tab BID PO Last administered on at 21:14; Start 04/28/18 at 09:00; Stop 05/07/18 at 15:22; Status DC Lorazepam (Ativan) 2 mg 1X ONCE PO Last administered on 04/28/18at 00:48; Start 04/28/18 at 00:45; Stop 04/28/18 at 00:46; Status DC Diphenhydramine HCl (Benadryl Oral Elixir) 25 mg 1X ONCE PO Last administered on 04/28/18at 00:48; Start 04/28/18 at 00:45; Stop 04/28/18 at 00:46; Status DC Acetaminophen (Tylenol) 650 mg PRN Q6HRS PRN PO PAIN / TEMP; Start 04/28/18 at 02:45 Multi-Ingredient Ointment (Analgesic [place]) 1 everardo PRN QID PRN TP MUSCLE PAIN; Start 04/28/18 at 02:45 Al Hydroxide/Mg Hydroxide (Mylanta Plus Xs) 15 ml PRN AFTMEALHC PRN PO DYSPEPSIA; Start 04/28/18 at 02:45 Magnesium Hydroxide (Milk Of Magnesia) 2,400 mg PRN QHS PRN PO CONSTIPATION Last administered on 05/05/18at 11:56; Start 04/28/18 at 02:45 Donepezil HCl (Aricept) 5 mg DAILY PO Last administered on 05/04/18at 12:15; Start 04/28/18 at 09:00; Stop 05/04/18 at 18:22; Status DC Non-Formulary Medication (Quetiapine Fumarate (Seroquel)) 25 mg DAILY PO ; Start 04/28/18 at 09:00; Stop 04/28/18 at 09:00; Status DC Non-Formulary Medication (Trazodone Hcl ) 25 mg PRN Q24HRS PRN PO INSOMNIA; Start 04/28/18 at 03:00; Stop 04/28/18 at 03:39; Status DC Non-Formulary Medication (Trazodone Hcl ) 25 mg QHS PO ; Start 04/28/18 at 21:00 ; Stop 04/28/18 at 21:00; Status DC Brimonidine Tartrate (Alphagan) 1 drop BID OU Last administered on 05/17/18at 07 :50; Start 04/28/18 at 09:00 Vitamin D (Vitamin D3) 1,000 unit DAILY PO Last administered on 05/17/18at 07:49 ; Start 04/28/18 at 09:00 Fludrocortisone Acetate (Florinef) 0.1 mg DAILY PO Last administered on at 07:49; Start 04/28/18 at 09:00 Nystatin (Nystop) 1 everardo BID TP Last administered on 05/17/18at 07:50; Start at 09:00 Non-Formulary Medication (Acetaminophen ) 500 mg PRN Q8HRS PRN PO PAIN / TEMP; Start 04/28/18 at 03:15; Stop 04/28/18 at 03:39; Status DC Non-Formulary Medication (Aspirin ) 81 mg DAILY PO ; Start 04/28/18 at 09:00; Stop 04/28/18 at 09:00; Status DC Non-Formulary Medication (Cyanocobalamin (Vitamin B-12) (B-12)) 500 mcg DAILY PO ; Start 04/28/18 at 09:00; Stop 04/28/18 at 09:00; Status DC Non-Formulary Medication (Latanoprost ) 1 drop QHS OU ; Start 04/28/18 at 21:00 ; Stop 04/28/18 at 21:00; Status DC Acetaminophen (Tylenol) 500 mg PRN Q8HRS PRN PO PAIN / TEMP; Start 04/28/18 at 03:30; Status Cancel Aspirin (Children'S Aspirin) 81 mg DAILY PO Last administered on 05/17/18at 07: 50; Start 04/28/18 at 09:00 Cyanocobalamin (Vitamin B-12) 500 mcg DAILY PO Last administered on 05/17/18at 07:49; Start 04/28/18 at 09:00 Latanoprost (Xalatan) 1 drop QHS OU Last administered on 05/16/18at 20:20; Start 04/28/18 at 21:00 Quetiapine Fumarate (SEROquel) 25 mg DAILY PO Last administered on 05/01/18at 07: 50; Start 04/28/18 at 09:00; Stop 05/01/18 at 17:16; Status DC Trazodone HCl (Desyrel) 25 mg PRN Q24HRS PRN PO SEE COMMENTS Last administered on 05/14/18at 03:02; Start 04/28/18 at 03:30 Trazodone HCl (Desyrel) 25 mg QHS PO Last administered on 04/30/18at 20:03; Start 04/28/18 at 21:00; Stop 05/01/18 at 17:16; Status DC Olanzapine (ZyPREXA ZYDIS) 1.25 mg PRN Q2HR PRN PO PSYCHOSIS Last administered on 05/17/18at 19:18; Start 04/28/18 at 15:15 Lactobacillus Rhamnosus (Culturelle) 1 cap BID PO ; Start 04/29/18 at 09:00; Status Cancel Latanoprost (Xalatan) 1 drop QHS OU ; Start 04/29/18 at 21:00; Status UNV Sertraline HCl (Zoloft) 25 mg DAILY PO Last administered on 05/05/18at 08:48; Start 04/30/18 at 09:00; Stop 05/05/18 at 16:38; Status DC Quetiapine Fumarate (SEROquel) 25 mg BID@0900,1300 PO Last administered on at 12:15; Start 05/02/18 at 09:00; Stop 05/04/18 at 18:22; Status DC Trazodone HCl (Desyrel) 50 mg QHS PO Last administered on 05/17/18at 20:08; Start 05/01/18 at 21:00 Hydroxyzine HCl (Atarax) 25 mg PRN Q2HR PRN PO ANXIETY / AGITATION Last administered on 05/17/18at 20:10; Start 05/02/18 at 08:30 Quetiapine Fumarate (SEROquel) 25 mg BIDPCLD PO Last administered on 05/06/18 17:19; Start 05/05/18 at 12:30; Stop 05/06/18 at 17:50; Status DC Quetiapine Fumarate (SEROquel) 37.5 mg DAILY PO Last administered on 05/06/18at 07:39; Start 05/05/18 at 09:00; Stop 05/06/18 at 17:50; Status DC Sertraline HCl (Zoloft) 50 mg DAILY PO Last administered on 05/12/18at 08:21; Start 05/06/18 at 09:00; Stop 05/12/18 at 18:46; Status DC Trazodone HCl (Desyrel) 12.5 mg BID@0900,1700 PO Last administered on at 17:00; Start 05/05/18 at 17:00; Stop 05/11/18 at 01:14; Status DC Quetiapine Fumarate (SEROquel) 37.5 mg BID@0900,1700 PO Last administered on at 18:31; Start 05/07/18 at 09:00 Quetiapine Fumarate (SEROquel) 25 mg DAILY@1300 PO Last administered on at 13:32; Start 05/07/18 at 13:00 Mirtazapine (Remeron) 7.5 mg QHS PO Last administered on 05/16/18at 20:20; Start 05/07/18 at 21:00; Stop 05/17/18 at 18:19; Status DC Trazodone HCl (Desyrel) 12.5 mg TID@0900,1300,1700 PO Last administered on 05/17at 18:31; Start 05/11/18 at 09:00 Glycerin (Sani-Supp Adult) 1 supp PRN DAILY PRN IN CONSTIPATION Last administered on 05/11/18at 16:30; Start 05/11/18 at 16:15 Sertraline HCl (Zoloft) 75 mg DAILY PO Last administered on 05/17/18at 07:49; Start 05/13/18 at 09:00 Docusate Sodium (Colace) 100 mg DAILY PO Last administered on 05/17/18at 07:50; Start 05/14/18 at 09:00 Mirtazapine (Remeron) 15 mg QHS PO Last administered on 05/17/18at 20:08; Start 05/17/18 at 21:00 Active Scripts Active Fludrocortisone Acetate 0.1 Mg Tablet 0.1 Mg PO DAILY 30 Days Latanoprost 2.5 Ml Drops 1 Drop OU QHS Brimonidine Tartrate 5 Ml Drops 1 Drop OU BID Nystop (Nystatin) 60 Gm Powder 1 Everardo TP BID Reported Trazodone Hcl 50 Mg Tablet 25 Mg PO PRN Q24HRS PRN Trazodone Hcl 50 Mg Tablet 25 Mg PO QHS Seroquel (Quetiapine Fumarate) 25 Mg Tablet 25 Mg PO DAILY Donepezil Hcl 5 Mg Tablet 5 Mg PO DAILY Acetaminophen 500 Mg Tablet 500 Mg PO PRN Q8HRS PRN B-12 (Cyanocobalamin (Vitamin B-12)) 500 Mcg Tablet 500 Mcg PO DAILY Vitamin D3 (Cholecalciferol (Vitamin D3)) 1,000 Unit Tablet 1 Tab PO DAILY LAST DOSE GIVEN: DATE: TODAY TIME: AM NEXT DOSE DUE: DATE: TOMORROW TIME: AM Aspirin 81 Mg Tab.chew 81 Mg PO DAILY LAST DOSE GIVEN: DATE: TODAY TIME: AM NEXT DOSE DUE: DATE: TOMORROW TIME: AM I have reviewed the current psychotropics carefully including drug interactions. Risk benefit ratio favors no change other than as noted in my dictated progress note. Diagnosis: Problems: (1) Concussion (2) Complex laceration of face (3) Anxiety disorder (4) Impulse control disorder (5) Dementia in Alzheimer's disease with depression (6) Dementia in Alzheimer's disease with delusions (7) Acute encephalopathy (8) Sepsis (9) Mental status change resolved LOGAN PFEIFFER MD May 17, 2018 20:56
--- NOTE | 2018-05-17 22:28 | PN ---
DATE: 05/15/2018 This is a late entry, 05/15/2018, covers the elements not covered in my initial note. SUBJECTIVE: I met with the patient in the evening. The patient remains on one-on-one status due to fall risk. Compliant with medications, confused, falling asleep while standing, walking, and sitting. REVIEW OF SYSTEMS: No CV, , pulmonary, eye, ENT system symptoms on review. Reliability poor. MENTAL STATUS EXAM: Oriented to himself. Insight, judgment, recent, and remote memory, attention, concentration, fund of knowledge poor, consistent with his diagnosis as mentioned in my initial note. PLAN: No change from initial note. Maintain on one-on-one due to fall risk. MAN Nila PFEIFFER MD DR: ЕЛЕНА/laney JOB#: [id number] / [id number]
[2018-05-18 05:59] VITALS: BP 136/73
[2018-05-18] MEDS: CHOLECALCIFEROL (VITAMIN D3) 1,000 UNIT TABLET PO SCH (08:02)
[2018-05-18] MEDS: DOCUSATE SODIUM 100 MG CAPSULE PO SCH (08:02)
[2018-05-18] MEDS: ASPIRIN 81 MG TAB.CHEW PO SCH (08:02)
[2018-05-18] MEDS: traZODone 50 MG TABLET. PO SCH ×4 (08:02→21:01)
[2018-05-18] MEDS: FLUDROCORTISONE 0.1 MG TABLET PO SCH (08:02)
[2018-05-18] MEDS: QUEtiapine 25 MG TABLET. PO SCH ×3 (08:03→17:34)
[2018-05-18] MEDS: SERTRALINE 50 MG TABLET. PO SCH (08:03)
[2018-05-18] MEDS: NYSTATIN TOPICAL POWDER 15GM BOTTLE. TP SCH ×2 (08:03→21:02)
[2018-05-18] MEDS: CYANOCOBALAMIN (VITAMIN B-12) 1,000 MCG TABLET. PO SCH (08:03)
[2018-05-18] MEDS: BRIMONIDINE 0.2% OPHTH SOLUTION 5ML BOTTLE. OU SCH ×2 (08:04→21:10)
--- NOTE | 2018-05-18 13:28 | PN ---
DATE: 05/16/2018 PSYCHIATRIC PROGRESS NOTE This is a late entry, 05/16, covers elements not covered in my initial note. SUBJECTIVE: I met with the patient in the morning. The patient remains confused, anxious, restless, remains on one-on-one status due to fall risk, unsteady gait. REVIEW OF SYSTEMS: No CV, , pulmonary, eye, ENT system symptoms on review. Reliability poor. MENTAL STATUS EXAM: Oriented to himself. Insight, judgment, recent and remote memory, attention, concentration, fund of knowledge poor, consistent with his diagnosis mentioned in my initial note. PLAN: No change from initial note and may need to adjust scheduled trazodone or Seroquel if agitation persists. MAN Nila PFEIFFER MD DR: ЕЛЕНА/laney JOB#: [id number] / [id number]
[2018-05-18 15:48] VITALS: BP 126/70
--- NOTE | 2018-05-18 20:58 | PDOC ---
Exam Note: Rosalio Note: Please also refer to the separate dictated note~for this date of service dictated separately.~Patient seen individually. Discussed the patient with Nursing staff reviewed the chart.~Reviewed interim history and current functioning. Reviewed vital signs,~Labs/ Radiology~and current medications noted below. Continue current treatment with the changes noted in the dictated addendum note Assessment: Vital Signs: Vital Signs Date Time Temp Pulse Resp B/P (MAP) Pulse Ox O2 Delivery O2 Flow Rate FiO2 05/18/18 15:48 97.5 84 20 126/70 (88) 95 05/15/18 16:00 Room Air I&O Intake and Output 05/18/18 07:01 Intake Total 1780 ml Balance 1780 ml Intake Oral 1780 ml Current Medications: Meds: Current Medications Trimethoprim/ Sulfamethoxazole (Bactrim Ds) 1 tab 1X ONCE PO Last administered on 04/28/18at 00:06; Start 04/27/18 at 23:55; Stop 04/27/18 at 23:56 ; Status DC Trimethoprim/ Sulfamethoxazole (Bactrim Ds) 1 tab BID PO Last administered on at 21:14; Start 04/28/18 at 09:00; Stop 05/07/18 at 15:22; Status DC Lorazepam (Ativan) 2 mg 1X ONCE PO Last administered on 04/28/18at 00:48; Start 04/28/18 at 00:45; Stop 04/28/18 at 00:46; Status DC Diphenhydramine HCl (Benadryl Oral Elixir) 25 mg 1X ONCE PO Last administered on 04/28/18at 00:48; Start 04/28/18 at 00:45; Stop 04/28/18 at 00:46; Status DC Acetaminophen (Tylenol) 650 mg PRN Q6HRS PRN PO PAIN / TEMP; Start 04/28/18 at 02:45 Multi-Ingredient Ointment (Analgesic [place]) 1 everardo PRN QID PRN TP MUSCLE PAIN; Start 04/28/18 at 02:45 Al Hydroxide/Mg Hydroxide (Mylanta Plus Xs) 15 ml PRN AFTMEALHC PRN PO DYSPEPSIA; Start 04/28/18 at 02:45 Magnesium Hydroxide (Milk Of Magnesia) 2,400 mg PRN QHS PRN PO CONSTIPATION Last administered on 05/05/18at 11:56; Start 04/28/18 at 02:45 Donepezil HCl (Aricept) 5 mg DAILY PO Last administered on 05/04/18at 12:15; Start 04/28/18 at 09:00; Stop 05/04/18 at 18:22; Status DC Non-Formulary Medication (Quetiapine Fumarate (Seroquel)) 25 mg DAILY PO ; Start 04/28/18 at 09:00; Stop 04/28/18 at 09:00; Status DC Non-Formulary Medication (Trazodone Hcl ) 25 mg PRN Q24HRS PRN PO INSOMNIA; Start 04/28/18 at 03:00; Stop 04/28/18 at 03:39; Status DC Non-Formulary Medication (Trazodone Hcl ) 25 mg QHS PO ; Start 04/28/18 at 21:00 ; Stop 04/28/18 at 21:00; Status DC Brimonidine Tartrate (Alphagan) 1 drop BID OU Last administered on 05/18/18at 08 :04; Start 04/28/18 at 09:00 Vitamin D (Vitamin D3) 1,000 unit DAILY PO Last administered on 05/18/18at 08:02 ; Start 04/28/18 at 09:00 Fludrocortisone Acetate (Florinef) 0.1 mg DAILY PO Last administered on at 08:02; Start 04/28/18 at 09:00 Nystatin (Nystop) 1 everardo BID TP Last administered on 05/18/18at 08:03; Start at 09:00 Non-Formulary Medication (Acetaminophen ) 500 mg PRN Q8HRS PRN PO PAIN / TEMP; Start 04/28/18 at 03:15; Stop 04/28/18 at 03:39; Status DC Non-Formulary Medication (Aspirin ) 81 mg DAILY PO ; Start 04/28/18 at 09:00; Stop 04/28/18 at 09:00; Status DC Non-Formulary Medication (Cyanocobalamin (Vitamin B-12) (B-12)) 500 mcg DAILY PO ; Start 04/28/18 at 09:00; Stop 04/28/18 at 09:00; Status DC Non-Formulary Medication (Latanoprost ) 1 drop QHS OU ; Start 04/28/18 at 21:00 ; Stop 04/28/18 at 21:00; Status DC Acetaminophen (Tylenol) 500 mg PRN Q8HRS PRN PO PAIN / TEMP; Start 04/28/18 at 03:30; Status Cancel Aspirin (Children'S Aspirin) 81 mg DAILY PO Last administered on 05/18/18 08: 02; Start 04/28/18 at 09:00 Cyanocobalamin (Vitamin B-12) 500 mcg DAILY PO Last administered on 05/18/18at 08:03; Start 04/28/18 at 09:00 Latanoprost (Xalatan) 1 drop QHS OU Last administered on 05/16/18at 20:20; Start 04/28/18 at 21:00 Quetiapine Fumarate (SEROquel) 25 mg DAILY PO Last administered on 05/01/18at 07: 50; Start 04/28/18 at 09:00; Stop 05/01/18 at 17:16; Status DC Trazodone HCl (Desyrel) 25 mg PRN Q24HRS PRN PO SEE COMMENTS Last administered on 05/14/18at 03:02; Start 04/28/18 at 03:30 Trazodone HCl (Desyrel) 25 mg QHS PO Last administered on 04/30/18at 20:03; Start 04/28/18 at 21:00; Stop 05/01/18 at 17:16; Status DC Olanzapine (ZyPREXA ZYDIS) 1.25 mg PRN Q2HR PRN PO PSYCHOSIS Last administered on 05/17/18at 19:18; Start 04/28/18 at 15:15 Lactobacillus Rhamnosus (Culturelle) 1 cap BID PO ; Start 04/29/18 at 09:00; Status Cancel Latanoprost (Xalatan) 1 drop QHS OU ; Start 04/29/18 at 21:00; Status UNV Sertraline HCl (Zoloft) 25 mg DAILY PO Last administered on 05/05/18at 08:48; Start 04/30/18 at 09:00; Stop 05/05/18 at 16:38; Status DC Quetiapine Fumarate (SEROquel) 25 mg BID@0900,1300 PO Last administered on at 12:15; Start 05/02/18 at 09:00; Stop 05/04/18 at 18:22; Status DC Trazodone HCl (Desyrel) 50 mg QHS PO Last administered on 05/17/18at 20:08; Start 05/01/18 at 21:00 Hydroxyzine HCl (Atarax) 25 mg PRN Q2HR PRN PO ANXIETY / AGITATION Last administered on 05/17/18at 20:10; Start 05/02/18 at 08:30 Quetiapine Fumarate (SEROquel) 25 mg BIDPCLD PO Last administered on 05/06/18 17:19; Start 05/05/18 at 12:30; Stop 05/06/18 at 17:50; Status DC Quetiapine Fumarate (SEROquel) 37.5 mg DAILY PO Last administered on 05/06/18at 07:39; Start 05/05/18 at 09:00; Stop 05/06/18 at 17:50; Status DC Sertraline HCl (Zoloft) 50 mg DAILY PO Last administered on 05/12/18at 08:21; Start 05/06/18 at 09:00; Stop 05/12/18 at 18:46; Status DC Trazodone HCl (Desyrel) 12.5 mg BID@0900,1700 PO Last administered on at 17:00; Start 05/05/18 at 17:00; Stop 05/11/18 at 01:14; Status DC Quetiapine Fumarate (SEROquel) 37.5 mg BID@0900,1700 PO Last administered on at 17:34; Start 05/07/18 at 09:00 Quetiapine Fumarate (SEROquel) 25 mg DAILY@1300 PO Last administered on at 12:31; Start 05/07/18 at 13:00 Mirtazapine (Remeron) 7.5 mg QHS PO Last administered on 05/16/18at 20:20; Start 05/07/18 at 21:00; Stop 05/17/18 at 18:19; Status DC Trazodone HCl (Desyrel) 12.5 mg TID@0900,1300,1700 PO Last administered on 05/18at 17:34; Start 05/11/18 at 09:00 Glycerin (Sani-Supp Adult) 1 supp PRN DAILY PRN [place] CONSTIPATION Last administered on 05/11/18at 16:30; Start 05/11/18 at 16:15 Sertraline HCl (Zoloft) 75 mg DAILY PO Last administered on 05/18/18at 08:03; Start 05/13/18 at 09:00 Docusate Sodium (Colace) 100 mg DAILY PO Last administered on 05/18/18at 08:02; Start 05/14/18 at 09:00 Mirtazapine (Remeron) 15 mg QHS PO Last administered on 05/17/18at 20:08; Start 05/17/18 at 21:00 Active Scripts Active Fludrocortisone Acetate 0.1 Mg Tablet 0.1 Mg PO DAILY 30 Days Latanoprost 2.5 Ml Drops 1 Drop OU QHS Brimonidine Tartrate 5 Ml Drops 1 Drop OU BID Nystop (Nystatin) 60 Gm Powder 1 Everardo TP BID Reported Trazodone Hcl 50 Mg Tablet 25 Mg PO PRN Q24HRS PRN Trazodone Hcl 50 Mg Tablet 25 Mg PO QHS Seroquel (Quetiapine Fumarate) 25 Mg Tablet 25 Mg PO DAILY Donepezil Hcl 5 Mg Tablet 5 Mg PO DAILY Acetaminophen 500 Mg Tablet 500 Mg PO PRN Q8HRS PRN B-12 (Cyanocobalamin (Vitamin B-12)) 500 Mcg Tablet 500 Mcg PO DAILY Vitamin D3 (Cholecalciferol (Vitamin D3)) 1,000 Unit Tablet 1 Tab PO DAILY LAST DOSE GIVEN: DATE: TODAY TIME: AM NEXT DOSE DUE: DATE: TOMORROW TIME: AM Aspirin 81 Mg Tab.chew 81 Mg PO DAILY LAST DOSE GIVEN: DATE: TODAY TIME: AM NEXT DOSE DUE: DATE: TOMORROW TIME: AM I have reviewed the current psychotropics carefully including drug interactions. Risk benefit ratio favors no change other than as noted in my dictated progress note. Diagnosis: Problems: (1) Concussion (2) Complex laceration of face (3) Anxiety disorder (4) Impulse control disorder (5) Dementia in Alzheimer's disease with depression (6) Dementia in Alzheimer's disease with delusions (7) Acute encephalopathy (8) Sepsis (9) Mental status change resolved LOGAN PFEIFFER MD May 18, 2018 20:58
[2018-05-18] MEDS: MIRTAZAPINE 15 MG TABLET PO SCH (21:01)
[2018-05-18] MEDS: LATANOPROST 0.005% OPHTH SOLUTION 2.5ML BOTTLE. OU SCH (21:09)
--- NOTE | 2018-05-18 23:23 | PN ---
DATE: 05/17/2018 PSYCHIATRIC PROGRESS NOTE This is a late entry, 05/17, covers elements not covered in my initial note. SUBJECTIVE: I met with the patient in the morning of 05/17. The patient slept 5-1/2 hours previous night. He remains anxious, restless. Received some Atarax and Zyprexa p.r.n. due to anxiety. REVIEW OF SYSTEMS: No CV, , pulmonary, eye, ENT system symptoms on review. Reliability poor. MENTAL STATUS EXAM: Oriented to himself. Insight, judgment, recent and remote memory, attention, concentration, fund of knowledge poor, consistent with his diagnosis mentioned in my initial note. PLAN: Increase Remeron from 7.5 to 15 mg at bedtime. Continue rest unchanged from initial note. MAN Nila PFEIFFER MD DR: ЕЛЕНА/laney JOB#: [id number] / [id number]
[2018-05-19] MEDS: hydrOXYzine HCL 25 MG TABLET PO PRN (00:20)
[2018-05-19] MEDS: FLUDROCORTISONE 0.1 MG TABLET PO SCH (08:28)
[2018-05-19] MEDS: QUEtiapine 25 MG TABLET. PO SCH ×3 (08:28→17:34)
[2018-05-19] MEDS: traZODone 50 MG TABLET. PO SCH ×4 (08:28→19:22)
[2018-05-19] MEDS: BRIMONIDINE 0.2% OPHTH SOLUTION 5ML BOTTLE. OU SCH ×2 (08:28→19:23)
[2018-05-19] MEDS: CYANOCOBALAMIN (VITAMIN B-12) 1,000 MCG TABLET. PO SCH (08:28)
[2018-05-19] MEDS: SERTRALINE 50 MG TABLET. PO SCH (08:29)
[2018-05-19] MEDS: DOCUSATE SODIUM 100 MG CAPSULE PO SCH (08:29)
[2018-05-19] MEDS: CHOLECALCIFEROL (VITAMIN D3) 1,000 UNIT TABLET PO SCH (08:29)
[2018-05-19] MEDS: ASPIRIN 81 MG TAB.CHEW PO SCH (08:29)
[2018-05-19] MEDS: NYSTATIN TOPICAL POWDER 15GM BOTTLE. TP SCH ×2 (08:30→19:22)
[2018-05-19 14:54] VITALS: BP 118/72
[2018-05-19 16:00] VITALS: BP 111/66
[2018-05-19] MEDS: LATANOPROST 0.005% OPHTH SOLUTION 2.5ML BOTTLE. OU SCH (19:22)
[2018-05-19] MEDS: MIRTAZAPINE 15 MG TABLET PO SCH (19:24)
--- NOTE | 2018-05-19 20:51 | PDOC ---
Exam Note: Rosalio Note: Please also refer to the separate dictated note~for this date of service dictated separately.~Patient seen individually. Discussed the patient with Nursing staff reviewed the chart.~Reviewed interim history and current functioning. Reviewed vital signs,~Labs/ Radiology~and current medications noted below. Continue current treatment with the changes noted in the dictated addendum note Assessment: Vital Signs: Vital Signs Date Time Temp Pulse Resp B/P (MAP) Pulse Ox O2 Delivery O2 Flow Rate FiO2 05/19/18 16:00 97.9 70 16 111/66 (81) 95 05/19/18 14:54 Room Air I&O Intake and Output 05/19/18 07:00 Intake Total 960 ml Balance 960 ml Intake Oral 960 ml # Voids 1 # Bowel Movements 3 Current Medications: Meds: Current Medications Trimethoprim/ Sulfamethoxazole (Bactrim Ds) 1 tab 1X ONCE PO Last administered on 04/28/18at 00:06; Start 04/27/18 at 23:55; Stop 04/27/18 at 23:56 ; Status DC Trimethoprim/ Sulfamethoxazole (Bactrim Ds) 1 tab BID PO Last administered on at 21:14; Start 04/28/18 at 09:00; Stop 05/07/18 at 15:22; Status DC Lorazepam (Ativan) 2 mg 1X ONCE PO Last administered on 04/28/18at 00:48; Start 04/28/18 at 00:45; Stop 04/28/18 at 00:46; Status DC Diphenhydramine HCl (Benadryl Oral Elixir) 25 mg 1X ONCE PO Last administered on 04/28/18at 00:48; Start 04/28/18 at 00:45; Stop 04/28/18 at 00:46; Status DC Acetaminophen (Tylenol) 650 mg PRN Q6HRS PRN PO PAIN / TEMP; Start 04/28/18 at 02:45 Multi-Ingredient Ointment (Analgesic [place]) 1 everardo PRN QID PRN TP MUSCLE PAIN; Start 04/28/18 at 02:45 Al Hydroxide/Mg Hydroxide (Mylanta Plus Xs) 15 ml PRN AFTMEALHC PRN PO DYSPEPSIA; Start 04/28/18 at 02:45 Magnesium Hydroxide (Milk Of Magnesia) 2,400 mg PRN QHS PRN PO CONSTIPATION Last administered on 05/05/18at 11:56; Start 04/28/18 at 02:45 Donepezil HCl (Aricept) 5 mg DAILY PO Last administered on 05/04/18at 12:15; Start 04/28/18 at 09:00; Stop 05/04/18 at 18:22; Status DC Non-Formulary Medication (Quetiapine Fumarate (Seroquel)) 25 mg DAILY PO ; Start 04/28/18 at 09:00; Stop 04/28/18 at 09:00; Status DC Non-Formulary Medication (Trazodone Hcl ) 25 mg PRN Q24HRS PRN PO INSOMNIA; Start 04/28/18 at 03:00; Stop 04/28/18 at 03:39; Status DC Non-Formulary Medication (Trazodone Hcl ) 25 mg QHS PO ; Start 04/28/18 at 21:00 ; Stop 04/28/18 at 21:00; Status DC Brimonidine Tartrate (Alphagan) 1 drop BID OU Last administered on 05/19/18at 19 :23; Start 04/28/18 at 09:00 Vitamin D (Vitamin D3) 1,000 unit DAILY PO Last administered on 05/19/18at 08:29 ; Start 04/28/18 at 09:00 Fludrocortisone Acetate (Florinef) 0.1 mg DAILY PO Last administered on at 08:28; Start 04/28/18 at 09:00 Nystatin (Nystop) 1 everardo BID TP Last administered on 05/19/18at 19:22; Start at 09:00 Non-Formulary Medication (Acetaminophen ) 500 mg PRN Q8HRS PRN PO PAIN / TEMP; Start 04/28/18 at 03:15; Stop 04/28/18 at 03:39; Status DC Non-Formulary Medication (Aspirin ) 81 mg DAILY PO ; Start 04/28/18 at 09:00; Stop 04/28/18 at 09:00; Status DC Non-Formulary Medication (Cyanocobalamin (Vitamin B-12) (B-12)) 500 mcg DAILY PO ; Start 04/28/18 at 09:00; Stop 04/28/18 at 09:00; Status DC Non-Formulary Medication (Latanoprost ) 1 drop QHS OU ; Start 04/28/18 at 21:00 ; Stop 04/28/18 at 21:00; Status DC Acetaminophen (Tylenol) 500 mg PRN Q8HRS PRN PO PAIN / TEMP; Start 04/28/18 at 03:30; Status Cancel Aspirin (Children'S Aspirin) 81 mg DAILY PO Last administered on 05/19/18at 08: 29; Start 04/28/18 at 09:00 Cyanocobalamin (Vitamin B-12) 500 mcg DAILY PO Last administered on 05/19/18at 08:28; Start 04/28/18 at 09:00 Latanoprost (Xalatan) 1 drop QHS OU Last administered on 05/19/18at 19:22; Start 04/28/18 at 21:00 Quetiapine Fumarate (SEROquel) 25 mg DAILY PO Last administered on 05/01/18at 07: 50; Start 04/28/18 at 09:00; Stop 05/01/18 at 17:16; Status DC Trazodone HCl (Desyrel) 25 mg PRN Q24HRS PRN PO SEE COMMENTS Last administered on 05/14/18at 03:02; Start 04/28/18 at 03:30 Trazodone HCl (Desyrel) 25 mg QHS PO Last administered on 04/30/18at 20:03; Start 04/28/18 at 21:00; Stop 05/01/18 at 17:16; Status DC Olanzapine (ZyPREXA ZYDIS) 1.25 mg PRN Q2HR PRN PO PSYCHOSIS Last administered on 05/17/18at 19:18; Start 04/28/18 at 15:15 Lactobacillus Rhamnosus (Culturelle) 1 cap BID PO ; Start 04/29/18 at 09:00; Status Cancel Latanoprost (Xalatan) 1 drop QHS OU ; Start 04/29/18 at 21:00; Status UNV Sertraline HCl (Zoloft) 25 mg DAILY PO Last administered on 05/05/18at 08:48; Start 04/30/18 at 09:00; Stop 05/05/18 at 16:38; Status DC Quetiapine Fumarate (SEROquel) 25 mg BID@0900,1300 PO Last administered on at 12:15; Start 05/02/18 at 09:00; Stop 05/04/18 at 18:22; Status DC Trazodone HCl (Desyrel) 50 mg QHS PO Last administered on 05/19/18at 19:22; Start 05/01/18 at 21:00 Hydroxyzine HCl (Atarax) 25 mg PRN Q2HR PRN PO ANXIETY / AGITATION Last administered on 05/17/18at 20:10; Start 05/02/18 at 08:30 Quetiapine Fumarate (SEROquel) 25 mg BIDPCLD PO Last administered on 05/06/18at 17:19; Start 05/05/18 at 12:30; Stop 05/06/18 at 17:50; Status DC Quetiapine Fumarate (SEROquel) 37.5 mg DAILY PO Last administered on 05/06/18at 07:39; Start 05/05/18 at 09:00; Stop 05/06/18 at 17:50; Status DC Sertraline HCl (Zoloft) 50 mg DAILY PO Last administered on 05/12/18at 08:21; Start 05/06/18 at 09:00; Stop 05/12/18 at 18:46; Status DC Trazodone HCl (Desyrel) 12.5 mg BID@0900,1700 PO Last administered on at 17:00; Start 05/05/18 at 17:00; Stop 05/11/18 at 01:14; Status DC Quetiapine Fumarate (SEROquel) 37.5 mg BID@0900,1700 PO Last administered on at 17:34; Start 05/07/18 at 09:00 Quetiapine Fumarate (SEROquel) 25 mg DAILY@1300 PO Last administered on at 13:30; Start 05/07/18 at 13:00 Mirtazapine (Remeron) 7.5 mg QHS PO Last administered on 05/16/18at 20:20; Start 05/07/18 at 21:00; Stop 05/17/18 at 18:19; Status DC Trazodone HCl (Desyrel) 12.5 mg TID@0900,1300,1700 PO Last administered on 05/19 17:34; Start 05/11/18 at 09:00 Glycerin (Sani-Supp Adult) 1 supp PRN DAILY PRN [place] CONSTIPATION Last administered on 05/11/18 16:30; Start 05/11/18 at 16:15 Sertraline HCl (Zoloft) 75 mg DAILY PO Last administered on 05/19/18 08:29; Start 05/13/18 at 09:00 Docusate Sodium (Colace) 100 mg DAILY PO Last administered on 05/19/18 08:29; Start 05/14/18 at 09:00 Mirtazapine (Remeron) 15 mg QHS PO Last administered on 05/19/18 19:24; Start 05/17/18 at 21:00 Active Scripts Active Fludrocortisone Acetate 0.1 Mg Tablet 0.1 Mg PO DAILY 30 Days Latanoprost 2.5 Ml Drops 1 Drop OU QHS Brimonidine Tartrate 5 Ml Drops 1 Drop OU BID Nystop (Nystatin) 60 Gm Powder 1 Everardo TP BID Reported Trazodone Hcl 50 Mg Tablet 25 Mg PO PRN Q24HRS PRN Trazodone Hcl 50 Mg Tablet 25 Mg PO QHS Seroquel (Quetiapine Fumarate) 25 Mg Tablet 25 Mg PO DAILY Donepezil Hcl 5 Mg Tablet 5 Mg PO DAILY Acetaminophen 500 Mg Tablet 500 Mg PO PRN Q8HRS PRN B-12 (Cyanocobalamin (Vitamin B-12)) 500 Mcg Tablet 500 Mcg PO DAILY Vitamin D3 (Cholecalciferol (Vitamin D3)) 1,000 Unit Tablet 1 Tab PO DAILY LAST DOSE GIVEN: DATE: TODAY TIME: AM NEXT DOSE DUE: DATE: TOMORROW TIME: AM Aspirin 81 Mg Tab.chew 81 Mg PO DAILY LAST DOSE GIVEN: DATE: TODAY TIME: AM NEXT DOSE DUE: DATE: TOMORROW TIME: AM I have reviewed the current psychotropics carefully including drug interactions. Risk benefit ratio favors no change other than as noted in my dictated progress note. Diagnosis: Problems: (1) Concussion (2) Complex laceration of face (3) Anxiety disorder (4) Impulse control disorder (5) Dementia in Alzheimer's disease with depression (6) Dementia in Alzheimer's disease with delusions (7) Acute encephalopathy (8) Sepsis (9) Mental status change resolved LOGAN PFEIFFER MD May 19, 2018 20:51
[2018-05-19] MEDS: traZODone 50 MG TABLET. PO PRN (22:43)
[2018-05-20 06:13] VITALS: BP 121/64
[2018-05-20 07:28] LABS: BASO % 1 % (0-3); EOS # 0.3 x10^3/uL (0.0-0.7); EOS % 3 % (0-3); HEMATOCRIT 39.3 % (39.0-53.0); HEMOGLOBIN 13.4 g/dL (13.0-17.5); LYMPH # 0.8 x10^3/uL (1.0-4.8); LYMPH % 9 % (24-48); MEAN CORPUSCULAR HEMOGLOBIN 33 pg (25-35); MEAN CORPUSCULAR HGB CONC 34 g/dL (31-37); MEAN CORPUSCULAR VOLUME 96 fL (79-100); MONO % 11 % (0-9); NEUT % 77 % (31-73); PLATELET COUNT 230 x10^3/uL (140-400); RED BLOOD COUNT 4.09 x10^6/uL (4.30-5.70); RED CELL DISTRIBUTION WIDTH 14.8 % (11.5-14.5); WHITE BLOOD COUNT 9.2 x10^3/uL (4.0-11.0)
[2018-05-20 07:42] LABS: ALBUMIN 3.5 g/dL (3.4-5.0); ALBUMIN/GLOBULIN RATIO 0.9 (1.0-1.7); CREATININE 1.4 mg/dL (0.7-1.3); GFR 47.8; POTASSIUM 4.2 mmol/L (3.5-5.1); TOTAL BILIRUBIN 0.5 mg/dL (0.2-1.0); TOTAL PROTEIN 7.5 g/dL (6.4-8.2)
[2018-05-20] MEDS: ASPIRIN 81 MG TAB.CHEW PO SCH (09:18)
[2018-05-20] MEDS: SERTRALINE 50 MG TABLET. PO SCH (09:18)
[2018-05-20] MEDS: QUEtiapine 25 MG TABLET. PO SCH ×3 (09:18→17:26)
[2018-05-20] MEDS: DOCUSATE SODIUM 100 MG CAPSULE PO SCH (09:18)
[2018-05-20] MEDS: BRIMONIDINE 0.2% OPHTH SOLUTION 5ML BOTTLE. OU SCH ×2 (09:18→21:00)
[2018-05-20] MEDS: traZODone 50 MG TABLET. PO SCH ×4 (09:18→19:47)
[2018-05-20] MEDS: CHOLECALCIFEROL (VITAMIN D3) 1,000 UNIT TABLET PO SCH (09:18)
[2018-05-20] MEDS: FLUDROCORTISONE 0.1 MG TABLET PO SCH (09:18)
[2018-05-20] MEDS: CYANOCOBALAMIN (VITAMIN B-12) 1,000 MCG TABLET. PO SCH (09:19)
[2018-05-20] MEDS: NYSTATIN TOPICAL POWDER 15GM BOTTLE. TP SCH ×2 (09:19→21:00)
--- NOTE | 2018-05-20 10:15 | PN ---
DATE: 05/18/2018 PSYCHIATRIC PROGRESS NOTE This is a late entry 05/18/2018 covers elements not covered in my initial note. SUBJECTIVE: I met with the patient in the evening. The patient slept 5-1/2 hours previous evening. He remains confused. Gait is unsteady, somewhat impulsive, was in the dining room and his visited. He is compliant with his medications. Around 7 p.m., he was agitated, received Zyprexa, was posturing towards nursing staff and had received Atarax at bedtime to help with insomnia and anxiety. REVIEW OF SYSTEMS: No CV, , pulmonary, eye, ENT system symptoms on review. Reliability poor. MENTAL STATUS EXAM: Oriented to himself. Insight, judgment, recent and remote memory, attention, concentration, fund of knowledge poor, consistent with his diagnosis. He is unable to do even one step serial seven. He remembers 0 of 3 objects at one minute. DICTATION ENDS HERE MAN Nila PFEIFFER MD DR: ЕЛЕНА/laney JOB#: [id number] / [id number]
[2018-05-20 16:01] VITALS: BP 143/69
[2018-05-20] MEDS: MIRTAZAPINE 15 MG TABLET PO SCH (19:47)
[2018-05-20] MEDS: LATANOPROST 0.005% OPHTH SOLUTION 2.5ML BOTTLE. OU SCH (21:00)
--- NOTE | 2018-05-20 21:00 | PDOC ---
Exam Note: Rosalio Note: Please also refer to the separate dictated note~for this date of service dictated separately.~Patient seen individually. Discussed the patient with Nursing staff reviewed the chart.~Reviewed interim history and current functioning. Reviewed vital signs,~Labs/ Radiology~and current medications noted below. Continue current treatment with the changes noted in the dictated addendum note Assessment: Vital Signs: Vital Signs Date Time Temp Pulse Resp B/P (MAP) Pulse Ox O2 Delivery O2 Flow Rate FiO2 05/20/18 16:01 97.5 80 20 143/69 (93) 93 05/19/18 14:54 Room Air I&O Intake and Output 05/20/18 07:00 Intake Total 1320 ml Balance 1320 ml Intake Oral 1320 ml # Voids 1 Labs: Laboratory Tests Test 05/20/18 07:05 White Blood Count 9.2 x10^3/uL (4.0-11.0) Red Blood Count 4.09 x10^6/uL (4.30-5.70) L Hemoglobin 13.4 g/dL (13.0-17.5) Hematocrit 39.3 % (39.0-53.0) Mean Corpuscular Volume 96 fL (79-100) Mean Corpuscular Hemoglobin 33 pg (25-35) Mean Corpuscular Hemoglobin Concent 34 g/dL (31-37) Red Cell Distribution Width 14.8 % (11.5-14.5) H Platelet Count 230 x10^3/uL (140-400) Neutrophils (%) (Auto) 77 % (31-73) H Lymphocytes (%) (Auto) 9 % (24-48) L Monocytes (%) (Auto) 11 % (0-9) H Eosinophils (%) (Auto) 3 % (0-3) Basophils (%) (Auto) 1 % (0-3) Neutrophils # (Auto) 7.0 x10^3uL (1.8-7.7) Lymphocytes # (Auto) 0.8 x10^3/uL (1.0-4.8) L Monocytes # (Auto) 1.0 x10^3/uL (0.0-1.1) Eosinophils # (Auto) 0.3 x10^3/uL (0.0-0.7) Basophils # (Auto) 0.0 x10^3/uL (0.0-0.2) Sodium Level 145 mmol/L (136-145) Potassium Level 4.2 mmol/L (3.5-5.1) Chloride Level 106 mmol/L (98-107) Carbon Dioxide Level 32 mmol/L (21-32) Anion Gap 7 (6-14) Blood Urea Nitrogen 19 mg/dL (8-26) Creatinine 1.4 mg/dL (0.7-1.3) H Estimated GFR (Cockcroft-Gault) 47.8 BUN/Creatinine Ratio 14 (6-20) Glucose Level 101 mg/dL (70-99) H Calcium Level 9.0 mg/dL (8.5-10.1) Total Bilirubin 0.5 mg/dL (0.2-1.0) Aspartate Amino Transferase (AST) 14 U/L (15-37) L Alanine Aminotransferase (ALT) 18 U/L (16-63) Alkaline Phosphatase 88 U/L (46-116) Total Protein 7.5 g/dL (6.4-8.2) Albumin 3.5 g/dL (3.4-5.0) Albumin/Globulin Ratio 0.9 (1.0-1.7) L Current Medications: Meds: Current Medications Trimethoprim/ Sulfamethoxazole (Bactrim Ds) 1 tab 1X ONCE PO Last administered on 04/28/18at 00:06; Start 04/27/18 at 23:55; Stop 04/27/18 at 23:56 ; Status DC Trimethoprim/ Sulfamethoxazole (Bactrim Ds) 1 tab BID PO Last administered on at 21:14; Start 04/28/18 at 09:00; Stop 05/07/18 at 15:22; Status DC Lorazepam (Ativan) 2 mg 1X ONCE PO Last administered on 04/28/18at 00:48; Start 04/28/18 at 00:45; Stop 04/28/18 at 00:46; Status DC Diphenhydramine HCl (Benadryl Oral Elixir) 25 mg 1X ONCE PO Last administered on 04/28/18at 00:48; Start 04/28/18 at 00:45; Stop 04/28/18 at 00:46; Status DC Acetaminophen (Tylenol) 650 mg PRN Q6HRS PRN PO PAIN / TEMP; Start 04/28/18 at 02:45 Multi-Ingredient Ointment (Analgesic [place]) 1 everardo PRN QID PRN TP MUSCLE PAIN; Start 04/28/18 at 02:45 Al Hydroxide/Mg Hydroxide (Mylanta Plus Xs) 15 ml PRN AFTMEALHC PRN PO DYSPEPSIA; Start 04/28/18 at 02:45 Magnesium Hydroxide (Milk Of Magnesia) 2,400 mg PRN QHS PRN PO CONSTIPATION Last administered on 05/05/18at 11:56; Start 04/28/18 at 02:45 Donepezil HCl (Aricept) 5 mg DAILY PO Last administered on 05/04/18at 12:15; Start 04/28/18 at 09:00; Stop 05/04/18 at 18:22; Status DC Non-Formulary Medication (Quetiapine Fumarate (Seroquel)) 25 mg DAILY PO ; Start 04/28/18 at 09:00; Stop 04/28/18 at 09:00; Status DC Non-Formulary Medication (Trazodone Hcl ) 25 mg PRN Q24HRS PRN PO INSOMNIA; Start 04/28/18 at 03:00; Stop 04/28/18 at 03:39; Status DC Non-Formulary Medication (Trazodone Hcl ) 25 mg QHS PO ; Start 04/28/18 at 21:00 ; Stop 04/28/18 at 21:00; Status DC Brimonidine Tartrate (Alphagan) 1 drop BID OU Last administered on 05/20/18at 09 :18; Start 04/28/18 at 09:00 Vitamin D (Vitamin D3) 1,000 unit DAILY PO Last administered on 05/20/18at 09:18 ; Start 04/28/18 at 09:00 Fludrocortisone Acetate (Florinef) 0.1 mg DAILY PO Last administered on at 09:18; Start 04/28/18 at 09:00 Nystatin (Nystop) 1 everardo BID TP Last administered on 05/20/18at 09:19; Start at 09:00 Non-Formulary Medication (Acetaminophen ) 500 mg PRN Q8HRS PRN PO PAIN / TEMP; Start 04/28/18 at 03:15; Stop 04/28/18 at 03:39; Status DC Non-Formulary Medication (Aspirin ) 81 mg DAILY PO ; Start 04/28/18 at 09:00; Stop 04/28/18 at 09:00; Status DC Non-Formulary Medication (Cyanocobalamin (Vitamin B-12) (B-12)) 500 mcg DAILY PO ; Start 04/28/18 at 09:00; Stop 04/28/18 at 09:00; Status DC Non-Formulary Medication (Latanoprost ) 1 drop QHS OU ; Start 04/28/18 at 21:00 ; Stop 04/28/18 at 21:00; Status DC Acetaminophen (Tylenol) 500 mg PRN Q8HRS PRN PO PAIN / TEMP; Start 04/28/18 at 03:30; Status Cancel Aspirin (Children'S Aspirin) 81 mg DAILY PO Last administered on 05/20/18at 09: 18; Start 04/28/18 at 09:00 Cyanocobalamin (Vitamin B-12) 500 mcg DAILY PO Last administered on 05/20/18at 09:19; Start 04/28/18 at 09:00 Latanoprost (Xalatan) 1 drop QHS OU Last administered on 05/19/18at 19:22; Start 04/28/18 at 21:00 Quetiapine Fumarate (SEROquel) 25 mg DAILY PO Last administered on 05/01/18at 07: 50; Start 04/28/18 at 09:00; Stop 05/01/18 at 17:16; Status DC Trazodone HCl (Desyrel) 25 mg PRN Q24HRS PRN PO SEE COMMENTS Last administered on 05/19/18at 22:43; Start 04/28/18 at 03:30 Trazodone HCl (Desyrel) 25 mg QHS PO Last administered on 04/30/18at 20:03; Start 04/28/18 at 21:00; Stop 05/01/18 at 17:16; Status DC Olanzapine (ZyPREXA ZYDIS) 1.25 mg PRN Q2HR PRN PO PSYCHOSIS Last administered on 05/17/18at 19:18; Start 04/28/18 at 15:15 Lactobacillus Rhamnosus (Culturelle) 1 cap BID PO ; Start 04/29/18 at 09:00; Status Cancel Latanoprost (Xalatan) 1 drop QHS OU ; Start 04/29/18 at 21:00; Status UNV Sertraline HCl (Zoloft) 25 mg DAILY PO Last administered on 05/05/18at 08:48; Start 04/30/18 at 09:00; Stop 05/05/18 at 16:38; Status DC Quetiapine Fumarate (SEROquel) 25 mg BID@0900,1300 PO Last administered on at 12:15; Start 05/02/18 at 09:00; Stop 05/04/18 at 18:22; Status DC Trazodone HCl (Desyrel) 50 mg QHS PO Last administered on 05/20/18at 19:47; Start 05/01/18 at 21:00 Hydroxyzine HCl (Atarax) 25 mg PRN Q2HR PRN PO ANXIETY / AGITATION Last administered on 05/17/18at 20:10; Start 05/02/18 at 08:30 Quetiapine Fumarate (SEROquel) 25 mg BIDPCLD PO Last administered on 05/06/18at 17:19; Start 05/05/18 at 12:30; Stop 05/06/18 at 17:50; Status DC Quetiapine Fumarate (SEROquel) 37.5 mg DAILY PO Last administered on 05/06/18at 07:39; Start 05/05/18 at 09:00; Stop 05/06/18 at 17:50; Status DC Sertraline HCl (Zoloft) 50 mg DAILY PO Last administered on 05/12/18at 08:21; Start 05/06/18 at 09:00; Stop 05/12/18 at 18:46; Status DC Trazodone HCl (Desyrel) 12.5 mg BID@0900,1700 PO Last administered on at 17:00; Start 05/05/18 at 17:00; Stop 05/11/18 at 01:14; Status DC Quetiapine Fumarate (SEROquel) 37.5 mg BID@0900,1700 PO Last administered on at 17:26; Start 05/07/18 at 09:00 Quetiapine Fumarate (SEROquel) 25 mg DAILY@1300 PO Last administered on at 13:43; Start 05/07/18 at 13:00 Mirtazapine (Remeron) 7.5 mg QHS PO Last administered on 05/16/18at 20:20; Start 05/07/18 at 21:00; Stop 05/17/18 at 18:19; Status DC Trazodone HCl (Desyrel) 12.5 mg TID@0900,1300,1700 PO Last administered on 05/20at 17:26; Start 05/11/18 at 09:00 Glycerin (Sani-Supp Adult) 1 supp PRN DAILY PRN MI CONSTIPATION Last administered on 05/11/18at 16:30; Start 05/11/18 at 16:15 Sertraline HCl (Zoloft) 75 mg DAILY PO Last administered on 05/20/18at 09:18; Start 05/13/18 at 09:00 Docusate Sodium (Colace) 100 mg DAILY PO Last administered on 05/20/18at 09:18; Start 05/14/18 at 09:00 Mirtazapine (Remeron) 15 mg QHS PO Last administered on 05/20/18at 19:47; Start 05/17/18 at 21:00 Active Scripts Active Fludrocortisone Acetate 0.1 Mg Tablet 0.1 Mg PO DAILY 30 Days Latanoprost 2.5 Ml Drops 1 Drop OU QHS Brimonidine Tartrate 5 Ml Drops 1 Drop OU BID Nystop (Nystatin) 60 Gm Powder 1 Everardo TP BID Reported Trazodone Hcl 50 Mg Tablet 25 Mg PO PRN Q24HRS PRN Trazodone Hcl 50 Mg Tablet 25 Mg PO QHS Seroquel (Quetiapine Fumarate) 25 Mg Tablet 25 Mg PO DAILY Donepezil Hcl 5 Mg Tablet 5 Mg PO DAILY Acetaminophen 500 Mg Tablet 500 Mg PO PRN Q8HRS PRN B-12 (Cyanocobalamin (Vitamin B-12)) 500 Mcg Tablet 500 Mcg PO DAILY Vitamin D3 (Cholecalciferol (Vitamin D3)) 1,000 Unit Tablet 1 Tab PO DAILY LAST DOSE GIVEN: DATE: TODAY TIME: AM NEXT DOSE DUE: DATE: TOMORROW TIME: AM Aspirin 81 Mg Tab.chew 81 Mg PO DAILY LAST DOSE GIVEN: DATE: TODAY TIME: AM NEXT DOSE DUE: DATE: TOMORROW TIME: AM I have reviewed the current psychotropics carefully including drug interactions. Risk benefit ratio favors no change other than as noted in my dictated progress note. Diagnosis: Problems: (1) Concussion (2) Complex laceration of face (3) Anxiety disorder (4) Impulse control disorder (5) Dementia in Alzheimer's disease with depression (6) Dementia in Alzheimer's disease with delusions (7) Acute encephalopathy (8) Sepsis (9) Mental status change resolved LOGAN PFEIFFER MD May 20, 2018 21:00
[2018-05-20] MEDS: traZODone 50 MG TABLET. PO PRN ×2 (21:56→22:54)
[2018-05-20] MEDS: hydrOXYzine HCL 25 MG TABLET PO PRN (22:54)
--- NOTE | 2018-05-20 23:12 | PN ---
DATE: 05/19/2018 PSYCHIATRIC PROGRESS NOTE This late entry 05/19/2018 covers elements not covered in my initial note. SUBJECTIVE: Met with the patient in the evening. Per nursing report, he slept 7 hours previous evening, has been off the one-on-one status. Gait little better, less unsteady, compliant with medications, certainly very confused. REVIEW OF SYSTEMS: No CV, , pulmonary, eye, ENT system symptoms on review. MENTAL STATUS EXAM: Oriented to himself. Insight, judgment, recent and remote memory, attention, concentration, fund of is knowledge poor, consistent with his diagnoses mentioned in my initial note. PLAN: No change from initial note. MAN Nila PFEIFFER MD DR: ЕЛЕНА/laney JOB#: [id number] / [id number]
[2018-05-21] MEDS ORDERED: METH29OI TP (00:14)
[2018-05-21] MEDS ORDERED: MIRT15TA3 PO (00:16)
[2018-05-21] MEDS ORDERED: SERT100T PO (00:17)
[2018-05-21] MEDS ORDERED: TRAZ-85 PO (00:19)
[2018-05-21] MEDS ORDERED: OLAN5TAB5 PO (00:20)
[2018-05-21] MEDS ORDERED: QUET25TA5 PO (00:22)
[2018-05-21] MEDS ORDERED: HYDR25TA PO (00:26)
[2018-05-21] MEDS ORDERED: MAG30ORA2 PO (00:29)
[2018-05-21] MEDS ORDERED: DOCU-109 PO (00:30)
[2018-05-21] MEDS ORDERED: GLYC1SUP RC (00:31)
[2018-05-21] MEDS ORDERED: MAGN400O7 PO (00:32)
[2018-05-21] MEDS ORDERED: ACET325T21 PO (00:34)
[2018-05-21] MEDS: hydrOXYzine HCL 25 MG TABLET PO PRN (02:31)
[2018-05-21] MEDS: QUEtiapine 25 MG TABLET. PO SCH ×2 (08:09→13:31)
[2018-05-21] MEDS: SERTRALINE 50 MG TABLET. PO SCH (08:09)
[2018-05-21] MEDS: CHOLECALCIFEROL (VITAMIN D3) 1,000 UNIT TABLET PO SCH (08:09)
[2018-05-21] MEDS: traZODone 50 MG TABLET. PO SCH ×2 (08:10→13:31)
[2018-05-21] MEDS: FLUDROCORTISONE 0.1 MG TABLET PO SCH (08:10)
[2018-05-21] MEDS: ASPIRIN 81 MG TAB.CHEW PO SCH (08:10)
[2018-05-21] MEDS: CYANOCOBALAMIN (VITAMIN B-12) 1,000 MCG TABLET. PO SCH (08:10)
[2018-05-21] MEDS: DOCUSATE SODIUM 100 MG CAPSULE PO SCH (08:10)
[2018-05-21] MEDS: NYSTATIN TOPICAL POWDER 15GM BOTTLE. TP SCH (08:11)
[2018-05-21] MEDS: BRIMONIDINE 0.2% OPHTH SOLUTION 5ML BOTTLE. OU SCH (08:11)
--- NOTE | 2018-05-21 17:23 | PDOC ---
Exam Note: Rosalio Note: Please also refer to the separate dictated note~for this date of service dictated separately.~Patient seen individually. Discussed the patient with Nursing staff reviewed the chart.~Reviewed interim history and current functioning. Reviewed vital signs,~Labs/ Radiology~and current medications noted below. Continue current treatment with the changes noted in the dictated addendum note Assessment: Vital Signs: Vital Signs Date Time Temp Pulse Resp B/P (MAP) Pulse Ox O2 Delivery O2 Flow Rate FiO2 05/20/18 16:01 97.5 80 20 143/69 (93) 93 05/19/18 14:54 Room Air I&O Intake and Output 05/21/18 07:00 Intake Total 760 ml Balance 760 ml Intake Oral 760 ml # Voids 2 Current Medications: Meds: Current Medications Trimethoprim/ Sulfamethoxazole (Bactrim Ds) 1 tab 1X ONCE PO Last administered on 04/28/18at 00:06; Start 04/27/18 at 23:55; Stop 04/27/18 at 23:56 ; Status DC Trimethoprim/ Sulfamethoxazole (Bactrim Ds) 1 tab BID PO Last administered on at 21:14; Start 04/28/18 at 09:00; Stop 05/07/18 at 15:22; Status DC Lorazepam (Ativan) 2 mg 1X ONCE PO Last administered on 04/28/18at 00:48; Start 04/28/18 at 00:45; Stop 04/28/18 at 00:46; Status DC Diphenhydramine HCl (Benadryl Oral Elixir) 25 mg 1X ONCE PO Last administered on 04/28/18at 00:48; Start 04/28/18 at 00:45; Stop 04/28/18 at 00:46; Status DC Acetaminophen (Tylenol) 650 mg PRN Q6HRS PRN PO PAIN / TEMP; Start 04/28/18 at 02:45; Stop 05/21/18 at 13:55; Status DC Multi-Ingredient Ointment (Analgesic [place]) 1 everardo PRN QID PRN TP MUSCLE PAIN; Start 04/28/18 at 02:45; Stop 05/21/18 at 13:55; Status DC Al Hydroxide/Mg Hydroxide (Mylanta Plus Xs) 15 ml PRN AFTMEALHC PRN PO DYSPEPSIA; Start 04/28/18 at 02:45; Stop 05/21/18 at 13:55; Status DC Magnesium Hydroxide (Milk Of Magnesia) 2,400 mg PRN QHS PRN PO CONSTIPATION Last administered on 05/05/18at 11:56; Start 04/28/18 at 02:45; Stop 05/21/18 at 13:55; Status DC Donepezil HCl (Aricept) 5 mg DAILY PO Last administered on 05/04/18at 12:15; Start 04/28/18 at 09:00; Stop 05/04/18 at 18:22; Status DC Non-Formulary Medication (Quetiapine Fumarate (Seroquel)) 25 mg DAILY PO ; Start 04/28/18 at 09:00; Stop 04/28/18 at 09:00; Status DC Non-Formulary Medication (Trazodone Hcl ) 25 mg PRN Q24HRS PRN PO INSOMNIA; Start 04/28/18 at 03:00; Stop 04/28/18 at 03:39; Status DC Non-Formulary Medication (Trazodone Hcl ) 25 mg QHS PO ; Start 04/28/18 at 21:00 ; Stop 04/28/18 at 21:00; Status DC Brimonidine Tartrate (Alphagan) 1 drop BID OU Last administered on 05/21/18at 08 :11; Start 04/28/18 at 09:00; Stop 05/21/18 at 13:55; Status DC Vitamin D (Vitamin D3) 1,000 unit DAILY PO Last administered on 05/21/18at 08:09 ; Start 04/28/18 at 09:00; Stop 05/21/18 at 13:55; Status DC Fludrocortisone Acetate (Florinef) 0.1 mg DAILY PO Last administered on at 08:10; Start 04/28/18 at 09:00; Stop 05/21/18 at 13:55; Status DC Nystatin (Nystop) 1 everardo BID TP Last administered on 05/21/18at 08:11; Start at 09:00; Stop 05/21/18 at 13:55; Status DC Non-Formulary Medication (Acetaminophen ) 500 mg PRN Q8HRS PRN PO PAIN / TEMP; Start 04/28/18 at 03:15; Stop 04/28/18 at 03:39; Status DC Non-Formulary Medication (Aspirin ) 81 mg DAILY PO ; Start 04/28/18 at 09:00; Stop 04/28/18 at 09:00; Status DC Non-Formulary Medication (Cyanocobalamin (Vitamin B-12) (B-12)) 500 mcg DAILY PO ; Start 04/28/18 at 09:00; Stop 04/28/18 at 09:00; Status DC Non-Formulary Medication (Latanoprost ) 1 drop QHS OU ; Start 04/28/18 at 21:00 ; Stop 04/28/18 at 21:00; Status DC Acetaminophen (Tylenol) 500 mg PRN Q8HRS PRN PO PAIN / TEMP; Start 04/28/18 at 03:30; Status Cancel Aspirin (Children'S Aspirin) 81 mg DAILY PO Last administered on 05/21/18at 08: 10; Start 04/28/18 at 09:00; Stop 05/21/18 at 13:55; Status DC Cyanocobalamin (Vitamin B-12) 500 mcg DAILY PO Last administered on 05/21/18at 08:10; Start 04/28/18 at 09:00; Stop 05/21/18 at 13:55; Status DC Latanoprost (Xalatan) 1 drop QHS OU Last administered on 05/19/18at 19:22; Start 04/28/18 at 21:00; Stop 05/21/18 at 13:55; Status DC Quetiapine Fumarate (SEROquel) 25 mg DAILY PO Last administered on 05/01/18at 07: 50; Start 04/28/18 at 09:00; Stop 05/01/18 at 17:16; Status DC Trazodone HCl (Desyrel) 25 mg PRN Q24HRS PRN PO SEE COMMENTS Last administered on 05/20/18at 22:54; Start 04/28/18 at 03:30; Stop 05/21/18 at 13:55; Status DC Trazodone HCl (Desyrel) 25 mg QHS PO Last administered on 04/30/18at 20:03; Start 04/28/18 at 21:00; Stop 05/01/18 at 17:16; Status DC Olanzapine (ZyPREXA ZYDIS) 1.25 mg PRN Q2HR PRN PO PSYCHOSIS Last administered on 05/21/18at 03:41; Start 04/28/18 at 15:15; Stop 05/21/18 at 13:55; Status DC Lactobacillus Rhamnosus (Culturelle) 1 cap BID PO ; Start 04/29/18 at 09:00; Status Cancel Latanoprost (Xalatan) 1 drop QHS OU ; Start 04/29/18 at 21:00; Status UNV Sertraline HCl (Zoloft) 25 mg DAILY PO Last administered on 05/05/18at 08:48; Start 04/30/18 at 09:00; Stop 05/05/18 at 16:38; Status DC Quetiapine Fumarate (SEROquel) 25 mg BID@0900,1300 PO Last administered on at 12:15; Start 05/02/18 at 09:00; Stop 05/04/18 at 18:22; Status DC Trazodone HCl (Desyrel) 50 mg QHS PO Last administered on 05/20/18at 19:47; Start 05/01/18 at 21:00; Stop 05/21/18 at 13:55; Status DC Hydroxyzine HCl (Atarax) 25 mg PRN Q2HR PRN PO ANXIETY / AGITATION Last administered on 05/21/18at 02:31; Start 05/02/18 at 08:30; Stop 05/21/18 at 13:55 ; Status DC Quetiapine Fumarate (SEROquel) 25 mg BIDPCLD PO Last administered on 05/06/18at 17:19; Start 05/05/18 at 12:30; Stop 05/06/18 at 17:50; Status DC Quetiapine Fumarate (SEROquel) 37.5 mg DAILY PO Last administered on 05/06/18at 07:39; Start 05/05/18 at 09:00; Stop 05/06/18 at 17:50; Status DC Sertraline HCl (Zoloft) 50 mg DAILY PO Last administered on 05/12/18at 08:21; Start 05/06/18 at 09:00; Stop 05/12/18 at 18:46; Status DC Trazodone HCl (Desyrel) 12.5 mg BID@0900,1700 PO Last administered on at 17:00; Start 05/05/18 at 17:00; Stop 05/11/18 at 01:14; Status DC Quetiapine Fumarate (SEROquel) 37.5 mg BID@0900,1700 PO Last administered on at 08:09; Start 05/07/18 at 09:00; Stop 05/21/18 at 13:55; Status DC Quetiapine Fumarate (SEROquel) 25 mg DAILY@1300 PO Last administered on at 13:31; Start 05/07/18 at 13:00; Stop 05/21/18 at 13:55; Status DC Mirtazapine (Remeron) 7.5 mg QHS PO Last administered on 05/16/18at 20:20; Start 05/07/18 at 21:00; Stop 05/17/18 at 18:19; Status DC Trazodone HCl (Desyrel) 12.5 mg TID@0900,1300,1700 PO Last administered on 05/21at 13:31; Start 05/11/18 at 09:00; Stop 05/21/18 at 13:55; Status DC Glycerin (Sani-Supp Adult) 1 supp PRN DAILY PRN OR CONSTIPATION Last administered on 05/11/18at 16:30; Start 05/11/18 at 16:15; Stop 05/21/18 at 13:55 ; Status DC Sertraline HCl (Zoloft) 75 mg DAILY PO Last administered on 05/21/18 08:09; Start 05/13/18 at 09:00; Stop 05/21/18 at 13:55; Status DC Docusate Sodium (Colace) 100 mg DAILY PO Last administered on 05/21/18at 08:10; Start 05/14/18 at 09:00; Stop 05/21/18 at 13:55; Status DC Mirtazapine (Remeron) 15 mg QHS PO Last administered on 05/20/18at 19:47; Start 05/17/18 at 21:00; Stop 05/21/18 at 13:55; Status DC Active Scripts Active Fludrocortisone Acetate 0.1 Mg Tablet 0.1 Mg PO DAILY 30 Days Latanoprost 2.5 Ml Drops 1 Drop OU QHS Brimonidine Tartrate 5 Ml Drops 1 Drop OU BID Nystop (Nystatin) 60 Gm Powder 1 Everardo TP BID Reported Acetaminophen 325 Mg Tablet 650 Mg PO PRN Q6HRS PRN Milk Of Magnesia (Magnesium Hydroxide) 400 Mg/5 Ml Oral.susp 2,400 Mg PO PRN QHS PRN Adult Glycerin (Glycerin) 1 Each Supp.rect 1 Each RC PRN DAILY PRN Colace (Docusate Sodium) 100 Mg Capsule 100 Mg PO DAILY Mag-Al Plus Xs Suspension (Mag Hydrox/Al Hydrox/Simeth) 30 Ml Oral.susp 15 Ml PO PRN AFTMEALHC PRN Hydroxyzine Hcl 25 Mg Tablet 25 Mg PO PRN Q2HR PRN Seroquel (Quetiapine Fumarate) 25 Mg Tablet 37.5 Mg PO BID@0900,1700 Zyprexa Zydis (Olanzapine) 5 Mg Tab.rapdis 1.25 Mg PO PRN Q2HR PRN Trazodone Hcl 50 Mg Tablet 12.5 Mg PO TID@0900,1300,1700 Zoloft (Sertraline Hcl) 100 Mg Tablet 75 Mg PO DAILY Mirtazapine 15 Mg Tablet 15 Mg PO QHS Analgesic [place] (Methyl Salicylate/Menthol) 28 Gm Oint...g. 1 Everardo TP PRN QID PRN Trazodone Hcl 50 Mg Tablet 25 Mg PO PRN QHS PRN MDD PRN 50mg Trazodone Hcl 50 Mg Tablet 50 Mg PO QHS Seroquel (Quetiapine Fumarate) 25 Mg Tablet 25 Mg PO DAILY@1300 B-12 (Cyanocobalamin (Vitamin B-12)) 500 Mcg Tablet 500 Mcg PO DAILY Vitamin D3 (Cholecalciferol (Vitamin D3)) 1,000 Unit Tablet 1 Tab PO DAILY LAST DOSE GIVEN: DATE: TODAY TIME: AM NEXT DOSE DUE: DATE: TOMORROW TIME: AM Aspirin 81 Mg Tab.chew 81 Mg PO DAILY LAST DOSE GIVEN: DATE: TODAY TIME: AM NEXT DOSE DUE: DATE: TOMORROW TIME: AM I have reviewed the current psychotropics carefully including drug interactions. Risk benefit ratio favors no change other than as noted in my dictated progress note. Diagnosis: Problems: (1) Mental status change resolved (2) Acute encephalopathy (3) Dementia in Alzheimer's disease with delusions (4) Dementia in Alzheimer's disease with depression (5) Impulse control disorder (6) Anxiety disorder LOGAN PFEIFFER MD May 21, 2018 17:23
--- NOTE | 2018-05-22 11:05 | DS ---
DATE OF DISCHARGE: 05/21/2018 DISCHARGE SUMMARY/PSYCHIATRIC PROGRESS NOTE This late entry 05/21/2018 covers elements not covered in my initial note. REASON FOR ADMISSION: Please refer to the admission history for details. Briefly, the patient is an 88-year-old male referred from [facility] by his primary care physician, admitted by his family/son and on account of worsening confusion, wandering, being agitated, aggressive towards staff and his . He was verbally aggressive and impulsive within the context of his marked dementia, delusion, depression. He had failed outpatient psychiatric interventions resulting in this referral. SIGNIFICANT FINDINGS AND CLINICAL COURSE: Following admission, the patient was seen daily individually by myself, followed medically per Dr. Perales/Dr. Vicente. He is extremely confused, anxious, restless, significant fall risk and was on one-on-one status for large part of his hospitalization. Adjustments were made in his psychotropics. He seemed to respond to a combination of Seroquel 37.5 mg at 0900, 1700, 25 mg at 1300; trazodone 50 mg at bedtime and 25 mg at bedtime p.r.n. insomnia, january repeat x 1; Zyprexa p.r.n.; Zoloft 75 mg a day; hydroxyzine p.r.n., trazodone scheduled 12.5 t.i.d. for mood and anxiety symptoms; Remeron 15 mg at bedtime. Gradually mood appeared to improve. He is less anxious, restless, remained confused, but more manageable. REVIEW OF SYSTEMS: Prior to discharge, 05/21/2018, no CV, , pulmonary, eye, ENT system symptoms on review. MENTAL STATUS EXAM: Oriented to himself. Insight, judgment, recent and remote memory, attention, concentration, fund of knowledge poor, consistent with his diagnosis. FINAL DIAGNOSES: Major neurocognitive disorder, Alzheimer, vascular with delusion, depression, behavioral disturbance; anxiety disorder, unspecified; impulse control disorder, unspecified. Rest unchanged from admission. DISCHARGE MEDICATIONS: Please refer to the MRAD. DISCHARGE INSTRUCTIONS: Outpatient psychiatric medical followup at [facility]. Time for discharge day management greater than 30 minutes. LOGAN PFEIFFER MD DR: ЕЛЕНА/laney JOB#: [id number] / [id number]
--- NOTE | 2018-05-23 00:48 | PN ---
DATE: PSYCHIATRIC PROGRESS NOTE MAN Nila PFEIFFER MD DR: Deya JOB#: [id number] / [id number]
--- NOTE | 2018-05-23 03:43 | PN ---
DATE: 05/20/2018 This is a late entry, 05/20/2018, covers the elements not covered in my initial note. SUBJECTIVE: Per nursing report, the patient slept for 4-3/4 hours previous evening. He remains restless, spends much time in his bed, received trazodone at 10:43 p.m. During the day on 05/20/2018, he has done better, talking a little bit more, able to ambulate on his own, fall risk is improved, less delusional. He has been talking to another demented patient on the unit that he is known from the past. REVIEW OF SYSTEMS: No CV, , pulmonary, eye, ENT system symptoms on review. Reliability poor. MENTAL STATUS EXAM: Oriented to himself. Insight, judgment, recent and remote memory, attention, concentration, fund of knowledge poor, consistent with his diagnosis unchanged from initial note. PLAN: No change from initial note. Transition to fdc 05/21/2018. MAN Nila PFEIFFER MD DR: ЕЛЕНА/laney JOB#: [id number] / [id number]
== END 2018-05-21 13:45 | DRG 56 ==
LOC: ER 20:42 → GEROPSY 04-28 02:00
PROVIDERS: ADMIT Psychiatry & Neurology Psychiatry; ATTEND Psychiatry & Neurology Psychiatry
DX: G30.9 Alzheimer's disease, unspecified (principal); A41.9 Sepsis, unspecified organism; G93.40 Encephalopathy, unspecified; F02.81 Dementia in other diseases classified elsewhere, unspecified severity, with behavioral disturbance; F01.51 Vascular dementia, unspecified severity, with behavioral disturbance; D64.9 Anemia, unspecified; F32.9 Major depressive disorder, single episode, unspecified; F41.9 Anxiety disorder, unspecified; F63.9 Impulse disorder, unspecified; G47.00 Insomnia, unspecified; K21.9 Gastro-esophageal reflux disease without esophagitis; S01.81XA Laceration without foreign body of other part of head, initial encounter; X58.XXXA Exposure to other specified factors, initial encounter; S06.0X0A Concussion without loss of consciousness, initial encounter; I10 Essential (primary) hypertension; Z66 Do not resuscitate; Z79.899 Other long term (current) drug therapy; Y93.89 Activity, other specified; Y92.89 Other specified places as the place of occurrence of the external cause; Y99.8 Other external cause status; Z91.19 Patient's noncompliance with other medical treatment and regimen
CPT/HCPCS: 36415; 70450; 71045; 74018; 80048; 80053; 80061; 80076; 80307; 81001; 82306; 82553; 82607; 83036; 83735; 83880; 84436; 84443; 84480; 84484; 85025; 85610; 85651; 85730; 86592; 93005; P9612; 97116; 99285-25; G0479

== ENCOUNTER 2018-06-25 10:23 | Emergency (ER) | payer MEDICARE ==
[~2018-06-25] VITALS: Ht 182.9 cm; Wt 78.0 kg
[~2018-06-25 10:23] MED LIST changes: +ACET325T21 PO; +ACET500T68 PO; +CYAN500T17 PO; +DOCU-109 PO; +DONE5TAB7 PO; +GLYC1SUP RC; +HYDR25TA PO; +MAG30ORA2 PO; +MAGN400O7 PO; +METH29OI TP; +MIRT15TA3 PO; +OLAN5TAB5 PO; +QUET25TA5 PO; +SERT100T PO; +TRAZ-85 PO
--- NOTE | 2018-06-25 11:37 | RAD ---
Examination: CT head and cervical spine without contrast Exposure: One or more of the following individualized dose reduction techniques were utilized for this examination: 1. Automated exposure control 2. Adjustment of the mA and/or kV according to patient size 3. Use of iterative reconstruction technique CT HEAD INDICATION: PT HEAD INJURY DUE TO MECHANICAL FALL COMPARISON: 04/27/2018 TECHNIQUE: 5 mm contiguous axial images were obtained from the skull base to the vertex in both bone and soft tissue algorithm. FINDINGS: Moderate bilateral periventricular white matter hypodensities likely chronic small vessel ischemic disease. No evidence of acute intracranial hemorrhage. No extra-axial fluid collections. No mass effect or midline shift. Ventricular size is appropriate. Basal cisterns are patent. No fractures identified.Page-white differentiation is preserved.Globes and orbits are within normal limits. Paranasal sinuses and mastoid air cells are clear. IMPRESSION: 1. No acute intracranial findings. 2. Small scalp contusion identified in the posterior left parietal region. CT CERVICAL SPINE INDICATION: PT HEAD INJURY DUE TO MECHANICAL FALL COMPARISON: None Available. Technique: 2.5 mm contiguous axial images were obtained from the skull base through the cervicothoracic junction in both bone and soft tissue algorithm. Additional sagittal and coronal reconstructions were also performed. FINDINGS: Vertebral body height and alignment are maintained. The lateral masses of C1 are aligned upon C2. No fractures identified. The bony canal is patent throughout. Moderate to severe intervertebral disc height loss identified at C4-C5, C5-C6, C6-C7 vertebral levels. The bilateral facets are well aligned. The paraspinous soft tissues are unremarkable. Visualized intracranial contents are unremarkable. Lung apices are clear. IMPRESSION: 1. No acute fracture of the cervical spine. Correlate clinically. 2. Moderate to severe degenerative changes cervical spine. Electronically signed by: Dann Trejo MD (06/25/2018 11:33 AM) [id number]
[2018-06-25 12:24] LABS: BASO % 0 % (0-3); EOS # 0.1 x10^3/uL (0.0-0.7); EOS % 1 % (0-3); HEMATOCRIT 35.2 % (39.0-53.0); LYMPH # 0.8 x10^3/uL (1.0-4.8); LYMPH % 10 % (24-48); MEAN CORPUSCULAR HEMOGLOBIN 33 pg (25-35); MEAN CORPUSCULAR HGB CONC 34 g/dL (31-37); MEAN CORPUSCULAR VOLUME 97 fL (79-100); MONO # 0.8 x10^3/uL (0.0-1.1); MONO % 9 % (0-9); NEUT # 6.6 x10^3uL (1.8-7.7); NEUT % 79 % (31-73); PLATELET COUNT 185 x10^3/uL (140-400); RED BLOOD COUNT 3.63 x10^6/uL (4.30-5.70); RED CELL DISTRIBUTION WIDTH 15.7 % (11.5-14.5); WHITE BLOOD COUNT 8.3 x10^3/uL (4.0-11.0)
[2018-06-25 12:31] LABS: CALCIUM 8.6 mg/dL (8.5-10.1); CREATININE 1.5 mg/dL (0.7-1.3); GFR 44.2; POTASSIUM 5.3 mmol/L (3.5-5.1)
[2018-06-25 13:24] LABS: BACTERIA,URINE FEW /HPF (0-FEW); BILIRUBIN,URINE NEG (NEG); CLARITY,URINE HAZY; COLOR,URINE YELLOW; GLUCOSE,URINE NEG (NEG); NITRITE,URINE NEG (NEG); RBC,URINE OCC /HPF (0-2); SQUAMOUS EPITHELIAL CELL,UR FEW /LPF; UROBILINOGEN,URINE 0.2 mg/dL (0.2 mg/dL); WBC,URINE OCC /HPF (0-4)
--- NOTE | 2018-06-25 13:46 | ED.ADGEN ---
Past History Past Medical History: Anemia, Cancer, Dementia, GERD, Glaucoma, Hypertension Past Surgical History: Cancer Surgery Alcohol Use: None Drug Use: None Adult General Chief Complaint Chief Complaint Head injury HPI HPI Patient is a 88 [facility] patient with history of dementia presents with scalp laceration after accidental fall from standing. No loss of consciousness reported. Patient currently denies headache, nausea, vomiting, neck pain. No other injury or complaint. Patient is not currently on anticoagulation therapy. Further history is unobtainable due the patient's short -term memory loss. [] Review of Systems Review of Systems ROS as per HPI All other systems were reviewed and found to be within normal limits, except as documented in this note. Allergies Allergies Allergies Coded Allergies Type Severity Reaction Last Updated Verified Penicillins Allergy Intermediate 02/09/18 Yes Physical Exam Physical Exam Constitutional: Well developed, well nourished, no acute distress, non-toxic appearance. [] HENT: Normocephalic, atraumatic, 4 cm gaping horizontal laceration, wound is clean and bleeding is controlled. bilateral external ears normal, oropharynx moist, no oral exudates, nose normal. [] Eyes: PERRL. [] Neck: Normal range of motion,No midline [] Cardiovascular:Heart rate regular rhythm, no murmur [] Lungs & Thorax: Bilateral breath sounds clear to auscultation [] Abdomen: Bowel sounds normal. [] Skin: Warm, dry, no erythema, no rash. [] Back: No tenderness, no midline tenderness. [] Extremities: No tenderness,no edema. [] Neurologic: Alert and oriented, normal motor function, normal sensory function, no focal deficits noted. [] Psychologic: Affect normal, judgement normal, mood normal. [] Current Patient Data Vital Signs Vital Signs Date Time Temp Pulse Resp B/P (MAP) Pulse Ox O2 Delivery O2 Flow Rate FiO2 06/25/18 12:53 80 18 117/71 (86) 99 Room Air Lab Results Laboratory Tests Test 06/25/18 12:08 06/25/18 13:00 White Blood Count 8.3 x10^3/uL (4.0-11.0) Red Blood Count 3.63 x10^6/uL (4.30-5.70) L Hemoglobin 12.0 g/dL (13.0-17.5) L Hematocrit 35.2 % (39.0-53.0) L Mean Corpuscular Volume 97 fL (79-100) Mean Corpuscular Hemoglobin 33 pg (25-35) Mean Corpuscular Hemoglobin Concent 34 g/dL (31-37) Red Cell Distribution Width 15.7 % (11.5-14.5) H Platelet Count 185 x10^3/uL (140-400) Neutrophils (%) (Auto) 79 % (31-73) H Lymphocytes (%) (Auto) 10 % (24-48) L Monocytes (%) (Auto) 9 % (0-9) Eosinophils (%) (Auto) 1 % (0-3) Basophils (%) (Auto) 0 % (0-3) Neutrophils # (Auto) 6.6 x10^3uL (1.8-7.7) Lymphocytes # (Auto) 0.8 x10^3/uL (1.0-4.8) L Monocytes # (Auto) 0.8 x10^3/uL (0.0-1.1) Eosinophils # (Auto) 0.1 x10^3/uL (0.0-0.7) Basophils # (Auto) 0.0 x10^3/uL (0.0-0.2) Sodium Level 143 mmol/L (136-145) Potassium Level 5.3 mmol/L (3.5-5.1) H Chloride Level 108 mmol/L (98-107) H Carbon Dioxide Level 33 mmol/L (21-32) H Anion Gap 2 (6-14) L Blood Urea Nitrogen 18 mg/dL (8-26) Creatinine 1.5 mg/dL (0.7-1.3) H Estimated GFR (Cockcroft-Gault) 44.2 Glucose Level 117 mg/dL (70-99) H Calcium Level 8.6 mg/dL (8.5-10.1) Urine Collection Type Unknown Urine Color Yellow Urine Clarity Hazy Urine pH 6.0 Urine Specific [place] 1.025 Urine Protein Neg (NEG-TRACE) Urine Glucose (UA) Neg mg/dL (NEG) Urine Ketones (Stick) Neg mg/dL (NEG) Urine Blood Neg (NEG) Urine Nitrite Neg (NEG) Urine Bilirubin Neg (NEG) Urine Urobilinogen Dipstick 0.2 mg/dL (0.2 mg/dL) Urine Leukocyte Esterase Neg (NEG) Urine RBC Occ /HPF (0-2) Urine WBC Occ /HPF (0-4) Urine Squamous Epithelial Cells Few /LPF Urine Bacteria Few /HPF (0-FEW) EKG EKG [] Radiology/Procedures Radiology/Procedures CT head/cervical: no acute intracranial injury per radiology report [] Course & Med Decision Making Course & Med Decision Making Pertinent Labs and Imaging studies reviewed. (See chart for details) [Wound cleansed and closed with absorbable suture. Labs and imaging reviewed. [facility] return to [facility] facility with neuro checks and PCP follow-up next week for review of labs. Final Impression Final Impression [1. Head injury 2. Scalp laceration 3. Hyperkalemia] Dragon Disclaimer Dragon Disclaimer This electronic medical record was generated, in whole or in part, using a voice recognition dictation system. SOFI BARAJAS DO Jun 25, 2018 13:46
[2018-06-25 14:00] VITALS: BP 118/68
== END 2018-06-25 14:25 | disposition home or self-care (01) ==
LOC: ER 10:23
DX: S01.01XA Laceration without foreign body of scalp, initial encounter (principal); E87.5 Hyperkalemia; F03.90 Unspecified dementia, unspecified severity, without behavioral disturbance, psychotic disturbance, mood disturbance, and anxiety; K21.9 Gastro-esophageal reflux disease without esophagitis; I10 Essential (primary) hypertension; Z86.2 Personal history of diseases of the blood and blood-forming organs and certain disorders involving the immune mechanism; Z88.0 Allergy status to penicillin; W19.XXXA Unspecified fall, initial encounter; Y93.89 Activity, other specified; Y92.89 Other specified places as the place of occurrence of the external cause; Y99.8 Other external cause status
CPT/HCPCS: 12002; 36415; 70450; 72125; 80048; 81001; 85025; 99285-25

== ENCOUNTER 2018-09-03 13:47 | Emergency (ER) | payer MEDICARE ==
[~2018-09-03] VITALS: Ht 182.9 cm; Wt 90.7 kg
--- NOTE | 2018-09-03 14:07 | RAD ---
CT head and cervical spine without contrast 09/03/2018 Clinical indications: Fall with head pain and altered mental status. COMPARISON: CT head and cervical spine 17/04/2018 TECHNIQUE: Multiple CT images of the head and cervical spine were obtained without contrast. *One or more of the following individualized dose reduction techniques were utilized for this examination: 1. Automated exposure control. 2. Adjustment of the mA and/or kV according to patient size. 3. Use of iterative reconstruction technique. FINDINGS: Head: No acute intracranial hemorrhage or extra-axial fluid collection. No midline shift. Stable prominence of ventricles and subarachnoid spaces compatible with mild generalized cerebral and cerebellar atrophy. Minimal periventricular white matter low-attenuation which can be normal for age. Page-white matter interfaces are maintained. The visualized mastoid air cells and paranasal sinuses are well aerated. Cervical spine: No acute cervical spine fracture. Straightening of the cervical spine may be positional. Mild atlantodens osteoarthrosis. Mild multilevel cervical spondylosis from C3-C4 through C7-T1 with disc space narrowing, endplate sclerosis and marginal osteophyte formation. Minimal grade one antral listhesis C7 on T1. Cervical spondylosis in conjunction with uncovertebral and facet hypertrophy results in neural foraminal narrowing to moderate degree bilaterally at C3-C4, on the right at C4-C5, bilaterally at C5-C6 and C6-C7 and on the right at C7-T1. Posterior disc ossify complex at C5-C6 results in at least mild spinal canal narrowing. IMPRESSION: Head: No acute intracranial hemorrhage. Cervical spine: 1. No acute cervical spine fracture. 2. Multilevel cervical spondylosis resulting in spinal canal and neural foraminal narrowing, as detailed above. Electronically signed by: Hieu Thompson MD (09/03/2018 2:04 PM) [id number]
[2018-09-03 14:29] VITALS: BP 101/60
[2018-09-03] MEDS: DIPHTH,PERTUSS(ACELL),TET TOX 0.5 ML DISP.SYRIN. VAX IM ONE (14:51)
--- NOTE | 2018-09-03 15:01 | PHYS DOC ---
Past History Past Medical History: Anemia, Cancer, Dementia, GERD, Glaucoma, Hypertension Past Surgical History: Cancer Surgery Alcohol Use: None Drug Use: None Adult General Chief Complaint Chief Complaint: MECHANICAL FALL HPI HPI Patient is a 88 year old male resident of [facility] with history of dementia in by EMS because of a fall and being combative. [facility] reported that patient had a fall from a standing position and landed on back of his head and had laceration of scalp without loss of consciousness 1 hour prior to arrival to ER. Patient became combative according to the reports of [facility] but EMS reported patient was cooperative and just became combative when they wanted to blood sugar test. Patient is cooperative in ER and denies any problem. Patient is alert and oriented 1. Last tetanus immunization is unknown. Review of Systems Review of Systems Constitutional: Denies fever or chills [] Eyes: Denies change in visual acuity, redness, or eye pain [] HENT: Denies nasal congestion or sore throat [] Respiratory: Denies cough or shortness of breath [] Cardiovascular: No additional information not addressed in HPI [] GI: Denies abdominal pain, nausea, vomiting, bloody stools or diarrhea [] : Denies dysuria or hematuria [] Musculoskeletal: Denies back pain or joint pain [] Integument: Denies rash or skin lesions [] Neurologic: Reports headache, denies focal weakness or sensory changes [] Endocrine: Denies polyuria or polydipsia [] All other systems were reviewed and found to be within normal limits, except as documented in this note. Current Medications Current Medications Current Medications Medications (Trade) Dose Ordered Sig/Markie Start Time Stop Time Status Last Admin Dose Admin Diphtheria/ Tetanus/Acell Pertussis (Boostrix) 0.5 ml ONCE ONCE 09/03/18 14:15 09/03/18 14:18 DC Allergies Allergies Allergies Coded Allergies Type Severity Reaction Last Updated Verified Penicillins Allergy Intermediate 02/09/18 Yes Physical Exam Physical Exam Constitutional: Well nourished, mild distress, non-toxic appearance. [] HENT: Normocephalic, contusion and laceration of occipital scalp with mild bleeding, oropharynx moist, no oral exudates, nose normal. [] Eyes: PERRLA, EOMI, conjunctiva normal, no discharge. [] Neck: Normal range of motion, no tenderness, supple, no stridor. [] Cardiovascular:Heart rate regular rhythm, no murmur [] Lungs & Thorax: Bilateral breath sounds clear to auscultation [] Abdomen: Bowel sounds normal, soft, no tenderness, no masses, no pulsatile masses. [] Skin: Warm, dry, no erythema, no rash. [] Back: No tenderness, no CVA tenderness. [] Extremities: No tenderness, no cyanosis, no clubbing, ROM intact, no edema. [] Neurologic: Alert and oriented X 2, normal motor function, normal sensory function, no focal deficits noted. [] Psychologic: Affect normal, mood normal. [] Current Patient Data Vital Signs Vital Signs Date Time Temp Pulse Resp B/P (MAP) Pulse Ox O2 Delivery O2 Flow Rate FiO2 09/03/18 14:29 70 16 101/60 (74 97 Room Air EKG EKG [] Radiology/Procedures Radiology/Procedures [address] [address] IMAGING REPORT Signed PATIENT: ERICA MERCEDES ACCOUNT: [id number] : 1930 LOCATION: ER AGE: 88 SEX: M EXAM STATUS: PRE ER ORD. PHYSICIAN: NOBLE PRATER MD REASON: fall, combative after the fall PROCEDURE: CT HEAD AND CERVICAL SPINE WO CT head and cervical spine without contrast 09/03/2018 Clinical indications: Fall with head pain and altered mental status. COMPARISON: CT head and cervical spine 17/04/2018 TECHNIQUE: Multiple CT images of the head and cervical spine were obtained without contrast. *One or more of the following individualized dose reduction techniques were utilized for this examination: 1. Automated exposure control. 2. Adjustment of the mA and/or kV according to patient size. 3. Use of iterative reconstruction technique. FINDINGS: Head: No acute intracranial hemorrhage or extra-axial fluid collection. No midline shift. Stable prominence of ventricles and subarachnoid spaces compatible with mild generalized cerebral and cerebellar atrophy. Minimal periventricular white matter low-attenuation which can be normal for age. Page-white matter interfaces are maintained. The visualized mastoid air cells and paranasal sinuses are well aerated. Cervical spine: No acute cervical spine fracture. Straightening of the cervical spine may be positional. Mild atlantodens osteoarthrosis. Mild multilevel cervical spondylosis from C3-C4 through C7-T1 with disc space narrowing, endplate sclerosis and marginal osteophyte formation. Minimal grade one antral listhesis C7 on T1. Cervical spondylosis in conjunction with uncovertebral and facet hypertrophy results in neural foraminal narrowing to moderate degree bilaterally at C3-C4, on the right at C4-C5, bilaterally at C5-C6 and C6-C7 and on the right at C7-T1. Posterior disc ossify complex at C5-C6 results in at least mild spinal canal narrowing. IMPRESSION: Head: No acute intracranial hemorrhage. Cervical spine: 1. No acute cervical spine fracture. 2. Multilevel cervical spondylosis resulting in spinal canal and neural foraminal narrowing, as detailed above. Electronically signed by: Missael Thompson MD (09/03/2018 2:04 PM) [id number] DICTATED AND SIGNED BY: MISSAEL THOMPSON MD DATE: 09/03/18 1358 CC: MADY HERNANDEZ MD; NOBLE PRATER MD ~ Course & Med Decision Making Course & Med Decision Making Pertinent Imaging studies reviewed. (See chart for details) Evaluation of patient in ER showed 88-year-old male patient with history of dementia who had a fall in [facility] and had laceration of his scalp. CT head and C-spine was unremarkable. Patient did not have any sign of agitation in ER and ambulated without problem. Patient had a small laceration of the scalp that was repaired with Dermabond. Patient was discharged from [facility] with instruction for prevention of fall. Dragon Disclaimer Dragon Disclaimer This electronic medical record was generated, in whole or in part, using a voice recognition dictation system. Laceration Repair Lac Repair Indication: Occipital scalp laceration Procedure: The patient was placed in the appropriate position after minimal debridement of contused tissue of laceration of the scalp Dermabond was placed Total repaired wound length: 2 cm Other Items: None The patient tolerated the procedure well. Complications: none. Departure Departure: Impression: Primary Impression: Fall at [facility] Additional Impressions: Head injury Laceration of scalp Dementia Disposition: XFER [facility] (at 1450) Condition: IMPROVED Referrals: MADY HERNANDEZ MD (PCP) Patient Instructions: Fall Prevention in Hospitals, Head Injury, Adult, Soft Tissue Injury of the Neck, [id number] Additional Instructions: Follow-up with your primary care physician in 2-3 days Return to ER if not getting better Problem Qualifiers NOBLE PRATER MD Sep 03, 2018 15:01
== END 2018-09-03 15:35 ==
LOC: ER 13:47
DX: S01.01XA Laceration without foreign body of scalp, initial encounter (principal); F03.90 Unspecified dementia, unspecified severity, without behavioral disturbance, psychotic disturbance, mood disturbance, and anxiety; R41.82 Altered mental status, unspecified; K21.9 Gastro-esophageal reflux disease without esophagitis; I10 Essential (primary) hypertension; Z86.2 Personal history of diseases of the blood and blood-forming organs and certain disorders involving the immune mechanism; Z88.0 Allergy status to penicillin; W18.30XA Fall on same level, unspecified, initial encounter; Y93.89 Activity, other specified; Y92.128 Other place in nursing home as the place of occurrence of the external cause; Y99.8 Other external cause status
CPT/HCPCS: 12001; 70450; 72125; 90471; 90715; 99284-25

== ENCOUNTER 2018-11-24 03:54 | Emergency (ER) | payer MEDICARE ==
[~2018-11-24 03:54] MED LIST changes: +TRAZ-120 PO; -TRAZ-85 PO
--- NOTE | 2018-11-24 04:21 | EKG ---
[address] [address] Test Date: 2018-11-24 Test Time: 04:17:42 Pat Name: ERICA MERCEDES Department: Room: Gender: M [employer]der: : 1930 Requested By: COCO SÁNCHEZ Order Number: [id number] Reading MD: Rickey Akbar Measurements Intervals Gill Rate: 67 P: 13 CO: 170 QRS: 20 QRSD: 86 T: 28 QT: 388 QTc: 413 Interpretive Statements SINUS RHYTHM LOW LIMB LEAD VOLTAGE Electronically Signed On 12-01-2018 10:52:22 [employer] by Rickey Akbar
[2018-11-24 04:36] LABS: BASO % 1 % (0-3); EOS # 0.6 x10^3/uL (0.0-0.7); EOS % 9 % (0-3); HEMATOCRIT 33.2 % (39.0-53.0); HEMOGLOBIN 11.2 g/dL (13.0-17.5); LYMPH # 1.1 x10^3/uL (1.0-4.8); LYMPH % 16 % (24-48); MEAN CORPUSCULAR HEMOGLOBIN 33 pg (25-35); MEAN CORPUSCULAR HGB CONC 34 g/dL (31-37); MEAN CORPUSCULAR VOLUME 97 fL (79-100); MONO # 1.4 x10^3/uL (0.0-1.1); MONO % 20 % (0-9); NEUT # 3.7 x10^3uL (1.8-7.7); NEUT % 54 % (31-73); PLATELET COUNT 175 x10^3/uL (140-400); RED BLOOD COUNT 3.41 x10^6/uL (4.30-5.70); RED CELL DISTRIBUTION WIDTH 14.2 % (11.5-14.5); WHITE BLOOD COUNT 6.8 x10^3/uL (4.0-11.0)
[2018-11-24 04:44] LABS: ALBUMIN 3.5 g/dL (3.4-5.0); CALCIUM 8.4 mg/dL (8.5-10.1); CREATININE 1.6 mg/dL (0.7-1.3); DIRECT BILIRUBIN 0.1 mg/dL (0.0-0.2); POTASSIUM 4.8 mmol/L (3.5-5.1); TOTAL BILIRUBIN 0.3 mg/dL (0.2-1.0); TOTAL PROTEIN 6.9 g/dL (6.4-8.2)
--- NOTE | 2018-11-24 05:15 | PHYS DOC ---
Past History Past Medical History: Anemia, Cancer, Dementia, GERD, Glaucoma, Hypertension (COCO RICO Jr. DO) Past Surgical History: Cancer Surgery (COCO RICO Jr., DO) Alcohol Use: None Drug Use: None (COCO RICO Jr., DO) Adult General Chief Complaint Chief Complaint: PSYCH EVALUATION HPI HPI Patient is an 88-year-old male who presents from [facility] with report that patient was having behavior disturbance. Patient reportedly had been running around chasing after other residents. Patient was sent to emergency room for mental health evaluation for possible [facility] placement. Additional history is limited due to patient history of dementia. (COCO RICO Jr. DO) Review of Systems Review of Systems Constitutional: Denies fever or chills [] Respiratory: Denies cough or shortness of breath [] Cardiovascular: No additional information not addressed in HPI [] GI: Denies abdominal pain [] Musculoskeletal: Denies back pain or joint pain [] Neurologic: Denies headache, focal weakness or sensory changes [] All other systems were reviewed and found to be within normal limits, except as documented in this note. (COCO RICO Jr. DO) Allergies Allergies Allergies Coded Allergies Type Severity Reaction Last Updated Verified Penicillins Allergy Intermediate 02/09/18 Yes (COCO RICO Jr., DO) Physical Exam Physical Exam Constitutional: Well developed, well nourished, no acute distress, non-toxic appearance. [] HENT: Normocephalic, atraumatic, bilateral external ears normal, oropharynx dry , no oral exudates, nose normal. [] Eyes: PERRLA, EOMI, conjunctiva normal, no discharge. [] Neck: Normal range of motion, no tenderness, supple, no stridor. [] Cardiovascular: Regular rate and rhythm[] Lungs & Thorax: Bilateral breath sounds clear to auscultation [] Abdomen: Bowel sounds normal, soft, no tenderness. [] Skin: Warm, dry. [] Extremities: No tenderness, no cyanosis, no clubbing, ROM intact. [] Neurologic: Awake and alert, no focal deficits noted. [] (COCO RICO Jr. DO) Current Patient Data Lab Results Laboratory Tests Test 11/24/18 04:05 White Blood Count 6.8 x10^3/uL (4.0-11.0) Red Blood Count 3.41 x10^6/uL (4.30-5.70) L Hemoglobin 11.2 g/dL (13.0-17.5) L Hematocrit 33.2 % (39.0-53.0) L Mean Corpuscular Volume 97 fL (79-100) Mean Corpuscular Hemoglobin 33 pg (25-35) Mean Corpuscular Hemoglobin Concent 34 g/dL (31-37) Red Cell Distribution Width 14.2 % (11.5-14.5) Platelet Count 175 x10^3/uL (140-400) Neutrophils (%) (Auto) 54 % (31-73) Lymphocytes (%) (Auto) 16 % (24-48) L Monocytes (%) (Auto) 20 % (0-9) H Eosinophils (%) (Auto) 9 % (0-3) H Basophils (%) (Auto) 1 % (0-3) Neutrophils # (Auto) 3.7 x10^3uL (1.8-7.7) Lymphocytes # (Auto) 1.1 x10^3/uL (1.0-4.8) Monocytes # (Auto) 1.4 x10^3/uL (0.0-1.1) H Eosinophils # (Auto) 0.6 x10^3/uL (0.0-0.7) Basophils # (Auto) 0.0 x10^3/uL (0.0-0.2) Sodium Level 142 mmol/L (136-145) Potassium Level 4.8 mmol/L (3.5-5.1) Chloride Level 106 mmol/L (98-107) Carbon Dioxide Level 33 mmol/L (21-32) H Anion Gap 3 (6-14) L Blood Urea Nitrogen 27 mg/dL (8-26) H Creatinine 1.6 mg/dL (0.7-1.3) H Estimated GFR (Cockcroft-Gault) 41.0 Glucose Level 99 mg/dL (70-99) Calcium Level 8.4 mg/dL (8.5-10.1) L Total Bilirubin 0.3 mg/dL (0.2-1.0) Direct Bilirubin 0.1 mg/dL (0.0-0.2) Aspartate Amino Transferase (AST) 13 U/L (15-37) L Alanine Aminotransferase (ALT) 11 U/L (16-63) L Alkaline Phosphatase 81 U/L (46-116) Total Protein 6.9 g/dL (6.4-8.2) Albumin 3.5 g/dL (3.4-5.0) Ethyl Alcohol Level < 10 mg/dL (0-10) (COCO RICO Jr., DO) EKG EKG [] (COCO RICO Jr., DO) Radiology/Procedures Radiology/Procedures [] (COCO RICO Jr., DO) Course & Med Decision Making Course & Med Decision Making Pertinent Labs and Imaging studies reviewed. (See chart for details) Patient moved to room upon arrival was evaluated by your medical staff after which a mental health workup has been initiated. At this time workup is pending and we are awaiting psychiatric evaluation. Patient is being signed out to oncoming ER physician at 6:00 AM. (COCO RICO Jr., DO) Course & Med Decision Making @0740: Patient care transferred to [facility] by Dr. Rico at 0600 for waiting for psychiatric report to the [facility]. Psychiatric gave the reports to the [facility] and the patient is ready to back to the [facility]. (NOBLE PRATER MD) Dragon Disclaimer Dragon Disclaimer This electronic medical record was generated, in whole or in part, using a voice recognition dictation system. (COCO RICO Jr., DO) Departure Departure: Impression: Primary Impression: Dementia with behavioral disturbance Disposition: 01 HOME, SELF-CARE (to the [facility] at 0740) Condition: IMPROVED Referrals: MADY HERNANDEZ MD (PCP) Patient Instructions: Dementia Problem Qualifiers Primary Impression: Dementia with behavioral disturbance Dementia type: unspecified type Qualified Codes: F03.91 - Unspecified dementia with behavioral disturbance COCO RICO Jr., DO Nov 24, 2018 05:15 NOBLE PRATER MD Nov 24, 2018 07:56
[2018-11-24 08:01] LABS: BACTERIA,URINE 0 /HPF (0-FEW); BILIRUBIN,URINE NEG (NEG); CLARITY,URINE CLEAR; COLOR,URINE YELLOW; GLUCOSE,URINE NEG (NEG); NITRITE,URINE NEG (NEG); RBC,URINE 0 /HPF (0-2); SQUAMOUS EPITHELIAL CELL,UR OCC /LPF; UROBILINOGEN,URINE 0.2 mg/dL (0.2 mg/dL); WBC,URINE 0 /HPF (0-4)
[2018-11-24 08:03] LABS: AMPHETAMINE/METHAMPHETAMINE NEG (NEG); BARBITURATES NEG (NEG); BENZODIAZEPINES NEG (NEG); CANNABINOIDS NEG (NEG); COCAINE NEG (NEG); METHADONE NEG (NEG); OPIATES NEG (NEG); PHENCYCLIDINE NEG (NEG)
[2018-11-24 10:38] VITALS: BP 110/67
== END 2018-11-24 10:39 | disposition home or self-care (01) ==
LOC: ER 03:54
DX: F03.91 Unspecified dementia, unspecified severity, with behavioral disturbance (principal); K21.9 Gastro-esophageal reflux disease without esophagitis; I10 Essential (primary) hypertension; Z86.2 Personal history of diseases of the blood and blood-forming organs and certain disorders involving the immune mechanism; Z88.0 Allergy status to penicillin
CPT/HCPCS: 36415; 80048; 80076; 80307; 81001; 85025; 93005; 99284; G0480

== ENCOUNTER 2019-03-08 09:00 | Emergency (ER) | payer MEDICARE ==
[~2019-03-08] VITALS: Ht 182.9 cm; Wt 86.8 kg
[2019-03-08] MEDS ORDERED: LIDOCAINE/EPI/TETRACAINE TOPICAL GEL 3 ML. TP ONE (09:15)
[2019-03-08] MEDS ORDERED: LIDOCAINE 2% TOPICAL JELLY 5GM TUBE. TP ONE ×2 (09:17→09:30)
--- NOTE | 2019-03-08 09:17 | PHYS DOC ---
Past History Past Medical History: Anemia, Cancer, Dementia, GERD, Glaucoma, Hypertension Past Surgical History: Cancer Surgery Smoking: Non-smoker Alcohol Use: None Drug Use: None Adult General Chief Complaint Chief Complaint: LACERATION/AVULSION HPI HPI Patient is a 89-year-old male presents with an occipital head laceration. Patient has a history of vertigo and fell striking his head at approximately 7:30 this morning. No loss of consciousness. No weakness. No nausea or vomiting. Patient is not known to be on any blood thinners. Patient does reside at [facility]. Bleeding was controlled with pressure. No change in behavior according to the staff that accompanied the patient. Symptoms are mild to moderate in intensity. History is limited from the patient due to history of dementia Patient's last tetanus vaccine was in 2018.[] Review of Systems Review of Systems Constitutional: Denies fever or chills [] Eyes: Denies change in visual acuity, redness, or eye pain [] HENT: Denies nasal congestion or sore throat [] Respiratory: Denies cough or shortness of breath [] Cardiovascular: No chest pain or palpitations[] GI: Denies abdominal pain, nausea, vomiting, bloody stools or diarrhea [] : Denies dysuria or hematuria [] Musculoskeletal: Denies back pain or joint pain [] Integument: Denies rash or skin lesions [] Neurologic: Denies headache, focal weakness or sensory changes [] Endocrine: Denies polyuria or polydipsia [] All other systems were reviewed and found to be within normal limits, except as documented in this note. Allergies Allergies Allergies Coded Allergies Type Severity Reaction Last Updated Verified Penicillins Allergy Intermediate 02/09/18 Yes Physical Exam Physical Exam Constitutional: Well developed, well nourished, no acute distress, non-toxic appearance. [] HENT: Normocephalic, atraumatic, bilateral external ears normal, oropharynx moist, no oral exudates, nose normal. [] Eyes: PERRLA, EOMI, conjunctiva normal, no discharge. [] Neck: Normal range of motion, no tenderness, supple, no stridor. [] Cardiovascular:Heart rate regular rhythm, no murmur [] Lungs & Thorax: Bilateral breath sounds clear to auscultation [] Abdomen: Bowel sounds normal, soft, no tenderness, no masses, no pulsatile masses. [] Skin: Warm, dry, no erythema, no rash. [] Back: No tenderness, no CVA tenderness. [] Extremities: No tenderness, no cyanosis, no clubbing, ROM intact, no edema. [] Neurologic: Alert and oriented X 2, normal motor function, normal sensory function, no focal deficits noted. [] Psychologic: Affect flat, mood normal. [] EKG EKG [] Radiology/Procedures Radiology/Procedures EXAM: CT HEAD WITHOUT IV CONTRAST CLINICAL HISTORY: Fall with occipital head injury COMPARISON: CT head 09/03/2018 TECHNIQUE: Routine CT of the head without contrast. Soft tissues and bone windows were reviewed. PQRS compliance statement - One or more of the following individualized dose reduction techniques were utilized for this study: 1. Automated exposure control 2. Adjustment of the mA and/or kV according to patient size 3. Use of iterative reconstruction technique FINDINGS: There is a small right frontoparietal subdural hematoma measuring up to 6 mm in thickness in the high right frontal region. No associated mass effect or midline shift. Subcortical and periventricular white matter hypoattenuation as well as deep white matter low-attenuation may be seen with chronic small vessel disease. There is no mass effect or shift of the intracranial structures. The ventricles, basilar cisterns and cortical sulci are prominent for the patients age suggesting generalized cerebral volume loss/atrophy. The cerebellum and brainstem are unremarkable. The calvarium demonstrates no evidence of fracture or focal lesion. Dependent opacities in the sphenoid sinus likely sinusitis. Mastoid air cells are clear. Atherosclerotic calcifications of the intracranial internal carotid and vertebral arteries is seen. The visualized portions of the orbits are normal. Small foci of subcutaneous gas in the left posterior occipital region likely from clinically described injury. IMPRESSION: 1. Right frontoparietal subdural hematoma without significant associated mass effect or shift of the midline structures. 2. Changes of generalized cerebral atrophy. 3. Chronic small vessel disease.[] Course & Med Decision Making Course & Med Decision Making Pertinent Labs and Imaging studies reviewed. (See chart for details) ED course: Patient arrived, was placed in bed, and tolerated exam well. Topical lidocaine was applied as he was transported to and from CT scan. After return of the CT imaging, findings were discussed with patient and his fine artist. Consultation was made with neurosurgery at [facility] who would be willing to see the patient in consultation. Consultation was made with the hospitalist service at [facility]. Medical decision making: Patient has a subdural hematoma that needs further evaluation and management.[] Dragon Disclaimer Dragon Disclaimer This electronic medical record was generated, in whole or in part, using a voice recognition dictation system. Departure Departure: Impression: Primary Impression: Subdural hematoma Additional Impressions: Scalp laceration Dementia Disposition: 05 TRANSFER OTHER Condition: IMPROVED Referrals: MADY HERNANDEZ MD (PCP) Laceration Repair Lac Repair Indication: Scalp laceration[] Procedure: The patient was placed in the appropriate position and anesthesia around the laceration was provided with topical lidocaine. The area was then cleansed. The laceration was closed with 5 austyn. Total repaired wound length: 3 cm Other Items: None The patient tolerated the procedure well. Complications: None. Problem Qualifiers Additional Impressions: Scalp laceration Encounter type: initial encounter Qualified Codes: S01.01XA - Laceration without foreign body of scalp, initial encounter Dementia Dementia type: unspecified type Dementia behavioral disturbance: without behavioral disturbance Qualified Codes: F03.90 - Unspecified dementia without behavioral disturbance JERILYN JEREZ DO Mar 08, 2019 09:17
--- NOTE | 2019-03-08 10:36 | RAD ---
EXAM: CT HEAD WITHOUT IV CONTRAST CLINICAL HISTORY: Fall with occipital head injury COMPARISON: CT head 09/03/2018 TECHNIQUE: Routine CT of the head without contrast. Soft tissues and bone windows were reviewed. PQRS compliance statement - One or more of the following individualized dose reduction techniques were utilized for this study: 1. Automated exposure control 2. Adjustment of the mA and/or kV according to patient size 3. Use of iterative reconstruction technique FINDINGS: There is a small right frontoparietal subdural hematoma measuring up to 6 mm in thickness in the high right frontal region. No associated mass effect or midline shift. Subcortical and periventricular white matter hypoattenuation as well as deep white matter low-attenuation may be seen with chronic small vessel disease. There is no mass effect or shift of the intracranial structures. The ventricles, basilar cisterns and cortical sulci are prominent for the patients age suggesting generalized cerebral volume loss/atrophy. The cerebellum and brainstem are unremarkable. The calvarium demonstrates no evidence of fracture or focal lesion. Dependent opacities in the sphenoid sinus likely sinusitis. Mastoid air cells are clear. Atherosclerotic calcifications of the intracranial internal carotid and vertebral arteries is seen. The visualized portions of the orbits are normal. Small foci of subcutaneous gas in the left posterior occipital region likely from clinically described injury. IMPRESSION: 1. Right frontoparietal subdural hematoma without significant associated mass effect or shift of the midline structures. 2. Changes of generalized cerebral atrophy. 3. Chronic small vessel disease. Findings of right frontoparietal subdural hematoma was discussed with nurse Dumont at emergency room, 10:31 AM 03/08/2019. EXAM: CT CERVICAL SPINE WITHOUT IV CONTRAST CLINICAL HISTORY: Fall, neck pain COMPARISON: 09/03/2018. TECHNIQUE: Helical CT of the cervical spine was performed. Axial, coronal and sagittal reformatted images were also performed. PQRS compliance statement - One or more of the following individualized dose reduction techniques were utilized for this study: 1. Automated exposure control 2. Adjustment of the mA and/or kV according to patient size 3. Use of iterative reconstruction technique FINDINGS: Vertebral body heights are preserved. No evidence for acute fracture. Straightening of the normal cervical lordosis. Trace anterolisthesis of C7 on T1 is stable. Multilevel degenerative changes are grossly stable including disc height loss and proliferative changes. Degree of neural foraminal narrowing at C7-T1 is stable to mildly progressed. IMPRESSION: 1. No evidence for acute fracture. Trace anterolisthesis of C7 on T1 is stable. 2. Multilevel degenerative changes of the cervical spine are again seen, mildly progressed at C7-T1 otherwise grossly stable. Electronically signed by: Renny Dugan MD (03/08/2019 10:33 AM) [id number]
[2019-03-08 11:18] LABS: BASO % 0 % (0-3); EOS # 0.2 x10^3/uL (0.0-0.7); EOS % 3 % (0-3); HEMATOCRIT 38.9 % (39.0-53.0); HEMOGLOBIN 13.2 g/dL (13.0-17.5); LYMPH # 0.7 x10^3/uL (1.0-4.8); LYMPH % 10 % (24-48); MEAN CORPUSCULAR HEMOGLOBIN 33 pg (25-35); MEAN CORPUSCULAR HGB CONC 34 g/dL (31-37); MEAN CORPUSCULAR VOLUME 97 fL (79-100); MONO # 0.8 x10^3/uL (0.0-1.1); MONO % 11 % (0-9); NEUT # 5.4 x10^3uL (1.8-7.7); NEUT % 76 % (31-73); PLATELET COUNT 188 x10^3/uL (140-400); RED BLOOD COUNT 4.01 x10^6/uL (4.30-5.70); RED CELL DISTRIBUTION WIDTH 14.2 % (11.5-14.5); WHITE BLOOD COUNT 7.1 x10^3/uL (4.0-11.0)
[2019-03-08 11:24] LABS: ALBUMIN 3.8 g/dL (3.4-5.0); ALBUMIN/GLOBULIN RATIO 1.2 (1.0-1.7); CREATININE 1.5 mg/dL (0.7-1.3); GFR 44.1; TOTAL BILIRUBIN 0.5 mg/dL (0.2-1.0); TOTAL PROTEIN 7.1 g/dL (6.4-8.2)
[2019-03-08 12:48] VITALS: BP 111/67
== END 2019-03-08 12:50 | disposition home or self-care (01) ==
LOC: ER 09:00
DX: S06.5X0A Traumatic subdural hemorrhage without loss of consciousness, initial encounter (principal); S01.01XA Laceration without foreign body of scalp, initial encounter; F03.90 Unspecified dementia, unspecified severity, without behavioral disturbance, psychotic disturbance, mood disturbance, and anxiety; I73.9 Peripheral vascular disease, unspecified; G31.9 Degenerative disease of nervous system, unspecified; K21.9 Gastro-esophageal reflux disease without esophagitis; I10 Essential (primary) hypertension; Z86.2 Personal history of diseases of the blood and blood-forming organs and certain disorders involving the immune mechanism; Z88.0 Allergy status to penicillin; W18.09XA Striking against other object with subsequent fall, initial encounter; Y93.89 Activity, other specified; Y92.89 Other specified places as the place of occurrence of the external cause; Y99.8 Other external cause status
CPT/HCPCS: 12002; 36415; 70450; 72125; 80053; 85025; 85610; 99285

== ENCOUNTER 2019-03-09 18:03 | Emergency (ER) | payer MEDICARE ==
[~2019-03-09] VITALS: Ht 182.9 cm; Wt 86.8 kg
--- NOTE | 2019-03-09 19:35 | RAD ---
CT HEAD WO CONTRAST History: Fall, recent diagnosis of old subdural hemorrhage, head injury Comparison: March 08, 2019 Technique: Noncontrast CT imaging was performed of the head. Exposure: One or more of the following individualized dose reduction techniques were utilized for this examination: 1. Automated exposure control 2. Adjustment of the mA and/or kV according to patient size 3. Use of iterative reconstruction technique. Findings: No acute parenchymal hemorrhage is identified. There is thin subdural hematoma along the right lateral convexity about 0.3 cm in greatest thickness stable to somewhat less apparent on this exam. Ventricular size is stable. There is no new midline shift. There is again supratentorial atrophy. Impression: 1. Small right lateral convexity subdural hematoma is stable to somewhat less apparent on this exam. There is again supratentorial atrophy. Electronically signed by: Alexis Colbert MD (03/09/2019 7:33 PM) [facility]
[2019-03-09 19:47] VITALS: BP 121/73
--- NOTE | 2019-03-09 19:48 | PHYS DOC ---
Past History Past Medical History: Anemia, Cancer, Dementia, Depression, GERD, Glaucoma, Hypertension, Other Past Surgical History: Cancer Surgery Smoking: Non-smoker Alcohol Use: None Drug Use: None Adult General Chief Complaint Chief Complaint: MECHANICAL FALL HPI HPI Patient is a 89 year old male who presents with laceration to the right forehead. Patient brought from his senior living by staff after patient had a reported fall at the senior living shortly prior to arrival. The patient was seen in the emergency department yesterday for a scalp laceration which was repaired. Patient however had a CT scan which showed a right frontoparietal subdural hematoma. The patient was transferred to [facility] where this was evaluated and nonoperative management was advised. Patient had just returned to his senior living today when he accidentally fell while being supervised by staff. Patient is profoundly demented and unable to provide any history. Staff member states that the patient's mental status seems to be at his baseline at this time. Due to the presence of wound on the right side of the forehead the patient was sent in to have this evaluated for wound closure. Review of Systems Review of Systems Unable to obtain from patient due to profound dementia All other systems were reviewed and found to be within normal limits, except as documented in this note. Allergies Allergies Allergies Coded Allergies Type Severity Reaction Last Updated Verified Penicillins Allergy Intermediate 03/08/19 Yes Physical Exam Physical Exam Constitutional: Alert, confused, no acute distress. [] HENT: Normocephalic, stellate laceration measuring 2 cm in total length along superior lateral aspect of right eyebrow bilateral external ears normal, oropharynx moist, no oral exudates, nose normal. [] Eyes: PERRLA, EOMI, conjunctiva normal, no discharge. [] Neck: Normal range of motion, no tenderness, supple, no stridor. [] Cardiovascular:Heart rate regular rhythm, no murmur [] Lungs & Thorax: Bilateral breath sounds clear to auscultation [] Abdomen: Bowel sounds normal, soft, no tenderness, no masses, no pulsatile masses. [] Skin: Warm, dry, no erythema, no rash. [] Back: No tenderness, no CVA tenderness. [] Extremities: No tenderness, no cyanosis, no clubbing, ROM intact, no edema. [] Neurologic: Alert, oriented to self only, normal motor function, normal sensory function, no focal deficits noted. [] Current Patient Data Vital Signs Vital Signs Date Time Temp Pulse Resp B/P (MAP) Pulse Ox O2 Delivery O2 Flow Rate FiO2 03/09/19 18:07 98.1 88 18 98 Room Air Lab Results Not performed EKG EKG Not performed[] Radiology/Procedures Radiology/Procedures [address] [id number] IMAGING REPORT Signed PATIENT: ERICA MERCEDES ACCOUNT: [id number] : 1930 LOCATION: ER AGE: 89 SEX: M EXAM STATUS: REG ER ORD. PHYSICIAN: KARISSA POPE MD REASON: fall, head injury, recent dx of old SDH, eval for interval change PROCEDURE: CT HEAD WO CONTRAST CT HEAD WO CONTRAST History: Fall, recent diagnosis of old subdural hemorrhage, head injury Comparison: March 08, 2019 Technique: Noncontrast CT imaging was performed of the head. Exposure: One or more of the following individualized dose reduction techniques were utilized for this examination: 1. Automated exposure control 2. Adjustment of the mA and/or kV according to patient size 3. Use of iterative reconstruction technique. Findings: No acute parenchymal hemorrhage is identified. There is thin subdural hematoma along the right lateral convexity about 0.3 cm in greatest thickness stable to somewhat less apparent on this exam. Ventricular size is stable. There is no new midline shift. There is again supratentorial atrophy. Impression: 1. Small right lateral convexity subdural hematoma is stable to somewhat less apparent on this exam. There is again supratentorial atrophy. Electronically signed by: Tc Hu MD (03/09/2019 7:33 PM) [facility] DICTATED AND SIGNED BY: TC HU MD DATE: 03/09/191932 CC: MADY HERNANDEZ MD; KARISSA POPE MD ~ Indication: Right forehead laceration Procedure: The patient was placed in the appropriate position. The area was then saline. The laceration was closed using Dermabond and reinforced with 3 Steri-Strips. Total repaired wound length: 2 cm. Other Items: [OTHER ITEMS] The patient tolerated the procedure [TOLERATED]. Complications: [COMPLICATIONS].[] Course & Med Decision Making Course & Med Decision Making Pertinent Labs and Imaging studies reviewed. (See chart for details) Repeat CT head shows that subdural hematoma is stable. Wound was repaired as outlined in procedure note. Patient appropriate for return to senior living for further care. Advised follow-up in one week with primary doctor for reevaluation of wounds. Advised return to emergency department for any worsening symptoms. Patient's nurse and sone voiced understanding and in agreement with treatment plan. Dragon Disclaimer Dragon Disclaimer This electronic medical record was generated, in whole or in part, using a voice recognition dictation system. Departure Departure: Impression: Primary Impression: Fall Additional Impressions: Facial laceration Dementia Disposition: HOME, SELF-CARE Condition: IMPROVED Referrals: MADY HERNANDEZ MD (PCP) Patient Instructions: Facial Laceration, Stitches, Eloise or Skin Adhesive Strips, [id number] Additional Instructions: Follow-up with your primary doctor in 1 week for recheck of wound. Return to [facility] emergency department for any worsening symptoms. Problem Qualifiers Primary Impression: Fall Encounter type: initial encounter Qualified Codes: W19.XXXA - Unspecified fall, initial encounter Additional Impressions: Facial laceration Encounter type: initial encounter Qualified Codes: S01.81XA - Laceration without foreign body of other part of head, initial encounter Dementia Dementia type: Alzheimer's disease Alzheimer's disease onset: unspecified onset Dementia behavioral disturbance: without behavioral disturbance Qualified Codes: G30.9 - Alzheimer's disease, unspecified; F02.80 - Dementia in other diseases classified elsewhere without behavioral disturbance KARISSA POPE MD Mar 09, 2019 19:48
== END 2019-03-09 19:52 | disposition home or self-care (01) ==
LOC: ER 18:03
DX: S01.81XA Laceration without foreign body of other part of head, initial encounter (principal); G30.9 Alzheimer's disease, unspecified; F02.80 Dementia in other diseases classified elsewhere, unspecified severity, without behavioral disturbance, psychotic disturbance, mood disturbance, and anxiety; F32.9 Major depressive disorder, single episode, unspecified; K21.9 Gastro-esophageal reflux disease without esophagitis; I10 Essential (primary) hypertension; Z86.2 Personal history of diseases of the blood and blood-forming organs and certain disorders involving the immune mechanism; Z88.0 Allergy status to penicillin; W18.39XA Other fall on same level, initial encounter; Y93.89 Activity, other specified; Y92.128 Other place in nursing home as the place of occurrence of the external cause; Y99.8 Other external cause status
CPT/HCPCS: 12011; 70450; 99284-25

== ENCOUNTER 2019-05-27 14:57 | Inpatient (IN) | payer MEDICARE ==
[~2019-05-27] VITALS: Ht 182.9 cm; Wt 78.9 kg
[~2019-05-27 14:57] MED LIST changes: +CYAN-25 PO; -CYAN10005 PO; -VANC1PLA17 IV; +VANC1PLA18 IV
[2019-05-27 15:22] LABS: HEMATOCRIT 32.9 % (39.0-53.0); HEMOGLOBIN 10.9 g/dL (13.0-17.5); RED BLOOD COUNT 3.37 x10^6/uL (4.30-5.70); RED CELL DISTRIBUTION WIDTH 14.2 % (11.5-14.5); WHITE BLOOD COUNT 12.2 x10^3/uL (4.0-11.0)
--- NOTE | 2019-05-27 15:25 | RAD ---
Examination: CT HEAD WO CONTRAST History: Lethargic, unable to speak Comparison/Correlation: 03/09/2019 CT head without contrast Findings: Axial images of the head were obtained without contrast. Advanced atrophy is present. Chronic ischemic changes white matter is noted. No intracranial hemorrhage, midline shift, or mass effect. Cavernous carotid calcification is noted. Fluid levels are noted within the sphenoid sinuses. Globes and optic nerves are unremarkable. Impression: No intracranial hemorrhage. Fluid levels within the sphenoid sinuses presumably represent acute sphenoid sinusitis. PQRS Compliance Statement: One or more of the following individualized dose reduction techniques were utilized for this examination: 1. Automated exposure control 2. Adjustment of the mA and/or kV according to patient size 3. Use of iterative reconstruction technique Electronically signed by: Slick Quintanilla MD (05/27/2019 3:22 PM) [facility]
[2019-05-27 15:34] LABS: CALCIUM 8.8 mg/dL (8.5-10.1); CREATININE 1.4 mg/dL (0.7-1.3); GFR 47.7; POTASSIUM 4.3 mmol/L (3.5-5.1)
--- NOTE | 2019-05-27 15:52 | PHYS DOC ---
Past History Past Medical History: Anemia, Cancer, Dementia, Depression, GERD, Glaucoma, Hypertension, Other Past Surgical History: Cancer Surgery Smoking: Non-smoker Alcohol Use: None Drug Use: None Adult General Chief Complaint Chief Complaint: ALTERED MENTAL STATUS HPI HPI 89-year-old male presents via EMS with altered mental status. The patient was found to not be able to speak at his care facility. He was last normal yesterday evening. He was feeling a bit under the weather during the day yesterday. When they checked on him today, he was awake and alert, but unable to speak to them. He does follow simple commands for EMS. The patient is unable to provide history to me. This is information from EMS and family. Patient was not reported to have fever. He had been doing well recently. Review of Systems Review of Systems Review of systems severely limited due to the patient's inability to speak Constitutional: Denies fever [] Eyes: Denies eye pain [] HENT: Denies sore throat [] Respiratory: Denies cough or shortness of breath [] Cardiovascular: No additional information not addressed in HPI [] GI: Denies abdominal pain[] : Unable to determine[] Musculoskeletal: Denies back pain [] Integument: Denies rash or skin lesions [] Neurologic: Unable to speak[] Endocrine: Unable to determine[] All other systems were reviewed and found to be within normal limits, except as documented in this note. Allergies Allergies Allergies Coded Allergies Type Severity Reaction Last Updated Verified Penicillins Allergy Intermediate 03/08/19 Yes Physical Exam Physical Exam Constitutional: Well developed, well nourished, no acute distress, non-toxic appearance. [] HENT: Normocephalic, atraumatic, bilateral external ears normal, oropharynx dry, no oral exudates, nose normal. [] Eyes: PERRLA, EOMI, conjunctiva normal, no discharge. [] Neck: Normal range of motion, no tenderness, supple, no stridor. [] Cardiovascular:Heart rate regular rhythm, no murmur [] Lungs & Thorax: Bilateral breath sounds clear to auscultation [] Abdomen: Bowel sounds normal, soft, no tenderness, no masses, no pulsatile masses. [] Skin: Warm, dry, no erythema, no rash. [] Back: No tenderness, no CVA tenderness. [] Extremities: No tenderness, no cyanosis, no clubbing, ROM intact, no edema. [] Neurologic: Alert, normal motor function, normal sensory function, unable to speak[] Psychologic: Unable to determine [] Current Patient Data Vital Signs Vital Signs Date Time Temp Pulse Resp B/P (MAP) Pulse Ox O2 Delivery O2 Flow Rate FiO2 05/27/19 15:18 98.9 83 20 95 5.0 05/27/19 15:16 124/71 (88) Nasal Cannula Lab Results Laboratory Tests Test 05/27/19 15:05 White Blood Count 12.2 x10^3/uL (4.0-11.0) H Red Blood Count 3.37 x10^6/uL (4.30-5.70) L Hemoglobin 10.9 g/dL (13.0-17.5) L Hematocrit 32.9 % (39.0-53.0) L Mean Corpuscular Volume 98 fL (79-100) Mean Corpuscular Hemoglobin 33 pg (25-35) Mean Corpuscular Hemoglobin Concent 33 g/dL (31-37) Red Cell Distribution Width 14.2 % (11.5-14.5) Platelet Count 250 x10^3/uL (140-400) Prothrombin Time 11.1 SEC (9.4-11.4) Prothrombin Time INR 1.1 (0.9-1.1) Activated Partial Thromboplast Time 30 SEC (23-33) EKG EKG [] Radiology/Procedures Radiology/Procedures [] Impressions: Examination: CT HEAD WO CONTRAST History: Lethargic, unable to speak Comparison/Correlation: 03/09/2019 CT head without contrast Findings: Axial images of the head were obtained without contrast. Advanced atrophy is present. Chronic ischemic changes white matter is noted. No intracranial hemorrhage, midline shift, or mass effect. Cavernous carotid calcification is noted. Fluid levels are noted within the sphenoid sinuses. Globes and optic nerves are unremarkable. Impression: No intracranial hemorrhage. Fluid levels within the sphenoid sinuses presumably represent acute sphenoid sinusitis. PQRS Compliance Statement: One or more of the following individualized dose reduction techniques were utilized for this examination: 1. Automated exposure control 2. Adjustment of the mA and/or kV according to patient size 3. Use of iterative reconstruction technique Electronically signed by: Slick Cooper MD (05/27/2019 3:22 PM) [facility] DICTATED AND SIGNED BY: SLICK COOPER MD DATE: 05/27/19 1522 CC: SOFI ADAMES DO; MADY HERNANDEZ MD ~ CHEST AP ONLY Clinical indications: Shortness of breath. COMPARISON: April 27, 2018. Findings: Ill-defined lung infiltrate is seen within the right midlung zone which may represent pneumonia. There is also a new lung infiltrate within the medial left lung base. Therefore, bilateral pneumonia or aspiration pneumonitis are considerations. No pleural effusion or pneumothorax is evident. The heart size, pulmonary vasculature, mediastinum and both enmanuel are stable. Impression: New bilateral lung infiltrates. Electronically signed by: Elena Casterjon MD (05/27/2019 4:06 PM) [id number] DICTATED AND SIGNED BY: ELENA CASTREJON MD DATE: 05/27/19 1606 CC: SOFI ADAMES DO; MADY HERNANDEZ MD ~ Course & Med Decision Making Course & Med Decision Making Pertinent Labs and Imaging studies reviewed. (See chart for details) The patient's head CT is negative for acute findings. The patient's NIH scale was 23. He is spontaneously moving his extremities. He looks around with his eyes. He is unable to speak to us. I'm unable to determine if he can fully understand my commands. Sometimes it seems like he is trying to obey like gripping, then others he won't. His extremities fall with history of tests, but he is able to lift them on his own spontaneously. He appears to be having difficulty breathing with a wide-open gaping mouth. When he exhales, it is steps almost like he has hiccups in between while breathing out. His chest x-ray is significant for bilateral pneumonia. Given his source of infection, altered mental status, and borderline rectal temperature 100 Fahrenheit, I will treat the patient for sepsis. I have ordered 30 mL/kg of fluids. We will also give vancomycin and Zosyn because the patient has been in a care facility and is at risk for healthcare acquired pneumonia. Sepsis Reassessment 1715: The patient's blood pressure is within normal limits and stable. His fluids are continuing to run. He is getting his antibiotics at this time. No current change in mental status, though he has attempted to speak a few times. His breathing pattern has improved somewhat. 58 minutes of critical care time was spent on this patient exclusive of other billable procedures. [] Dragon Disclaimer Dragon Disclaimer This electronic medical record was generated, in whole or in part, using a voice recognition dictation system. NIH Stroke Scale: NIH Stroke Scale Response (Comments) Value Level of Consciousness: 0 Alert/Responsive 0 LOC Questions: 2 Answers neither correct 2 LOC Commands: 2 Perform neither task 2 Best Gaze: 0 Normal 0 Visual: 0 No visual loss 0 Facial Palsy: 1 Minor paralysis 1 Motor - Left Arm 2 Some effort 2 Motor - Right Arm 2 Some effort 2 Motor - Left Leg 2 Some effort 2 Motor: Right Leg 2 Some effort 2 Limb Ataxia: 2 Two limbs 2 Sensory: 1 Mid to moderate loss 1 Best Language: 3 Mute 3 Dysathria: 2 Severe 2 Extinction and Inattention: 2 Extinction 2 Total 23 Date and Time of Assessment Date: May 27, 2019 Time: 16:42 Vital Signs Vital Signs Vital Signs Date Time Temp Pulse Resp B/P (MAP) Pulse Ox O2 Delivery O2 Flow Rate FiO2 05/27/19 15:53 89 20 120/61 (80) 94 Nasal Cannula 4.0 05/27/19 15:18 98.9 Respirations Respiratory Effort: Labored Respiratory Pattern: [place] Cardiovascular Pulse Rhythm: Regular HEART: Nml rate, reg. rhythm Lung Sounds Breath Sounds: Coarse Capillary Refill Capillary Refill: Rt Hand < 3 seconds Peripheral Pulse Pulse Location: Monitor Pulse Strength: Normal (2+) Pulse Assessment Method: NIBP Integumentary Skin: Warm Skin Moisture: Dry Skin Turgor: Decreased Skin Color: pallor Fingernail Color: WNL Departure Departure: Impression: Primary Impression: Sepsis Additional Impressions: Pneumonia Altered mental status Disposition: 01 HOME/RESIDENCE PRIOR TO ADM Condition: STABLE Referrals: MADY HERNANDEZ MD (PCP) Problem Qualifiers Primary Impression: Sepsis Sepsis type: sepsis due to unspecified organism Sepsis acute organ dysfunction status: with acute organ dysfunction Severe sepsis acute organ dysfunction type: encephalopathy Severe sepsis shock status: without septic shock Qualified Codes: A41.9 - Sepsis, unspecified organism; R65.20 - Severe sepsis without septic shock; G93.40 - Encephalopathy, unspecified Additional Impressions: Pneumonia Pneumonia type: due to unspecified organism Laterality: bilateral Lung location: lower lobe of lung Qualified Codes: J18.1 - Lobar pneumonia, unspecified organism Altered mental status Altered mental status type: delirium Qualified Codes: R41.0 - Disorientation, unspecified SOFI ADAMES DO May 27, 2019 15:52
--- NOTE | 2019-05-27 16:09 | RAD ---
CHEST AP ONLY Clinical indications: Shortness of breath. COMPARISON: April 27, 2018. Findings: Ill-defined lung infiltrate is seen within the right midlung zone which may represent pneumonia. There is also a new lung infiltrate within the medial left lung base. Therefore, bilateral pneumonia or aspiration pneumonitis are considerations. No pleural effusion or pneumothorax is evident. The heart size, pulmonary vasculature, mediastinum and both enmanuel are stable. Impression: New bilateral lung infiltrates. Electronically signed by: Lino Castrejon MD (05/27/2019 4:06 PM) [id number]
[2019-05-27] MEDS ORDERED: VANCOMYCIN 1.5 GM in IV NORMAL SALINE 500ML 500 ML IV ONE (16:45)
[2019-05-27] MEDS: IV NORMAL SALINE 1,000ML 1,000 ML IV SCH ×2 (16:45→17:08)
[2019-05-27] MEDS ORDERED: PIPERACILLIN/TAZOBACTAM 3.375 GM in IV NORMAL SALINE 50ML 50 ML IV ONE (16:45)
[2019-05-27] MEDS ORDERED: VANCOMYCIN 2 GM in IV NORMAL SALINE 500ML 500 ML IV ONE (17:00)
[2019-05-27] MEDS ORDERED: PIPERACILLIN/TAZOBACTAM 3.375 GM VIAL IV ONE (17:19)
[2019-05-27] MEDS ORDERED: IV NORMAL SALINE 50ML 50 ML ONE (17:19)
--- NOTE | 2019-05-27 18:07 | NUR ---
The patient, ERICA MERCEDES, 89 y/o, M admitted by MADY HERNANDEZ MD, was given written information regarding hospital policies, unit procedures and contact persons. Valuables were checked and left in room. Family arrived with family and EMS to ICU 4. Patient is responsive to verbal stimuli but does not speak and just looks around when talking to patient. Vitals remain stable at this time, remains on 4L NC with sats at 94%. Patient has sonorous type breathing. Explained to patient DNR status, family understands and states they would like to continue ABT and treatment to see if this will help, states they understand Hospice and are willing to consult them when necessary. cinema or theatre manager/social media editor consulted.
[2019-05-27 18:15] VITALS: BP 122/65
[2019-05-27 19:30] VITALS: BP 143/66
[2019-05-27] MEDS: VANCOMYCIN PER PHARMACY MC PRN (20:35)
--- NOTE | 2019-05-27 20:36 | NUR ---
Pharmacy Vancomycin Dosing Note S:Consulted to monitor and dose vancomycin started 05/27/19. O:ERICA MERCEDES is a 89 year old M with Sepsis Pneumonia, . Height: 6 feet, 0 inches Weight: 86.8 kg [place] Body Weight: 77.60 Adjusted Body Weight: 81.28 Dosing Weight: Actual Other Antibiotics: ZOSYN 3.375GM IV Q6HR LABS: Last BUN: 32 Last Creatinine: 1.4 Creatinine Clearance: 41.12 Last WBC: 12.2 Vancomycin Dosing: Loading Dose: 2000 mg x1 Dosing Weight: Actual Target Trough: 10-20 A: Based on: Actual weight, renal function and indication P: 1. Begin Vancomycin 1250 mg IV q24h 2. Follow up Trough level on 05/29/19 at 1630 3. Pharmacy will continue to monitor, follow and adjust therapy as needed. GRACY DE DIOS, 05/27/192035
[2019-05-27 20:45] LABS: BACTERIA,URINE 0 /HPF (0-FEW); BILIRUBIN,URINE NEG (NEG); CLARITY,URINE HAZY; COLOR,URINE YELLOW; GLUCOSE,URINE NEG (NEG); GRANULAR CASTS,URINE OCC /HPF; HYALINE CASTS, URINE OCC /HPF; NITRITE,URINE NEG (NEG); SQUAMOUS EPITHELIAL CELL,UR OCC /LPF; UROBILINOGEN,URINE 0.2 mg/dL (0.2 mg/dL)
[2019-05-27] MEDS: IPRATRPIUM/ALBUTEROL 0.5/2.5MG 3 ML NEBU. NEB SCH (20:59)
[2019-05-27 21:00] VITALS: BP 127/64
[2019-05-27 22:00] VITALS: BP 114/65
[2019-05-27 23:00] VITALS: BP 124/77
[2019-05-28] VITALS (12 sets, daily range): BP systolic 91–132; BP diastolic 48–68
[2019-05-28] MEDS: PIPERACILLIN/TAZOBACTAM 3.375 GM in IV NORMAL SALINE 50ML 50 ML IV SCH ×4 (00:32→19:35)
--- NOTE | 2019-05-28 03:41 | NUR ---
Pt is resting comfortably. Earlier in shift, pt would not respond to his name or painful stimuli, however would open eye spontaneously. As the shift has progressed, pt is opening his eyes to his name and will look around and is mumbling. Pt has been suctioned frequently, when he is attempting to clear secretions, pt does open eyes. During oral care, he will wake up and reaches out to touch this nurses arm. Pt's respiratory rate is decreased, temp has decreased, decrease in sonorous breathing as well. WCTM. Pt is being turned Q2 hours.
[2019-05-28] MEDS: IPRATRPIUM/ALBUTEROL 0.5/2.5MG 3 ML NEBU. NEB SCH ×4 (04:51→20:40)
--- NOTE | 2019-05-28 06:16 | NUR ---
Pt is more alert this morning. He has been talking in a garbled voice to Rt and this nurse. He will follow commands of opening eyes, open mouth, and is now moving extremities in the bed. This nurse gave pt a bed bath, he was able to bend his knees and lift his arms and was able to attempt to rollover and used side rail to hold himself over on his side. His temperature is remaining below 99 F. During oral care, he does suck on the water without coughing. He is coughing up secretions, but swallowing them. Urine has lightened in color over this shift.
--- NOTE | 2019-05-28 09:53 | HP ---
ADMIT DATE: 05/28/2019 HISTORY OF PRESENT ILLNESS: An 89-year-old gentleman came in, apparently he was at a care facility, was having altered mental status, not able to speak much, came in through the Emergency Room, worked up for possible stroke that was ruled out. The patient worked up and found out that he had bilateral lobe pneumonia. The patient was basically unresponsive to verbal stimuli. The patient was admitted for further evaluation of his bilateral lobe pneumonia. PAST MEDICAL HISTORY: The patient's past medical history includes glaucoma, dementia, hypertension, abdominal surgery, hernia repair, appendectomy, prostate removed for prostate cancer, prostatectomy, incontinence, orthopedic surgery, back surgery, psychiatric problems of Alzheimer's, Lyme disease, pneumococcal vaccination was declined. FAMILY HISTORY: Unknown. ALLERGIES: PENICILLIN. MEDICATIONS: The patient's fdc medications hard for him to take since he is pretty much not able to swallow, includes aspirin, acetaminophen, Remeron 15 at bedtime, Zoloft, trazodone 50, trazodone 25, trazodone 12.5 at different times of the day, Zyprexa 1.25 mg every 2 hours p.r.n., Seroquel 25 mg daily, Seroquel 37.5 mg b.i.d., hydroxyzine 25 eyedrops for glaucoma, stool softener, glycerin, magnesium hydroxide, milk of magnesia, nystatin powder, B12, vitamin D3. SOCIAL HISTORY: No history of smoking, drinking presently and is a DNR. REVIEW OF SYSTEMS: Unable to get as the patient is unresponsive. PHYSICAL EXAMINATION: GENERAL: This is a well-developed, somewhat dilapidated individual. No apparent distress, breathing on his own. VITAL SIGNS: Blood pressure 123/66, respiratory rate anywhere from 26 to 24, pulse 91, temperature 98.9, was up to 100.3 originally. HEENT: The patient's head was atraumatic, normocephalic. Eyes: PERRLA. Mouth and throat: Normal except for dry mucous membranes. Poor dentition. NECK: Supple. LUNGS: Diminished primarily in the bases. CARDIOVASCULAR: Regular sinus rhythm. ABDOMEN: Soft, nontender. EXTREMITIES: No clubbing, cyanosis, nor edema. The patient was admitted for further evaluation. LABORATORY DATA: White count 12, hemoglobin 10.9. Sodium and potassium 145, 4.3, BUN and creatinine, 32, 1.4, glucose 107. X-ray shows bilateral lobe infiltrate. PLAN: Continue to monitor the patient accordingly, make further evaluation on him as indicated and will continue with IV antibiotic therapy and discuss further disposition with family members. MADY HERNANDEZ MD DR: BERTA/laney JOB#: [id number] / [id number]
--- NOTE | 2019-05-28 13:58 | NUR ---
NAHED received a call from Elizabeth at [facility] re: pt and receiving a referral from Dr. Campos on pt. Elizabeth was told to speak to the son about the option for their services and wanted to confirm the number she was given. It was her understanding that pt son was the appropriate person to contact. NAHED maintained in ICU and informed Elizabeth of Anand's phone number. NAHED offered to fax over pt facesheet. [facility] fax is .
[2019-05-28] MEDS: VANCOMYCIN 1.25 GM in IV NORMAL SALINE 250ML 250 ML IV SCH (17:10)
[2019-05-28] MEDS ORDERED: NYSTATIN 100,000 UNITS/ML ORAL SUSPENSION 60ML BOTTLE. SWSW PRN (17:30)
[2019-05-28] MEDS: HALOPERIDOL LACT 5 MG/ML VIAL. IVP PRN (18:08)
[2019-05-28] MEDS: ACETAMINOPHEN 650 MG SUPP.RECT. PR PRN (20:19)
[2019-05-29] VITALS (12 sets, daily range): BP systolic 106–142; BP diastolic 60–73
[2019-05-29] MEDS: PIPERACILLIN/TAZOBACTAM 3.375 GM in IV NORMAL SALINE 50ML 50 ML IV SCH ×2 (01:19→06:12)
[2019-05-29] MEDS: IPRATRPIUM/ALBUTEROL 0.5/2.5MG 3 ML NEBU. NEB SCH ×4 (05:18→20:01)
--- NOTE | 2019-05-29 06:44 | NUR ---
Pt became irate when this nurse tried to change his pulse ox. When this nurse asked to see a finger pt stated, "Here's a finger!" And he flipped this nurse off and tried to bend this nurse's finger back. Call light in place. Will continue to monitor.
[2019-05-29 09:19] LABS: BASO % 0 % (0-3); EOS # 0.1 x10^3/uL (0.0-0.7); EOS % 1 % (0-3); HEMATOCRIT 31.9 % (39.0-53.0); HEMOGLOBIN 10.5 g/dL (13.0-17.5); LYMPH # 0.7 x10^3/uL (1.0-4.8); LYMPH % 7 % (24-48); MEAN CORPUSCULAR HEMOGLOBIN 32 pg (25-35); MEAN CORPUSCULAR HGB CONC 33 g/dL (31-37); MEAN CORPUSCULAR VOLUME 98 fL (79-100); MONO # 1.2 x10^3/uL (0.0-1.1); MONO % 12 % (0-9); NEUT # 8.3 x10^3uL (1.8-7.7); NEUT % 80 % (31-73); PLATELET COUNT 282 x10^3/uL (140-400); RED BLOOD COUNT 3.27 x10^6/uL (4.30-5.70); RED CELL DISTRIBUTION WIDTH 14.5 % (11.5-14.5); WHITE BLOOD COUNT 10.3 x10^3/uL (4.0-11.0)
[2019-05-29 09:26] LABS: CALCIUM 8.9 mg/dL (8.5-10.1); CREATININE 1.5 mg/dL (0.7-1.3); GFR 44.1; POTASSIUM 4.1 mmol/L (3.5-5.1)
[2019-05-29] MEDS ORDERED: IV NORMAL SALINE 1,000ML 1,000 ML IV SCH (09:30)
[2019-05-29] MEDS: POTASSIUM CL 20MEQ IN D5W 1,000 ML IV SCH (10:13)
[2019-05-29] MEDS: ACETAMINOPHEN 650 MG SUPP.RECT. PR PRN (16:37)
[2019-05-29] MEDS: HALOPERIDOL LACT 5 MG/ML VIAL. IVP PRN (16:37)
[2019-05-29] MEDS: VANCOMYCIN 1.25 GM in IV NORMAL SALINE 250ML 250 ML IV SCH (17:38)
--- NOTE | 2019-05-29 17:48 | EKG ---
[address] [address] Test Date: 2019-05-27 Test Time: 15:06:35 Pat Name: ERICA MERCEDES Department: Room: [facility] 1 Gender: M Ip Attorney: LORENA : 1930 Requested By: MADY HERNANDEZ Order Number: [id number] Reading MD: Baljinder Chowdhury MD Measurements Intervals [place] Rate: 85 P: 17 CT: 148 QRS: 42 QRSD: 84 T: 42 QT: 332 QTc: 395 Interpretive Statements SINUS RHYTHM Electronically Signed On 06-03-2019 16:32:46 CDT by Baljinder Chowdhury MD
[2019-05-29] MEDS: LACTOBACILLUS RHAMNOSUS GG 1 CAPSULE. PO SCH (20:51)
--- NOTE | 2019-05-29 21:49 | PN ---
DATE: 05/29/2019 SUBJECTIVE: This is an 89-year-old male who has severe Alzheimer's type, basically unresponsive. The patient is receiving IV antibiotics for bilateral lobe pneumonia. The family is still in the decision mode of making a decision on where to send the patient. The patient will be given IV fluids. Sodium has gone up and showing signs of dehydration as he has not been able to eat. Otherwise, the patient seems to be resting fairly comfortably and will continue to be monitored carefully on that situation there. OBJECTIVE: VITAL SIGNS: Blood pressure 106/60, respiration 18, pulse 74, afebrile. LUNGS: Diminished primarily in the bases. CARDIOVASCULAR: Irregularly irregular. ABDOMEN: Soft. The patient on 3 liters at 92%. The patient has a [place] catheter and we will continue to monitor him accordingly and make further evaluation per family's request. He does have PREMA hoses around his leg. IMPRESSION: Bilateral pneumonia, dehydration and hypernatremia change in mental status. PLAN: Continue on IV antibiotics for now until family makes final decision on him as well. Also, correct the electrolyte imbalances and talked with the son who is present. MADY HERNANDEZ MD DR: BERTA/laney JOB#: [id number] / [id number]
[2019-05-30 02:27] VITALS: BP 123/71
[2019-05-30] MEDS: IPRATRPIUM/ALBUTEROL 0.5/2.5MG 3 ML NEBU. NEB SCH ×4 (05:07→21:48)
[2019-05-30] MEDS: POTASSIUM CL 20MEQ IN D5W 1,000 ML IV SCH (06:30)
[2019-05-30 06:47] LABS: CALCIUM 8.8 mg/dL (8.5-10.1); CREATININE 1.7 mg/dL (0.7-1.3); GFR 38.1; POTASSIUM 4.1 mmol/L (3.5-5.1)
--- NOTE | 2019-05-30 07:28 | CONS ---
DATE OF CONSULTATION: NEUROLOGICAL CONSULTATION REFERRING PHYSICIAN: Dr. Campos. REASON FOR CONSULTATION: Acute mental status changes. HISTORY OF PRESENT ILLNESS: This is an 89-year-old male who was admitted to Emergency Room on ____ patient. According to the care facility staff, the patient was found to be confused and not able to speak. It was reported that 1 day prior to the admission, he was talking normally and he was ambulating as well. In the Emergency Room, the patient was found unresponsive to verbal commands. Initial nonenhanced head CT scan revealed no evidence of acute intracranial process and initial chest x-ray revealed evidence of bilateral infiltrates. The patient was diagnosed with bilateral pneumonia and admitted for further management. Today, the patient was alert, but not able to provide any information. PAST MEDICAL HISTORY: Significant for dementia, probably of Alzheimer type, Lyme disease, glaucoma, hypertension, urinary incontinence, and chronic low back pain. PAST SURGICAL HISTORY: Significant for appendectomy, prostatectomy, and low back surgeries. SOCIAL HISTORY: [facility] is a [facility]. There is no history of smoking, alcohol drinking, or illicit drug use. CURRENT MEDICATIONS: Vancomycin IV with Rocephin IV, Tylenol p.r.n., haloperidol 0.5 mg IV push b.i.d., albuterol nebulizer. ALLERGIES: PENICILLIN. REVIEW OF SYSTEMS: A 10-point review of system was performed as consistent with history of present illness. PHYSICAL EXAMINATION: GENERAL: Well-developed, well-nourished male, in acute distress. He weighs 81.8 kilos. VITAL SIGNS: Blood pressure 123/72, respiratory rate 20, pulse is 72 regular, temperature 98.4, and oxygen saturation is 92% on 3 liters by nasal cannula. HEENT: Normocephalic, atraumatic. NECK: Supple. Negative for carotid bruit, JVD, thyromegaly, or lymphadenopathy. LUNGS: With diminished breath sounds bilaterally. CARDIOVASCULAR: Regular rhythm, normal S1, S2. ABDOMEN: Soft. Bowel sounds positive. EXTREMITIES: Negative for cyanosis, clubbing, or pitting edema. NEUROLOGICAL EXAM: Mental Status: The patient is awake. He follows 1 simple command, appeared to be confused, disoriented x 3. Speech is slow, but not dysarthric. Further evaluation of mental status is limited at this time. Cranial nerves: Pupils are reactive to light and accommodation. The extraocular movements are intact. There is no nystagmus. There is no facial motor or sensory deficit. Hearing appeared to be intact. The palate is elevated symmetrically. Sternocleidomastoid muscles are powerful bilaterally. The patient does not shrug his shoulder or protrudes his tongue. Motor examination: No focal muscle bulk was seen. The tone is normal. The strength is difficult to evaluate at this time as the patient does not cooperate. Sensory examination revealed the patient withdraws his extremities to noxious stimuli. Deep tendon reflexes were symmetric and hypoactive with absent Achilles responses. Gait not tested. DIAGNOSTIC DATA: Initial nonenhanced CT scan and chest x-ray as mentioned above in the history of present illness. LABORATORY DATA: White cells of 10.3 thousand, hemoglobin 10.5, hematocrit 31.9, and platelet count 282,000. Chemistry revealed a sodium of 152, potassium 4.1, chloride 113, CO2 of 28, BUN 34, creatinine 1.5, glucose 119, calcium 8.1, and lactic acid 1.1. Urinalysis, no evidence of urinary tract infections. PT is 11.1, INR 1.1. IMPRESSION: 1. Acute encephalopathy, probably multifactorial including recent pneumonia and worsening of his dementia. 2. Longstanding history of dementia and possible Alzheimer type, multiple medical problems include history of Lyme disease, currently bilateral pneumonia, renal insufficiency/failure. 3. Dehydration. 4. Hypernatremia 5. Anemia of chronic type. RECOMMENDATIONS: 1. Treat the underlying pneumonia and continue with current management and care. 2. Physical therapy evaluation. M Evie NAVARRO MD DR: KWASI/laney JOB#: [id number] / [id number]
[2019-05-30] MEDS: LACTOBACILLUS RHAMNOSUS GG 1 CAPSULE. PO SCH ×2 (09:00→20:21)
[2019-05-30 09:38] VITALS: BP 132/69
[2019-05-30] MEDS: VANCOMYCIN PER PHARMACY MC PRN (11:34)
--- NOTE | 2019-05-30 11:35 | NUR ---
Pharmacy Vancomycin Dosing Note S:Consulted to monitor and dose vancomycin started 05/27/19. O:ERICA MERCEDES is a 89 year old M with pneumonia Height: 6 feet, 0 inches Weight: 83.571446 kg [place] Body Weight: 77.60 Adjusted Body Weight: 81.28 Dosing Weight: Actual Other Antibiotics: ROCEPHIN LABS: Last BUN: 33 Last Creatinine: 1.7 Creatinine Clearance: 33 Last WBC: 10.3 Drug Levels: Last Trough level: 11.0 on 05/29/19 at 1630 Last dose given at Vancomycin Dosing: Loading Dose: 2000 mg x1 Dosing Weight: Actual Target Trough: 10-20 A: The vanco trough was 11.0, but we will not increase the dose at this time due to his declining renal function. P: 1. Continue Vancomycin 1250 mg IV q24h 2. Follow up Trough level in 5-7 days or as indicated. 3. Pharmacy will continue to monitor, follow and adjust therapy as needed. LA VELOZ, [facility] 05/30/19 [id number]
--- NOTE | 2019-05-30 11:39 | RAD ---
CHEST AP ONLY Clinical Indication: Pneumonia Comparison: 05/27/2019 AP view of the chest. Findings: Portable frontal view chest was obtained. The cardiomediastinal silhouette is normal. Right midthoracic opacification is similar to prior exam. Retrocardiac region is not optimally delineated due to underpenetrated technique. There is no pneumothorax. No pleural effusion is appreciated. No acute bone abnormality. IMPRESSION: Right mid thoracic level infiltrate is similar to prior exam. Continued follow-up to resolution recommended. Electronically signed by: Slick Quintanilla MD (05/30/2019 11:36 AM) [facility]
[2019-05-30 13:06] VITALS: BP 135/75
[2019-05-30 15:51] VITALS: BP 143/74
[2019-05-30] MEDS: VANCOMYCIN 1.25 GM in IV NORMAL SALINE 250ML 250 ML IV SCH (16:59)
[2019-05-30 22:30] VITALS: BP 147/80
[2019-05-31] MEDS: POTASSIUM CL 20MEQ IN D5W 1,000 ML IV SCH ×3 (02:00→17:06)
--- NOTE | 2019-05-31 02:11 | PN ---
DATE: SUBJECTIVE: The patient seems to be a little bit more alert today and with pneumonia and sepsis. I talked to the son. The patient basically is nonverbal, although he seems to be more alert today than he has been. OBJECTIVE VITAL SIGNS: Blood pressure 132/70, respiratory rate 20, pulse 74, afebrile. LUNGS: Diminished throughout. CARDIOVASCULAR: Regular sinus rhythm. ABDOMEN: Soft, nontender. EXTREMITIES: No clubbing, cyanosis or edema. NEUROLOGIC: As noted basically unresponsive to speech, although he does open his eyes and nods a little bit. He has been having trouble with swallowing and consequently the recommendation is maybe ice chips, possibly later on if he seems to improve. IMPRESSION: Bilateral lobe pneumonia, sepsis, dysphagia, severe Alzheimer's disease, anemia of chronic disease, severe protein malnutrition. Family will decide if they want to place a feeding tube in him or not. MADY HERNANDEZ MD DR: BERTA/laney JOB#: [id number] / [id number]
[2019-05-31] MEDS: IPRATRPIUM/ALBUTEROL 0.5/2.5MG 3 ML NEBU. NEB SCH ×4 (05:58→22:15)
[2019-05-31 06:45] VITALS: BP 107/51
--- NOTE | 2019-05-31 06:53 | PN ---
DATE: SUBJECTIVE: The patient is not able to present any complaints at this time. He does not answer the questions. According to the nursing staff, the patient is more alert since last night. OBJECTIVE: GENERAL: Well-developed, well-nourished male, not in acute distress. VITAL SIGNS: Blood pressure 152/69, respiratory rate 20, pulse is 74 and regular, temperature is 98.5, oxygen saturation is 97% on 3.5 ____. HEENT: Normocephalic, atraumatic, otherwise unremarkable. NECK: Supple. Negative for carotid bruit, lymphadenopathy or thyromegaly. LUNGS: With diminished breath sounds bilaterally. CARDIOVASCULAR: Regular rate and rhythm, normal S1, S2. ABDOMEN: Soft. Bowel sounds positive. EXTREMITIES: Negative for cyanosis, clubbing or edema. NEUROLOGICAL EXAM: Mental Status: The patient is awake, but does not answer any questions. The pupils are equal and reactive to light and accommodation. The extraocular movements are intact. There is no nystagmus. There is no facial motor or sensory deficit. Hearing appeared to be intact. Motor examination revealed no focal muscle bulk was seen. The tone is normal. The patient moves his all extremities spontaneously and equally. Sensory examination revealed normal pinprick and light touch senses. Deep tendon reflexes were asymmetric and hypoactive with absent Achilles responses. LABORATORY DATA: Sodium is 150, potassium 4.1, chloride 113, pCO2 of 27, BUN 33, creatinine 1.7, glucose 136, calcium 8.8. IMPRESSION: 1. Acute encephalopathy, probably multifactorial, aggravated by current pneumonia. 2. Multiple medical problems include renal insufficiency/dehydration, hypernatremia and anemia of chronic type. 3. Dementia also of Alzheimer type with history of Lyme disease. RECOMMENDATIONS: Continue with current management and avoid excessive sedation. M Evie NAVARRO MD DR: KWASI/laney JOB#: [id number] / [id number]
[2019-05-31] MEDS: LACTOBACILLUS RHAMNOSUS GG 1 CAPSULE. PO SCH ×2 (07:34→21:00)
--- NOTE | 2019-05-31 09:49 | NUR ---
Pt is resting comfortably this morning. Repositioned x 2 assist. Oral care provided. [place] to DDD with straw colored urine.
[2019-05-31 11:09] VITALS: BP 129/68
--- NOTE | 2019-05-31 13:07 | PN ---
DATE: SUBJECTIVE: This is an 89-year-old male with aspiration, probably aspiration pneumonia. The patient's x-ray yesterday did not demonstrate much improvement despite the use of IV antibiotic therapy. The patient is a little bit more alert today, although he does not really speak much and has been baseline for him. OBJECTIVE: VITAL SIGNS: Blood pressure is 110/50, respiratory rate 16, pulse 86, afebrile. GENERAL: The patient is arousable, opens his eyes, and is kind of shakes his head, unable to really speak. LUNGS: Diminished throughout. CARDIOVASCULAR: Irregular rhythm with a 1/6 systolic ejection murmur. ABDOMEN: Soft, protuberant. EXTREMITIES: No clubbing, cyanosis, nor edema. IMPRESSION: The patient otherwise with bilateral lobe infiltrate, sepsis, dysphagia, severe Alzheimer's disease, anemia of chronic disease, severe protein malnutrition, and still waiting to hear from the family, if they want a tube feeding or not. MADY HERNANDEZ MD DR: BERTA/laney JOB#: [id number] / [id number]
--- NOTE | 2019-05-31 13:25 | PN ---
DATE: SUBJECTIVE: The patient is unable to communicate. He is slightly awake, but he is still confused and disoriented. OBJECTIVE: GENERAL: Well-developed, well-nourished male, not in acute distress. VITAL SIGNS: Blood pressure 107/51, respiratory rate 16, pulse is 86, temperature 98.9, oxygen saturation is 95% on 3 liters via nasal cannula. HEENT: Normocephalic, atraumatic, otherwise unremarkable. NECK: Supple. Negative for carotid bruit, lymphadenopathy. CARDIOVASCULAR: Regular rate and rhythm, normal S1, S2. ABDOMEN: Soft. Bowel sounds positive. EXTREMITIES: Negative for cyanosis, clubbing or edema. NEUROLOGICAL EXAM: Mental Status: The patient is awake, but noncommunicative, does not follow any commands. Cranial nerves: Pupils are equal and sluggishly reactive to light and accommodation. The extraocular movements are intact. There is no nystagmus. There is no facial motor or sensory deficit. Motor examination: The patient moves his legs and upper extremities equally. He does not have any focal motor deficit. Sensory examination: Revealed normal pinprick and light touch senses. Deep tendon reflexes were symmetric and hypoactive with absent Achilles responses. DIAGNOSTIC DATA: Chest x-ray from 05/30/2019 revealed right mid thoracic infiltrate, unchanged from previous study. IMPRESSION: 1. Longstanding history of Alzheimer disease, which has been worsened recently with pneumonia. 2. Dysphagia, malnutrition, dehydration, renal insufficiency. RECOMMENDATIONS: I have discussed with the patient's about a feeding tube placement and she stated that she would consult with her son today when he visits. Otherwise, we will continue with current management initiated by Dr. Campos. M Evie NAVARRO MD DR: KWASI/lanye JOB#: [id number] / [id number]
[2019-05-31] MEDS: HALOPERIDOL LACT 5 MG/ML VIAL. IVP PRN (13:29)
--- NOTE | 2019-05-31 14:21 | NUR ---
Pt is restless in bed and attempting to talk however staff and family is unable to understand pt. IV site assessment and found to be leaking. IV dc'd and new IV inserted in right FA. Pt tolerated procedure well, fluids infusing.
[2019-05-31 16:36] VITALS: BP 119/71
[2019-05-31] MEDS: VANCOMYCIN 1.25 GM in IV NORMAL SALINE 250ML 250 ML IV SCH (17:07)
[2019-05-31 20:00] VITALS: BP 126/73
[2019-05-31 23:00] VITALS: BP 126/68
[2019-06-01] MEDS: POTASSIUM CL 20MEQ IN D5W 1,000 ML IV SCH (04:45)
--- NOTE | 2019-06-01 05:00 | NUR ---
Pt has been resting comfortably this shift. He does respond to his name, he will turn his head to look at you and tries to speak, it comes out as mumbling. Pt has been turned every 2 hours. Pt has not had any coughing episodes this shift. VSS. Total urine output is 700 for the shift.
[2019-06-01] MEDS: IPRATRPIUM/ALBUTEROL 0.5/2.5MG 3 ML NEBU. NEB SCH ×2 (05:26→09:28)
[2019-06-01 06:00] VITALS: BP 117/80
[2019-06-01] MEDS: LACTOBACILLUS RHAMNOSUS GG 1 CAPSULE. PO SCH (07:59)
[2019-06-01 09:07] VITALS: BP 130/66
--- NOTE | 2019-06-01 09:50 | NUR ---
Certified Breastfeeding Educator spoke with [facility] in regards to patient status, [facility] to eval and tx. Dr Campos agreeds with plan of care. Patient remains in same state as when patient arrived to hospital. Patient continues to require assistance with repositioning, awakens and looks at staff only to verbal stimuli but does not speak to staff. Patient appears comfortable at this time, remains on 2.5L NC of Oxygen with sats at 95%. Lungs sound diminished and continues to use abdominal muscles to breath. Son states that he agrees with hospice and wants patient to remain comfortable. Pt also failed speech therapy consult and has been NPO since hospital stay, porter remains patent and intact. Last BM 05/31. Awaiting for physician to arrive to see patient.
--- NOTE | 2019-06-01 10:20 | NUR ---
Report given to Kimberly SHEPHERD at [facility] at this time. Will send patient back via EMS. [facility] notified of consult.
--- NOTE | 2019-06-01 10:40 | PN ---
DATE: SUBJECTIVE: No significant change in his mental status or neurological complaints. The patient continued to be noncommunicative, does not follow any commands and he does not eat or drink because of severe dysphagia. OBJECTIVE: GENERAL: Well-developed, well-nourished male, not in acute distress. VITAL SIGNS: Blood pressure 130/66, respiratory rate 20, pulse is 74 and regular, oxygen saturation is 95% on 3 liters by nasal cannula and temperature is 97.8. HEENT: Normocephalic, atraumatic, otherwise unremarkable. NECK: Supple. Negative for carotid bruit, lymphadenopathy or thyromegaly. LUNGS: With diminished breath sounds. CARDIOVASCULAR: Regular rhythm, normal S1, S2. ABDOMEN: Soft. EXTREMITIES: Negative for cyanosis, clubbing or edema. NEUROLOGICAL EXAM: The patient is awake, but noncommunicative, does not follow any commands. Pupils are equal and sluggishly reactive. No facial asymmetry. Motor examination revealed no focal muscle bulk was seen. The patient does not move extremity to commands. Sensory examination revealed normal pinprick senses. Deep tendon reflexes were hypoactive with absent Achilles responses. Gait not tested. IMPRESSION: 1. Severe encephalopathy, probably multifactorial. 2. Pneumonia. 3. Multiple psychiatric problems including dementia of Alzheimer type, severe dysphagia, malnutrition, dehydration and renal failure or insufficiency. RECOMMENDATIONS: The patient will be discharged back to hospice. The family does not want any aggressive care at this time. They do not want to have a feeding tube. M Evie NAVARRO MD DR: KWASI/laney JOB#: [id number] / [id number]
--- NOTE | 2019-06-01 10:40 | NUR ---
[facility] notified at this time. IV removed and belongings in place.
--- NOTE | 2019-06-01 11:21 | NUR ---
Patient transfered Via EMS at this time to [facility] with belongings.
== END 2019-06-01 11:22 | disposition hospice, home (50) | DRG 871 ==
LOC: ER 14:57 → ICU 17:29
PROVIDERS: ADMIT Family Medicine; ATTEND Family Medicine
DX: A41.9 Sepsis, unspecified organism (principal); J18.9 Pneumonia, unspecified organism; E43 Unspecified severe protein-calorie malnutrition; G93.40 Encephalopathy, unspecified; E87.0 Hyperosmolality and hypernatremia; E86.0 Dehydration; D63.8 Anemia in other chronic diseases classified elsewhere; F02.80 Dementia in other diseases classified elsewhere, unspecified severity, without behavioral disturbance, psychotic disturbance, mood disturbance, and anxiety; H40.9 Unspecified glaucoma; I10 Essential (primary) hypertension; G30.9 Alzheimer's disease, unspecified; J01.30 Acute sphenoidal sinusitis, unspecified; K21.9 Gastro-esophageal reflux disease without esophagitis; N19 Unspecified kidney failure; R13.10 Dysphagia, unspecified; Z86.19 Personal history of other infectious and parasitic diseases; Z87.01 Personal history of pneumonia (recurrent); F32.9 Major depressive disorder, single episode, unspecified; G89.29 Other chronic pain; Z68.23 Body mass index [BMI] 23.0-23.9, adult
CPT/HCPCS: 36415; 70450; 71045; 80048; 80202; 81001; 82040; 82947; 83605; 85025; 85027; 85610; 85730; 87641; 93005; 94640; 96365; 96368; J0696; J1630; J2543; J3370; J7040; J7042; J7050; J7620; 92610; 99291-25; J7030